=== PATIENT | male | born 1940 | race African-American/Black ===

== ENCOUNTER 2023-05-02 05:46 | Emergency (ER) | payer MEDICARE, SELFPAY ==
--- NOTE | ~2023-05-02 | XR_ITS ---
EXAMINATION: XR chest 1V portable INDICATION: Shortness of breath and nausea TECHNIQUE: Portable AP chest at 0810 hours COMPARISON: None available FINDINGS: The lungs are free of acute opacities. No pleural effusion or pneumothorax. The cardiomedia stinal silhouette is normal. Surgical changes are noted in the cervical spine. IMPRESSION: 1. No acute cardiopulmonary abnormality. Reviewed, dictated and finalized at location L.
[2023-05-02 05:43] VITALS: BP 106/62; PULSE 104; RESP 20; O2SAT 96
--- NOTE | 2023-05-02 06:06 | PC.NURSE ---
Pt given 4mg Zofran IV push upon arrival. This was a verbal order given by Dr. ruiz
--- NOTE | 2023-05-02 06:08 | PC.NURSE ---
Pt placed on 2L o2 at this time due to pt stating 89,90 % on room air. Pt repots history of sleep apnea.
[2023-05-02] MEDS: ONDANSETRON INJ 4 MG/2 ML VIAL IV PUSH ×2 (06:25→07:53)
--- NOTE | 2023-05-02 06:33 | ECG_ITS ---
Measurements Intervals [place] Rate: 97 P: 26 SD: 172 QRS: -23 QRSD: 90 T: 50 QT: 308 QTc: 392 Interpretive Statements SINUS RHYTHM WITH SINUS ARRHYTHMIA LEFT VENTRICULAR HYPERTROPHY BORDERLINE R WAVE PROGRESSION, ANTERIOR LEADS BASELINE ARTIFACT- I, II, III, AVR, AVL, AVF BORDERLINE ECG NO PREVIOUS ECG AVAILABLE FOR COMPARISON Electronically Signed On 05-02-2023 6:57:42 CDT by Blane Hess D.O.
[2023-05-02 07:08] VITALS: BP 116/57; PULSE 101; PULSE 99; RESP 16; O2SAT 100
[2023-05-02] MEDS: SODIUM CHLORIDE 0.9% IV 1,000 ML 999 ML IV CONT (07:53)
[2023-05-02] MEDS: MORPHINE SULFATE (*CRX) 4 MG/ML INJ IV PUSH (07:53)
[2023-05-02 08:22] VITALS: BP 115/76; PULSE 96; RESP 24; O2SAT 96
[2023-05-02 08:28] LABS: Hematocrit 41.5 % (42.0-52.0); Mean Corpuscular HGB Conc 31.3 g/dl (32-36); Mean Corpuscular Hemoglobin 27.6 pg (26-34); Mean Corpuscular Volume 88.1 fl (80-100); Platelet Count Result 363 k/mm3 (150-375); Red Blood Count 4.71 M/mm3 (4.6-6.20); White Blood Count 30.2 K/mm3 (4.5-10.0)
[2023-05-02 08:43] LABS: Alanine Aminotransferase 27 U/L (6-50); Albumin Level 3.7 g/dL (3.5-5.1); Alkaline Phosphatase 91 U/L (38-126); Anion Gap 3 mmol/L (8-16); Aspartate Amino Transferase 38 U/L (17-59); Bilirubin,Total 0.5 mg/dL (0.2-1.3); Blood Urea Nitrogen 82 mg/dL (9-20); Calcium 11.3 mg/dL (8.4-10.2); Carbon Dioxide 33 mmol/L (22-30); Chloride 96 mmol/L (98-107); Estimated CRCL calculation 36 ml/min; Estimated Glomerular Filt Rate 44; Glucose 156 mg/dL (65-110); Potassium 4.5 mmol/L (3.4-5.0); Sodium 132 mmol/L (137-145)
[2023-05-02 08:55] LABS: Troponin I < 0.012 ng/mL (0.000-0.034)
[2023-05-02 09:31] LABS: Band Neutrophils Percent 6 % (0-6); Lymphocytes Absolute Manual 3.32 K/mm3 (1.1-4.5); Metamyelocytes Percent 1 %; Monocytes Percent Manual 3 % (3-9); Myelocytes Percent 3 %; Neutrophils Absolute Manual 24.76 K/mm3 (1.3-6.7); Neutrophils Percent Manual 76 % (46-73); Platelet Estimate Adequate (Adequate); Total Cells Counted 100
[2023-05-02 09:33] LABS: Schistocytes None Seen (NORMAL)
[2023-05-02 10:25] VITALS: BP 108/64; PULSE 96; RESP 18; O2SAT 92
--- NOTE | 2023-05-02 10:47 | ED.GENADULT ---
HPI - General Adult General Chief complaint: Unspecified Stated complaint: BACK NECK AND CHEST PAIN Time Seen by Provider: 05/02/23 07:04 History of Present Illness HPI narrative: This is an 82-year-old male with past history of type 2 diabetes, hypertension, white blood cell count elevation of unknown cause and cervical stenosis, who presents to the emergency department with multiple complaints from his rehab facility. Reportedly, the patient complained of neck chest and back pain. On my evaluation, the patient's only complaint is pain at his buttock related to a pressure ulcer. He has no other complaints at this time. Related Data Allergies Allergy/AdvReac Type Severity Reaction Status Date / Time No Known Allergies Allergy Verified 05/02/23 07:11 Review of Systems Review of Systems: CONSTITUTIONAL: Denies fever, chills, or sweats. CARDIOVASCULAR: Denies chest pain, palpitations, or edema. RESPIRATORY: Denies cough or dyspnea. GASTROINTESTINAL: Denies abdominal pain, nausea, vomiting, or diarrhea. GENITOURINARY: Denies dysuria or hematuria. SKIN: Denies rash or itching. MUSCULOSKELETAL: Right buttock pain denies back pain, or myalgia. NEUROLOGIC: Denies headache, numbness, dizziness, or weakness. PSYCHIATRIC: Denies anxiety or depression. [facility] Past Medical History Medical History (Updated 05/02/23 @ 11:16 by Zackary Loera MD) Acute kidney injury superimposed on CKD Cervical stenosis of spine Diabetes mellitus type 2 in obese Hyperlipidemia Hypertension Social History Social History Smoking status: Former smoker Tobacco type: cigarettes Alcohol intake: never Substance use: never Substance use type: does not use Spiritual care concerns: No Exam Narrative: GENERAL: Well-developed, well-nourished, and in no acute distress. HEAD: Normocephalic, atraumatic. EYES: PERRLA and EOMI. ENT: Nares clear, no rhinorrhea or epistaxis. Mucous membranes moist. Oropharynx without tonsillar hypertrophy exudate or other lesions. NECK: Supple. No adenopathy or masses. No JVD CHEST: Clear to auscultation. No respiratory distress. No wheezes rales or rhonchi HEART: Regular rate and rhythm. No murmur heard. Normal peripheral pulses. ABDOMEN: Soft, nontender, nondistended, normal active bowel sounds. EXTREMITIES: There is an unstageable pressure ulcer to the right buttock with tenderness to palpation but no surrounding erythema, induration, bleeding or purulent drainage. Normal range of motion. No edema. SKIN: Warm, dry, no rash. NEURO: No focal deficits. Alert and oriented x3. PSYCH: Normal mood and affect. Course Course Emergency Course: 11:05 - CBC demonstrates white blood cell count elevation to 30.2, however this is chronic and currently being worked up at his rehab facility. Hemoglobin 13.0, increased from his baseline of 12. Creatinine elevated at 1.8 from 1.3 with mild hyponatremia of 132, not significantly changed from 7 days ago. I suspect the patient is dehydrated. Troponin negative. EKG not concerning for STEMI. Chest x-ray unremarkable. The patient is satting 95% on room air. On reevaluation, the patient states his pain is controlled and he has no other complaints. I discussed the patient with rehab facility nurse Yvonne, who is comfortable with return to his facility. Vital Signs Vital signs: Vital Signs Pulse Rate 104 H 05/02/23 05:43 Respiratory Rate 20 05/02/23 05:43 Blood Pressure 106/62 05/02/23 05:43 Pulse Oximetry 96 05/02/23 05:43 Oxygen Delivery Room Air 05/02/23 05:43 Pulse Rate 96 05/02/23 10:25 Respiratory Rate 18 05/02/23 10:25 Blood Pressure 108/64 05/02/23 10:25 Pulse Oximetry 92 05/02/23 10:25 Oxygen Delivery Room Air 05/02/23 05:43 Medical Decision Making [facility] Narrative Medical decision making narrative: Plan: Labs, imaging, pain control, EKG, troponin, reasse
[2023-05-02 11:36] VITALS: BP 108/63; PULSE 93; RESP 20; O2SAT 96
--- NOTE | 2023-05-02 11:46 | PC.NURSE ---
this RN attempted to call nurse to nurse report at [phone] w/out answer at this time. Will re attempt on pt departure from ER.
== END 2023-05-02 14:16 ==
PROVIDERS: Emergency Provider Preventive Medicine Aerospace Medicine; PCP Hospitalist
DX: L89.310 Pressure ulcer of right buttock, unstageable (principal); I12.9 Hypertensive chronic kidney disease with stage 1 through stage 4 chronic kidney disease, or unspecified chronic kidney disease; E11.22 Type 2 diabetes mellitus with diabetic chronic kidney disease; N18.9 Chronic kidney disease, unspecified; E78.5 Hyperlipidemia, unspecified
CPT/HCPCS: 36415; 71045; 80053; 84484; 85025; 93005; 96361; 96374; 96375; 96376; 99284; J2270; J2405; J7030

== ENCOUNTER 2023-05-03 14:30 | Inpatient (IN) | payer MEDICARE, SELFPAY ==
[2023-05-03] VITALS (34 sets, daily range): BP systolic 55–114; BP diastolic 29–76; PULSE 92–107; RESP 18–31; TEMP 37.5–37.9; O2SAT 93–100; BMI 35.9
--- NOTE | ~2023-05-03 | XR_ITS ---
EXAMINATION: XR chest 1V portable INDICATION: Unresponsive patient TECHNIQUE: Portable AP chest at 1532 hours COMPARISON: 05/02/2023 FINDINGS: The lung volumes are low. There is mild atelectasis of the lung bases. The cardiomediastina l silhouette is normal for technique. No pleural effusion or pneumothorax. IMPRESSION: 1. Mild atelectasis of the lung bases. Reviewed, dictated and finalized at location B.
--- NOTE | ~2023-05-03 | CT_ITS ---
EXAMINATION: CT chest abdomen pelvis wo con DATE: 05/03/2023 19:24 INDICATION: Vomiting. Aspiration. TECHNIQUE: Computed tomography (CT) of the chest, abdomen, and pelvis was performed without intraveno us contrast. Automated exposure control and iterative reconstruction technique were employed. The dos e-length product was 1603.78 mGy-cm. COMPARISON: None FINDINGS: CHEST CT: There is mild emphysema. There are airspace and groundglass opacities with volume loss in the lungs w ith a posterior predominance, likely atelectasis. There are trace pleural effusions. The heart size i s normal. There are coronary artery calcifications. No pericardial effusion. The nasogastric tube tip is in the stomach. There is mild thoracic spondylosis. ABDOMEN/PELVIS CT: The liver, gallbladder, spleen, pancreas, adrenal glands, and kidneys are normal. There is no urolith iasis. There is an umbilical hernia containing a loop of small bowel. Small bowel is dilated proximal to the hernia and decompressed distal to the hernia. The appendix is normal. There is calcified athe rosclerosis of the aorta and many of the other arteries. There are no pathologically enlarged lymph n odes. There is no free intraperitoneal fluid. There are injection sites in anterior abdominal wall. T he bladder is decompressed by a Roberto catheter. The prostate is mildly enlarged. There is mild lumbar spondylosis. IMPRESSION: 1. Small bowel obstruction secondary to an umbilical hernia. 2. Mild emphysema. Reviewed, dictated and finalized at location E.
--- NOTE | ~2023-05-03 | XR_ITS ---
Portable chest x-ray Comparison: 05/07/2023 Clinical History: Mechanical ventilation Findings: NG tube is in satisfactory position. There is probable mild bibasilar atelectatic change. Cardiomediastinal silhouette is stable. Bones and soft tissues are unremarkable. Impression: Probable mild bibasilar atelectatic change, otherwise clear lungs. NG tube in place. Reviewed, dictated and finalized at location . Impression: Probable mild bibasilar atelectatic change, otherwise clear lungs. NG tube in place.
--- NOTE | ~2023-05-03 | US_ITS ---
EXAMINATION: US venous doppler [facility] DATE: 05/06/2023 14:42 INDICATION: Lower limb swelling. TECHNIQUE: Grayscale ultrasound images without and with compression and Doppler ultrasound images of the bilateral lower extremity veins were obtained. COMPARISON: None. FINDINGS: There is thrombus in the right common femoral vein, profunda (deep) femoral vein, femoral vein, popli teal vein, peroneal veins, and greater saphenous vein. The visualized portions of left common femoral vein, profunda femoral vein, femoral vein, popliteal v ein, peroneal veins, posterior tibial veins, and greater saphenous vein outflow are patent. IMPRESSION: 1. Extensive deep vein thrombosis in right lower limb. I called this result to Radha Matt. Reviewed, dictated and finalized at location E.
--- NOTE | ~2023-05-03 | XR_ITS ---
EXAMINATION: XR abdomen NG/feed tube insert DATE: 05/03/2023 19:11 INDICATION: Nasogastric tube placement. TECHNIQUE: An upright view of the abdomen was obtained. COMPARISON: None. FINDINGS: The lower abdomen is excluded. There are dilated loops of small bowel. The nasogastric tube tip is in the stomach. IMPRESSION: 1. Nasogastric tube tip in the stomach. 2. Dilated small bowel, consistent with small bowel obstruction. Reviewed, dictated and finalized at location E.
--- NOTE | ~2023-05-03 | XR_ITS ---
Portable chest x-ray Comparison: 05/03/2023 Clinical History: Tube placement Findings: Endotracheal tube and NG tube are in satisfactory positions. There is minimal bibasilar esparza ziness. Cardiomediastinal silhouette is stable. Bones and soft tissues are unremarkable. Impression: Support tubes in place, as above. Minimal bibasilar haziness. Consider minimal pulmonary edema or possibly chronic interstitial disease /COPD. Reviewed, dictated and finalized at location . Impression: Support tubes in place, as above. Minimal bibasilar haziness. Consider minimal pulmonary edema or possibly chroni c interstitial disease/COPD.
--- NOTE | ~2023-05-03 | XR_ITS ---
Portable chest x-ray Comparison: 05/04/2023 Clinical History: Respiratory failure Findings: Endotracheal tube and NG tube are in satisfactory positions. Possible mild haziness in the left perihilar region. Right lung clear. Cardiomediastinal silhouette is stable. Bones and soft tis sues are unremarkable. Impression: Support tubes in place, as above. Mild haziness left perihilar region. Consider mild asymmetric pulmonary edema versus possible infecti on. Reviewed, dictated and finalized at location M. Impression: Support tubes in place, as above. Mild haziness left perihilar region. Consider mild asymmetric pulmonary edema v ersus possible infection.
--- NOTE | ~2023-05-03 | XR_ITS ---
Portable chest x-ray Comparison: 05/08/2023 Clinical History: Respiratory failure Findings: There is discoid left basilar atelectasis or scarring. Old minimal bibasilar interstitial prominence. Cardiomediastinal silhouette is stable. Bones and soft tissues are unremarkable. Impression: Discoid left basilar atelectasis or scarring. Minimal bibasilar interstitial prominence, nonspecific. Correlate for COPD and/or chronic interstitia l disease. Reviewed, dictated and finalized at location . Impression: Discoid left basilar atelectasis or scarring. Minimal bibasilar interstitial prominence, nonspecific. Correlate for COPD and/ or chronic interstitial disease.
--- NOTE | ~2023-05-03 | XR_ITS ---
XR chest 1V portable DATE: 05/07/2023 05:34 INDICATION: Mechanical ventilation TECHNIQUE: Portable AP chest on 05/07/2023 at 0514 hours COMPARISON: Portable AP chest on 05/06/2023 0521 hours FINDINGS: ET tube is not confirmed, possibly absent or possibly obscured by motion. NG tube in stomach. Bilateral basilar infiltrate and/or atelectasis. Borderline heart size. Aortic calcification, ectasia and unfolding. Minimal if any pleural effusion. No pneumothorax. No pulmonary vascular congestion is noted. IMPRESSION: No significant change of bibasilar infiltrate and/or atelectasis since 05/06/2023 Reviewed, dictated and finalized at location A. IMPRESSION: No significant change of bibasilar infiltrate and/or atelectasis si nce 05/06/2023
--- NOTE | ~2023-05-03 | XR_ITS ---
XR chest 1V portable DATE: 05/06/2023 05:41 INDICATION: Mechanical ventilation TECHNIQUE: Portable upright AP chest on 05/06/2023 at 0521 hours COMPARISON: 05/05/2023 portable AP chest FINDINGS: ET and NG tubes in satisfactory position. No central lines. Bilateral lower lung atelectasis and/or infiltrate. No pleural effusion or pulmonary vascular congest ion or pneumothorax is evident. Heart size appears borderline. Is aortic calcification, ectasia, unfolding. IMPRESSION: Bilateral lower lung atelectasis and/or infiltrate Reviewed, dictated and finalized at location A.
--- NOTE | 2023-05-03 14:42 | ED.GENADULT ---
HPI - General Adult General Chief complaint: Altered Mental Status Stated complaint: AMS Time Seen by Provider: 05/03/23 14:37 Source: EMS Mode of arrival: EMS History of Present Illness HPI narrative: 82 years old -[place] male came from [facility] with unresponsiveness and hypotension. Patient is DNR. No family member at the bedside. I was able to talk to his on the phone who agreed with central line placement and DO NOT RESUSCITATE. Physical examination showed frail, lethargic patient, awake, oriented to his name and age. Denying any symptoms. Differential diagnosis includes sepsis with hypotension, urinary tract infection, pneumonia. Work-up today include sepsis protocol which includes CBC, CMP, lactic acid, urine analysis, chest x-ray, PT, PTT, CRP. And ABG. WBC 34.4, blood gas pH showing 7.4 on 100% nonrebreather, lactic acid 7.7, urine analysis showing 1+ leukoesterase, 11?20 WBC, urinary tract infection is a possibility. Chest x-ray showed no acute abnormalities. Patient received normal saline 30 mL/kg with slight improvement of the blood pressure, right femoral central line placed, Levophed started, Levaquin, vancomycin and Zosyn started. Patient to be admitted to ICU, discussed with Dr. Oakley and the hospitalist. Diagnosis sepsis with hypotension of unknown etiology at this time. Related Data Allergies Allergy/AdvReac Type Severity Reaction Status Date / Time No Known Drug Allergies Allergy Unknown Verified 12/15/11 14:08 Course Reevaluation(s) Reevaluation #1: Currently patient is more awake, alert, answering question after improving blood pressure, at the bedside Date: 05/03/23 Time: 16:18 Consultations Consultation #1: Dr. Oakley Date: 05/03/23 Time: 16:11 Vital Signs Vital signs: Vital Signs Temperature 37.8 C H 05/03/23 14:36 Pulse Rate 107 H 05/03/23 14:36 Respiratory Rate 26 H 05/03/23 14:36 Blood Pressure 76/56 L 05/03/23 14:36 Pulse Oximetry 94 05/03/23 14:36 Oxygen Delivery Bag Valve Mask 05/03/23 14:36 Temperature 37.9 C H 05/03/23 15:08 Pulse Rate 96 05/03/23 15:08 Respiratory Rate 26 H 05/03/23 15:08 Blood Pressure 86/50 L 05/03/23 15:08 Pulse Oximetry 96 05/03/23 15:08 Oxygen Delivery Non-Rebreather Mask 05/03/23 15:00 Oxygen Flow Rate 15 05/03/23 15:00 Procedures Central Line Placement Right Femoral: Central Line Date: 05/03/23 Central Line Time: 15:54 Discussed w/ the patient/family/POA,the placement of a central venous catheter, including its clinical necessity/indication & associated potential risks, benifits and alternatives.: Yes (I had a consent from patient's on the phone to go ahead and do central line.) The patient/family/POA understand(s) and acknowledge(s) the need to proceed with central venous catheter insertion as an important element of the patient's clinical management.: Yes Time Out Performed: Yes (20) Patient Placed on Monitor/Pulse Ox: Yes Max. Sterile Barrier Technique: Caps, large sterile sheet and hand hygiene Central Line Prep: 2% chlorhexidine scrub and sterile drapes applied Technique: sterile prep/drape Ultrasound Used for Placement: No Central Line Lumen Inserted: triple Post Procedure: sutured in place Patient Tolerated Procedure: well Complications: none Medical Decision Making Medical Records Medical records reviewed: Yes I reviewed the external patient's medical records. Vital Signs Vital Signs: Vital Signs Temperature 37.8 C H 05/03/23 14:36 Pulse Rate 107 H 05/03/23 14:36 Respiratory Rate 26 H 05/03/23 14:36 Blood Pressure 76/56 L 05/03/23 14:36 Pulse Oximetry 94 05/03/23 14:36 Oxygen Delivery Bag Valve Mask 05/03/23 14:36 Temperature 37.9 C H 05/03/23 15:08 Pulse Rate 96 05/03/23 15:08 Respiratory Rate 26 H 05/03/23 15:08 Blood Pressure 86/50 L 05/03/23 15:08 Pulse Ox
--- NOTE | 2023-05-03 14:43 | ECG_ITS ---
Measurements Intervals [place] Rate: 104 P: 40 FL: 184 QRS: -5 QRSD: 89 T: 83 QT: 298 QTc: 393 Interpretive Statements SINUS TACHYCARDIA LEFT VENTRICULAR HYPERTROPHY WITH ST-T CHANGE ANTEROSEPTAL INFARCT, AGE INDETERMINATE ABNORMAL ECG NO PREVIOUS ECG AVAILABLE FOR COMPARISON Electronically Signed On 05-04-2023 8:37:11 CDT by Blane Hess D.O.
[2023-05-03] MEDS: SODIUM CHLORIDE 0.9% IV 1,000 ML 999 ML IV CONT (15:01)
[2023-05-03 15:12] LABS: Hematocrit 46.5 % (42.0-52.0); Hemoglobin 14.1 g/dL (14.0-18.0); Mean Corpuscular HGB Conc 30.3 g/dl (32-36); Mean Corpuscular Hemoglobin 26.9 pg (26-34); Mean Corpuscular Volume 88.7 fl (80-100); Mean Platelet Volume 9.8 fl (7.4-10.4); Platelet Count Result 327 k/mm3 (150-375); Red Blood Count 5.24 M/mm3 (4.6-6.20); Red Cell Distribution Width 15.2 % (11.5-14.5); White Blood Count 34.4 K/mm3 (4.5-10.0)
[2023-05-03 15:16] LABS: Appearance Urine Clear (Clear); Bacteria Urine None Seen /hpf; Bilirubin Urine Negative (Negative); Blood Urine Negative (Negative); Color Urine Yellow (Yellow); Glucose Urine UA Negative (Negative); Ketones Urine Negative (Negative); Leukocyte Esterase Ur 1+ LEU/UL (Negative); Nitrate Urine Negative (Negative); Protein Urine Negative (Negative); RBC Urine 0-2 /hpf (0-2); Specific Grav Ur 1.014 (1.001-1.035); Squamous Epithelial Cell Urine Occasional /hpf (Few); Urobilinogen Urine 0.2 mg/dL (<2.0); pH Urine 5.5 (5.0-9.0)
[2023-05-03 15:19] LABS: Add Urine Microscopic? YES
[2023-05-03 15:21] LABS: Alveolar/Arterial O2 Gradient 522.7 mmHg; Base Excess ABG 1.3 mEq/l (+/-2.0); Fractional Inspired Oxygen 100 %; HCO3 ABG 24.4 mEq/l (22.0-26.0); Oxygen Content ABG 17.1 %vol (16.0-22.0); Oxygen Saturation ABG 99.1 % (95.0-100.0); Oxyhemoglobin 97.7 % THb (90.0-100.0); PCO2 ABG 33.8 mmHg (35.0-45.0); PO2 ABG 156.5 mmHg (80.0-100.0); PO2 FiO2 Ratio Arterial Blood 1.57 %; Total Hemoglobin 12.2 g/dL (12.0-18.0); pH ABG 7.477 (7.350-7.450)
--- NOTE | 2023-05-03 15:21 | PC.NURSE ---
VORB for 30ml/kg of Normal Saline
[2023-05-03 15:25] LABS: Modified Allen's Test Pass; Site Drawn RIGHT RADIAL
[2023-05-03 15:26] LABS: Device NON-REBREATHER MASK
[2023-05-03] MEDS: SODIUM CHLORIDE 0.9% IV 1,000 ML 999 ML (15:28)
[2023-05-03 15:30] LABS: Lactic Acid Reflex 7.7 mmol/L (0.7-2.0)
[2023-05-03 15:36] LABS: Band Neutrophils Percent 3 % (0-6); Lymphocytes Absolute Manual 1.72 K/mm3 (1.1-4.5); Monocytes Absolute Manual 1.72 K/mm3 (0.1-0.90); Monocytes Percent Manual 5 % (3-9); Neutrophils Absolute Manual 30.96 K/mm3 (1.3-6.7); Neutrophils Percent Manual 87 % (46-73); Nucleated Red Blood Cells 1 %; Platelet Estimate Adequate (Adequate); Total Cells Counted 100
[2023-05-03 15:37] LABS: Hypochromasia 1+ (NORMAL); Schistocytes None Seen (NORMAL)
[2023-05-03 15:38] LABS: Anisocytosis 2+ (NORMAL)
[2023-05-03] MEDS: levoFLOXacin 750 MG/D5W 150 ML 750 MG/150 ML BAG 100 MG IVPB (16:03)
[2023-05-03 16:16] LABS: INR 1.2; Partial Thromboplastin Time 24.9 SECONDS (22.3-36.8); Prothrombin Time 15.4 Seconds (11.1-14.7)
[2023-05-03 16:18] LABS: Alanine Aminotransferase 33 U/L (6-50); Alkaline Phosphatase 74 U/L (38-126); Anion Gap 8 mmol/L (8-16); Aspartate Amino Transferase 40 U/L (17-59); Bilirubin,Total 0.4 mg/dL (0.2-1.3); Blood Urea Nitrogen 113 mg/dL (9-20); Calcium 9.8 mg/dL (8.4-10.2); Carbon Dioxide 32 mmol/L (22-30); Chloride 99 mmol/L (98-107); Estimated CRCL calculation 20 ml/min; Estimated Glomerular Filt Rate 20; Glucose 142 mg/dL (65-110); Potassium 4.6 mmol/L (3.4-5.0); Sodium 139 mmol/L (137-145)
[2023-05-03] MEDS: SODIUM CHLORIDE 0.9% IV 500 ML 999 ML (16:21)
[2023-05-03 16:28] LABS: CRP 13.5 mg/dL (<1.0); Troponin I 0.057 ng/mL (0.000-0.034)
[2023-05-03] MEDS: NOREPINEPHRINE 8 MG/D5W 250 ML 8 MG/250 ML BAG 9.38 MG IV CONT (16:40)
[2023-05-03] MEDS: ONDANSETRON INJ 4 MG/2 ML VIAL 8 MG (16:49)
[2023-05-03] MEDS: PIPERACILLIN/TAZ 4.5G/NS 100ML 4.5 GM/100 ML BAG IVPB (16:52)
[2023-05-03] MEDS: SODIUM CHLORIDE 0.9% IV 1,000 ML 150 ML IV CONT (17:57)
[2023-05-03] MEDS: CENTRAL LINE FLUSH 10 ML IV PUSH (17:57)
[2023-05-03] MEDS: VANCOMYCIN 1,250 MG/NS 250 ML 1,250 MG/250 ML BAG 166.67 MG IVPB ×2 (17:58→18:00)
--- NOTE | 2023-05-03 18:01 | ADMGEN ---
This patient, Felipe Pinedo Jr., was admitted to Intensive Care Unit-11. Patient/family oriented to hospital policies and general routines including ID bracelet, bed and alarms, visiting hours, pain management, procedures, bathroom and other care routines, personal items, smoking policy, room service/diet, and visiting hours. Information on how to activate the Rapid Response Team has been discussed. Patient/Family are encouraged to report perceived risks to care and to ask questions if they do not understand what they are told or what they should do.
[2023-05-03 18:09] LABS: Reflex Lactic Acid Yes or No Add Lactic
[2023-05-03 18:38] LABS: Lactic Acid 1.9 mmol/L (0.7-2.0)
[2023-05-03] MEDS: ONDANSETRON INJ 4 MG/2 ML VIAL IV PUSH (18:50)
[2023-05-03] MEDS: PANTOPRAZOLE SODIUM IV 40 MG VIAL IV PUSH (18:57)
[2023-05-03 19:27] LABS: Gastric Negative Control Negative; Gastric Positive Control Positive; Occult Blood Gastric Fluid Positive; pH Gastric Fluid 2 (1-8)
--- NOTE | 2023-05-03 19:57 | PC.NURSE ---
Patient arrived via stretcher from ED without issue. Assessment completed, linen changed, IVF initiated, Abx and Levophed continued. Large coffee groudn emesis noted, Karo PLANT PROTE[employer] SUPERVISOR to bedside. NG placed verified by Xray, patient transported to CT. Dr. Oakley updated by JESSICA Felton
[2023-05-03 20:15] LABS: Hematocrit 36.6 % (42.0-52.0); Hemoglobin 11.3 g/dL (14.0-18.0); Mean Corpuscular HGB Conc 30.9 g/dl (32-36); Mean Corpuscular Hemoglobin 27.2 pg (26-34); Mean Corpuscular Volume 88.2 fl (80-100); Mean Platelet Volume 9.5 fl (7.4-10.4); Platelet Count Result 270 k/mm3 (150-375); Red Blood Count 4.15 M/mm3 (4.6-6.20); Red Cell Distribution Width 15.1 % (11.5-14.5); White Blood Count 41.8 K/mm3 (4.5-10.0)
[2023-05-03 20:27] LABS: Alanine Aminotransferase 71 U/L (6-50); Albumin Level 2.9 g/dL (3.5-5.1); Alkaline Phosphatase 78 U/L (38-126); Anion Gap 8 mmol/L (8-16); Aspartate Amino Transferase 96 U/L (17-59); Bilirubin,Total 0.6 mg/dL (0.2-1.3); Blood Urea Nitrogen 110 mg/dL (9-20); Calcium 8.9 mg/dL (8.4-10.2); Carbon Dioxide 28 mmol/L (22-30); Chloride 103 mmol/L (98-107); Estimated CRCL calculation 21 ml/min; Estimated Glomerular Filt Rate 23; Glucose 166 mg/dL (65-110); Magnesium 2.3 mg/dL (1.6-2.3); Phosphorus 3.4 mg/dL (2.5-4.5); Potassium 4.6 mmol/L (3.4-5.0); Sodium 139 mmol/L (137-145)
--- NOTE | 2023-05-03 20:46 | PM.IMHP ---
H&P: HPI History of Present Illness Date/Time: 05/03/231929 Chief Complaint: Altered mental status Narrative: This is an 82-year-old male patient has a history of diabetes hypertension and previous cervical spine surgery. The patient has been at [facility]. The patient had cervical stenosis C4 through C5 with T2 cord signal change. The patient had multiple degenerative changes with foraminal narrowing and foraminal narrowing. The patient underwent a cervical diskectomy and fusion of the C4-C5 on 04/19/2023. However the patient came from [facility] today with unresponsiveness and hypotension. The patient is a DNR. The ER provider did call the family and they were okay with a central line. A central line was placed in the emergency room. His white count is noted to be 41.8. H&H is 11.3 and 36.6. After I evaluated him upon arrival to ICU. The patient had a very large emesis of very dark brown emesis. With streaks of blood. An NG-tube was placed and the patient was given Zofran. Patient's blood sugar was found to be 166. Creatinine 3.2. His lactic was 7.7. After fluids it came down to 1.9. BUN is 110. He has 1+ leukocyte esterase wbc's 11-20. The GI content was sent to lab for gastric occult blood and was found to be positive. GI has been consulted. I am unsure if the patient had been on anticoagulation however the patient has several bruises on his abdomen to make me believe that he may have been given subcu Lovenox. The patient was given 2 L of IV fluids, vancomycin, Levaquin, Zosyn, and started on Levophed drip. The rhinologist has been consulted the patient was admitted to ICU as inpatient. Date of service is 05/03/2023. Review of Systems Review of Systems: All systems reviewed & are unremarkable except as noted in HPI and below Constitutional: Constitutional: Reports as per HPI and Reports no additional constitutional complaints Eyes: Eyes: Reports as per HPI and Reports no additional eye complaints ENT: Reports system reviewed and no additional complaints, except as documented and Reports Normal hearing present Cardiovascular: Cardiovascular: Reports no additional cardiovascular complaints Respiratory: Respiratory: Reports no additional respiratory complaints and Reports no additional respiratory complaints Gastrointestinal: Gastrointestinal: Reports as per HPI and Reports no additional gastrointestinal complaints Musculoskeletal: Musculoskeletal: Reports no additional musculoskeletal complaints Integumentary/Breasts: Skin/Breast: Reports system reviewed and no additional complaints, except as docu and Reports as per HPI Neurologic: Reports system reviewed and no additional complaints, except as documented, Reports as per HPI and Reports Normal hearing present Psychiatric: Psychiatric: Reports no additional psychiatric complaints and Reports as per HPI Endocrine: Endocrine: Reports no additional endocrine complaints Hematologic/Lymphatic: Hematologic/Lymphatic: Reports no additional hematologic/lymphatic complaints Allergic/Immunologic: Allergic/Immunologic: Reports no additional allergic/immunologic complaints [facility] Past Medical History Medical History (Updated 05/03/23 @ 21:20 by Karo Morris NP) CAD (coronary artery disease) Chronic indwelling Roberto catheter Chronic kidney disease, stage 4 (severe) DM2 (diabetes mellitus, type 2) Gout Hyperlipidemia Hypertension Urinary retention Surgical History Surgical History (Updated 05/03/23 @ 21:10 by Karo Morris NP) H/O cataract extraction H/O cervical spine surgery S/P CABG x 7 Family History Family History (Updated 05/03/23 @ 21:10 by Karo Morris NP) Unknown No problems noted. Social History Social History (Updated 05/03/23 @ 21:13 by Karo Morris NP) Social History: The [facility] is but [facility]. The patient has 5 children. He is a former smoker. Code status fu
--- NOTE | 2023-05-03 21:58 | WPDCN ---
Assessment and Plan Assessment and plan (1) Sepsis associated hypotension: Code(s): A41.9 - Sepsis, unspecified organism; I95.9 - Hypotension, unspecified Status: Acute Assessment and Plan: Patient has sepsis more likely due to small bowel obstruction due to his incarcerated umbilical hernia or possible strangulation of the bowel. White blood cell count has actually [place] [address] [place] [address]. She has been fluid resuscitated and vital signs are more stable. Review of his CT scan images reveals a loop of small bowel incarcerated within an umbilical hernia without obvious evidence of pneumatosis of the bowel wall or perforation or free air. I am concerned that the source of sepsis is possible ischemic or necrotic bowel due to the incarcerated hernia. I have discussed with him at the bedside and with his via telephone that I recommend emergent exploratory laparotomy and possible bowel resection. Also discussed the low high likelihood that he will need to remain on the ventilator postoperatively at least until tomorrow morning. Urinalysis shows bacteria and leukocyte esterase in his urine which is suggestive of possible urine tract infection but I am much more suspicious of the source of his sepsis being possible compromised bowel. A proceed to the operating room urgently this evening. Risks, benefits, indications, and expected outcomes were discussed with the patient and his . They agreed to proceed with surgery. We will make a full code for now. (2) Sepsis: Code(s): A41.9 - Sepsis, unspecified organism Status: Acute Assessment and Plan: See above (3) Small bowel obstruction: Code(s): K56.609 - Unspecified intestinal obstruction, unspecified as to partial versus complete obstruction Status: Acute Assessment and Plan: See above HPI Data of Consult Date/Time: 05/03/23 21:58 Requesting Physician: Genet Castillo MD Primary Care Provider: Wagner Amanda MD Consult Narrative Reason for consult: Small-bowel obstruction secondary to incarcerated umbilical hernia, sepsis Narrative: Felipe Pinedo Jr. is a 82 year old male who was brought to the emergency room mid afternoon today after being found unresponsive and hypotensive at the [facility]. He was there because he had a cervical spine decompression surgery at [facility] in [place] at the end of the March which was about 3 weeks ago. In the emergency room he had elevated white blood cell count of greater than 30,000. He was given IV fluids and placed on a pressor after central venous access was performed with a femoral triple-lumen catheter urinalysis after Roberto catheter placement showed possible urinary tract infection. He also had some emesis and the contents for hemoccult positive. He also had acute renal failure with a creatinine up to 3.7. Lactic acid level was 7.7 on initial draw in the emergency room. Once he was up intensive care unit and somewhat stabilized his mental status improved and he was able to answer questions. He initially was a DNR but after questioning he wanted to be a full code. ICU physician then ordered a CT scan abdomen pelvis to be performed which showed an incarcerated umbilical hernia with a loop of small bowel causing a small bowel obstruction. Nasogastric tube was placed in intensive care unit and [id number] of gastric contents were aspirated. At the resuscitation with a least 3L of IV fluids his lactic acid level was decreased to 1.9. I came to the intensive care unit evaluate the patient and he was awake and answering appropriate questions appropriately but he did have some mild to moderate central abdominal tenderness. He knew the date and his present location at [facility]. I felt he was appropriate to make his own decisions and he wished to proceed with all necessary procedures to address his issues including emergent surgery this even
[2023-05-03 21:59] LABS: Hematocrit 36.8 % (42.0-52.0); Hemoglobin 11.4 g/dL (14.0-18.0)
--- NOTE | 2023-05-03 21:59 | PC.NURSE ---
Alerted Dr Oakley with CT results. Requested surgurey consult. Alerted Dr Pérez who is now at bedside. Preparing for trip to OR. Family updated by Surgeon.
--- NOTE | 2023-05-03 22:06 | WPDANESEPP ---
Anes - Eval Pre Procedure Procedure: Exploratory laparotomy Date/Time: 05/03/23 22:06 Surgeon: Beto Preop Diagnosis: SBO Pre Op Diagnosis: Sepsis with hypotension Patient Data Age: 82 Gender: M Height: 1.78 m Weight: 113.6 kg Last Vital Signs Temp 100 F H 05/03/23 20:00 Pulse 104 H 05/03/23 20:00 Resp 20 05/03/23 20:00 BP 97/75 L 05/03/23 20:00 Pulse Ox 98 05/03/23 20:00 O2 Del Method Nasal Cannula 05/03/23 20:00 O2 Flow Rate 5 05/03/23 20:00 Allergies Allergy/AdvReac Type Severity Reaction Status Date / Time No Known Drug Allergies Allergy Unknown Verified 12/15/11 14:08 Laboratory Tests 05/03/23 05/03/23 05/03/23 14:54 15:00 15:51 WBC 34.4 H K/mm3 (4.5-10.0) RBC 5.24 M/mm3 (4.6-6.20) Hgb 14.1 g/dL (14.0-18.0) Hct 46.5 % (42.0-52.0) MCV 88.7 fl (80-100) MCH 26.9 pg (26-34) MCHC 30.3 L g/dl (32-36) RDW 15.2 H % (11.5-14.5) Plt Count 327 k/mm3 (150-375) MPV 9.8 fl (7.4-10.4) Immature Gran % (Auto) Not Reportable Neut % (Auto) Not Reportable Lymph % (Auto) Not Reportable [place] % (Auto) Not Reportable Eos % (Auto) Not Reportable Baso % (Auto) Not Reportable Lymph # (Auto) Not Reportable [place] # (Auto) Not Reportable Eos # (Auto) Not Reportable Baso # (Auto) Not Reportable Abs Immat Gran (auto) Not Reportable Absolute Neuts (auto) Not Reportable Absolute Nucleated RBC Not Reportable Total Counted 100 Neutrophils % (Manual) 87 H % (46-73) Band Neutrophils % 3 % (0-6) Lymphocytes % (Manual) 5.0 L % (18-44) Monocytes % (Manual) 5 % (3-9) Nucleated RBC % Not Reportable Abs Neuts (Manual) 30.96 H K/mm3 (1.3-6.7) Abs Lymphs (Manual) 1.72 K/mm3 (1.1-4.5) Abs Monocytes (Manual) 1.72 H K/mm3 (0.1-0.90) Nucleated RBCs 1 % Platelet Estimate Adequate (Adequate) Hypochromasia 1+ (NORMAL) Anisocytosis 2+ (NORMAL) Schistocytes None seen (NORMAL) PT INR APTT Puncture Site Right radial ABG pH 7.477 H (7.350-7.450) ABG pCO2 33.8 L mmHg (35.0-45.0) ABG pO2 156.5 H mmHg (80.0-100.0) ABG PO2/FiO2 Ratio 1.57 % ABG HCO3 24.4 mEq/l (22.0-26.0) ABG O2 Saturation 99.1 % (95.0-100.0) ABG O2 Content 17.1 %vol (16.0-22.0) ABG Base Excess 1.3 mEq/l (+/-2.0) A-a Gradient 522.7 mmHg Oxyhemoglobin 97.7 % THb (90.0-100.0) Total Hemoglobin 12.2 g/dL (12.0-18.0) O2 Delivery Device Non-rebreather mask O2 Liters/Min 15.0 LPM FiO2 100 % Sodium 139 mmol/L (137-145) Potassium 4.6 mmol/L (3.4-5.0) Chloride 99 mmol/L (98-107) Carbon Dioxide 32 H mmol/L (22-30) Anion Gap 8 mmol/L (8-16) BUN 113 H mg/dL (9-20) Creatinine 3.60 H mg/dL (0.7-1.3) Estim Creat Clear Calc 20 ml/min Estimated GFR 20 L (59 - ) Glucose 142 H mg/dL (65-110) Lactic Acid 7.7 H* mmol/L (0.7-2.0) Calcium 9.8 mg/dL (8.4-10.2) Phosphorus Magnesium Total Bilirubin 0.4 mg/dL (0.2-1.3) AST 40 U/L (17-59) ALT 33 U/L (6-50) Alkaline Phosphatase 74 U/L (38-126) Troponin I 0.057 H* ng/mL (0.000-0.034) C-Reactive Protein 13.5 H mg/dL (<1.0) Total Protein 6.0 L g/dL (6.3-8.2) Albumin 3.0 L g/dL (3.5-5.1) Urine Color Yellow (Yellow) Urine Appearance
[2023-05-03 22:11] LABS: INR 1.2; Partial Thromboplastin Time 25.3 SECONDS (22.3-36.8); Prothrombin Time 15.5 Seconds (11.1-14.7)
--- NOTE | 2023-05-03 23:02 | P.PNAN_ITS ---
Anes - Eval Final PreProcedure Day of Procedure 05/03/23 23:02 Patient weight: obese Heart: regular rate and rhythm Lungs: clear to auscultation Airway: Mallampati scale class III and special considerations poor extension and poor dentition Neurological: alert and oriented Last oral intake: >/= 8 hours ASA classification: IV Emergent: yes Anesthetic plan: proceed Anesthesia type and monitoring: general ETT and standard monitoring Results Review: All pre-operative results and documents have been reviewed as part of the pre- operative evaluation. Informed Consent: The patient's anesthetic plan and its attendant risks and benefits were discussed with the patient/family/POA. Questions were solicited and answers provided to the satisfaction of the patient/family/POA.
--- NOTE | 2023-05-03 23:33 | P.PCNANE_ITS ---
Arterial Cath Proc Note Consent: I have discussed with the patient/family/POA, the non-emergent placement of an arterial catheter, including its clinical necessity/indication and associated potential risks and complications. The patient/family/POA and/or understand(s) and acknowledge(s) the need to proceed with the arterial catheter insertion as an important element of the patient's clinical management. Given emergent patient conditions, temporal constraints may have precluded informed consent. Time-Out: A pre-procedural Time-Out was completed immediately before starting the procedure and confirmed: Patient Identification, Site, Procedure, Patient Position and the Availability of Requisite Equipment. Procedure Note Patient position: supine Insertion site: left radial Method of insertion: ultrasound-guided Diamond Sizer And Grader prep: sterile gloves, mask and hat Site prep: chlorahexadine Skin anesthesia: general anesthesia Gauge: 20 gauge Length (cm): 4.4 cm Closure/Dressing: antimicrobial disc and tegaderm Complications: None immediately noted/suspected.
[2023-05-04] VITALS (147 sets, daily range): BP systolic 73–165; BP diastolic 29–99; PULSE 63–101; RESP 15–23; TEMP 36.6–37.7; O2SAT 93–100; BMI 35.4
[2023-05-04] MEDS: BUPIVACAINE/EPINEPHRINE 0.25% 50 ML VIAL 30 ML INFILTRATE (00:01)
--- NOTE | 2023-05-04 00:11 | W.PM.PROC2 ---
Procedure Note - Detailed Date of Procedure 05/03/23 Pre-op Diagnosis Sepsis with hypotension, small-bowel obstruction secondary to incarcerated ventral hernia Post-op Diagnosis Same Procedure Performed Exploratory laparotomy with open repair of incarcerated ventral hernia without mesh Surgeon Brad Pérez MD Anesthesia General Indications Patient is a 82-year-old gentleman who was admitted to the hospital with hypotension and altered mental status. He was noted to be septic. He was recessed and IV fluids and eventually a CT scan abdomen pelvis was performed showing a incarcerated ventral umbilical hernia with small bowel obstruction. [place] [address] and was feared that he had bowel compromise or perhaps even strangulated bowel due to the hernia causing sepsis. He is being brought to the room now for an emergent exploratory laparotomy and possible bowel resection. Findings There was a tight constriction of a loop of small bowel within a ventral hernia defect at the umbilicus measuring about 3.5cm in diameter. The loop of bowel within this hernia sac was totally viable with just some minimal ischemic changes. Remainder of the small bowel was viable without adhesions. Description of Procedure After informed consent was obtained patient brought to the operating room was placed supine position and then general endotracheal anesthesia was administered. A left radial arterial line was placed by Anesthesia. The abdomen was then prepped and draped in usual sterile fashion. A time-out was then performed correctly identifying the patient as well as procedure to be performed. He was already on scheduled IV antibiotics. I started by making a midline incision starting about 5cm above the umbilicus extending into about 5cm below the umbilicus. Dissection carried down through the dermis skin with a scalpel then with electrocautery and dissected down to the hernia sac at the umbilicus. I then very carefully open the hernia sac with sharp scissors and entered the abdomen. I then opened the fascia to mesh length of the skin incision. I could see a loop of small bowel entering into the ventral hernia defect which had a tight constriction. The small bowel coming to the incarcerated hernia was dilated and the small bowel coming out of the hernia sac was decompressed. I then opened the hernia sac further and released the tight fascial constriction with electrocautery. Then examined the small bowel was completely viable without any lasting compromise. Initially there is just a minimal amount of ischemia which quickly resolved after the constriction was released. The loop of small bowel was then reduced back into the abdomen. I then ran the small bowel proximally and distally and there was no evidence of any other adhesions causing a bowel obstruction. I then excised the way and resected the close skin and the hernia sac with electrocautery. I then proceeded to close the incision utilizing a looped 1. PDS suture at each end. The hernia defect was closed primarily with closure of the midline fascia without mesh. Once the fascial sutures met in the midportion of the incision there were then tied together. I then irrigated out the incision sterile saline solution hemostasis was good. I then closed the subcutaneous tissue utilizing interrupted 3-0 Vicryl sutures. The skin edges were then approximated utilizing skin waleska. The patient tolerated the procedure well no complications. All sponges, needles, and instrument counts were correct at the end procedure. EBL was _10__cc. The patient was awakened and taken to recovery in stable and satisfactory condition. Implants None Estimated Blood Loss 10 Drains No Packing No Pathology Yes (Hernia sac and umbilical skin to pathology) Complications No immediate complications Condition Other (Guarded) Disposition ICU (Patient taken directly from the operating room back to the intensive care unit
[2023-05-04] MEDS: PIPERACILLN/TAZ 3.375GM/NS50ML 3.375 GM/50 ML BAG IVPB ×2 (01:04→06:33)
[2023-05-04] MEDS: INSULIN ASPART (*BKC) 100 UNITS/ML SUB-Q ×2 (01:04→17:01)
[2023-05-04 01:12] LABS: Anion Gap 2 mmol/L (8-16); Blood Urea Nitrogen 110 mg/dL (9-20); Carbon Dioxide 32 mmol/L (22-30); Chloride 101 mmol/L (98-107); Estimated CRCL calculation 21 ml/min; Estimated Glomerular Filt Rate 23; Glucose 196 mg/dL (65-110); Potassium 4.9 mmol/L (3.4-5.0); Sodium 135 mmol/L (137-145)
[2023-05-04 01:21] LABS: Hematocrit 35.5 % (42.0-52.0); Hemoglobin 10.9 g/dL (14.0-18.0); Mean Corpuscular HGB Conc 30.7 g/dl (32-36); Mean Corpuscular Hemoglobin 27.3 pg (26-34); Mean Corpuscular Volume 88.8 fl (80-100); Mean Platelet Volume 9.8 fl (7.4-10.4); Platelet Count Result 269 k/mm3 (150-375); White Blood Count 43.1 K/mm3 (4.5-10.0)
[2023-05-04] MEDS: MIDAZOLAM 100MG/NS 100ML(*CRX) 100 MG/100 ML BAG IV CONT (01:24)
[2023-05-04] MEDS: FENTANYL 2,500MCG/NS250ML(*CRX 2,500 MCG/250 ML BAG IV CONT (01:25)
[2023-05-04] MEDS: CENTRAL LINE FLUSH 10 ML IV PUSH ×5 (01:29→20:10)
[2023-05-04 01:32] LABS: Alveolar/Arterial O2 Gradient 379.7 mmHg; Base Excess ABG 1.5 mEq/l (+/-2.0); Fractional Inspired Oxygen 70 %; HCO3 ABG 27.4 mEq/l (22.0-26.0); Oxygen Content ABG 15.5 %vol (16.0-22.0); Oxygen Saturation ABG 92.5 % (95.0-100.0); Oxyhemoglobin 90.7 % THb (90.0-100.0); PO2 ABG 66.7 mmHg (80.0-100.0); PO2 FiO2 Ratio Arterial Blood 0.95 %; Total Hemoglobin 12.1 g/dL (12.0-18.0); pH ABG 7.366 (7.350-7.450)
[2023-05-04 01:33] LABS: Arterial Blood Gas Vent Mode CMV; Arterial Blood Gas Ventilator rate 20 /MIN; Device VENTILATOR; Modified Allen's Test Pass; Site Drawn RIGHT RADIAL
[2023-05-04 01:34] LABS: Arterial Blood Gas PEEP 5 cmH2O; Arterial Blood Gas Tidal Volume 450 ml
[2023-05-04 01:40] LABS: Band Neutrophils Percent 4 % (0-6); Lymphocytes Absolute Manual 3.44 K/mm3 (1.1-4.5); Monocytes Absolute Manual 2.15 K/mm3 (0.1-0.90); Monocytes Percent Manual 5 % (3-9); Neutrophils Absolute Manual 37.49 K/mm3 (1.3-6.7); Neutrophils Percent Manual 83 % (46-73); Nucleated Red Blood Cells 1 %; Ovalocytes 1+ (NORMAL); Platelet Estimate Adequate (Adequate); Schistocytes None Seen (NORMAL); Total Cells Counted 100
[2023-05-04] MEDS: ALBUTEROL SULFATE NEB 2.5 MG/3 ML INH INHALATION ×4 (01:40→20:04)
[2023-05-04] MEDS: IPRATROPIUM BR 0.02% INH SOLN 0.5 MG/2.5 ML VIAL INHALATION ×4 (01:40→20:04)
[2023-05-04 01:41] LABS: Atypical Lymphocytes Present
[2023-05-04] MEDS: VASOPRESSIN INJ 100 UNITS in DEXTROSE 5% 95 ML IV CONT (01:56)
[2023-05-04] MEDS: NOREPINEPHRINE 8 MG/D5W 250 ML 8 MG/250 ML BAG 48.75 MG IV CONT (02:58)
[2023-05-04 04:50] LABS: Basophils Absolute Auto 0.2 K/mm3 (0.0-0.1); Basophils Percent Auto 0.4 % (0.2-1.2); Hematocrit 34.8 % (42.0-52.0); Hemoglobin 10.7 g/dL (14.0-18.0); Immature Granulocyte Absolute 1.44 K/mm3 (0.00-0.031); Immature Granulocyte Percent A 4.2 % (0-0.5); Lymphocytes Absolute Auto 1.58 K/mm3 (0.9-3.2); Lymphocytes Percent Auto 4.6 % (18.3-44.2); Mean Corpuscular HGB Conc 30.7 g/dl (32-36); Mean Corpuscular Hemoglobin 27.4 pg (26-34); Mean Platelet Volume 9.4 fl (7.4-10.4); Monocytes Absolute Auto 1.9 K/mm3 (0.1-0.6); Monocytes Percent Auto 5.4 % (2.6-8.5); Neutrophils Absolute Auto 29.3 K/mm3 (1.3-6.7); Neutrophils Percent Auto 85.4 % (45.5-73.1); Platelet Count Result 244 k/mm3 (150-375); Red Blood Count 3.91 M/mm3 (4.6-6.20); Red Cell Distribution Width 15.2 % (11.5-14.5); White Blood Count 34.4 K/mm3 (4.5-10.0)
[2023-05-04 05:00] LABS: Hemoglobin A1C 6.6 % (<5.7)
[2023-05-04 05:01] LABS: Alanine Aminotransferase 77 U/L (6-50); Albumin Level 2.7 g/dL (3.5-5.1); Alkaline Phosphatase 66 U/L (38-126); Anion Gap 4 mmol/L (8-16); Aspartate Amino Transferase 101 U/L (17-59); Bilirubin,Total 0.5 mg/dL (0.2-1.3); Blood Urea Nitrogen 113 mg/dL (9-20); Calcium 8.9 mg/dL (8.4-10.2); Carbon Dioxide 28 mmol/L (22-30); Chloride 103 mmol/L (98-107); Estimated CRCL calculation 23 ml/min; Estimated Glomerular Filt Rate 25; Glucose 218 mg/dL (65-110); Lactic Acid Reflex 1.1 mmol/L (0.7-2.0); Magnesium 2.2 mg/dL (1.6-2.3); Potassium 4.9 mmol/L (3.4-5.0); Sodium 135 mmol/L (137-145)
[2023-05-04 05:33] LABS: Thyroid Stimulating Hormone Reflex 0.648 uIU/mL (0.465-4.68)
[2023-05-04 06:46] LABS: Glucose Point of Care 201 mg/dl (65-105)
[2023-05-04 06:46] LABS: Glucose Point of Care 180 mg/dl (65-105)
[2023-05-04] MEDS: SODIUM CHLORIDE 0.9% IV 1,000 ML 150 ML IV CONT ×2 (06:47→06:50)
[2023-05-04] MEDS: NOREPINEPHRINE 8 MG/D5W 250 ML 8 MG/250 ML BAG 43.13 MG IV CONT (06:51)
--- NOTE | 2023-05-04 08:26 | WPDCNINT ---
Assessment and Plan Assessment and plan (1) Acute respiratory failure: Code(s): J96.00 - Acute respiratory failure, unspecified whether with hypoxia or hypercapnia Status: Acute Assessment and Plan: Acute respiratory failure most likely related to anesthesia, status post surgery -Intubated at the time of surgery -currently on CMV mode of ventilation, peep of 5 and 70% FiO2 -chest x-ray this morning: Minimal bibasilar haziness. Consider minimal pulmonary edema or possibly chronic interstitial disease/COPD. -ABGs reviewed, will increase tidal volume to 500 ml -Continue bronchodilators -wean FiO2 to maintain sats greater than 92% -sedated with fentanyl and Versed infusion, have asked the bedside RN to wean sedation slowly to evaluate neurological status -daily sedation vacation and spontaneous breathing trial (2) Septic shock: Code(s): A41.9 - Sepsis, unspecified organism; R65.21 - Severe sepsis with septic shock Status: Acute Assessment and Plan: 05/03;Patient presented with altered mental status, hypotensive, lactic acidosis, acute on chronic kidney disease -received 3 L of IV fluid bolus in the ER, despite which patient remained hypotensive, right femoral vein central line was inserted -patient started on Levophed, vasopressin was added -maintain MAP > 65 mmHg at all times when adequate end organ perfusion -will add stress dose steroids -urine output has improved, -lactic acid has normalized -continue maintenance IV fluid -patient was started on vancomycin, Zosyn and levofloxacin (05/03) -will discontinue levofloxacin (3) Small bowel obstruction: Code(s): K56.609 - Unspecified intestinal obstruction, unspecified as to partial versus complete obstruction Status: Acute Assessment and Plan: Patient had large emesis in the ICU on 05/03/2023, CT scan of the abdomen and pelvis showed small-bowel obstruction secondary to incarcerated ventral hernia status post ex lap with open repair of incarcerated ventral hernia without mesh. -continue antibiotics as above -continue maintenance IV fluids -surgery following the patient (4) Obssv-sy-agvvljg kidney injury: Code(s): N17.9 - Acute kidney failure, unspecified; N18.9 - Chronic kidney disease, unspecified Status: Acute Assessment and Plan: Patient presented with acute on chronic kidney disease, unknown baseline creatinine -patient has been adequately fluid-resuscitated, -On maintenance IV fluid -creatinine improving with adequate urine output -monitor renal function, electrolytes and urine output (5) Pressure ulcer: Code(s): L89.90 - Pressure ulcer of unspecified site, unspecified stage Status: Acute Assessment and Plan: Unstageable right buttock pressure also -wound care has been consulted (6) Hypertension: Code(s): I10 - Essential (primary) hypertension Status: Acute Assessment and Plan: Will hold all antihypertensive secondary to septic shock (7) DM2 (diabetes mellitus, type 2): Code(s): E11.9 - Type 2 diabetes mellitus without complications Status: Acute Assessment and Plan: Continue sliding scale insulin and Accu-Cheks (8) GI bleed: Code(s): K92.2 - Gastrointestinal hemorrhage, unspecified Status: Acute Assessment and Plan: Gastric occult blood was positive -continue Protonix IV q.12 hours -in consult (9) Anemia: Code(s): D64.9 - Anemia, unspecified Status: Acute Assessment and Plan: Anemia likely secondary to GI bleed, will check iron levels, vitamin B12 and folic acid -hemoglobin trending down could be dilutional -continue to monitor H&H q.12 hours -transfuse if hemoglobin < 7.0 Plan DVT prophylaxis: SCD, will hold Lovenox due to possible GI bleed and anemia Stress ulcer prophylaxis: Protonix IV q.12 hours Nutrition: NPO Code Status: Full code Critical Care Time Spent: 51 minutes Due to a high prob
--- NOTE | 2023-05-04 09:28 | PM.PNGS ---
Progress Note: A&P Assessment and Plan (1) Small bowel obstruction: Code(s): K56.609 - Unspecified intestinal obstruction, unspecified as to partial versus complete obstruction Status: Acute Assessment and Plan: Small-bowel obstruction is now resolved after repair of the incarcerated hernia emergently last evening. He remains in the intensive care unit intubated and sedated. Management as per hospitalist. He does wound on his left buttock cheek which seems to be fairly superficial. Wound care nurses are evaluating and treating with topical debridement agents. If white count does not continue to improve then may consider operative debridement of the wound. (2) Septic shock: Code(s): A41.9 - Sepsis, unspecified organism; R65.21 - Severe sepsis with septic shock Status: Acute Assessment and Plan: Continue IV antibiotics as per hospitalist. Subjective Subjective Date/Time Seen: 05/04/23 09:28 Post Op day: 1 (Status post open repair of incarcerated ventral hernia resulting in small bowel obstruction and sepsis.) Interval history: Patient remains intubated and sedated intensive care unit today. Pressor requirements have decreased overnight. Discussed with nutrition and dietetics instructor and he plans on hopefully slow weaning today but remained intubated today. White blood cell count is down to 37,000 from 41,000. Review of Systems Review of Systems: The remainder of the review of systems to include constitutional, HEENT, cardiovascular, respiratory, GI, , integumentary, musculoskeletal, endocrine, immunologic, hematologic, psychiatric, and neurologic are all negative except for which is mentioned above in the HPI. Exam GI: Other: Abdomen is soft and nondistended. Midline incision is intact without redness or drainage. [place] in place. Hypoactive bowel sounds. Objective Data Vital Signs Vital Signs: Vital Signs - 24 hr 05/03/23 14:36 05/03/23 14:50 05/03/23 14:50 Temperature 37.8 C H Pulse Rate 107 H 102 H Respiratory Rate 26 H 30 H Blood Pressure 76/56 L Pulse Oximetry 94 Oxygen Delivery Bag Valve Mask Oxygen Flow Rate Fraction of Inspired Oxygen 05/03/23 14:45 05/03/23 15:08 05/03/23 15:00 Temperature 37.9 C H Pulse Rate 96 Respiratory Rate 26 H Blood Pressure 86/50 L Pulse Oximetry 97 96 96 Oxygen Delivery Non-Rebreather Mask Non-Rebreather Mask Oxygen Flow Rate 15 15 Fraction of Inspired Oxygen 05/03/23 15:35 05/03/23 16:40 05/03/23 16:45 Temperature 37.7 C H Pulse Rate 97 98 97 Respiratory Rate 21 H Blood Pressure 86/46 L 86/54 L 87/51 L Pulse Oximetry 99 Oxygen Delivery Oxygen Flow Rate Fraction of Inspired Oxygen 05/03/23 15:03 05/03/23 15:05 05/03/23 15:07 Temperature 37.8 C H 37.8 C H 37.9 C H Pulse Rate 99 100 97 Respiratory Rate 31 H 25 H 27 H Blood Pressure 60/44 L 55/29 L 70/33 L Pulse Oximetry 100 99 99 Oxygen Delivery Oxygen Flow Rate Fraction of Inspired Oxygen 05/03/23 15:14 05/03/23 15:16 05/03/23 15:22 Temperature 37.9 C H 37.9 C H 37.9 C H Pulse Rate 95 97 94 Respiratory Rate 27 H 25 H 21 H Blood Pressure 74/48 L 76/54 L 86/33 L Pulse Oximetry 98 99 97 Oxygen Delivery Oxygen Flow Rate Fraction of Inspired Oxygen 05/03/23 15:38 05/03/23 15:47 05/03/23 15:52 Temperature 37.7 C H 37.7 C H 37.6 C H Pulse Rate 96 107 H 96 Respiratory Rate 20 22 H 23 H Blood Pressure 69/51 L 91/61 L 109/61 Pulse Oximetry 100 99 97 Oxygen Delivery Oxygen Flow Rate Fraction of Inspired Oxygen 05/03/23 16:02 05/03/23 16:06 05/03/23 16:46 Temperature 37.6 C 37.5 C 37.5 C Pulse Rate 97 92 99 Respiratory Rate 24 H 22 H 21 H Blood Pressure 85/42 L 95/76 L 87/51 L Pulse Oximetry 99 97 94 Oxygen Delivery Oxygen Flow Rate Fraction of Inspired Oxygen 05/03/23 16:51 05/03/23 17:05 05/03/23 17:10 Temperature 37.5 C Pulse Rate 99 98 96 Respiratory Rate 23
[2023-05-04] MEDS: MINERAL OIL/WHITE PETROLATUM OINTMENT 1 APPLIC EACH EYE ×2 (09:31→20:10)
[2023-05-04] MEDS: HYDROCORTISONE SODIUM SUCCINATE 100 MG/2 ML VIAL IV PUSH ×3 (09:35→22:19)
--- NOTE | 2023-05-04 09:57 | P.PNIM_ITS ---
Progress Note: A&P Assessment and Plan (1) Acute respiratory failure: Code(s): J96.00 - Acute respiratory failure, unspecified whether with hypoxia or hypercapnia Status: Acute Assessment and Plan: Acute respiratory failure most likely related to anesthesia, status post surgery -Intubated at the time of surgery -currently on CMV mode of ventilation, peep of 5 and 70% FiO2 -chest x-ray this morning: Minimal bibasilar haziness. Consider minimal pulmonary edema or possibly chronic interstitial disease/COPD. -ABGs reviewed, will increase tidal volume to 500 ml -Continue bronchodilators -wean FiO2 to maintain sats greater than 92% -sedated with fentanyl and Versed infusion, have asked the bedside RN to wean sedation slowly to evaluate neurological status -daily sedation vacation and spontaneous breathing trial (2) Septic shock: Code(s): A41.9 - Sepsis, unspecified organism; R65.21 - Severe sepsis with septic shock Status: Acute Assessment and Plan: 05/03;Patient presented with altered mental status, hypotensive, lactic acidos is, acute on chronic kidney disease -received 3 L of IV fluid bolus in the ER, despite which patient remained hypotensive, right femoral vein central line was inserted -patient started on Levophed, vasopressin was added -maintain MAP > 65 mmHg at all times when adequate end organ perfusion -will add stress dose steroids -urine output has improved, -lactic acid has normalized -continue maintenance IV fluid -patient was started on vancomycin, Zosyn and levofloxacin (05/03) -will discontinue levofloxacin (3) Small bowel obstruction: Code(s): K56.609 - Unspecified intestinal obstruction, unspecified as to partial versus complete obstruction Status: Acute Assessment and Plan: Patient had large emesis in the ICU on 05/03/2023, CT scan of the abdomen and pelvis showed small-bowel obstruction secondary to incarcerated ventral hernia status post ex lap with open repair of incarcerated ventral hernia without mesh. -continue antibiotics as above -continue maintenance IV fluids -surgery following the patient (4) Nmbfy-ks-kquajgk kidney injury: Code(s): N17.9 - Acute kidney failure, unspecified; N18.9 - Chronic kidney disease, unspecified Status: Acute Assessment and Plan: Patient presented with acute on chronic kidney disease, unknown baseline creatinine -patient has been adequately fluid-resuscitated, -On maintenance IV fluid -creatinine improving with adequate urine output -monitor renal function, electrolytes and urine output (5) Pressure ulcer: Code(s): L89.90 - Pressure ulcer of unspecified site, unspecified stage Status: Acute Assessment and Plan: Unstageable right buttock pressure also -wound care has been consulted (6) Hypertension: Code(s): I10 - Essential (primary) hypertension Status: Acute Assessment and Plan: Will hold all antihypertensive secondary to septic shock (7) DM2 (diabetes mellitus, type 2): Code(s): E11.9 - Type 2 diabetes mellitus without complications Status: Acute Assessment and Plan: Continue sliding scale insulin and Accu-Cheks (8) GI bleed: Code(s): K92.2 - Gastrointestinal hemorrhage, unspecified Status: Acute Assessment and Plan: Gastric occult blood was positive -continue Protonix IV q.12 hours -in consult (9) Anemia: Code(s): D64.9 - Anemia, unspecified Status: Acute Assessment and Plan: Anemia likely secondary to GI bleed, will check iron levels, vitamin B12 and
[2023-05-04 09:58] LABS: Iron 26 ug/dL (49-181)
[2023-05-04 10:07] LABS: Percent Iron Saturation 13 % (20-50)
[2023-05-04 10:44] LABS: Alveolar/Arterial O2 Gradient 288.6 mmHg; Base Excess ABG -0.3 mEq/l (+/-2.0); Fractional Inspired Oxygen 60 %; HCO3 ABG 24.3 mEq/l (22.0-26.0); Oxygen Content ABG 16.7 %vol (16.0-22.0); Oxygen Saturation ABG 97.3 % (95.0-100.0); PCO2 ABG 39.7 mmHg (35.0-45.0); PO2 ABG 95.5 mmHg (80.0-100.0); PO2 FiO2 Ratio Arterial Blood 1.59 %; Total Hemoglobin 12.3 g/dL (12.0-18.0); pH ABG 7.405 (7.350-7.450)
[2023-05-04 10:50] LABS: Device VENTILATOR; Site Drawn ARTLINE
[2023-05-04 10:51] LABS: Arterial Blood Gas PEEP 5 cmH2O; Arterial Blood Gas Tidal Volume 500 ml; Arterial Blood Gas Vent Mode CMV; Arterial Blood Gas Ventilator rate 20 /MIN
[2023-05-04 10:57] LABS: Folic Acid 10.6 ng/mL (2.76->20)
[2023-05-04] MEDS: PANTOPRAZOLE SODIUM IV 40 MG VIAL IV PUSH (11:42)
[2023-05-04] MEDS: COLLAGENASE OINT 30 GM TUBE 1 APPLIC TOPICAL (11:43)
[2023-05-04] MEDS: PIPERACILLIN/TAZ 2.25G/NS 50ML 2.25 GM/50 ML BAG IVPB ×2 (11:43→17:00)
[2023-05-04 12:03] LABS: Glucose Point of Care 183 mg/dl (65-105)
--- NOTE | 2023-05-04 13:57 | WPDANESPN ---
Anes - Prog Note Post-Op Date/Time: 05/04/23 13:57 Cardiovascular status: other (on vasopressors to maintain hemodynamics) Respiratory status: other (remains intubated) Airway patency: other (remains intubated) Mental status: other (unable to assess d/t sedation) Post-Op hydration status: normal Vital Signs: Last Vital Signs Temp 36.8 C 05/04/23 12:45 Pulse 70 05/04/23 13:18 Resp 20 05/04/23 13:18 BP 110/59 L 05/04/23 12:01 Pulse Ox 97 05/04/23 13:17 O2 Del Method Mechanical Ventilation 05/04/23 13:17 O2 Flow Rate 5 05/03/23 20:00 FiO2 50 05/04/23 13:17 Pain Score (VAS): unable to assess I/O: Intake & Output 05/03/23 05/04/23 05/04/23 23:59 07:59 15:59 Intake Total 2500 2300 Output Total 900 2500 Balance 1600 -200 Laboratory Tests 05/04/23 04:34 05/04/23 04:34 05/03/23 05/03/23 05/03/23 14:54 15:00 15:51 WBC 34.4 H RBC 5.24 Hgb 14.1 Hct 46.5 MCV 88.7 MCH 26.9 MCHC 30.3 L RDW 15.2 H Plt Count 327 MPV 9.8 Immature Gran % (Auto) Not Reportable Neut % (Auto) Not Reportable Lymph % (Auto) Not Reportable [place] % (Auto) Not Reportable Eos % (Auto) Not Reportable Baso % (Auto) Not Reportable Lymph # (Auto) Not Reportable [place] # (Auto) Not Reportable Eos # (Auto) Not Reportable Baso # (Auto) Not Reportable Abs Immat Gran (auto) Not Reportable Absolute Neuts (auto) Not Reportable Absolute Nucleated RBC Not Reportable Total Counted 100 Neutrophils % (Manual) 87 H Band Neutrophils % 3 Lymphocytes % (Manual) 5.0 L Monocytes % (Manual) 5 Nucleated RBC % Not Reportable Abs Neuts (Manual) 30.96 H Abs Lymphs (Manual) 1.72 Abs Monocytes (Manual) 1.72 H Nucleated RBCs 1 Atypical Lymphocytes Platelet Estimate Adequate Hypochromasia 1+ Anisocytosis 2+ Ovalocytes Schistocytes None seen PT INR APTT Puncture Site Right radial ABG pH 7.477 H ABG pCO2 33.8 L ABG pO2 156.5 H ABG PO2/FiO2 Ratio 1.57 ABG HCO3 24.4 ABG O2 Saturation 99.1 ABG O2 Content 17.1 ABG Base Excess 1.3 A-a Gradient 522.7 Oxyhemoglobin 97.7 Total Hemoglobin 12.2 O2 Delivery Device Non-rebreather mask O2 Liters/Min 15.0 Minute Volume Vent Rate Vent Mode FiO2 100 Tidal Volume PEEP Peak Inspir Pressure Pressure Support Sodium 139 Potassium 4.6 Chloride 99 Carbon Dioxide 32 H Anion Gap 8 BUN 113 H Creatinine 3.60 H Estim Creat Clear Calc 20 Estimated GFR 20 L Glucose 142 H POC Capillary Glucose Hemoglobin A1c Lactic Acid 7.7 H* Calcium 9.8 Phosphorus Magnesium Iron TIBC % Saturation Total Bilirubin 0.4 AST 40 ALT 33 Alkaline Phosphatase 74 Troponin I 0.057 H* C-Reactive Protein 13.5 H Total Protein 6.0 L Albumin 3.0 L Vitamin B12 Folate TSH (Reflex) Urine Color Yellow Urine Appearance Clear Urine pH 5.5 Ur Specific [place] 1.014 Urine Protein Negative Urine Glucose (UA) Negative Urine Ketones Negative Ur Blood (Man) Negative Urine Nitrate Negative Urine Bilirubin Negative Urine Urobilinogen 0.2 Leukocyte Esterase Rfl 1+ H Urine RBC 0-2 Urine WBC 11-20 H Ur Squamous Epith Cells Occasional Urine Bacteria None seen Urine Casts 3-5 Gastric Fluid pH Gastric Occult Blood Blood Type Antibody Screen 05/03/23 05/03/23 05/03/23 15:55 18:17 19:00 WBC RBC Hgb Hct MCV MCH MCHC RDW Plt Count MPV Immature Gran % (Auto) Neut % (Auto) Lymph % (Auto) [place] % (Auto) Eos % (Auto) Baso % (Auto) Lymph # (Auto) [place] # (Auto) Eos # (Auto) Baso # (Auto) Abs Immat Gran (auto) Absolute Neuts (auto) Absolute Nucleated RBC Total Counted Neutrophils % (Manual) Band N
[2023-05-04] MEDS: SODIUM CHLORIDE 0.9% IV 1,000 ML 75 ML IV CONT ×2 (14:07→17:00)
[2023-05-04] MEDS: NOREPINEPHRINE 8 MG/D5W 250 ML 8 MG/250 ML BAG 33.75 MG IV CONT ×2 (14:20→21:45)
--- NOTE | 2023-05-04 15:18 | WPDGICN ---
Assessment and Plan Assessment and plan (1) Coffee ground emesis: Code(s): K92.0 - Hematemesis Status: Acute Assessment and Plan: intractable n/v from admission because SBO with incarcerated hernia which has been already treated with surgery ngt in place and managed by surgery wonder if could have also gastritis plan to monitor h/h and if remains stable then continue with iv protonix twice daily, of course if more obvious gib then may need to proceed with egd critically ill and health information director on board (2) Septic shock: Code(s): A41.9 - Sepsis, unspecified organism; R65.21 - Severe sepsis with septic shock Status: Acute Assessment and Plan: on pressors and antibiotics (3) Acute respiratory failure: Code(s): J96.00 - Acute respiratory failure, unspecified whether with hypoxia or hypercapnia Status: Acute Assessment and Plan: intubated (4) Small bowel obstruction: Code(s): K56.609 - Unspecified intestinal obstruction, unspecified as to partial versus complete obstruction Status: Acute Assessment and Plan: rrsolved with surgery (5) Incarcerated hernia of abdominal cavity: Code(s): K45.0 - Other specified abdominal hernia with obstruction, without gangrene Status: Acute (6) Uzgbt-gy-hqfwsig kidney injury: Code(s): N17.9 - Acute kidney failure, unspecified; N18.9 - Chronic kidney disease, unspecified Status: Acute GI Consult Note Consult date/time: 05/04/23 15:18 Reason for consult: septic shock, coffee ground emesis, SBO due to incarcerated hernia HPI: Felipe Pinedo Jr. is a 82 year old male with past medical history of coronary artery disease, chronic indwelling Roberto catheter, chronic kidney disease stage 4, diabetes, essential hypertension, recent cervical surgery with cervical diskectomy and fusion of C4-C5 on 04/19/2023 at [facility] in [facility]. History is obtained from records since he is intubated in the ICU. He came to the ED on 05/03/2023 from [facility] with complaints of altered mental status, hypotension, diagnosed with septic shock, placed right femoral central line and was started on Levophed with broad spectrum abx. Initially blood work showed WBC 34.4 with 3% bands, hemoglobin of 14.1, platelet count of 327.? INR was 1.2, sodium 139, potassium 4.6, CO2 32, BUN 113, creatinine 3.6, glucose 142, lactic acid of 7.7, repeat lactic acid was 1.9, troponin of 0.057, C-reactive protein 13.5.? UA showed 1+ leukocyte esterase, urine WBC 11-20. He also had large amount of dark emesis, NG tube was inserted with almost 3 L of gastric contents then CT scan of the abdomen and pelvis showed a umbilical hernia with a loop of small bowel causing a small-bowel obstruction.? Surgery was consulted, patient was taken urgently to the OR for status post ex lap with open repair of incarcerated ventral hernia. He is still on pressors and intubated. Noted dark material in NGT. Most recent hgb 10.7 (hgb after fluids down to 11.5 from 14) Review of Systems Review of Systems: ROS unobtainable: Yes unobtainable due to endotracheal tube and unobtainable due to mental status PMFSH Past Medical History Medical History (Updated 05/04/23 @ 15:24 by Maksim Nunez MD) CAD (coronary artery disease) Chronic indwelling Roberto catheter Chronic kidney disease, stage 4 (severe) Coffee ground emesis DM2 (diabetes mellitus, type 2) GI bleed Gout Hyperlipidemia Hypertension Incarcerated hernia of abdominal cavity Sepsis Sepsis associated hypotension Small bowel obstruction Urinary retention Surgical History Surgical History H/O cataract extraction H/O cervical spine surgery S/P CABG x 7 Family History Family History Unknown No problems noted. Social History Social History (Reviewed 05/03/23 @ 22:0
[2023-05-04 20:26] LABS: Glucose Point of Care 211 mg/dl (65-105)
[2023-05-04 21:20] LABS: Hematocrit 31.1 % (42.0-52.0); Hemoglobin 9.5 g/dL (14.0-18.0)
[2023-05-05] VITALS (114 sets, daily range): BP systolic 99–150; BP diastolic 41–77; PULSE 50–114; RESP 10–24; TEMP 35.7–37.1; O2SAT 92–99
--- NOTE | 2023-05-05 | ECHO_ITS ---
Patient Info Name: Felipe Pinedo Age: 82 years : 1940 Gender: Male Ht: 70 in Wt: 253 lbs BSA: 2.42 m2 HR: 85 bpm BP: 118 / 41 mmHg Technical Quality: Poor Exam Date: 05/05/2023 8:49 AM Exam Location: [facility] Patient Status: Inpatient Admit Date: 05/03/2023 Staff Ordering Physician: Izzy Oakley MD Supervisor [employer]: Radha George RDCS Attending Provider: Genet Castillo MD Referring Physician: Adin LEYVA; Exam Type: CA echo dop color flow w con Study Info Indications - SEPTIC SHOCK Complete two-dimensional, color flow and Doppler transthoracic echocardiogram is performed with contrast to opacify the left ventricle and to improve the deliniation of the left ventricle endocardial borders. Contrast/Agitated Saline Contrast/Ag. Saline: Definity Amount: 3.00 ml Administered By: Radha George RDCS Existing IV Access: Yes IV Access Condition: patent with no signs of infiltration Reason for Poor Study: poor echocardiographic windows Summary 1. Left ventricular chamber dimension is normal. 2. Definity contrast administered improved wall motion interpretation. 3. Left ventricular systolic function is hyperdynamic, estimated at >70%. 4. There is moderate concentric increased left ventricular wall thickness. 5. The left ventricular diastolic function is grade I diastolic dysfunction. 6. E/e' 10 is mildly elevated. 7. There is moderate aortic valve sclerosis. 8. There is trace tricuspid valve regurgitation. 9. Moderate pulmonary hypertension, estimated pulmonary arterial systolic pressure is 57 mmHg. 10. There is trivial pericardial effusion. Left Ventricle Definity contrast administered improved wall motion interpretation. E/e' 10 is mildly elevated. Left ventricular chamber dimension is normal. Left ventricular systolic function is hyperdynamic, estimated at >70%. There is moderate concentric increased left ventricular wall thickness. The left ventricular diastolic function is grade I diastolic dysfunction. Right Ventricle Right ventricular chamber dimension is normal. Right ventricular systolic function is normal. Left Atria Left atrial chamber dimension is normal. Right Atria Right atrial chamber dimension is normal. Aortic Valve The aortic valve is trileaflet. There is moderate aortic valve sclerosis. There is no aortic valve stenosis. There is no aortic valve regurgitation. No aortic valve vegetation visualized. Pulmonic Valve There is no pulmonic regurgitation. No pulmonic valve vegetation visualized. Mitral Valve There is no mitral valve stenosis. There is no mitral valve regurgitation. No mitral valve vegetation visualized. Tricuspid Valve There is trace tricuspid valve regurgitation. Moderate pulmonary hypertension, estimated pulmonary arterial systolic pressure is 57 mmHg. No tricuspid valve vegetation visualized. Pericardium/Pleural There is trivial pericardial effusion. Inferior Vena Cava Normal inferior vena cava with >50% collapse upon inspiration consistent with normal right atrial pressure, 5 mmHg. Aorta The aortic root size at the sinus of Valsalva is normal. Left Ventricular Outflow Tract Name Value Normal LVOT 2D LVOT Diameter 2.10 cm LVOT Doppler
[2023-05-05 00:18] LABS: Glucose Point of Care 215 mg/dl (65-105)
[2023-05-05] MEDS: INSULIN ASPART (*BKC) 100 UNITS/ML SUB-Q ×2 (00:20→05:08)
[2023-05-05] MEDS: PIPERACILLIN/TAZ 2.25G/NS 50ML 2.25 GM/50 ML BAG IVPB ×4 (00:20→18:41)
[2023-05-05 01:23] LABS: Basophils Absolute Auto 0.1 K/mm3 (0.0-0.1); Basophils Percent Auto 0.3 % (0.2-1.2); Hematocrit 30.7 % (42.0-52.0); Hemoglobin 9.5 g/dL (14.0-18.0); Immature Granulocyte Absolute 1.02 K/mm3 (0.00-0.031); Immature Granulocyte Percent A 3.5 % (0-0.5); Lymphocytes Absolute Auto 1.13 K/mm3 (0.9-3.2); Lymphocytes Percent Auto 3.8 % (18.3-44.2); Mean Corpuscular HGB Conc 30.9 g/dl (32-36); Mean Corpuscular Hemoglobin 27.7 pg (26-34); Mean Corpuscular Volume 89.5 fl (80-100); Mean Platelet Volume 9.5 fl (7.4-10.4); Monocytes Absolute Auto 1.4 K/mm3 (0.1-0.6); Monocytes Percent Auto 4.6 % (2.6-8.5); Neutrophils Absolute Auto 25.9 K/mm3 (1.3-6.7); Neutrophils Percent Auto 87.8 % (45.5-73.1); Nucleated Red Blood Cells Perc 0.1 % (0.0-0.2); Platelet Count Result 184 k/mm3 (150-375); Red Blood Count 3.43 M/mm3 (4.6-6.20); Red Cell Distribution Width 15.5 % (11.5-14.5); White Blood Count 29.5 K/mm3 (4.5-10.0)
[2023-05-05 01:34] LABS: Estimated CRCL calculation 24 ml/min; Estimated Glomerular Filt Rate 26; Lactic Acid Reflex 1.4 mmol/L (0.7-2.0)
[2023-05-05 02:04] LABS: Alanine Aminotransferase 72 U/L (6-50); Albumin Level 2.7 g/dL (3.5-5.1); Alkaline Phosphatase 67 U/L (38-126); Anion Gap 3 mmol/L (8-16); Aspartate Amino Transferase 56 U/L (17-59); Bilirubin,Total 0.4 mg/dL (0.2-1.3); Blood Urea Nitrogen 88 mg/dL (9-20); Calcium 8.8 mg/dL (8.4-10.2); Carbon Dioxide 27 mmol/L (22-30); Chloride 107 mmol/L (98-107); Estimated CRCL calculation 23 ml/min; Estimated Glomerular Filt Rate 25; Glucose 235 mg/dL (65-110); Lipase 27 U/L (23-300); Magnesium 2.3 mg/dL (1.6-2.3); Phosphorus 3.7 mg/dL (2.5-4.5); Potassium 4.2 mmol/L (3.4-5.0); Sodium 137 mmol/L (137-145)
[2023-05-05] MEDS: IPRATROPIUM BR 0.02% INH SOLN 0.5 MG/2.5 ML VIAL INHALATION ×4 (02:10→20:05)
[2023-05-05] MEDS: ALBUTEROL SULFATE NEB 2.5 MG/3 ML INH INHALATION ×4 (02:10→20:05)
[2023-05-05] MEDS: CENTRAL LINE FLUSH 10 ML IV PUSH ×4 (03:24→21:55)
[2023-05-05] MEDS: SODIUM CHLORIDE 0.9% IV 1,000 ML 100 ML IV CONT (03:29)
[2023-05-05] MEDS: NOREPINEPHRINE 8 MG/D5W 250 ML 8 MG/250 ML BAG 30 MG IV CONT (04:48)
[2023-05-05 05:00] LABS: Alveolar/Arterial O2 Gradient 184.7 mmHg; Base Excess ABG -2.8 mEq/l (+/-2.0); Carboxyhemoglobin 0.2 % THb (0-2.0); Fractional Inspired Oxygen 45 %; HCO3 ABG 21.9 mEq/l (22.0-26.0); Methemoglobin ABG 0.4 %THb (0-1.5); Oxygen Content ABG 13.3 %vol (16.0-22.0); Oxygen Saturation ABG 97.2 % (95.0-100.0); Oxyhemoglobin 95.3 % THb (90.0-100.0); PCO2 ABG 37.1 mmHg (35.0-45.0); PO2 FiO2 Ratio Arterial Blood 2.09 %; Reduced Hemoglobin 4.1 %THb (0-5.0); Total Hemoglobin 9.8 g/dL (12.0-18.0); pH ABG 7.388 (7.350-7.450)
[2023-05-05 05:01] LABS: Device VENTILATOR; Site Drawn ARTLINE
[2023-05-05 05:02] LABS: Arterial Blood Gas PEEP 5 cmH2O; Arterial Blood Gas Tidal Volume 500 ml; Arterial Blood Gas Vent Mode CMV; Arterial Blood Gas Ventilator rate 20 /MIN
[2023-05-05 05:04] LABS: Glucose Point of Care 212 mg/dl (65-105)
[2023-05-05] MEDS: HYDROCORTISONE SODIUM SUCCINATE 100 MG/2 ML VIAL IV PUSH ×3 (05:17→21:56)
[2023-05-05] MEDS: MIDAZOLAM 100MG/NS 100ML(*CRX) 100 MG/100 ML BAG IV CONT (07:27)
--- NOTE | 2023-05-05 09:36 | WPDINTPN ---
Progress Note: A&P Assessment and Plan (1) Acute respiratory failure: Code(s): J96.00 - Acute respiratory failure, unspecified whether with hypoxia or hypercapnia Status: Acute Assessment and Plan: Acute respiratory failure most likely related to anesthesia, status post surgery -Intubated at the time of surgery -currently on CMV mode of ventilation, peep of 5 and 45% FiO2 -chest x-ray this morning: Mild haziness left perihilar region. Consider mild asymmetric pulmonary edema versus possible infection. -ABGs reviewed -Continue bronchodilators -wean FiO2 to maintain sats greater than 92% -sedated with fentanyl and Versed infusion, have asked the bedside RN to wean sedation slowly to evaluate neurological status -may switch to Precedex today and place patient on SBT and evaluate for extubation (2) Septic shock: Code(s): A41.9 - Sepsis, unspecified organism; R65.21 - Severe sepsis with septic shock Status: Acute Assessment and Plan: 05/03;Patient presented with altered mental status, hypotensive, lactic acidosis, acute on chronic kidney disease -received 3 L of IV fluid bolus in the ER, despite which patient remained hypotensive, right femoral vein central line was inserted -OFF vasopressin, -WEANING Levophed -maintain MAP > 65 mmHg at all times when adequate end organ perfusion -continue stress dose steroids -urine output has improved, -lactic acid has normalized -continue maintenance IV fluid -05/04: Levaquin was discontinued -continue vancomycin and Zosyn (05/03) (3) Small bowel obstruction: Code(s): K56.609 - Unspecified intestinal obstruction, unspecified as to partial versus complete obstruction Status: Acute Assessment and Plan: Patient had large emesis in the ICU on 05/03/2023, CT scan of the abdomen and pelvis showed small-bowel obstruction secondary to incarcerated ventral hernia status post ex lap with open repair of incarcerated ventral hernia without mesh. -continue antibiotics as above -continue maintenance IV fluids -surgery following the patient (4) Wcqzf-av-ogizbgw kidney injury: Code(s): N17.9 - Acute kidney failure, unspecified; N18.9 - Chronic kidney disease, unspecified Status: Acute Assessment and Plan: Patient presented with acute on chronic kidney disease, unknown baseline creatinine -patient has been adequately fluid-resuscitated, -On maintenance IV fluid -creatinine improving with adequate urine output -monitor renal function, electrolytes and urine output (5) Pressure ulcer: Code(s): L89.90 - Pressure ulcer of unspecified site, unspecified stage Status: Acute Assessment and Plan: Unstageable right buttock pressure also -wound care has been consulted (6) Hypertension: Code(s): I10 - Essential (primary) hypertension Status: Acute Assessment and Plan: Will hold all antihypertensive secondary to septic shock (7) DM2 (diabetes mellitus, type 2): Code(s): E11.9 - Type 2 diabetes mellitus without complications Status: Acute Assessment and Plan: Continue sliding scale insulin and Accu-Cheks (8) GI bleed: Code(s): K92.2 - Gastrointestinal hemorrhage, unspecified Status: Acute Assessment and Plan: Gastric occult blood was positive -continue Protonix IV q.12 hours -appreciate GI evaluation and recommendation -hemoglobin trending down but this morning has been stable at 9.5, will continue to monitor (9) Anemia: Code(s): D64.9 - Anemia, unspecified Status: Acute Assessment and Plan: Anemia likely secondary to GI bleed, will check iron levels, vitamin B12 and folic acid -hemoglobin trending down could be dilutional -continue to monitor H&H q.12 hours -transfuse if hemoglobin < 7.0 Plan DVT prophylaxis: SCD, will hold Lovenox due to possible GI bleed and anemia Stress ulcer prophylaxis: Protonix IV q.12 hours Nutrition: NPO Code Status:
[2023-05-05] MEDS: PERFLUTREN LIPID MICROSPHERES 1.5 ML VIAL DILUTED TO 10 ML TOTAL VOLUME IV PUSH (10:20)
[2023-05-05] MEDS: dexmedeTOMIDine 400 MCG/100 ML 400 MCG/100 ML BAG 5.76 MCG IV CONT (10:42)
[2023-05-05] MEDS: MINERAL OIL/WHITE PETROLATUM OINTMENT 1 APPLIC EACH EYE ×2 (10:43→21:55)
[2023-05-05] MEDS: COLLAGENASE OINT 30 GM TUBE 1 APPLIC TOPICAL (10:43)
--- NOTE | 2023-05-05 11:13 | PM.PNGS ---
Progress Note: A&P Assessment and Plan (1) Incarcerated hernia of abdominal cavity: Code(s): K45.0 - Other specified abdominal hernia with obstruction, without gangrene Status: Acute Assessment and Plan: Patient remains on a ventilator but is weaning off today. Abdomen looks good and incision seems to be healing okay. If he gets off the ventilator then can make a go ahead and consider used trickle feeds via NGT. White blood cell count is still elevated at 29,000 and he remains on IV antibiotics. Other sources such as aspiration pneumonia or urosepsis may need to be considered. From surgery standpoint he seems to be doing well. Will follow. Subjective Subjective Date/Time Seen: 05/05/23 11:13 Post Op day: 2 ( Status post open repair of incarcerated umbilical hernia with small bowel obstruction.) Interval history: Patient remains on the ventilator this morning but sedation is being weaned. Patient does wake up and follow commands. Pressors are pretty much weaned off except for a very low dose of Levophed. No tachycardia no fever. White blood count is still 29,000, creatinine is stable around 2.8. He is making some urine. He continues on IV antibiotics and DVT and GI prophylaxis. Exam GI: Other: Abdomen is soft and nondistended. Midline incision is intact without redness or drainage. Harley are in place. Objective Data Vital Signs Vital Signs: Vital Signs - 24 hr 05/04/23 12:00 05/04/23 12:00 05/04/23 12:00 Temperature Pulse Rate 78 99 Respiratory Rate 20 Blood Pressure Pulse Oximetry 98 Oxygen Delivery Mechanical Ventilation Fraction of Inspired Oxygen 60 60 05/04/23 11:15 05/04/23 11:30 05/04/23 11:45 Temperature 36.7 C 36.7 C 36.7 C Pulse Rate 82 78 78 Respiratory Rate 20 20 21 H Blood Pressure Pulse Oximetry 97 98 98 Oxygen Delivery Fraction of Inspired Oxygen 05/04/23 12:00 05/04/23 12:01 05/04/23 12:15 Temperature 36.8 C 36.8 C 36.8 C Pulse Rate 77 78 74 Respiratory Rate 20 21 H 21 H Blood Pressure 110/59 L Pulse Oximetry 98 97 97 Oxygen Delivery Fraction of Inspired Oxygen 05/04/23 12:30 05/04/23 12:45 05/04/23 13:11 Temperature 36.8 C 36.8 C Pulse Rate 73 70 76 Respiratory Rate 21 H 21 H 20 Blood Pressure Pulse Oximetry 97 98 Oxygen Delivery Fraction of Inspired Oxygen 05/04/23 13:17 05/04/23 13:18 05/04/23 14:00 Temperature Pulse Rate 70 70 68 Respiratory Rate 20 Blood Pressure Pulse Oximetry 97 Oxygen Delivery Mechanical Ventilation Fraction of Inspired Oxygen 50 05/04/23 14:05 05/04/23 13:00 05/04/23 13:15 Temperature 36.8 C 36.8 C Pulse Rate 68 68 73 Respiratory Rate 20 20 Blood Pressure 125/58 L Pulse Oximetry 98 98 Oxygen Delivery Fraction of Inspired Oxygen 05/04/23 13:30 05/04/23 13:45 05/04/23 14:00 Temperature 36.7 C 36.7 C 36.7 C Pulse Rate 69 67 69 Respiratory Rate 20 20 22 H Blood Pressure 120/63 Pulse Oximetry 96 97 96 Oxygen Delivery Fraction of Inspired Oxygen 05/04/23 14:01 05/04/23 14:20 05/04/23 16:00 Temperature 36.7 C Pulse Rate 73 79 Respiratory Rate 21 H Blood Pressure 77/38 L Pulse Oximetry 96 Oxygen Delivery Fraction of Inspired Oxygen 60 05/04/23 16:00 05/04/23 16:00 05/04/23 14:15 Temperature 36.7 C Pulse Rate 80 80 65 Respiratory Rate 20 21 H Blood Pressure Pulse Oximetry 95 97 Oxygen Delivery Mechanical Ventilation Fraction of Inspired Oxygen 60 05/04/23 14:30 05/04/23 14:45 05/04/23 15:00 Temperature 36.7 C 36.7 C 36.7 C Pulse Rate 68 73 78 Respiratory Rate 20 20 20 Blood Pressure Pulse Oximetry 96 96 96 Oxygen Delivery Fraction of Inspired Oxygen 05/04/23 15:03 05/04/23 15:15 05/04/23 15:30 Temperature 36.7 C 36.7 C 36.6 C Pulse Rate 78 92 84 Respiratory Rate 20 20 21 H Blood Pressure 105/49 L Pulse Oximetry 96 95 96 Oxygen Delivery
[2023-05-05 12:33] LABS: Glucose Point of Care 138 mg/dl (65-105)
--- NOTE | 2023-05-05 12:39 | PCNFU ---
Nutrition Follow-Up Complete: Inadequate Oral Intake as related to mechanical ventilation as evidenced by NPO. Goal: Meet estimated nutritional needs patient is progressing towards goal. We will continue current goal. Pt current nutrition is Vital AF 1.2 at 10 ml/hr. Nutrition recommendation: goal rate at 65 ml/hr. Last recorded weight is 115.1 kg. Bowel Motility:No BM reported. Labs Reviewed: Glu 235, Cr 2.9, BUN 88 Meds Noted:Zosyn, Precedex, Vancomycin. Skin: unstageable pressure ulcer-right buttock. Additional Notes: Patient remains on mechanical vent. Electronics Assembler asking for tube feeding recommendations: Vital AF 1.2 at 10 ml/hr. Plans for trickle feedings at this time. Flush 30 ml q 4 hours. Recommend goal rate at this time for tube feedings at 65 ml/hr, providing 1716 kcals/107 gms protein/1017 ml water-Meeting 92% kcal needs and 100% protein needs. Will continue to monitor. Will monitor in ICU rounds and reassess every Monday and Monday.
--- NOTE | 2023-05-05 13:14 | WPDGIPROGNO ---
Progress Note: A&P Assessment and Plan (1) Coffee ground emesis: Code(s): K92.0 - Hematemesis Status: Acute Assessment and Plan: hgb trended down but stable now at 9.5 since this morning and no more report of dark gastric content continue with iv protonix, probably gastritis supportive and medical care (2) Incarcerated hernia of abdominal cavity: Code(s): K45.0 - Other specified abdominal hernia with obstruction, without gangrene Status: Acute Assessment and Plan: treated with surgery and recovering (3) Septic shock: Code(s): A41.9 - Sepsis, unspecified organism; R65.21 - Severe sepsis with septic shock Status: Acute Assessment and Plan: resolved, off pressors on abx (4) Anemia: Code(s): D64.9 - Anemia, unspecified Status: Acute Assessment and Plan: monitor iv protonix (5) Acute respiratory failure: Code(s): J96.00 - Acute respiratory failure, unspecified whether with hypoxia or hypercapnia Status: Acute Assessment and Plan: still intubated (6) Small bowel obstruction: Code(s): K56.609 - Unspecified intestinal obstruction, unspecified as to partial versus complete obstruction Status: Acute Assessment and Plan: treated with surgery just started on enteral feeding Subjective Date/time seen: 05/05/23 13:14 Interval history: intubated but slowly better, off pressors, started on enteral feeding by NGT at 10 ml/h and tolerating (no report of melena) Review of Systems Review of Systems: All systems reviewed & are unremarkable except as noted in HPI and below Exam Narrative: General: Intubated and sedated in no distress HEENT:? Pupils equal and reactive, sclera is clear, ETT in place. NGT in place, tolerating tube feeding Neck:? Supple Respiratory:? Coarse breath sounds bilaterally, decreased at bases, no wheezing, adequate air entry Cardiac:? S1-S2 is normal, regular rate and rhythm Abdomen:? Soft, nontender, nondistended, hypoactive bowel, surgical site looks ok Extremities:? No edema, palpable pedal pulses Neuro:? Patient intubated and sedated, opens eyes, follows simple commands in all extremities Skin:? Large pressure ulcer on his right buttock Psych:? Unable to assess at this time Objective Data Vital Signs Vital Signs: Vital Signs - 24 hr 05/04/23 13:17 05/04/23 13:18 05/04/23 14:00 Temperature Pulse Rate 70 70 68 Respiratory Rate 20 Blood Pressure Pulse Oximetry 97 Oxygen Delivery Mechanical Ventilation Fraction of Inspired Oxygen 50 05/04/23 14:05 05/04/23 13:15 05/04/23 13:30 Temperature 98.2 F 98.1 F Pulse Rate 68 73 69 Respiratory Rate 20 20 Blood Pressure 125/58 L Pulse Oximetry 98 96 Oxygen Delivery Fraction of Inspired Oxygen 05/04/23 13:45 05/04/23 14:00 05/04/23 14:01 Temperature 98.1 F 98.1 F 98.1 F Pulse Rate 67 69 73 Respiratory Rate 20 22 H 21 H Blood Pressure 120/63 Pulse Oximetry 97 96 96 Oxygen Delivery Fraction of Inspired Oxygen 05/04/23 14:20 05/04/23 16:00 05/04/23 16:00 Temperature Pulse Rate 79 80 Respiratory Rate 20 Blood Pressure 77/38 L Pulse Oximetry 95 Oxygen Delivery Mechanical Ventilation Fraction of Inspired Oxygen 60 60 05/04/23 16:00 05/04/23 14:15 05/04/23 14:30 Temperature 98.1 F 98.0 F Pulse Rate 80 65 68 Respiratory Rate 21 H 20 Blood Pressure Pulse Oximetry 97 96 Oxygen Delivery Fraction of Inspired Oxygen 05/04/23 14:45 05/04/23 15:00 05/04/23 15:03 Temperature 98.0 F 98.0 F 98.0 F Pulse Rate 73 78 78 Respiratory Rate 20 20 20 Blood Pressure 105/49 L Pulse Oximetry 96 96 96 Oxygen Delivery Fraction of Inspired Oxygen 05/04/23 15:15 05/04/23 15:30 05/04/23 15:45 Temperature 98.0 F 97.9 F 97.9 F Pulse Rate 92 84 83 Respiratory Rate 20 21 H 21 H Blood Pressure Pulse Oximetry 95 96 95 Oxygen Delivery Fraction of Inspire
[2023-05-05] MEDS: NOREPINEPHRINE 8 MG/D5W 250 ML 8 MG/250 ML BAG 28.13 MG IV CONT (15:32)
[2023-05-05 18:47] LABS: Glucose Point of Care 147 mg/dl (65-105)
[2023-05-05] MEDS: PANTOPRAZOLE SODIUM IV 40 MG VIAL IV PUSH (21:55)
[2023-05-05] MEDS: NOREPINEPHRINE 8 MG/D5W 250 ML 8 MG/250 ML BAG 26.25 MG IV CONT (23:10)
[2023-05-06] VITALS (50 sets, daily range): BP systolic 102–167; BP diastolic 41–68; PULSE 72–99; RESP 12–18; TEMP 36.6–37.4; O2SAT 91–98
[2023-05-06 00:18] LABS: Glucose Point of Care 160 mg/dl (65-105)
[2023-05-06] MEDS: PIPERACILLIN/TAZ 2.25G/NS 50ML 2.25 GM/50 ML BAG IVPB ×4 (00:55→17:29)
[2023-05-06] MEDS: IPRATROPIUM BR 0.02% INH SOLN 0.5 MG/2.5 ML VIAL INHALATION ×4 (02:05→19:54)
[2023-05-06] MEDS: ALBUTEROL SULFATE NEB 2.5 MG/3 ML INH INHALATION ×4 (02:05→19:54)
[2023-05-06 04:55] LABS: Alveolar/Arterial O2 Gradient 92.3 mmHg; Base Excess ABG -0.8 mEq/l (+/-2.0); Carboxyhemoglobin 0.3 % THb (0-2.0); Fractional Inspired Oxygen 30 %; HCO3 ABG 23.6 mEq/l (22.0-26.0); Methemoglobin ABG 0.3 %THb (0-1.5); Oxygen Content ABG 12.9 %vol (16.0-22.0); Oxygen Saturation ABG 95.5 % (95.0-100.0); Oxyhemoglobin 93.9 % THb (90.0-100.0); PCO2 ABG 38.1 mmHg (35.0-45.0); PO2 ABG 76.8 mmHg (80.0-100.0); PO2 FiO2 Ratio Arterial Blood 2.56 %; Reduced Hemoglobin 5.5 %THb (0-5.0); Total Hemoglobin 9.7 g/dL (12.0-18.0)
[2023-05-06 04:57] LABS: Device VENTILATOR; Site Drawn ARTLINE
[2023-05-06 04:58] LABS: Arterial Blood Gas Vent Mode ASV
[2023-05-06 04:59] LABS: Arterial Blood Gas PEEP 5 cmH2O
[2023-05-06 05:10] LABS: Alanine Aminotransferase 75 U/L (6-50); Albumin Level 2.9 g/dL (3.5-5.1); Alkaline Phosphatase 68 U/L (38-126); Anion Gap 4 mmol/L (8-16); Aspartate Amino Transferase 53 U/L (17-59); Bilirubin,Total 0.4 mg/dL (0.2-1.3); Blood Urea Nitrogen 78 mg/dL (9-20); Calcium 9.2 mg/dL (8.4-10.2); Carbon Dioxide 29 mmol/L (22-30); Chloride 111 mmol/L (98-107); Estimated CRCL calculation 28 ml/min; Estimated Glomerular Filt Rate 32; Glucose 160 mg/dL (65-110); Magnesium 2.5 mg/dL (1.6-2.3); Phosphorus 3.4 mg/dL (2.5-4.5); Potassium 3.9 mmol/L (3.4-5.0); Sodium 144 mmol/L (137-145)
[2023-05-06 05:28] LABS: Basophils Absolute Auto 0.1 K/mm3 (0.0-0.1); Basophils Percent Auto 0.4 % (0.2-1.2); Hematocrit 28.9 % (42.0-52.0); Hemoglobin 8.9 g/dL (14.0-18.0); Immature Granulocyte Absolute 1.25 K/mm3 (0.00-0.031); Immature Granulocyte Percent A 4.2 % (0-0.5); Lymphocytes Absolute Auto 1.43 K/mm3 (0.9-3.2); Lymphocytes Percent Auto 4.8 % (18.3-44.2); Mean Corpuscular HGB Conc 30.8 g/dl (32-36); Mean Corpuscular Hemoglobin 27.6 pg (26-34); Mean Corpuscular Volume 89.5 fl (80-100); Mean Platelet Volume 10.2 fl (7.4-10.4); Monocytes Absolute Auto 1.4 K/mm3 (0.1-0.6); Monocytes Percent Auto 4.6 % (2.6-8.5); Neutrophils Absolute Auto 25.5 K/mm3 (1.3-6.7); Nucleated Red Blood Cells Absolute Auto 0.1 K/mm3 (0.0-0.012); Nucleated Red Blood Cells Perc 0.3 % (0.0-0.2); Platelet Count Result 169 k/mm3 (150-375); Red Blood Count 3.23 M/mm3 (4.6-6.20); Red Cell Distribution Width 15.6 % (11.5-14.5); White Blood Count 29.7 K/mm3 (4.5-10.0)
[2023-05-06] MEDS: HYDROCORTISONE SODIUM SUCCINATE 100 MG/2 ML VIAL IV PUSH (05:55)
[2023-05-06] MEDS: CENTRAL LINE FLUSH 10 ML IV PUSH ×3 (05:55→21:12)
[2023-05-06 06:00] LABS: Burr Cells 1+ (NORMAL); Platelet Clumps Present; Platelet Estimate Adequate (Adequate); Poikilocytosis 1+ (NORMAL)
[2023-05-06 06:01] LABS: Schistocytes None Seen (NORMAL)
--- NOTE | 2023-05-06 08:11 | PM.IMPN ---
Progress Note: A&P Assessment and Plan (1) Acute respiratory failure: Code(s): J96.00 - Acute respiratory failure, unspecified whether with hypoxia or hypercapnia Status: Acute Assessment and Plan: Acute respiratory failure most likely related to anesthesia, status post surgery extubated and stable on 3L nc (2) Septic shock: Code(s): A41.9 - Sepsis, unspecified organism; R65.21 - Severe sepsis with septic shock Status: Acute Assessment and Plan: 05/03: Patient presented with altered mental status, hypotensive, lactic acidosis, acute on chronic kidney disease -received 3 L of IV fluid bolus in the ER, despite which patient remained hypotensive, right femoral vein central line was inserted -05/04: Levaquin was discontinued -continue Zosyn (05/03) but will discontinue vancomycin as cultures have been negative 05/06: off all pressors, extubated, cont abx per putty worker (3) Small bowel obstruction: Code(s): K56.609 - Unspecified intestinal obstruction, unspecified as to partial versus complete obstruction Status: Acute Assessment and Plan: Patient had large emesis in the ICU on 05/03/2023, CT scan of the abdomen and pelvis showed small-bowel obstruction secondary to incarcerated ventral hernia status post ex lap with open repair of incarcerated ventral hernia without mesh. -continue antibiotics as above -surgery following the patient -NG tube in place. Continue trickle tube feeds per surgery recs, increase per their recs (4) Ixlgp-wg-ozolngm kidney injury: Code(s): N17.9 - Acute kidney failure, unspecified; N18.9 - Chronic kidney disease, unspecified Status: Acute Assessment and Plan: Patient presented with acute on chronic kidney disease, unknown baseline creatinine -CT abdomen pelvis did not show any stone hydronephrosis -patient has been adequately fluid-resuscitated, -creatinine improving with adequate urine output -check CK level -monitor renal function, electrolytes and urine output (5) Pressure ulcer: Code(s): L89.90 - Pressure ulcer of unspecified site, unspecified stage Status: Acute Assessment and Plan: Unstageable right buttock pressure also -wound care has been consulted (6) Hypertension: Code(s): I10 - Essential (primary) hypertension Status: Acute Assessment and Plan: Will hold all antihypertensive secondary to septic shock (7) DM2 (diabetes mellitus, type 2): Code(s): E11.9 - Type 2 diabetes mellitus without complications Status: Acute Assessment and Plan: Continue sliding scale insulin and Accu-Cheks (8) GI bleed: Code(s): K92.2 - Gastrointestinal hemorrhage, unspecified Status: Acute Assessment and Plan: Gastric occult blood was positive -continue Protonix IV q.12 hours -appreciate GI evaluation and recommendation -monitor hemoglobin and transfuse if needed (9) Anemia: Code(s): D64.9 - Anemia, unspecified Status: Acute Assessment and Plan: Anemia likely secondary to GI bleed, -workup for iron deficiency anemia is pending -normal vitamin B12 and folic acid -hemoglobin trending down could be dilutional -continue to monitor H&H q.12 hours -transfuse if hemoglobin < 7.0 Plan DVT prophylaxis: SCD, will hold Lovenox due to possible GI bleed and anemia Stress ulcer prophylaxis: Protonix IV q.12 hours Nutrition: Continue trickle tube feeds. Advancement as per General surgery Code Status: Full code Subjective Date/time seen: 05/06/23 08:11 Interval history: 82-year-old male with history of heart disease, kidney disease and diabetes among other comorbidities is presenting with ventral hernia repair resulting in septic shock, acute kidney injury and lactic acidosis, currently being treated in the intensive care unit after getting intubated and sedated. No overnight events noted. No fevers. Extub
[2023-05-06] MEDS: COLLAGENASE OINT 30 GM TUBE 1 APPLIC TOPICAL (08:26)
[2023-05-06] MEDS: MINERAL OIL/WHITE PETROLATUM OINTMENT 1 APPLIC EACH EYE (08:27)
[2023-05-06 08:51] LABS: Alveolar/Arterial O2 Gradient 101.5 mmHg; Base Excess ABG -0.3 mEq/l (+/-2.0); Fractional Inspired Oxygen 30 %; HCO3 ABG 23.8 mEq/l (22.0-26.0); Oxygen Content ABG 15.6 %vol (16.0-22.0); Oxygen Saturation ABG 94.2 % (95.0-100.0); Oxyhemoglobin 92.8 % THb (90.0-100.0); PCO2 ABG 37.3 mmHg (35.0-45.0); PO2 ABG 68.6 mmHg (80.0-100.0); PO2 FiO2 Ratio Arterial Blood 2.29 %; Total Hemoglobin 11.9 g/dL (12.0-18.0); pH ABG 7.423 (7.350-7.450)
[2023-05-06 08:53] LABS: Device VENTILATOR; Site Drawn ARTLINE
[2023-05-06 08:54] LABS: Arterial Blood Gas PEEP 5 cmH2O; Arterial Blood Gas Pressure Support 5 cmH2O; Arterial Blood Gas Vent Mode SPONTANEOUS
--- NOTE | 2023-05-06 09:00 | WPDINTPN ---
Progress Note: A&P Assessment and Plan (1) Acute respiratory failure: Code(s): J96.00 - Acute respiratory failure, unspecified whether with hypoxia or hypercapnia Status: Acute Assessment and Plan: Acute respiratory failure most likely related to anesthesia, status post surgery -Intubated at the time of surgery -currently on ASV mode of ventilation, peep of 5 and 30 % FiO2 -chest x-ray this morning reviewed -02/24 PSV SBT done for more than 30 minutes. RSBI, ABGI and Vitals acceptable. Pt awake and following commands. Will extubate and monitor. -Continue bronchodilators (2) Septic shock: Code(s): A41.9 - Sepsis, unspecified organism; R65.21 - Severe sepsis with septic shock Status: Acute Assessment and Plan: 05/03;Patient presented with altered mental status, hypotensive, lactic acidosis, acute on chronic kidney disease -received 3 L of IV fluid bolus in the ER, despite which patient remained hypotensive, right femoral vein central line was inserted -OFF vasopressin, -WEANING Levophed -wean hydrocortisone -maintain MAP > 65 mmHg at all times when adequate end organ perfusion -urine output has improved, -lactic acid has normalized -off all IV fluid -05/04: Levaquin was discontinued -continue Zosyn (05/03) but will discontinue vancomycin as cultures have been negative (3) Small bowel obstruction: Code(s): K56.609 - Unspecified intestinal obstruction, unspecified as to partial versus complete obstruction Status: Acute Assessment and Plan: Patient had large emesis in the ICU on 05/03/2023, CT scan of the abdomen and pelvis showed small-bowel obstruction secondary to incarcerated ventral hernia status post ex lap with open repair of incarcerated ventral hernia without mesh. -continue antibiotics as above -surgery following the patient -NG tube in place. Continue trickle tube feeds (4) Tqpdv-[id number]-fhwqpnw kidney injury: Code(s): N17.9 - Acute kidney failure, unspecified; N18.9 - Chronic kidney disease, unspecified Status: Acute Assessment and Plan: Patient presented with acute on chronic kidney disease, unknown baseline creatinine -CT abdomen pelvis did not show any stone hydronephrosis -patient has been adequately fluid-resuscitated, -creatinine improving with adequate urine output -check CK level -monitor renal function, electrolytes and urine output (5) Pressure ulcer: Code(s): L89.90 - Pressure ulcer of unspecified site, unspecified stage Status: Acute Assessment and Plan: Unstageable right buttock pressure also -wound care has been consulted (6) Hypertension: Code(s): I10 - Essential (primary) hypertension Status: Acute Assessment and Plan: Will hold all antihypertensive secondary to septic shock (7) DM2 (diabetes mellitus, type 2): Code(s): E11.9 - Type 2 diabetes mellitus without complications Status: Acute Assessment and Plan: Continue sliding scale insulin and Accu-Cheks (8) GI bleed: Code(s): K92.2 - Gastrointestinal hemorrhage, unspecified Status: Acute Assessment and Plan: Gastric occult blood was positive -continue Protonix IV q.12 hours -appreciate GI evaluation and recommendation -monitor hemoglobin and transfuse if needed (9) Anemia: Code(s): D64.9 - Anemia, unspecified Status: Acute Assessment and Plan: Anemia likely secondary to GI bleed, -workup for iron deficiency anemia is pending -normal vitamin B12 and folic acid -hemoglobin trending down could be dilutional -continue to monitor H&H q.12 hours -transfuse if hemoglobin < 7.0 Plan DVT prophylaxis: SCD, will hold Lovenox due to possible GI bleed and anemia Stress ulcer prophylaxis: Protonix IV q.12 hours Nutrition: Continue trickle tube feeds. Advancement as per General surgery Code Status: Full code Critical Care Time Spent: 32 minutes Due to a high probability of clinical
--- NOTE | 2023-05-06 09:09 | PC.NURSE ---
Patient extubated at 0903 per RT. Placed on 4L NC.
--- NOTE | 2023-05-06 09:32 | PM.PNGS ---
Progress Note: A&P Assessment and Plan (1) Incarcerated ventral hernia: Code(s): K43.6 - Other and unspecified ventral hernia with obstruction, without gangrene Status: Acute Assessment and Plan: Status post repair 3 days ago. Wound looks good. Repair intact (2) Small bowel obstruction: Code(s): K56.609 - Unspecified intestinal obstruction, unspecified as to partial versus complete obstruction Status: Acute Assessment and Plan: Receiving trickle feeds. No bowel sounds as yet. (3) Rnjtc-bi-rwtspmh kidney injury: Code(s): N17.9 - Acute kidney failure, unspecified; N18.9 - Chronic kidney disease, unspecified Status: Acute Assessment and Plan: Creatinine down to 2.4. Improving. Non oliguric (4) Acute respiratory failure: Code(s): J96.00 - Acute respiratory failure, unspecified whether with hypoxia or hypercapnia Status: Acute Assessment and Plan: Attempting to wean from ventilator today. Subjective Subjective Date/Time Seen: 05/06/23 09:32 Post Op day: 3 Patient reports: other (Intubated on mechanical ventilator) Review of Systems Review of Systems: ROS unobtainable: Yes unobtainable due to endotracheal tube Exam Const: General: patient obtunded (Sedated on ventilator) Nutritional Appearance: obese GI: Inspection: non-distended, incision (Dry and healing well) and obesity GI Palp: Yes Soft to palpation and No Tenderness to palpation present (GI) Auscultation: absent bowel sounds Objective Data Vital Signs Vital Signs: Vital Signs - 24 hr 05/05/23 10:42 05/05/23 10:00 05/05/23 10:54 Temperature Pulse Rate 70 97 71 Respiratory Rate 21 H 24 H Blood Pressure Pulse Oximetry Oxygen Delivery Oxygen Flow Rate Fraction of Inspired Oxygen 05/05/23 09:45 05/05/23 10:00 05/05/23 10:01 Temperature 35.8 C L 35.8 C L 35.8 C L Pulse Rate 72 74 73 Respiratory Rate 21 H 21 H 22 H Blood Pressure 106/55 L Pulse Oximetry 96 97 96 Oxygen Delivery Oxygen Flow Rate Fraction of Inspired Oxygen 05/05/23 10:15 05/05/23 10:30 05/05/23 10:45 Temperature 35.8 C L 35.8 C L 35.8 C L Pulse Rate 72 71 68 Respiratory Rate 22 H 22 H 20 Blood Pressure Pulse Oximetry 96 97 97 Oxygen Delivery Oxygen Flow Rate Fraction of Inspired Oxygen 05/05/23 10:53 05/05/23 12:00 05/05/23 12:00 Temperature Pulse Rate 67 71 71 Respiratory Rate 12 Blood Pressure Pulse Oximetry 98 96 Oxygen Delivery Mechanical Ventilation Mechanical Ventilation Oxygen Flow Rate Fraction of Inspired Oxygen 35 30 05/05/23 12:00 05/05/23 12:00 05/05/23 12:44 Temperature 35.8 C L Pulse Rate 68 60 Respiratory Rate 20 Blood Pressure 117/48 L Pulse Oximetry 97 97 Oxygen Delivery Mechanical Ventilation Oxygen Flow Rate Fraction of Inspired Oxygen 30 30 05/05/23 13:41 05/05/23 13:41 05/05/23 14:02 Temperature Pulse Rate 75 75 64 Respiratory Rate 18 13 Blood Pressure Pulse Oximetry 96 Oxygen Delivery Mechanical Ventilation Oxygen Flow Rate Fraction of Inspired Oxygen 30 05/05/23 14:00 05/05/23 16:00 05/05/23 11:00 Temperature 35.9 C L Pulse Rate 68 67 70 Respiratory Rate 21 H Blood Pressure Pulse Oximetry 95 Oxygen Delivery Oxygen Flow Rate Fraction of Inspired Oxygen 05/05/23 11:15 05/05/23 11:30 05/05/23 11:45 Temperature 35.9 C L 35.9 C L 36.0 C L Pulse Rate 66 63 64 Respiratory Rate 22 H 21 H 20 Blood Pressure Pulse Oximetry 95 95 95 Oxygen Delivery Oxygen Flow Rate Fraction of Inspired Oxygen 05/05/23 12:00 05/05/23 12:01 05/05/23 12:15 Temperature 36.0 C L 36.0 C L 36.1 C L Pulse Rate 64 64 64 Respiratory Rate 11 L 11 L 11 L Blood Pressure 117/58 L Pulse Oximetry 96 97 97 Oxygen Delivery Oxygen Flow Rate Fraction of Inspired Oxygen 05/05/23 12:30 05/05/23 12:45 05/05/23 13:00 Temperature 36.1
[2023-05-06] MEDS: PANTOPRAZOLE SODIUM IV 40 MG VIAL IV PUSH ×2 (09:41→20:41)
[2023-05-06 09:58] LABS: Creatine Kinase 165 U/L (55-170)
[2023-05-06 11:55] LABS: Glucose Point of Care 143 mg/dl (65-105)
[2023-05-06 12:24] LABS: Ferritin > 2000.00 ng/mL (11.1-264)
--- NOTE | 2023-05-06 15:08 | WPDGIPROGNO ---
Progress Note: A&P Assessment and Plan (1) Coffee ground emesis: Code(s): K92.0 - Hematemesis Status: Acute Assessment and Plan: no signs of bleeding part of lower hgb could be hemodilutional, recommend to continue with iv protonix, probably gastritis supportive and medical care on trickle tube feeding (2) Incarcerated hernia of abdominal cavity: Code(s): K45.0 - Other specified abdominal hernia with obstruction, without gangrene Status: Deleted Assessment and Plan: treated with surgery and recovering (3) Septic shock: Code(s): A41.9 - Sepsis, unspecified organism; R65.21 - Severe sepsis with septic shock Status: Acute Assessment and Plan: resolved, off pressors on abx (4) Anemia: Code(s): D64.9 - Anemia, unspecified Status: Acute Assessment and Plan: monitor iv protonix (5) Acute respiratory failure: Code(s): J96.00 - Acute respiratory failure, unspecified whether with hypoxia or hypercapnia Status: Acute Assessment and Plan: extubated and recovering Subjective Date/time seen: 05/06/23 15:08 Interval history: extubated, off pressors, no report of gib and has bee tolerating tube feeding at 10ml/h Review of Systems Review of Systems: All systems reviewed & are unremarkable except as noted in HPI and below Exam Narrative: General: resting but seems comfortable HEENT:? Pupils equal and reactive, sclera is clear Neck:? Supple Respiratory:? Coarse breath sounds bilaterally, decreased at bases, no wheezing, adequate air entry Cardiac:? S1-S2 is normal, regular rate and rhythm Abdomen:? Soft, nontender, nondistended, hypoactive bowel sounds, dressing on the incision Extremities:? leg edema Neuro:? opens eyes, follows simple commands in all extremities Skin:? Large pressure ulcer on his right buttock Psych:? Unable to assess at this time Objective Data Vital Signs Vital Signs: Vital Signs - 24 hr 05/05/23 16:00 05/05/23 16:00 05/05/23 16:00 Temperature Pulse Rate 67 82 Respiratory Rate 12 Blood Pressure Pulse Oximetry 95 Oxygen Delivery Mechanical Ventilation Oxygen Flow Rate Fraction of Inspired Oxygen 30 30 05/05/23 16:37 05/05/23 15:15 05/05/23 15:30 Temperature 97.6 F 97.6 F Pulse Rate 76 71 70 Respiratory Rate 13 13 Blood Pressure Pulse Oximetry 94 95 95 Oxygen Delivery Mechanical Ventilation Oxygen Flow Rate Fraction of Inspired Oxygen 30 05/05/23 15:45 05/05/23 16:00 05/05/23 16:01 Temperature 97.7 F 97.7 F 97.7 F Pulse Rate 74 72 74 Respiratory Rate 13 12 13 Blood Pressure 113/51 L Pulse Oximetry 94 95 95 Oxygen Delivery Oxygen Flow Rate Fraction of Inspired Oxygen 05/05/23 16:15 05/05/23 16:30 05/05/23 16:45 Temperature 97.8 F 97.9 F 97.9 F Pulse Rate 70 80 83 Respiratory Rate 12 12 14 Blood Pressure Pulse Oximetry 95 93 95 Oxygen Delivery Oxygen Flow Rate Fraction of Inspired Oxygen 05/05/23 18:00 05/05/23 17:00 05/05/23 17:15 Temperature 97.9 F 98.0 F Pulse Rate 73 78 88 Respiratory Rate 12 16 Blood Pressure Pulse Oximetry 95 95 Oxygen Delivery Oxygen Flow Rate Fraction of Inspired Oxygen 05/05/23 17:30 05/05/23 17:45 05/05/23 18:00 Temperature 98.0 F 98.0 F 98.1 F Pulse Rate 77 75 75 Respiratory Rate 13 12 12 Blood Pressure Pulse Oximetry 93 93 93 Oxygen Delivery Oxygen Flow Rate Fraction of Inspired Oxygen 05/05/23 18:01 05/05/23 18:15 05/05/23 20:05 Temperature 98.1 F 98.1 F Pulse Rate 73 73 94 Respiratory Rate 13 12 16 Blood Pressure 111/55 L Pulse Oximetry 93 93 Oxygen Delivery Oxygen Flow Rate Fraction of Inspired Oxygen 05/05/23 20:05 05/05/23 20:13 05/05/23 20:00 Temperature Pulse Rate 88 88 Respiratory Rate 15 Blood Pressure Pulse Oximetry 92 Oxygen Delivery Mechanical Ventilation Oxygen Flow Rate Fraction of
--- NOTE | 2023-05-06 15:31 | PC.NURSE ---
Addendum entered by Radha Matt RN 05/06/23 19:54: Called Dr. Gayle at 1947 regarding ptt result for heparin gtt management. Orders per Dr. Gayle to increase Heparin gtt to 1200 units/hr, repeat ptt in 2 hours and call with results for further gtt management. Addendum entered by Radha Matt RN 05/06/23 16:01: Called Dr. Gayle at 1552 for medication clarification for heparin gtt and DVT management. Stated that pharmacy was unsure if patient is to receive total dose of 5000 units of heparin ran at 800 units/hr or if patient was to receive 5000 units bolus then infuse a heparin gtt starting at [address] Gayle clarified that he wanted a 5000 bolus of heparin given, then infuse a heparin gtt at 800 units/hr and recheck ptt in 2 hours and report results to physician for further gtt management. Provider states that if gtt is not started yet and bolus has not been given yet, that he would like bolus dose changed to 3000 units instead. (RN spoke to pharmacist Mukund and communicated all order clarifications and dose changes/adjustments, clarified that provider would like to change bolus dose to 3000 units instead then infuse heparin gtt at 800 units/hr. Original Note: Called DR. Vieira at 1550 to report Critical test result. Extensive DVT's to Right lower extremity. Provider call back from Dr. Vieira at 1503. Explained to Dr. Vieira that patients venous ultrasound resulted with extensive DVT's to the right lower extremity. Patient currently off anticoagulation. Patients morning hemoglobin was 8.9 g/dL, patient currently on a PPI Q12H. Advised by Dr. Vieira to call Dr. Gayle regarding test results. Cub Reporter would like to do a Heparin gtt at this time without the bolus to manage blood clots and follow the heparin protocol, would like surgeries recommendations. (RN to follow up with surgical team) Call to Dr. Gayle by this RN at 1506. Explained to surgeon that it was discovered patient has extensive DVT's to right lower extremity. Patient off anticoagulation and morning hemoglobin was 8.9 g/dL. Cub Reporter would like to do a heparin gtt, without bolus, and follow protocol at this time. Cub Reporter is wanting surgical input. Dr. Gayle recommends a Heparin bolus of 5000 cc ran at 800 units/hr and recheck at ptt in 2 hours from start of bolus. Call back to Dr. Vieira at 1508. Explained recommendations per Dr. Gayle. DR. Gayle is recommending infusing a 5000 cc bolus of heparin ran at 800 cc/hr and recheck a ptt in 2 hours. Cub Reporter feels that a heparin gtt with protocol would be ideal, however is agreeable to surgeries recommendations. Order per Dr. Vieira to recheck hemoglobin at 2200 tonight and call with results. Dr. Gayle to manage anticoagulation at this time. RN to continue to monitor patient.
[2023-05-06] MEDS: HEPARIN SODIUM 5,000 UNITS/ML VIAL 3000 UNITS IV PUSH (16:29)
[2023-05-06] MEDS: HEPARIN SOD/D5W 100 UNITS/ML 25,000 UNITS/250 ML BAG 8 UNITS IV CONT (16:29)
[2023-05-06 17:32] LABS: Glucose Point of Care 125 mg/dl (65-105)
[2023-05-06 19:08] LABS: Partial Thromboplastin Time 47.2 SECONDS (22.3-36.8)
[2023-05-06 22:28] LABS: Hemoglobin 8.6 g/dL (14.0-18.0); Mean Corpuscular HGB Conc 29.7 g/dl (32-36); Mean Corpuscular Hemoglobin 27.1 pg (26-34); Mean Corpuscular Volume 91.5 fl (80-100); Mean Platelet Volume 9.6 fl (7.4-10.4); Platelet Count Result 140 k/mm3 (150-375); Red Blood Count 3.17 M/mm3 (4.6-6.20); Red Cell Distribution Width 15.8 % (11.5-14.5); White Blood Count 24.4 K/mm3 (4.5-10.0)
[2023-05-06 22:44] LABS: Partial Thromboplastin Time 56.6 SECONDS (22.3-36.8)
--- NOTE | 2023-05-06 23:02 | PC.NURSE ---
05/06/[address] Gayle regarding 2200 PTT which resulted at 56.6. Orders to leave heparin at 1200 units per hour and repeat PTT in am.
[2023-05-07] VITALS (25 sets, daily range): BP systolic 103–128; BP diastolic 48–58; PULSE 82–96; RESP 13–23; TEMP 36.9–38.2; O2SAT 94–99
[2023-05-07 00:16] LABS: Glucose Point of Care 119 mg/dl (65-105)
[2023-05-07] MEDS: PIPERACILLIN/TAZ 2.25G/NS 50ML 2.25 GM/50 ML BAG IVPB ×4 (00:31→17:26)
[2023-05-07] MEDS: ALBUTEROL SULFATE NEB 2.5 MG/3 ML INH INHALATION ×4 (02:07→19:59)
[2023-05-07] MEDS: IPRATROPIUM BR 0.02% INH SOLN 0.5 MG/2.5 ML VIAL INHALATION ×4 (02:07→19:59)
[2023-05-07 05:22] LABS: Alveolar/Arterial O2 Gradient 109.8 mmHg; Base Excess ABG 2.6 mEq/l (+/-2.0); Carboxyhemoglobin 0.3 % THb (0-2.0); Fractional Inspired Oxygen 36 %; Methemoglobin ABG 0.4 %THb (0-1.5); Oxygen Content ABG 13.5 %vol (16.0-22.0); Oxygen Saturation ABG 97.7 % (95.0-100.0); PCO2 ABG 41.3 mmHg (35.0-45.0); PO2 FiO2 Ratio Arterial Blood 2.75 %; Reduced Hemoglobin 3.3 %THb (0-5.0); Total Hemoglobin 9.9 g/dL (12.0-18.0); pH ABG 7.434 (7.350-7.450)
[2023-05-07 05:23] LABS: Modified Allen's Test Pass; Site Drawn RIGHT RADIAL
[2023-05-07 05:35] LABS: Basophils Absolute Auto 0.1 K/mm3 (0.0-0.1); Basophils Percent Auto 0.4 % (0.2-1.2); Eosinophils Percent Auto 0.1 % (0-4.4); Hematocrit 28.8 % (42.0-52.0); Hemoglobin 8.7 g/dL (14.0-18.0); Immature Granulocyte Absolute 1.56 K/mm3 (0.00-0.031); Immature Granulocyte Percent A 7.3 % (0-0.5); Lymphocytes Absolute Auto 2.21 K/mm3 (0.9-3.2); Lymphocytes Percent Auto 10.3 % (18.3-44.2); Mean Corpuscular HGB Conc 30.2 g/dl (32-36); Mean Corpuscular Hemoglobin 27.7 pg (26-34); Mean Corpuscular Volume 91.7 fl (80-100); Mean Platelet Volume 9.8 fl (7.4-10.4); Monocytes Percent Auto 4.8 % (2.6-8.5); Neutrophils Absolute Auto 16.5 K/mm3 (1.3-6.7); Neutrophils Percent Auto 77.1 % (45.5-73.1); Nucleated Red Blood Cells Absolute Auto 0.3 K/mm3 (0.0-0.012); Nucleated Red Blood Cells Perc 1.4 % (0.0-0.2); Platelet Count Result 141 k/mm3 (150-375); Red Blood Count 3.14 M/mm3 (4.6-6.20); Red Cell Distribution Width 15.8 % (11.5-14.5); White Blood Count 21.4 K/mm3 (4.5-10.0)
[2023-05-07 05:46] LABS: Alanine Aminotransferase 72 U/L (6-50); Albumin Level 3.1 g/dL (3.5-5.1); Alkaline Phosphatase 81 U/L (38-126); Anion Gap 6 mmol/L (8-16); Aspartate Amino Transferase 49 U/L (17-59); Bilirubin,Total 0.5 mg/dL (0.2-1.3); Blood Urea Nitrogen 73 mg/dL (9-20); Calcium 9.4 mg/dL (8.4-10.2); Carbon Dioxide 29 mmol/L (22-30); Chloride 114 mmol/L (98-107); Estimated CRCL calculation 29 ml/min; Estimated Glomerular Filt Rate 33; Glucose 117 mg/dL (65-110); Magnesium 2.8 mg/dL (1.6-2.3); Potassium 3.6 mmol/L (3.4-5.0); Sodium 149 mmol/L (137-145)
[2023-05-07 05:47] LABS: Partial Thromboplastin Time 59.2 SECONDS (22.3-36.8)
[2023-05-07] MEDS: CENTRAL LINE FLUSH 10 ML IV PUSH ×3 (06:21→21:33)
[2023-05-07] MEDS: POTASSIUM CHLORIDE 20 MEQ PACKET (FOR LIQUID) 40 MEQ FEED TUBE (08:00)
[2023-05-07] MEDS: DEXTROSE 5% IN WATER 500 ML 100 ML IV CONT (09:00)
--- NOTE | 2023-05-07 09:31 | PM.IMPN ---
Progress Note: A&P Assessment and Plan (1) Acute respiratory failure: Code(s): J96.00 - Acute respiratory failure, unspecified whether with hypoxia or hypercapnia Status: Acute Assessment and Plan: Acute respiratory failure most likely related to anesthesia, status post surgery extubated and stable on 3L nc (2) Septic shock: Code(s): A41.9 - Sepsis, unspecified organism; R65.21 - Severe sepsis with septic shock Status: Acute Assessment and Plan: 05/03: Patient presented with altered mental status, hypotensive, lactic acidosis, acute on chronic kidney disease -received 3 L of IV fluid bolus in the ER, despite which patient remained hypotensive, right femoral vein central line was inserted 05/04: Levaquin was discontinued -continue Zosyn (05/03) but will discontinue vancomycin as cultures have been negative 05/06: off all pressors, extubated, cont abx per unit controller (3) Small bowel obstruction: Code(s): K56.609 - Unspecified intestinal obstruction, unspecified as to partial versus complete obstruction Status: Acute Assessment and Plan: Patient had large emesis in the ICU on 05/03/2023, CT scan of the abdomen and pelvis showed small-bowel obstruction secondary to incarcerated ventral hernia status post ex lap with open repair of incarcerated ventral hernia without mesh. -continue antibiotics as above -surgery following the patient -NG tube in place, TF increased to 30 ml/hr 05/07 per surgery (4) Sctmp-rn-tpytaaz kidney injury: Code(s): N17.9 - Acute kidney failure, unspecified; N18.9 - Chronic kidney disease, unspecified Status: Acute Assessment and Plan: Patient presented with acute on chronic kidney disease, unknown baseline creatinine -CT abdomen pelvis did not show any stone hydronephrosis -patient has been adequately fluid-resuscitated, -creatinine improving with adequate urine output -check CK level -monitor renal function, electrolytes and urine output (5) Pressure ulcer: Code(s): L89.90 - Pressure ulcer of unspecified site, unspecified stage Status: Acute Assessment and Plan: Unstageable right buttock pressure also -wound care has been consulted (6) Hypertension: Code(s): I10 - Essential (primary) hypertension Status: Acute Assessment and Plan: Will hold all antihypertensive secondary to septic shock (7) DM2 (diabetes mellitus, type 2): Code(s): E11.9 - Type 2 diabetes mellitus without complications Status: Acute Assessment and Plan: Continue sliding scale insulin and Accu-Cheks (8) GI bleed: Code(s): K92.2 - Gastrointestinal hemorrhage, unspecified Status: Acute Assessment and Plan: Gastric occult blood was positive -continue Protonix IV q.12 hours -appreciate GI evaluation and recommendation -monitor hemoglobin and transfuse if needed (9) Anemia: Code(s): D64.9 - Anemia, unspecified Status: Acute Assessment and Plan: Anemia likely secondary to GI bleed, -workup for iron deficiency anemia is pending -normal vitamin B12 and folic acid -hemoglobin trending down could be dilutional -continue to monitor H&H q.12 hours -transfuse if hemoglobin < 7.0 Plan DVT prophylaxis: SCD, will hold Lovenox due to possible GI bleed and anemia Stress ulcer prophylaxis: Protonix IV q.12 hours Nutrition: TF increased to 30 ml/hr Full Code Subjective Date/time seen: 05/07/23 09:31 Interval history: 82-year-old male with history of heart disease, kidney disease and diabetes among other comorbidities is presenting with ventral hernia repair resulting in septic shock, acute kidney injury and lactic acidosis, was treated in the intensive care unit after getting intubated and sedated, now extubated. No overnight events noted. No fevers. Extubated 05/06 morning. Review of Systems Review of Systems: 12 point review of
--- NOTE | 2023-05-07 09:40 | WPDGIPROGNO ---
Progress Note: A&P Assessment and Plan (1) Coffee ground emesis: Code(s): K92.0 - Hematemesis Status: Acute Assessment and Plan: no signs of bleeding hgb stable at 8.5, no more report of coffee ground continue with iv protonix, probably gastritis supportive and medical care on trickle tube feeding will follow [place], call if questions (2) Incarcerated hernia of abdominal cavity: Code(s): K45.0 - Other specified abdominal hernia with obstruction, without gangrene Status: Deleted Assessment and Plan: treated with surgery and recovering (3) Septic shock: Code(s): A41.9 - Sepsis, unspecified organism; R65.21 - Severe sepsis with septic shock Status: Acute Assessment and Plan: resolved, off pressors on abx (4) Anemia: Code(s): D64.9 - Anemia, unspecified Status: Acute Assessment and Plan: monitor iv protonix Subjective Date/time seen: 05/07/23 09:40 Interval history: he is awake and better, NGT in place, no more report of coffee ground material Review of Systems Review of Systems: All systems reviewed & are unremarkable except as noted in HPI and below Exam Narrative: General: awake and alert HEENT:? Pupils equal and reactive, sclera is clear Neck:? Supple Respiratory:? Coarse breath sounds bilaterally, decreased at bases, no wheezing, adequate air entry Cardiac:? S1-S2 is normal, regular rate and rhythm Abdomen:? Soft, nontender, nondistended, hypoactive bowel sounds, dressing on the incision Extremities:? leg edema Neuro:? opens eyes, follows simple commands in all extremities Skin:? Large pressure ulcer on his right buttock Psych:? Unable to assess at this time Objective Data Vital Signs Vital Signs: Vital Signs - 24 hr 05/06/23 09:45 05/06/23 10:00 05/06/23 10:03 Temperature 98 F Pulse Rate 87 88 Respiratory Rate 13 14 Blood Pressure 122/56 L Pulse Oximetry 97 98 97 Oxygen Delivery Nasal Cannula Nasal Cannula Oxygen Flow Rate 3 2 05/06/23 10:10 05/06/23 10:00 05/06/23 13:51 Temperature Pulse Rate 87 84 Respiratory Rate 18 Blood Pressure Pulse Oximetry 97 96 Oxygen Delivery Nasal Cannula Nasal Cannula Oxygen Flow Rate 3 1 05/06/23 13:51 05/06/23 14:07 05/06/23 12:00 Temperature Pulse Rate 84 87 82 Respiratory Rate 17 14 12 Blood Pressure Pulse Oximetry 98 Oxygen Delivery Nasal Cannula Oxygen Flow Rate 1 05/06/23 12:00 05/06/23 14:00 05/06/23 16:00 Temperature 98.4 F 98.4 F 98.7 F Pulse Rate 82 82 86 Respiratory Rate 12 15 13 Blood Pressure 115/56 L 123/65 106/67 Pulse Oximetry 98 97 92 Oxygen Delivery Oxygen Flow Rate 05/06/23 16:00 05/06/23 12:00 05/06/23 14:00 Temperature Pulse Rate 86 87 80 Respiratory Rate 13 Blood Pressure Pulse Oximetry 92 Oxygen Delivery Room Air Oxygen Flow Rate 05/06/23 16:00 05/06/23 17:43 05/06/23 18:00 Temperature 98.9 F Pulse Rate 88 95 88 Respiratory Rate 16 Blood Pressure 106/67 113/53 L Pulse Oximetry 91 Oxygen Delivery Oxygen Flow Rate 05/06/23 18:00 05/06/23 19:54 05/06/23 19:56 Temperature Pulse Rate 86 95 Respiratory Rate 18 Blood Pressure Pulse Oximetry 94 Oxygen Delivery Nasal Cannula Oxygen Flow Rate 2 05/06/23 20:07 05/06/23 20:00 05/06/23 20:00 Temperature Pulse Rate 95 94 90 Respiratory Rate 16 14 Blood Pressure Pulse Oximetry 96 Oxygen Delivery Room Air Oxygen Flow Rate 05/06/23 20:00 05/06/23 22:00 05/06/23 22:00 Temperature 99.2 F 99.4 F Pulse Rate 97 97 90 Respiratory Rate 17 14 Blood Pressure 117/53 L 108/63 Pulse Oximetry 97 96 Oxygen Delivery Oxygen Flow Rate 05/07/23 00:00 05/07/23 02:08 05/07/23 02:18 Temperature 99.2 F Pulse Rate 93 92 90 Respiratory Rate 15 16 18 Blood Pressure 114/56 L Pulse Oximetry 95 Oxygen Delivery Oxygen Flow Rate 05/07/23 00:00 05/07/23
--- NOTE | 2023-05-07 09:42 | WPDINTPN ---
Progress Note: A&P Assessment and Plan (1) Acute respiratory failure: Code(s): J96.00 - Acute respiratory failure, unspecified whether with hypoxia or hypercapnia Status: Acute Assessment and Plan: Acute respiratory failure most likely related to anesthesia, status post surgery -Intubated at the time of surgery - 05/06 extubated after a successful weaning trial -incentive spirometry (2) Septic shock: Code(s): A41.9 - Sepsis, unspecified organism; R65.21 - Severe sepsis with septic shock Status: Acute Assessment and Plan: 05/03;Patient presented with altered mental status, hypotensive, lactic acidosis, acute on chronic kidney disease -received 3 L of IV fluid bolus in the ER, despite which patient remained hypotensive, right femoral vein central line was inserted -OFF vasopressors -will discontinue hydrocortisone -maintain MAP > 65 mmHg at all times when adequate end organ perfusion -urine output has improved, -lactic acid has normalized -off all IV fluid -05/04: Levaquin was discontinued - 05/07 vancomycin discontinued -continue Zosyn (05/03) (3) Small bowel obstruction: Code(s): K56.609 - Unspecified intestinal obstruction, unspecified as to partial versus complete obstruction Status: Acute Assessment and Plan: Patient had large emesis in the ICU on 05/03/2023, CT scan of the abdomen and pelvis showed small-bowel obstruction secondary to incarcerated ventral hernia status post ex lap with open repair of incarcerated ventral hernia without mesh. -continue antibiotics as above -surgery following the patient -NG tube in place. Continue trickle tube feeds as per General surgery (4) Tgswq-[id number] kidney injury: Code(s): N17.9 - Acute kidney failure, unspecified; N18.9 - Chronic kidney disease, unspecified Status: Acute Assessment and Plan: Patient presented with acute on chronic kidney disease, unknown baseline creatinine -CT abdomen pelvis did not show any stone hydronephrosis -patient has been adequately fluid-resuscitated, -creatinine improving with adequate urine output -check CK level -monitor renal function, electrolytes and urine output (5) Pressure ulcer: Code(s): L89.90 - Pressure ulcer of unspecified site, unspecified stage Status: Acute Assessment and Plan: Unstageable right buttock pressure also -wound care has been consulted (6) Hypertension: Code(s): I10 - Essential (primary) hypertension Status: Acute Assessment and Plan: Will hold all antihypertensive secondary to septic shock (7) DM2 (diabetes mellitus, type 2): Code(s): E11.9 - Type 2 diabetes mellitus without complications Status: Acute Assessment and Plan: Continue sliding scale insulin and Accu-Cheks (8) GI bleed: Code(s): K92.2 - Gastrointestinal hemorrhage, unspecified Status: Acute Assessment and Plan: Gastric occult blood was positive but no signs of obvious bleed -patient evaluated by GI and suspect secondary to GI gastritis -continue Protonix IV q.12 hours -appreciate GI evaluation and recommendation -monitor hemoglobin and transfuse if needed (9) Anemia: Code(s): D64.9 - Anemia, unspecified Status: Acute Assessment and Plan: Anemia likely secondary to GI bleed, -workup for iron deficiency anemia is pending -normal vitamin B12 and folic acid -hemoglobin trending down could be dilutional -continue to monitor H&H q.12 hours -transfuse if hemoglobin < 7.0 (10) Electrolyte abnormality: Code(s): E87.8 - Other disorders of electrolyte and fluid balance, not elsewhere classified Status: Acute Assessment and Plan: Increase sodium and chloride Will give 500 mL of D5 water and increase free water flush Monitor (11) DVT (deep venous thrombosis): Code(s): I82.409 - Acute embolism and thrombosis of unspecified deep veins of unspecified lower extremity
[2023-05-07] MEDS: METOPROLOL TARTRATE 12.5 MG TABLET FEED TUBE ×2 (10:00→21:33)
[2023-05-07] MEDS: PANTOPRAZOLE SODIUM IV 40 MG VIAL IV PUSH ×2 (10:00→21:33)
[2023-05-07] MEDS: COLLAGENASE OINT 30 GM TUBE 1 APPLIC TOPICAL (10:00)
--- NOTE | 2023-05-07 10:31 | PC.NURSE ---
Spoke to Dr. Gayle at 1026 who is present at bedside. Order to continue running Heparin gtt at 1200 units/hr, recheck ptt at [address] Gayle with results for further gt. management.
--- NOTE | 2023-05-07 11:46 | PCOTNOTE ---
Left voicemail for hospitalist to remove bed rest orders at 11:45. Will follow.
--- NOTE | 2023-05-07 12:14 | PM.PNGS ---
Progress Note: A&P Assessment and Plan (1) Incarcerated ventral hernia: Code(s): K43.6 - Other and unspecified ventral hernia with obstruction, without gangrene Status: Acute Assessment and Plan: repair intact. No bleeding complications from heparin as yet (2) Small bowel obstruction: Code(s): K56.609 - Unspecified intestinal obstruction, unspecified as to partial versus complete obstruction Status: Acute Assessment and Plan: due to incarc hernia, tolerate tube feeds, increase to 30cc/hr. WBC clearing decreasing now. (3) DVT (deep venous thrombosis): Code(s): I82.409 - Acute embolism and thrombosis of unspecified deep veins of unspecified lower extremity Status: Acute Assessment and Plan: therapeutic on heparin gtt (4) Acute respiratory failure: Code(s): J96.00 - Acute respiratory failure, unspecified whether with hypoxia or hypercapnia Status: Acute Assessment and Plan: extubated but still obtunded, nonverbal (5) Qvsqo-gl-pilyqfn kidney injury: Code(s): N17.9 - Acute kidney failure, unspecified; N18.9 - Chronic kidney disease, unspecified Status: Acute Assessment and Plan: Cr down to 2.3 Subjective Subjective Date/Time Seen: 05/07/23 12:14 Post Op day: 3 Patient reports: tolerating liquids well (trickle feeds per NG), no bowel movement, afebrile and other (extubated earlier this morning) Review of Systems Review of Systems: ROS unobtainable: Yes unobtainable due to mental status Exam Const: General: other (not responding verbally yet) Nutritional Appearance: obese Orientation/consciousness: patient obtunded GI: Inspection: incision (dry and healing well.) and obesity GI Palp: Yes Soft to palpation, No Tenderness to palpation present (GI) and No Guarding due to palpation present (GI) Auscultation: Hypoactive bowel sounds present Objective Data Vital Signs Vital Signs: Vital Signs - 24 hr 05/06/23 13:51 05/06/23 13:51 05/06/23 14:07 Temperature Pulse Rate 84 84 87 Respiratory Rate 18 17 14 Blood Pressure Pulse Oximetry 96 Oxygen Delivery Nasal Cannula Oxygen Flow Rate 1 05/06/23 14:00 05/06/23 16:00 05/06/23 16:00 Temperature 36.9 C 37.1 C Pulse Rate 82 86 86 Respiratory Rate 15 13 13 Blood Pressure 123/65 106/67 Pulse Oximetry 97 92 92 Oxygen Delivery Room Air Oxygen Flow Rate 05/06/23 14:00 05/06/23 16:00 05/06/23 17:43 Temperature Pulse Rate 80 88 95 Respiratory Rate Blood Pressure 106/67 Pulse Oximetry Oxygen Delivery Oxygen Flow Rate 05/06/23 18:00 05/06/23 18:00 05/06/23 19:54 Temperature 37.2 C Pulse Rate 88 86 95 Respiratory Rate 16 18 Blood Pressure 113/53 L Pulse Oximetry 91 Oxygen Delivery Oxygen Flow Rate 05/06/23 19:56 05/06/23 20:07 05/06/23 20:00 Temperature Pulse Rate 95 94 Respiratory Rate 16 Blood Pressure Pulse Oximetry 94 Oxygen Delivery Nasal Cannula Oxygen Flow Rate 2 05/06/23 20:00 05/06/23 20:00 05/06/23 22:00 Temperature 37.3 C Pulse Rate 90 97 97 Respiratory Rate 14 17 Blood Pressure 117/53 L Pulse Oximetry 96 97 Oxygen Delivery Room Air Oxygen Flow Rate 05/06/23 22:00 05/07/23 00:00 05/07/23 02:08 Temperature 37.4 C 37.3 C Pulse Rate 90 93 92 Respiratory Rate 14 15 16 Blood Pressure 108/63 114/56 L Pulse Oximetry 96 95 Oxygen Delivery Oxygen Flow Rate 05/07/23 02:18 05/07/23 00:00 05/07/23 02:01 Temperature 37.2 C Pulse Rate 90 94 Respiratory Rate 18 15 Blood Pressure 115/58 L Pulse Oximetry 95 94 Oxygen Delivery Nasal Cannula Oxygen Flow Rate 2 05/07/23 00:00 05/07/23 02:00 05/07/23 04:00 Temperature Pulse Rate 95 94 Respiratory Rate Blood Pressure Pulse Oximetry 95 Oxygen Delivery Nasal Cannula Oxygen Flow Rate 4 05/07/23 04:00 05/07/23 04:01 05/07/23 06:00 Temperature 37.1 C 37.0 C Pulse
[2023-05-07 12:34] LABS: Glucose Point of Care 124 mg/dl (65-105)
[2023-05-07] MEDS: HEPARIN SOD/D5W 100 UNITS/ML 25,000 UNITS/250 ML BAG 12 UNITS IV CONT (14:46)
[2023-05-07 14:52] LABS: Partial Thromboplastin Time 60.3 SECONDS (22.3-36.8)
--- NOTE | 2023-05-07 15:01 | PC.NURSE ---
Spoke with Dr. Gayle at 1501 and updated on current serum ptt. Dr. Gayle okay with this ptt at this time. Orders to continue infusing heparin gtt at 1200 units/hr. Order to redraw a ptt tomorrow morning for further gtt management.
[2023-05-07 17:40] LABS: Glucose Point of Care 132 mg/dl (65-105)
[2023-05-07 23:51] LABS: Glucose Point of Care 123 mg/dl (65-105)
[2023-05-08] VITALS (23 sets, daily range): BP systolic 113–131; BP diastolic 50–70; PULSE 76–92; RESP 14–21; TEMP 37.2–38.1; O2SAT 95–100
[2023-05-08] MEDS: PIPERACILLIN/TAZ 2.25G/NS 50ML 2.25 GM/50 ML BAG IVPB ×4 (00:05→17:26)
[2023-05-08] MEDS: ALBUTEROL SULFATE NEB 2.5 MG/3 ML INH INHALATION ×4 (02:39→19:06)
[2023-05-08] MEDS: IPRATROPIUM BR 0.02% INH SOLN 0.5 MG/2.5 ML VIAL INHALATION ×4 (02:39→19:06)
[2023-05-08] MEDS: CENTRAL LINE FLUSH 10 ML IV PUSH ×3 (05:25→20:55)
[2023-05-08 05:55] LABS: Hemoglobin 8.6 g/dL (14.0-18.0); Mean Corpuscular HGB Conc 29.7 g/dl (32-36); Mean Corpuscular Hemoglobin 27.2 pg (26-34); Mean Corpuscular Volume 91.8 fl (80-100); Mean Platelet Volume 9.5 fl (7.4-10.4); Platelet Count Result 126 k/mm3 (150-375); Red Blood Count 3.16 M/mm3 (4.6-6.20); Red Cell Distribution Width 15.8 % (11.5-14.5); White Blood Count 17.6 K/mm3 (4.5-10.0)
[2023-05-08 06:10] LABS: Partial Thromboplastin Time 62.2 SECONDS (22.3-36.8)
[2023-05-08 06:12] LABS: Alanine Aminotransferase 73 U/L (6-50); Albumin Level 2.9 g/dL (3.5-5.1); Alkaline Phosphatase 78 U/L (38-126); Anion Gap 3 mmol/L (8-16); Aspartate Amino Transferase 64 U/L (17-59); Bilirubin,Total 0.5 mg/dL (0.2-1.3); Blood Urea Nitrogen 63 mg/dL (9-20); Calcium 9.2 mg/dL (8.4-10.2); Carbon Dioxide 30 mmol/L (22-30); Chloride 116 mmol/L (98-107); Estimated CRCL calculation 35 ml/min; Estimated Glomerular Filt Rate 41; Glucose 122 mg/dL (65-110); Magnesium 2.8 mg/dL (1.6-2.3); Phosphorus 2.8 mg/dL (2.5-4.5); Potassium 3.9 mmol/L (3.4-5.0); Sodium 149 mmol/L (137-145)
[2023-05-08 06:48] LABS: Band Neutrophils Percent 2 % (0-6); Eosinophils Percent Manual 4 % (0-4); Lymphocytes Absolute Manual 2.28 K/mm3 (1.1-4.5); Metamyelocytes Percent 4 %; Monocytes Absolute Manual 0.88 K/mm3 (0.1-0.90); Monocytes Percent Manual 5 % (3-9); Myelocytes Percent 1 %; Neutrophils Absolute Manual 12.84 K/mm3 (1.3-6.7); Neutrophils Percent Manual 71 % (46-73); Platelet Estimate Adequate (Adequate); Total Cells Counted 100
[2023-05-08 06:49] LABS: Atypical Lymphocytes Present; Hypochromasia 2+ (NORMAL); Schistocytes Rare (NORMAL); Tear Drop Cells 1+ (NORMAL)
[2023-05-08] MEDS: DEXTROSE 5% IN WATER 500 ML 100 ML IV CONT (08:50)
[2023-05-08] MEDS: PANTOPRAZOLE SODIUM IV 40 MG VIAL IV PUSH ×2 (08:51→20:55)
[2023-05-08] MEDS: METOPROLOL TARTRATE 12.5 MG TABLET FEED TUBE ×2 (08:51→20:54)
[2023-05-08] MEDS: COLLAGENASE OINT 30 GM TUBE 1 APPLIC TOPICAL (08:52)
[2023-05-08] MEDS: HEPARIN SOD/D5W 100 UNITS/ML 25,000 UNITS/250 ML BAG 12 UNITS IV CONT (08:52)
--- NOTE | 2023-05-08 09:05 | PCPTNOTE ---
Pt has active bedrest orders. Will see pt once bedrest orders are removed.
--- NOTE | 2023-05-08 09:17 | WPDINTPN ---
Progress Note: A&P Assessment and Plan (1) Acute respiratory failure: Code(s): J96.00 - Acute respiratory failure, unspecified whether with hypoxia or hypercapnia Status: Acute Assessment and Plan: Acute respiratory failure most likely related to anesthesia, status post surgery -Intubated at the time of surgery - 05/06 extubated after a successful weaning trial -continue to encourage incentive spirometry (2) Septic shock: Code(s): A41.9 - Sepsis, unspecified organism; R65.21 - Severe sepsis with septic shock Status: Acute Assessment and Plan: 05/03;Patient presented with altered mental status, hypotensive, lactic acidosis, acute on chronic kidney disease -received 3 L of IV fluid bolus in the ER, despite which patient remained hypotensive, right femoral vein central line was inserted -OFF vasopressors -will discontinue hydrocortisone -maintain MAP > 65 mmHg at all times when adequate end organ perfusion -urine output has improved, -lactic acid has normalized -off all IV fluid -05/04: Levaquin was discontinued - 05/07 vancomycin discontinued -continue Zosyn (05/03) (3) Small bowel obstruction: Code(s): K56.609 - Unspecified intestinal obstruction, unspecified as to partial versus complete obstruction Status: Acute Assessment and Plan: Patient had large emesis in the ICU on 05/03/2023, CT scan of the abdomen and pelvis showed small-bowel obstruction secondary to incarcerated ventral hernia status post ex lap with open repair of incarcerated ventral hernia without mesh. -continue antibiotics as above -surgery following the patient -NG tube in place. Continue tube feeds as per General surgery (4) Hlpno-tr-klkfsim kidney injury: Code(s): N17.9 - Acute kidney failure, unspecified; N18.9 - Chronic kidney disease, unspecified Status: Acute Assessment and Plan: Patient presented with acute on chronic kidney disease, unknown baseline creatinine -CT abdomen pelvis did not show any stone hydronephrosis -patient has been adequately fluid-resuscitated, -creatinine improving with adequate urine output -normal CK level -monitor renal function, electrolytes and urine output (5) Pressure ulcer: Code(s): L89.90 - Pressure ulcer of unspecified site, unspecified stage Status: Acute Assessment and Plan: Unstageable right buttock pressure also -wound care has been consulted (6) Hypertension: Code(s): I10 - Essential (primary) hypertension Status: Acute Assessment and Plan: Will hold all antihypertensive secondary to septic shock (7) DM2 (diabetes mellitus, type 2): Code(s): E11.9 - Type 2 diabetes mellitus without complications Status: Acute Assessment and Plan: Continue sliding scale insulin and Accu-Cheks (8) GI bleed: Code(s): K92.2 - Gastrointestinal hemorrhage, unspecified Status: Acute Assessment and Plan: Gastric occult blood was positive but no signs of obvious bleed -patient evaluated by GI and suspect secondary to GI gastritis -continue Protonix IV q.12 hours -appreciate GI evaluation and recommendation -monitor hemoglobin which has been stable (9) Anemia: Code(s): D64.9 - Anemia, unspecified Status: Acute Assessment and Plan: Anemia likely secondary to GI bleed and anemia of chronic disease -workup for iron deficiency anemia is negative -normal vitamin B12 and folic acid -hemoglobin trending down could be dilutional -continue to monitor H&H q.12 hours -transfuse if hemoglobin < 7.0 (10) Electrolyte abnormality: Code(s): E87.8 - Other disorders of electrolyte and fluid balance, not elsewhere classified Status: Acute Assessment and Plan: Increase sodium and chloride Will give additional 500 mL of D5 water and increase free water flush to 200 mL Monitor (11) DVT (deep venous thrombosis): Code(s): I82.409 - Acute embolism and thrombosis
--- NOTE | 2023-05-08 10:10 | P.PNIM_ITS ---
Progress Note: A&P Assessment and Plan (1) Acute respiratory failure: Code(s): J96.00 - Acute respiratory failure, unspecified whether with hypoxia or hypercapnia Status: Acute Assessment and Plan: Acute respiratory failure most likely related to anesthesia, status post surgery -Intubated at the time of surgery - 05/06 extubated after a successful weaning trial -continue to encourage incentive spirometry (2) Septic shock: Code(s): A41.9 - Sepsis, unspecified organism; R65.21 - Severe sepsis with septic shock Status: Acute Assessment and Plan: 05/03;Patient presented with altered mental status, hypotensive, lactic acidosis, acute on chronic kidney disease -received 3 L of IV fluid bolus in the ER, despite which patient remained hypotensive, right femoral vein central line was inserted -OFF vasopressors -will discontinue hydrocortisone -maintain MAP > 65 mmHg at all times when adequate end organ perfusion -urine output has improved, -lactic acid has normalized -off all IV fluid -05/04: Levaquin was discontinued - 05/07 vancomycin discontinued -continue Zosyn (05/03) (3) Small bowel obstruction: Code(s): K56.609 - Unspecified intestinal obstruction, unspecified as to partial versus complete obstruction Status: Acute Assessment and Plan: Patient had large emesis in the ICU on 05/03/2023, CT scan of the abdomen and pelvis showed small-bowel obstruction secondary to incarcerated ventral hernia status post ex lap with open repair of incarcerated ventral hernia without mesh. -continue antibiotics as above -surgery following the patient -NG tube in place. Continue tube feeds as per General surgery (4) Byxpy-kf-[id number] kidney injury: Code(s): N17.9 - Acute kidney failure, unspecified; N18.9 - Chronic kidney disease, unspecified Status: Acute Assessment and Plan: Patient presented with acute on chronic kidney disease, unknown baseline creatinine -CT abdomen pelvis did not show any stone hydronephrosis -patient has been adequately fluid-resuscitated, -creatinine improving with adequate urine output -normal CK level -monitor renal function, electrolytes and urine output (5) Pressure ulcer: Code(s): L89.90 - Pressure ulcer of unspecified site, unspecified stage Status: Acute Assessment and Plan: Unstageable right buttock pressure also -wound care has been consulted (6) Hypertension: Code(s): I10 - Essential (primary) hypertension Status: Acute Assessment and Plan: Will hold all antihypertensive secondary to septic shock (7) DM2 (diabetes mellitus, type 2): Code(s): E11.9 - Type 2 diabetes mellitus without complications Status: Acute Assessment and Plan: Continue sliding scale insulin and Accu-Cheks (8) GI bleed: Code(s): K92.2 - Gastrointestinal hemorrhage, unspecified Status: Acute Assessment and Plan: Gastric occult blood was positive but no signs of obvious bleed -patient evaluated by GI and suspect secondary to GI gastritis -continue Protonix IV q.12 hours -appreciate GI evaluation and recommendation -monitor hemoglobin which has been stable (9) Anemia: Code(s): D64.9 - Anemia, unspecified Status: Acute Assessment and Plan: Anemia likely secondary to GI bleed and anemia of chronic disease -workup for iron deficiency anemia is negative -normal vitamin B12 and folic acid -hemoglobin trending down could be dilutiona
--- NOTE | 2023-05-08 10:13 | PCOTNOTE ---
Initiated Occupational Therapy Evaluation with pt., pt. mobilized to seated EOB, pt. did not display adequate tolerance for participation. Evaluation will be continued at later time, when pt is appropriate. Following.
--- NOTE | 2023-05-08 10:17 | PCFNICU ---
ICU Rounding Note: Pt current nutrition is Vital 1.2 @ 30 ml/h. Tolerating. Nutrition recommendation: Advance diet per swallow eval as ordered Last recorded weight is 113.8 kg. +1.3 kg / 4 days Bowel Motility: +1 BM today 05/08 Labs Reviewed: Hgb 8.6, Hct 29, Alb 2.9, Na 149, BUN 63 Meds Noted: Protonix, Zofran, Zosyn Skin: Unstageable pressure ulcer R buttock; Deep tissue injury L heel Additional Notes: Pt was extubated 05/06, still on tube feeding per surgery. Speech eval planned for today. Vital 1.2 @ 30 ml/h providing 792 kcal, 49.5 g protein, 535 ml free water. Plan to move out of ICU today. Following daily in ICU rounds. Will monitor in ICU rounds and reassess every Monday and Monday. .
--- NOTE | 2023-05-08 10:51 | PCSTNOTE ---
Bedside Swallow Evaluation order cancelled per nurse on Monday 05/07, or at least not to be done today (Monday) according to LUIS ALBERTO Knutson. Will be completed today, Monday by Daria Leija.
[2023-05-08 11:42] LABS: Glucose Point of Care 132 mg/dl (65-105)
[2023-05-08 12:03] LABS: Device NASAL CANNULA
--- NOTE | 2023-05-08 12:49 | PM.PNGS ---
Progress Note: A&P Assessment and Plan (1) Incarcerated ventral hernia: Code(s): K43.6 - Other and unspecified ventral hernia with obstruction, without gangrene Status: Acute Assessment and Plan: Repair intact. No sign recurrent hernia. Okay to transfer to IMU from my perspective. (2) Small bowel obstruction: Code(s): K56.609 - Unspecified intestinal obstruction, unspecified as to partial versus complete obstruction Status: Acute Assessment and Plan: Bowel function has returned. DC nasogastric tube and start clear liquids. (3) DVT (deep venous thrombosis): Code(s): I82.409 - Acute embolism and thrombosis of unspecified deep veins of unspecified lower extremity Status: Acute Assessment and Plan: PTT therapeutic. Subjective Subjective Date/Time Seen: 05/08/23 12:49 Post Op day: 4 Patient reports: feels better, pain is less, bowel movement and afebrile Interval history: Patient able to verbalize today. Not experiencing any significant pain but very tired. Review of Systems Review of Systems: All systems reviewed & are unremarkable except as noted in HPI and below (HPI) Exam Const: General: comfortable, no acute distress, lethargic and tired appearing GI: Inspection: Abdominal wall edema and incision (Continues to heal well) GI Palp: Yes Soft to palpation, No Tenderness to palpation present (GI), No Guarding due to palpation present (GI) and No Rebound tenderness present Auscultation: normal bowel sounds (Normal active bowel sounds present) Neuro: General: patient oriented x3 and no focal motor deficits Extrem: General: no calf tenderness and no edema Psych: Affect: normal affect Objective Data Vital Signs Vital Signs: Vital Signs - 24 hr 05/07/23 13:20 05/07/23 13:30 05/07/23 14:00 Temperature 37.1 C Pulse Rate 83 87 87 Respiratory Rate 16 16 21 H Blood Pressure 128/58 L Pulse Oximetry 97 Oxygen Delivery Oxygen Flow Rate 05/07/23 14:00 05/07/23 16:00 05/07/23 16:00 Temperature 37.4 C Pulse Rate 90 87 Respiratory Rate 23 H Blood Pressure 110/49 L Pulse Oximetry 96 97 Oxygen Delivery Nasal Cannula Oxygen Flow Rate 2 05/07/23 18:00 05/07/23 16:00 05/07/23 18:00 Temperature 37.6 C Pulse Rate 88 87 93 Respiratory Rate 15 Blood Pressure 103/48 L Pulse Oximetry 97 Oxygen Delivery Oxygen Flow Rate 05/07/23 20:01 05/07/23 20:05 05/07/23 20:13 Temperature Pulse Rate 92 88 96 Respiratory Rate 14 13 Blood Pressure Pulse Oximetry 99 Oxygen Delivery Nasal Cannula Oxygen Flow Rate 2 05/07/23 21:33 05/07/23 20:00 05/07/23 20:00 Temperature Pulse Rate 95 92 Respiratory Rate Blood Pressure Pulse Oximetry 97 Oxygen Delivery Nasal Cannula Oxygen Flow Rate 2 05/07/23 22:00 05/07/23 20:00 05/07/23 22:00 Temperature 38.0 C H 38.2 C H Pulse Rate 84 95 82 Respiratory Rate 20 20 Blood Pressure 123/55 L 117/53 L Pulse Oximetry 97 97 Oxygen Delivery Oxygen Flow Rate 05/07/23 23:50 05/08/23 00:00 05/08/23 00:00 Temperature 38.1 C H Pulse Rate 90 87 Respiratory Rate 18 Blood Pressure 121/52 L Pulse Oximetry 97 98 Oxygen Delivery Nasal Cannula Oxygen Flow Rate 2 05/08/23 02:00 05/08/23 02:00 05/08/23 02:38 Temperature 37.9 C H Pulse Rate 88 87 87 Respiratory Rate 18 17 Blood Pressure 113/50 L Pulse Oximetry 97 Oxygen Delivery Oxygen Flow Rate 05/08/23 02:47 05/08/23 04:00 05/08/23 04:00 Temperature 37.6 C H Pulse Rate 88 80 82 Respiratory Rate 15 14 Blood Pressure 114/53 L Pulse Oximetry 98 Oxygen Delivery Oxygen Flow Rate 05/08/23 04:00 05/08/23 06:00 05/08/23 06:00 Temperature 37.2 C Pulse Rate 81 82 Respiratory Rate 14 Blood Pressure 130/64 Pulse Oximetry 98 98 Oxygen Delivery Nasal Cannula Oxygen Flow Rate 2 05/08/23 08:38 05/08/23 08:40 05/08/23 08:46 Te
--- NOTE | 2023-05-08 13:49 | PCPTNOTE ---
Pt has a femoral line. Pt unable to safely participate in skilled therapy at this time.
--- NOTE | 2023-05-08 16:32 | PCSTNOTE ---
Please refer to the Bedside Swallow Evaluation in the EMR. Please note, silent aspiration cannot be ruled out at bedside.
[2023-05-08 17:32] LABS: Glucose Point of Care 123 mg/dl (65-105)
[2023-05-09] VITALS (24 sets, daily range): BP systolic 101–136; BP diastolic 52–69; PULSE 79–101; RESP 14–24; TEMP 36.4–37.9; O2SAT 92–100
[2023-05-09] MEDS: PIPERACILLIN/TAZ 2.25G/NS 50ML 2.25 GM/50 ML BAG IVPB ×5 (00:05→23:49)
[2023-05-09] MEDS: ALBUTEROL SULFATE NEB 2.5 MG/3 ML INH INHALATION ×3 (02:14→13:58)
[2023-05-09] MEDS: IPRATROPIUM BR 0.02% INH SOLN 0.5 MG/2.5 ML VIAL INHALATION ×3 (02:14→13:58)
[2023-05-09 04:33] LABS: Hematocrit 28.1 % (42.0-52.0); Hemoglobin 8.3 g/dL (14.0-18.0); Mean Corpuscular HGB Conc 29.5 g/dl (32-36); Mean Corpuscular Hemoglobin 27.4 pg (26-34); Mean Corpuscular Volume 92.7 fl (80-100); Mean Platelet Volume 9.1 fl (7.4-10.4); Platelet Count Result 116 k/mm3 (150-375); Red Blood Count 3.03 M/mm3 (4.6-6.20); Red Cell Distribution Width 15.9 % (11.5-14.5); White Blood Count 15.7 K/mm3 (4.5-10.0)
[2023-05-09 04:50] LABS: Alanine Aminotransferase 67 U/L (6-50); Albumin Level 2.8 g/dL (3.5-5.1); Alkaline Phosphatase 74 U/L (38-126); Anion Gap 3 mmol/L (8-16); Aspartate Amino Transferase 67 U/L (17-59); Bilirubin,Total 0.5 mg/dL (0.2-1.3); Blood Urea Nitrogen 54 mg/dL (9-20); Calcium 9.2 mg/dL (8.4-10.2); Carbon Dioxide 30 mmol/L (22-30); Chloride 119 mmol/L (98-107); Estimated CRCL calculation 41 ml/min; Estimated Glomerular Filt Rate 51; Glucose 127 mg/dL (65-110); Magnesium 2.9 mg/dL (1.6-2.3); Potassium 3.8 mmol/L (3.4-5.0); Sodium 152 mmol/L (137-145)
[2023-05-09 04:52] LABS: Partial Thromboplastin Time 66.6 SECONDS (22.3-36.8)
[2023-05-09 04:55] LABS: Band Neutrophils Percent 4 % (0-6); Eosinophils Absolute Manual 0.31 K/mm3 (0.02-0.5); Eosinophils Percent Manual 2 % (0-4); Hypochromasia 1+ (NORMAL); Lymphocytes Absolute Manual 2.35 K/mm3 (1.1-4.5); Monocytes Absolute Manual 0.47 K/mm3 (0.1-0.90); Monocytes Percent Manual 3 % (3-9); Neutrophils Absolute Manual 12.56 K/mm3 (1.3-6.7); Neutrophils Percent Manual 76 % (46-73); Nucleated Red Blood Cells 2 %; Platelet Estimate Adequate (Adequate); Polychromasia 1+ (NORMAL); Total Cells Counted 100
[2023-05-09 04:56] LABS: Anisocytosis 1+ (NORMAL); Macrocytosis 1+ (NORMAL); Schistocytes None Seen (NORMAL)
[2023-05-09] MEDS: HEPARIN SOD/D5W 100 UNITS/ML 25,000 UNITS/250 ML BAG 12 UNITS IV CONT (05:29)
[2023-05-09] MEDS: CENTRAL LINE FLUSH 10 ML IV PUSH ×2 (05:29→14:04)
[2023-05-09] MEDS: PANTOPRAZOLE SODIUM IV 40 MG VIAL IV PUSH ×2 (08:45→21:47)
[2023-05-09] MEDS: COLLAGENASE OINT 30 GM TUBE 1 APPLIC TOPICAL (08:46)
[2023-05-09] MEDS: METOPROLOL TARTRATE 12.5 MG TABLET FEED TUBE ×2 (08:46→21:47)
[2023-05-09] MEDS: ACETAMINOPHEN 325 MG TABLET 650 MG PO ×2 (08:47→18:08)
--- NOTE | 2023-05-09 09:11 | PM.IMPN ---
Progress Note: A&P Assessment and Plan (1) Acute respiratory failure: Status: Acute Assessment and Plan: Extubated 05/06, resolving (2) Septic shock: Status: Acute Assessment and Plan: Resolving, continue Zosyn started 05/03 (3) Small bowel obstruction: Status: Acute Assessment and Plan: Postop day 4 from incarcerated ventral hernia repair, doing well, NG tube removed, advancing diet as tolerated per general surgery recommendations (4) Bbway-am-yseyvja kidney injury: Status: Acute Assessment and Plan: Improving, monitor (5) Pressure ulcer: Status: Acute Assessment and Plan: Unstageable right buttock pressure also -wound care has been consulted (6) Hypertension: Status: Acute Assessment and Plan: Improving, will likely be able to restart home antihypertensive soon (7) DM2 (diabetes mellitus, type 2): Status: Acute Assessment and Plan: Continue sliding scale insulin and Accu-Cheks (8) GI bleed: Status: Acute Assessment and Plan: Gastric occult blood was positive but no signs of obvious bleed -patient evaluated by GI and suspect secondary to GI gastritis -continue Protonix IV q.12 hours -appreciate GI evaluation and recommendation -monitor hemoglobin which has been stable (9) Anemia: Status: Acute Assessment and Plan: Anemia likely secondary to GI bleed and anemia of chronic disease -workup for iron deficiency anemia is negative -normal vitamin B12 and folic acid -hemoglobin trending down could be dilutional -continue to monitor H&H q.12 hours -transfuse if hemoglobin < 7.0 (10) Electrolyte abnormality: Status: Acute Assessment and Plan: Still hypernatremic, increase free water flushes start 1/2 NS and monitor (11) DVT (deep venous thrombosis): Status: Acute Assessment and Plan: DVT right lower extremity, continue heparin drip Oral anticoagulation when okay with general surgery team Plan DVT prophylaxis: Heparin drip Stress ulcer prophylaxis: Protonix IV q.12 hours Nutrition: Continue tube feeds. Advancement as per general surgery Code Status: Full code Subjective Date/time seen: 05/09/23 09:11 Interval history: 82-year-old male with history of heart disease, kidney disease and diabetes among other comorbidities is presenting with ventral hernia repair resulting in septic shock, acute kidney injury and lactic acidosis, was treated in the intensive care unit after getting intubated and sedated, now extubated. No overnight events noted. No fevers. Extubated 05/06 morning. Feels much stronger today. Review of Systems Review of Systems: 12 point review of systems was assessed and was negative except as noted in the HPI Exam Narrative: General: More alert and oriented, hoarse voice noted HEENT:? Pupils equal and reactive, sclera is clear, mmm Respiratory:? BS clear throughout, no wheeze Cardiac:? S1-S2 is normal, regular rate and rhythm Abdomen:? Soft, nontender, nondistended, hypoactive bowel sounds Extremities:? No edema, palpable pedal pulses Psych: euthymic mood, appropriate affect Objective Data Vital Signs Vital Signs: Vital Signs - 24 hr 05/08/23 10:00 05/08/23 10:00 05/08/23 12:00 Temperature 99.3 F Pulse Rate 76 76 78 Respiratory Rate 14 Blood Pressure 126/70 Pulse Oximetry 100 Oxygen Delivery Oxygen Flow Rate 05/08/23 12:00 05/08/23 12:00 05/08/23 13:41 Temperature 99.4 F Pulse Rate 78 78 81 Respiratory Rate 14 14 15 Blood Pressure 122/63 Pulse Oximetry 99 99 Oxygen Delivery Nasal Cannula Oxygen Flow Rate 2 05/08/23 14:00 05/08/23 16:00 05/08/23 16:00 Temperature 99.7 F H Pulse Rate 81 84 84 Respiratory Rate 21 H Blood Pressure 126/67 Pulse Oximetry 97 Oxygen Delivery Oxygen Flow Rate 05/08/23 16:00 05/08/23 19:06 05/08/23 1
--- NOTE | 2023-05-09 09:40 | PCPTNOTE ---
Pt has a femoral line. Pt unable to safely participate in skilled therapy at this time. Will Follow.
--- NOTE | 2023-05-09 10:37 | PCOTNOTE ---
Pt still has a femoral line in today. Will continue to follow.
--- NOTE | 2023-05-09 10:54 | PCNFU ---
Nutrition Follow-Up Complete: Inadequate Oral Intake as related to mechanical ventilation as evidenced by NPO. Goal: Meet estimated nutritional needs Pt current nutrition is Clear Liquids. Nutrition Recommendation: Minced and Moist Level 5 with Mildly Thick Liquids, Level 2 per MD orders. Last recorded weight is 113.2 kg. Bowel Motility: +BM reported 05/09 Labs Reviewed:Glu 127, Cr 1.6,BUN 51, Na 152, Hct 28.1,Hgb 8.3 Meds Noted: Protonix, Zofran Skin: WNL Additional Notes:Patient current with Clear liquid diet, tolerated liquids the morning. Speech Eval 05/08 recommending Minced and Moist Level 5 with Mildly Thick Liquids, Level 2 when MD advances diet orders. Patient is also receiving Ensure Clear on all trays providing an additional 240 kcals and 8 gms protein. Agree with diet orders. Will monitor in ICU rounds and reassess every Monday and Monday.
[2023-05-09 14:07] LABS: Glucose Point of Care 131 mg/dl (65-105)
--- NOTE | 2023-05-09 15:52 | PCSTNOTE ---
Therapist spoke with nurse who reported patient has been placed on a Regular diet and reports no significant difficulty but does not have a big appetite. Will check in tomorrow.
--- NOTE | 2023-05-09 16:18 | PM.PNGS ---
Progress Note: A&P Assessment and Plan (1) Incarcerated ventral hernia: Code(s): K43.6 - Other and unspecified ventral hernia with obstruction, without gangrene Status: Acute Assessment and Plan: Repair intact. Small amount of serous drainage from wound. Will start Xeroform gauze to wound and change dressing daily. Probably leave [place] in for 2 weeks after surgery. (2) Small bowel obstruction: Code(s): K56.609 - Unspecified intestinal obstruction, unspecified as to partial versus complete obstruction Status: Acute Assessment and Plan: Resolved. Advance diet to low-fiber Subjective Subjective Date/Time Seen: 05/09/23 16:18 Post Op day: 5 Patient reports: feels better, pain is less, tolerating liquids well, bowel movement and afebrile Review of Systems Review of Systems: All systems reviewed & are unremarkable except as noted in HPI and below (HPI) Exam Const: General: comfortable, no acute distress, awake (More awake today, more talkative) and tired appearing Nutritional Appearance: overweight GI: Inspection: incision (Small amount serous drainage lower portion of wound, no redness or purulent) and obesity GI Palp: Yes Soft to palpation, Yes Tenderness to palpation present (GI) (Minimal incisional tenderness), No Guarding due to palpation present (GI) and No Rebound tenderness present Auscultation: normal bowel sounds Objective Data Vital Signs Vital Signs: Vital Signs - 24 hr 05/08/23 19:06 05/08/23 19:07 05/08/23 19:22 Temperature Pulse Rate 82 85 Respiratory Rate 15 16 Blood Pressure Pulse Oximetry 95 Oxygen Delivery Nasal Cannula Oxygen Flow Rate 1.5 05/08/23 18:00 05/08/23 20:00 05/08/23 20:00 Temperature 37.7 C H Pulse Rate 81 80 84 Respiratory Rate 20 Blood Pressure 131/52 L Pulse Oximetry 97 Oxygen Delivery Oxygen Flow Rate 05/08/23 20:00 05/08/23 20:54 05/08/23 22:00 Temperature Pulse Rate 84 77 Respiratory Rate Blood Pressure Pulse Oximetry 97 Oxygen Delivery Nasal Cannula Oxygen Flow Rate 2 05/09/23 00:00 05/09/23 00:00 05/09/23 00:00 Temperature 37.9 C H Pulse Rate 84 84 Respiratory Rate 20 Blood Pressure 131/52 L Pulse Oximetry 99 99 Oxygen Delivery Nasal Cannula Oxygen Flow Rate 2 05/09/23 02:15 05/09/23 02:23 05/09/23 02:00 Temperature Pulse Rate 84 84 84 Respiratory Rate 16 14 Blood Pressure Pulse Oximetry Oxygen Delivery Oxygen Flow Rate 05/09/23 04:00 05/09/23 04:00 05/09/23 04:00 Temperature 37.9 C H Pulse Rate 87 87 Respiratory Rate 20 Blood Pressure 117/55 L Pulse Oximetry 99 99 Oxygen Delivery Nasal Cannula Oxygen Flow Rate 2 05/09/23 06:00 05/09/23 08:02 05/09/23 08:04 Temperature Pulse Rate 89 85 88 Respiratory Rate 17 14 Blood Pressure Pulse Oximetry 96 Oxygen Delivery Nasal Cannula Oxygen Flow Rate 2 05/09/23 08:15 05/09/23 08:46 05/09/23 08:47 Temperature 37.9 C H Pulse Rate 86 95 Respiratory Rate 22 H Blood Pressure Pulse Oximetry Oxygen Delivery Oxygen Flow Rate 05/09/23 08:00 05/09/23 08:00 05/09/23 09:45 Temperature 37.9 C H 37.3 C Pulse Rate 87 87 Respiratory Rate 15 Blood Pressure 103/69 Pulse Oximetry 100 Oxygen Delivery Oxygen Flow Rate 05/09/23 13:58 05/09/23 14:27 Temperature Pulse Rate 79 87 Respiratory Rate 17 24 H Blood Pressure Pulse Oximetry Oxygen Delivery Oxygen Flow Rate Intake/Output Intake/Output: Intake & Output 05/06/23 05/07/23 05/08/23 05/09/23 23:59 23:59 23:59 23:59 Intake Total 804 1619 1511 950 Output Total [address] [place] [id number] [phone] [phone] Meds/Results Medications: Active Medications Generic Name Dose Route Start Last Admin Trade Name Freq PRN Reason Stop Dose Admin Acetaminophen 650 mg 05/07/23 08:03 05/09/23 08:47 Acetaminophen 325 Mg Tablet PO 650
--- NOTE | 2023-05-09 17:35 | PC.NURSE ---
This patient, Felipe Pinedo Jr., was transferred to [facility] on 05/09/23 at 1735. Personal belongings sent with patient. Report given to Shruthi. Appropriate documentation sent with patient.
--- NOTE | 2023-05-09 17:51 | PC.NURSE ---
This patient, Felipe Pinedo Jr., was received from [ICU-11] on 05/09/23 at 1752 to 3MS room 311. Patient/family oriented to unit policies and routines. Report from Dahiana LOPEZ. Pt vitals taken upon arrival. Oxygen saturation ranging between 79 and 89. Nasal Cannula 3L placed on patient bringing is oxygen saturations up to 92.
[2023-05-09] MEDS: SODIUM CHLORIDE 0.45% 1,000 ML 100 ML IV CONT (18:05)
--- NOTE | 2023-05-09 18:17 | PC.NURSE ---
Patient began to become more relaxed and his oxygen saturation returned to 100 on room air. Nasal cannula removed and patient is now resting with family present at bedside .
[2023-05-09 18:24] LABS: Glucose Point of Care 141 mg/dl (65-105)
--- NOTE | 2023-05-09 23:44 | PCRCNOTE ---
Window of time for administration has passed. See next scheduled administration.
[2023-05-10] VITALS (18 sets, daily range): BP systolic 108–170; BP diastolic 51–80; PULSE 82–104; RESP 12–24; TEMP 36.2–36.9; O2SAT 91–95; BMI 10.0
[2023-05-10 00:24] LABS: Glucose Point of Care 121 mg/dl (65-105)
[2023-05-10] MEDS: ALBUTEROL SULFATE NEB 2.5 MG/3 ML INH INHALATION ×4 (02:20→21:33)
[2023-05-10] MEDS: IPRATROPIUM BR 0.02% INH SOLN 0.5 MG/2.5 ML VIAL INHALATION ×4 (02:20→21:33)
[2023-05-10] MEDS: HEPARIN SOD/D5W 100 UNITS/ML 25,000 UNITS/250 ML BAG 12 UNITS IV CONT (04:13)
[2023-05-10] MEDS: PIPERACILLIN/TAZ 2.25G/NS 50ML 2.25 GM/50 ML BAG IVPB ×4 (05:28→23:56)
[2023-05-10 07:01] LABS: Basophils Absolute Auto 0.1 K/mm3 (0.0-0.1); Basophils Percent Auto 0.3 % (0.2-1.2); Eosinophils Absolute Auto 0.2 K/mm3 (0-0.3); Hematocrit 24.5 % (42.0-52.0); Hemoglobin 7.2 g/dL (14.0-18.0); Immature Granulocyte Absolute 1.75 K/mm3 (0.00-0.031); Immature Granulocyte Percent A 9.5 % (0-0.5); Lymphocytes Percent Auto 14.7 % (18.3-44.2); Mean Corpuscular HGB Conc 29.4 g/dl (32-36); Mean Corpuscular Volume 91.8 fl (80-100); Mean Platelet Volume 9.9 fl (7.4-10.4); Monocytes Absolute Auto 0.9 K/mm3 (0.1-0.6); Monocytes Percent Auto 5.1 % (2.6-8.5); Neutrophils Absolute Auto 12.8 K/mm3 (1.3-6.7); Neutrophils Percent Auto 69.4 % (45.5-73.1); Nucleated Red Blood Cells Absolute Auto 0.2 K/mm3 (0.0-0.012); Nucleated Red Blood Cells Perc 1.3 % (0.0-0.2); Platelet Count Result 131 k/mm3 (150-375); Red Blood Count 2.67 M/mm3 (4.6-6.20); White Blood Count 18.4 K/mm3 (4.5-10.0)
[2023-05-10 07:11] LABS: Alanine Aminotransferase 60 U/L (6-50); Albumin Level 2.6 g/dL (3.5-5.1); Alkaline Phosphatase 69 U/L (38-126); Anion Gap 1 mmol/L (8-16); Aspartate Amino Transferase 63 U/L (17-59); Bilirubin,Total 0.5 mg/dL (0.2-1.3); Blood Urea Nitrogen 58 mg/dL (9-20); Calcium 8.8 mg/dL (8.4-10.2); Carbon Dioxide 30 mmol/L (22-30); Chloride 121 mmol/L (98-107); Estimated CRCL calculation 38 ml/min; Estimated Glomerular Filt Rate 47; Glucose 127 mg/dL (65-110); Potassium 3.4 mmol/L (3.4-5.0); Sodium 152 mmol/L (137-145)
[2023-05-10 07:13] LABS: Partial Thromboplastin Time 56.6 SECONDS (22.3-36.8)
[2023-05-10 07:46] LABS: Glucose Point of Care 114 mg/dl (65-105)
[2023-05-10 07:55] LABS: Anisocytosis 1+ (NORMAL); Large Platelets Present; Macrocytosis 1+ (NORMAL); Platelet Estimate Decreased (Adequate)
[2023-05-10 07:56] LABS: Schistocytes None Seen (NORMAL)
[2023-05-10] MEDS: METOPROLOL TARTRATE 12.5 MG TABLET FEED TUBE ×2 (08:47→21:14)
[2023-05-10] MEDS: PANTOPRAZOLE SODIUM IV 40 MG VIAL IV PUSH ×2 (08:47→21:14)
[2023-05-10] MEDS: SODIUM CHLORIDE 0.45% 1,000 ML 100 ML IV CONT (08:48)
[2023-05-10] MEDS: COLLAGENASE OINT 30 GM TUBE 1 APPLIC TOPICAL (08:48)
--- NOTE | 2023-05-10 10:08 | PCOTNOTE ---
Pt. recently finished participation in PT evaluation. Pt. would benefit from longer rest break between evaluations due to overall significant deconditioning and poor tolerance for PT evaluation. Nursing aware and in agreement. Following.
[2023-05-10 12:13] LABS: Glucose Point of Care 137 mg/dl (65-105)
--- NOTE | 2023-05-10 15:46 | PC.NURSE ---
charge nurse informed author that on tele monitor, pt had 13 beat SVT at 1331 and returned to NSR. at that time pt used call light from his room and informed pathology secretary/transcriptionist he was feeling dizzy. This nurse immediately checks on pt and takes vitals. pt O2 is 94% on room air and b/p 108/56. pt states at this time he no longer feels dizzy. provider notified at 1540. will monitor pt.
--- NOTE | 2023-05-10 15:57 | PM.PNGS ---
Progress Note: A&P Assessment and Plan (1) Small bowel obstruction: Code(s): K56.609 - Unspecified intestinal obstruction, unspecified as to partial versus complete obstruction Status: Resolved Assessment and Plan: Tolerating low-fiber diet without difficulty. Probably advance to regular diet tomorrow. (2) Incarcerated ventral hernia: Code(s): K43.6 - Other and unspecified ventral hernia with obstruction, without gangrene Status: Acute Assessment and Plan: Wound looks good. No red areas. No drainage today. No tenderness appreciated. Patient's white blood cell count is a little higher than it was 2 days ago but overall still much lower than a week ago. Continue to follow and assess for signs of infection either in the wound or elsewhere. Subjective Subjective Date/Time Seen: 05/10/23 15:57 Post Op day: #6 Patient reports: no new complaints, feels better, tolerating a regular diet (Low-fiber diet), bowel movement and afebrile Exam Const: General: comfortable, alert and awake GI: Inspection: Abdominal wall edema, incision (Dry and healing well) and obesity GI Palp: Yes Soft to palpation, No Tenderness to palpation present (GI), No Guarding due to palpation present (GI) and No Rebound tenderness present Auscultation: normal bowel sounds Objective Data Vital Signs Vital Signs: Vital Signs - 24 hr 05/09/23 16:00 05/09/23 16:00 05/09/23 17:18 Temperature 37.8 C H Pulse Rate 89 89 Respiratory Rate 18 17 Blood Pressure 101/59 L Pulse Oximetry 100 94 Oxygen Delivery Room Air Fraction of Inspired Oxygen 05/09/23 18:08 05/09/23 17:55 05/09/23 20:00 Temperature 37.9 C H 36.6 C Pulse Rate 101 H 101 H Respiratory Rate 24 H 24 H Blood Pressure 104/55 L Pulse Oximetry 95 95 Oxygen Delivery Room Air Fraction of Inspired Oxygen 30 05/09/23 20:00 05/10/23 00:00 05/09/23 20:00 Temperature 36.4 C L 36.6 C Pulse Rate 92 83 94 Respiratory Rate 18 18 Blood Pressure 136/68 149/67 H Pulse Oximetry 92 92 Oxygen Delivery Fraction of Inspired Oxygen 05/10/23 00:00 05/10/23 02:21 05/09/23 22:00 Temperature Pulse Rate 82 87 87 Respiratory Rate 23 H Blood Pressure Pulse Oximetry 96 Oxygen Delivery Room Air Fraction of Inspired Oxygen 05/10/23 02:35 05/10/23 04:00 05/10/23 04:00 Temperature 36.5 C Pulse Rate 86 90 89 Respiratory Rate 20 12 Blood Pressure 136/64 Pulse Oximetry 94 Oxygen Delivery Fraction of Inspired Oxygen 05/10/23 08:00 05/10/23 08:15 05/10/23 08:20 Temperature 36.2 C L Pulse Rate 94 91 91 Respiratory Rate 18 20 20 Blood Pressure 134/61 Pulse Oximetry 93 91 Oxygen Delivery Room Air Fraction of Inspired Oxygen 05/10/23 08:30 05/10/23 08:47 05/10/23 08:40 Temperature Pulse Rate 87 82 Respiratory Rate 20 Blood Pressure Pulse Oximetry Oxygen Delivery Room Air Fraction of Inspired Oxygen 05/10/23 08:00 05/10/23 08:00 05/10/23 12:00 Temperature 36.4 C Pulse Rate 90 86 Respiratory Rate 24 H Blood Pressure 126/68 Pulse Oximetry 95 Oxygen Delivery Room Air Fraction of Inspired Oxygen 05/10/23 14:07 05/10/23 14:19 Temperature Pulse Rate 84 88 Respiratory Rate 20 20 Blood Pressure Pulse Oximetry Oxygen Delivery Fraction of Inspired Oxygen Intake/Output Intake/Output: Intake & Output 05/07/23 05/08/23 05/09/23 05/10/23 23:59 23:59 23:59 23:59 Intake Total 1619 1511 1400 2720 Output Total 1450 2125 1750 Balance 415 -849 -488 2726 Meds/Results Medications: Active Medications Generic Name Dose Route Start Last Admin Trade Name Freq PRN Reason Stop Dose Admin Acetaminophen 650 mg 05/07/23 08:03 05/09/23 18:08 Acetaminophen 325 Mg Tablet PO 650 mg Q4H PRN Administration Headache, Mild Pain or fever Hydrocodone Bitart/Acetaminophen 1 tab 05/07/23 08:03 Hydrocodone/Acetaminophe
--- NOTE | 2023-05-10 16:14 | PCPTNOTE ---
On 05/10/23, the student, BRENDEN Baltazar, provided care and completed [facility] documentation on this patient. I have reviewed the student's documentation and agree with the findings.
--- NOTE | 2023-05-10 16:23 | PCSTNOTE ---
Therapist spoke with Ivanna who reported patient took pills with water per straw with no evidence of aspiration. Stated he did not eat lunch but did enjoy soft ice cream. We discussed possibly placing patient on a softer diet consistency such as Soft and Bite-Sized. Therapist will contact physician.
--- NOTE | 2023-05-10 17:21 | PM.IMPN ---
Progress Note: A&P Assessment and Plan (1) Acute respiratory failure: Code(s): J96.00 - Acute respiratory failure, unspecified whether with hypoxia or hypercapnia Status: Acute Assessment and Plan: Acute respiratory failure most likely related to anesthesia post surgery. Patient was intubated at the time of surgery and able to be extubated after a successful weaning trial on 05/06. Encourage incentive spirometry. Continue Zosyn started 05/03 (2) Septic shock: Code(s): A41.9 - Sepsis, unspecified organism; R65.21 - Severe sepsis with septic shock Status: Acute Assessment and Plan: Patient presented with altered mental status, hypotensive, lactic acidosis and acute on chronic kidney disease. He received 3 L of IV fluid bolus in the ER, despite which patient remained hypotensive. A right femoral vein central line was inserted and he was started on Vasopressin and Levophed. Off all vasopressors on 05/06. Solu-Cortef also weaned off by 05/06. Lactic acid normalized. Urine output improved. Levaquin was discontinued 05/04 and Vanco on 05/07. He remains on Zosyn (05/03). UCx and BCx negative. CXR 05/09 showing left basilar atelectasis. Continue Zosyn. (3) Small bowel obstruction: Code(s): K56.609 - Unspecified intestinal obstruction, unspecified as to partial versus complete obstruction Status: Resolved Assessment and Plan: CT scan showing SBO related to incarcerated umbilical hernia. [place] this was the etiology of his sepsis. General Surgery consulted and patient went to the OR on 05/03 and had an exploratory laparotomy with open repair of incarcerated ventral hernia without mesh. No evidence of bowel ischemia. Now postop day 7 from incarcerated ventral hernia repair. NG tube has been removed. Diet started and advanced. he is taking is small amounts. Follow (4) Incarcerated ventral hernia: Code(s): K43.6 - Other and unspecified ventral hernia with obstruction, without gangrene Status: Acute Assessment and Plan: As above. (5) Acute kidney injury superimposed on CKD: Code(s): N17.9 - Acute kidney failure, unspecified; N18.9 - Chronic kidney disease, unspecified Status: Acute Assessment and Plan: Cr prior to admission was 1.3. Cr climbed to 3.6. There has been improvement with Cr down to 1.7 today. Continue to follow. (6) Pressure ulcer: Code(s): L89.90 - Pressure ulcer of unspecified site, unspecified stage Status: Acute Assessment and Plan: Unstageable right buttock pressure present on admission. Wound care was consulted and appreciated their input Continue routine wound dressing changes. (7) Hypertension: Code(s): I10 - Essential (primary) hypertension Status: Acute Assessment and Plan: Patient's blood pressure was reviewed on 05/10 Blood pressure remains well controlled. Will continue to monitor (8) Diabetes mellitus type 2 in obese: Code(s): E11.69 - Type 2 diabetes mellitus with other specified complication; E66.9 - Obesity, unspecified Status: Acute Assessment and Plan: A1c 6.6. The patient's blood glucose was reviewed on 05/10 Glucose remains well controlled. Continue AccuCheks covering with sliding scale. Hypoglycemia protocol available as needed. Continue to follow (9) GI bleed: Code(s): K92.2 - Gastrointestinal hemorrhage, unspecified Status: Acute Assessment and Plan: On admission, the patient had a very large emesis of very dark brown emesis with streaks of blood.? Gastric occult blood was positive but no signs of obvious bleed -patient was evaluated by GI and suspected secondary to GI gastritis -treated with Protonix IV q.12 hours -appreciate GI evaluation and recommendation Hgb dropped to 7.2 today. -monitor hemoglobin and transfuse as necessary. (10) Anemia: Code(s): D64.9 - Anemia, unspecified Status: Acute
[2023-05-10 18:27] LABS: Glucose Point of Care 138 mg/dl (65-105)
[2023-05-10] MEDS: DEXTROSE 5% 1,000 ML 1,000 ML 100 ML IV CONT (19:34)
[2023-05-10 23:47] LABS: Glucose Point of Care 161 mg/dl (65-105)
[2023-05-11] VITALS (26 sets, daily range): BP systolic 105–135; BP diastolic 52–72; PULSE 82–135; RESP 16–24; TEMP 36.1–37.3; O2SAT 93–99; BMI 10.0
[2023-05-11] MEDS: HEPARIN SOD/D5W 100 UNITS/ML 25,000 UNITS/250 ML BAG 12 UNITS IV CONT ×2 (00:45→21:38)
--- NOTE | 2023-05-11 04:06 | PCRCNOTE ---
0200 updraft treatment not given due to patient wanting sleep and to not be awakened. Pt was instructed by RT to call RN if short of breath, RN would call RT. Next treatment resumes at 0800.
[2023-05-11] MEDS: PIPERACILLIN/TAZ 2.25G/NS 50ML 2.25 GM/50 ML BAG IVPB ×3 (05:18→20:26)
[2023-05-11 05:55] LABS: Glucose Point of Care 153 mg/dl (65-105)
[2023-05-11 06:37] LABS: Basophils Percent Auto 0.2 % (0.2-1.2); Eosinophils Absolute Auto 0.3 K/mm3 (0-0.3); Eosinophils Percent Auto 1.4 % (0-4.4); Hematocrit 22.5 % (42.0-52.0); Immature Granulocyte Absolute 1.12 K/mm3 (0.00-0.031); Immature Granulocyte Percent A 6.1 % (0-0.5); Lymphocytes Absolute Auto 2.57 K/mm3 (0.9-3.2); Lymphocytes Percent Auto 14.1 % (18.3-44.2); Mean Corpuscular HGB Conc 29.3 g/dl (32-36); Mean Corpuscular Hemoglobin 26.9 pg (26-34); Mean Corpuscular Volume 91.8 fl (80-100); Mean Platelet Volume 10.1 fl (7.4-10.4); Monocytes Percent Auto 5.4 % (2.6-8.5); Neutrophils Absolute Auto 13.3 K/mm3 (1.3-6.7); Neutrophils Percent Auto 72.8 % (45.5-73.1); Nucleated Red Blood Cells Absolute Auto 0.3 K/mm3 (0.0-0.012); Nucleated Red Blood Cells Perc 1.9 % (0.0-0.2); Platelet Count Result 135 k/mm3 (150-375); Red Blood Count 2.45 M/mm3 (4.6-6.20); Red Cell Distribution Width 16.2 % (11.5-14.5); White Blood Count 18.2 K/mm3 (4.5-10.0)
[2023-05-11 06:51] LABS: Partial Thromboplastin Time 68.6 SECONDS (22.3-36.8)
[2023-05-11 06:55] LABS: Hemoglobin 6.6 g/dL (14.0-18.0)
[2023-05-11 06:56] LABS: Alanine Aminotransferase 58 U/L (6-50); Albumin Level 2.6 g/dL (3.5-5.1); Alkaline Phosphatase 71 U/L (38-126); Anion Gap 4 mmol/L (8-16); Aspartate Amino Transferase 56 U/L (17-59); Bilirubin,Total 0.4 mg/dL (0.2-1.3); Blood Urea Nitrogen 43 mg/dL (9-20); Calcium 8.4 mg/dL (8.4-10.2); Carbon Dioxide 26 mmol/L (22-30); Chloride 118 mmol/L (98-107); Estimated CRCL calculation 39 ml/min; Estimated Glomerular Filt Rate 47; Glucose 137 mg/dL (65-110); Sodium 148 mmol/L (137-145)
[2023-05-11] MEDS: ALBUTEROL SULFATE NEB 2.5 MG/3 ML INH INHALATION ×3 (07:22→20:14)
[2023-05-11] MEDS: IPRATROPIUM BR 0.02% INH SOLN 0.5 MG/2.5 ML VIAL INHALATION ×3 (07:22→20:14)
[2023-05-11 08:03] LABS: Glucose Point of Care 142 mg/dl (65-105)
[2023-05-11 08:14] LABS: Hematocrit 23.1 % (42.0-52.0)
[2023-05-11 08:21] LABS: Hemoglobin 6.7 g/dL (14.0-18.0)
[2023-05-11] MEDS: POTASSIUM CHLORIDE 20 MEQ ER TABLET 40 MEQ PO (08:43)
[2023-05-11] MEDS: METOPROLOL TARTRATE 12.5 MG TABLET FEED TUBE ×2 (08:44→20:26)
[2023-05-11] MEDS: PANTOPRAZOLE SODIUM IV 40 MG VIAL IV PUSH ×2 (08:45→20:26)
[2023-05-11] MEDS: COLLAGENASE OINT 30 GM TUBE 1 APPLIC TOPICAL (08:46)
[2023-05-11] MEDS: DEXTROSE 5% 1,000 ML 1,000 ML 100 ML IVPB (08:58)
[2023-05-11 11:33] LABS: Glucose Point of Care 126 mg/dl (65-105)
--- NOTE | 2023-05-11 11:53 | PCOTNOTE ---
Attempted again this afternoon. Per RN, requested to wait until tomorrow due to the Patient is still needing another unit of blood this afternoon.
--- NOTE | 2023-05-11 11:53 | PCOTNOTE ---
Per RN, Patient is receiving blood at this time. RN requested to try back at a later time for therapy services.
--- NOTE | 2023-05-11 11:55 | PM.IMPN ---
Progress Note: A&P Assessment and Plan (1) Anemia: Code(s): D64.9 - Anemia, unspecified Status: Acute Assessment and Plan: Anemia likely secondary to GI bleed and anemia of chronic disease -workup for iron deficiency anemia was negative -normal vitamin B12 and folic acid -hemoglobin trending down and now at 6.6. Occult blood loss? Dilutional from IV fluids and mobilizing 3rd spced fluids? Transfuse PRBC. Lasix IV once. Continue to monitor H&H post transfusion. -transfuse if hemoglobin < 7.0 (2) Acute respiratory failure: Code(s): J96.00 - Acute respiratory failure, unspecified whether with hypoxia or hypercapnia Status: Acute Assessment and Plan: Acute respiratory failure most likely related to anesthesia post surgery. Patient was intubated at the time of surgery and able to be extubated after a successful weaning trial on 05/06. Encourage incentive spirometry. Continue Zosyn started 05/03 (3) Septic shock: Code(s): A41.9 - Sepsis, unspecified organism; R65.21 - Severe sepsis with septic shock Status: Acute Assessment and Plan: Patient presented with altered mental status, hypotensive, lactic acidosis and acute on chronic kidney disease. He received 3 L of IV fluid bolus in the ER, despite which patient remained hypotensive. A right femoral vein central line was inserted and he was started on Vasopressin and Levophed. Off all vasopressors on 05/06. Solu-Cortef also weaned off by 05/06. Lactic acid normalized. Urine output improved. Levaquin was discontinued 05/04 and Vanco on 05/07. He remains on Zosyn (05/03). UCx and BCx negative. CXR 05/09 showing left basilar atelectasis. WBC still elevated at 18K but stable. Continue Zosyn. (4) Small bowel obstruction: Code(s): K56.609 - Unspecified intestinal obstruction, unspecified as to partial versus complete obstruction Status: Resolved Assessment and Plan: CT scan showing SBO related to incarcerated umbilical hernia. [place] this was the etiology of his sepsis. General Surgery consulted and patient went to the OR on 05/03 and had an exploratory laparotomy with open repair of incarcerated ventral hernia without mesh. No evidence of bowel ischemia. Now postop day 8 from incarcerated ventral hernia repair. NG tube has been removed. Diet started and advanced. Follow (5) Incarcerated ventral hernia: Code(s): K43.6 - Other and unspecified ventral hernia with obstruction, without gangrene Status: Acute Assessment and Plan: As above. (6) Acute kidney injury superimposed on CKD: Code(s): N17.9 - Acute kidney failure, unspecified; N18.9 - Chronic kidney disease, unspecified Status: Acute Assessment and Plan: Cr prior to admission was 1.3. Cr climbed to 3.6. There has been improvement with Cr down to 1.7 and stable. Continue to follow. (7) Pressure ulcer: Code(s): L89.90 - Pressure ulcer of unspecified site, unspecified stage Status: Acute Assessment and Plan: Unstageable right buttock pressure present on admission. Wound care was consulted and appreciated their input Continue routine wound dressing changes. (8) Hypertension: Code(s): I10 - Essential (primary) hypertension Status: Acute Assessment and Plan: Patient's blood pressure was reviewed on 05/11 Blood pressure remains mostly well controlled. Will continue to monitor (9) Diabetes mellitus type 2 in obese: Code(s): E11.69 - Type 2 diabetes mellitus with other specified complication; E66.9 - Obesity, unspecified Status: Acute Assessment and Plan: A1c 6.6. The patient's blood glucose was reviewed on 05/11 Glucose remains well controlled. Continue AccuCheks covering with sliding scale. Hypoglycemia protocol available as needed. Continue to follow (10) GI bleed: Code(s): K92.2 - Gastrointestinal hemorrhage, unspecified Status: Acute
--- NOTE | 2023-05-11 12:20 | PM.PNGS ---
Progress Note: A&P Assessment and Plan (1) Small bowel obstruction: Code(s): K56.609 - Unspecified intestinal obstruction, unspecified as to partial versus complete obstruction Status: Resolved Assessment and Plan: Tolerating low-fiber diet. Will advance to regular diet (2) Incarcerated ventral hernia: Code(s): K43.6 - Other and unspecified ventral hernia with obstruction, without gangrene Status: Acute Assessment and Plan: Repair intact. Wound healing well. Will discontinue daily wound dressings. Subjective Subjective Date/Time Seen: 05/11/23 12:20 Post Op day: #7 Patient reports: no new complaints, feels better, tolerating a regular diet, bowel movement and afebrile Review of Systems Review of Systems: All systems reviewed & are unremarkable except as noted in HPI and below (HPI) Exam Const: General: cooperative, comfortable, no acute distress, well developed and awake GI: Inspection: non-distended and incision (Dry and healing well) GI Palp: Yes Soft to palpation and No Tenderness to palpation present (GI) Objective Data Vital Signs Vital Signs: Vital Signs - 24 hr 05/10/23 14:07 05/10/23 14:19 05/10/23 16:00 Temperature 36.4 C L Pulse Rate 84 88 97 Respiratory Rate 20 20 20 Blood Pressure 108/56 L Pulse Oximetry 94 Oxygen Delivery Fraction of Inspired Oxygen 05/10/23 16:00 05/10/23 20:00 05/10/23 21:34 Temperature Pulse Rate 99 99 98 Respiratory Rate 20 20 Blood Pressure Pulse Oximetry 94 Oxygen Delivery Room Air Fraction of Inspired Oxygen 21 05/10/23 21:38 05/10/23 21:41 05/10/23 20:00 Temperature 36.9 C Pulse Rate 98 90 104 H Respiratory Rate 20 14 Blood Pressure 125/51 L Pulse Oximetry 95 94 Oxygen Delivery Room Air Fraction of Inspired Oxygen 05/10/23 23:47 05/11/23 00:03 05/10/23 20:00 Temperature 36.9 C Pulse Rate 101 H 99 Respiratory Rate 14 Blood Pressure 170/80 H 123/59 L Pulse Oximetry 95 Oxygen Delivery Fraction of Inspired Oxygen 05/11/23 00:00 05/11/23 04:00 05/11/23 04:00 Temperature 36.7 C Pulse Rate 106 H 92 85 Respiratory Rate 18 Blood Pressure 132/54 L Pulse Oximetry 93 Oxygen Delivery Fraction of Inspired Oxygen 05/11/23 07:22 05/11/23 07:22 05/11/23 07:39 Temperature Pulse Rate 87 82 Respiratory Rate 18 18 Blood Pressure Pulse Oximetry 95 Oxygen Delivery Room Air Fraction of Inspired Oxygen 05/11/23 08:44 05/11/23 08:00 05/11/23 11:30 Temperature 36.6 C 36.4 C L Pulse Rate 93 89 88 Respiratory Rate 18 18 Blood Pressure 121/57 L 105/54 L Pulse Oximetry 96 97 Oxygen Delivery Fraction of Inspired Oxygen 05/11/23 11:47 Temperature 37.3 C Pulse Rate 82 Respiratory Rate 20 Blood Pressure 114/52 L Pulse Oximetry 95 Oxygen Delivery Fraction of Inspired Oxygen Intake/Output Intake/Output: Intake & Output 05/08/23 05/09/23 05/10/23 05/11/23 23:59 23:59 23:59 23:59 Intake Total 1511 1400 3010 590 Output Total 2125 2228 042 9271 Balance -614 -350 2185 -610 Meds/Results Medications: Active Medications Generic Name Dose Route Start Last Admin Trade Name Freq PRN Reason Stop Dose Admin Acetaminophen 650 mg 05/07/23 08:03 05/09/23 18:08 Acetaminophen 325 Mg Tablet PO 650 mg Q4H PRN Administration Headache, Mild Pain or fever Hydrocodone Bitart/Acetaminophen 1 tab 05/07/23 08:03 Hydrocodone/Acetaminophen (*Crx) 5-325 Mg Tablet PO Q4H PRN Pain Rated 4-6 Albuterol 2.5 mg 05/04/23 02:00 05/11/23 07:22 Albuterol Sulfate Neb 2.5 Mg/3 Ml Inh INHALATION 2.5 mg Q6HRT MENDEZ Administration Collagenase 1 applic 05/04/23 09:00 05/11/23 08:46 Collagenase Oint 30 Gm Tube TOPICAL 1 applic QAM MENDEZ Administration Dextrose 12.5 gm 05/03/23 20:47 Dextrose 50% 25 Gm/50 Ml Syringe IV PUSH PRN PRN Hypoglycemia Protocol Glucagon
[2023-05-11] MEDS: ACETAMINOPHEN 325 MG TABLET 650 MG PO ×2 (12:22→15:25)
[2023-05-11] MEDS: SODIUM CHLORIDE 0.9% IV 250 ML 30 ML IV CONT (12:27)
[2023-05-11] MEDS: TUBING, BLOOD PLUM PUMP TUBING 2 EACH XX (12:27)
--- NOTE | 2023-05-11 14:36 | PCSTNOTE ---
Patient is on regular diet and will be discharged from Speech Therapy at this time.
[2023-05-11] MEDS: FUROSEMIDE INJ 40 MG/4 ML VIAL 20 MG IV PUSH (15:24)
[2023-05-11 17:12] LABS: Glucose Point of Care 123 mg/dl (65-105)
[2023-05-11 20:28] LABS: Soluble Transferrin Receptor 1.46 mg/L (0.76-1.76)
--- NOTE | 2023-05-11 20:55 | ECG_ITS ---
Measurements Intervals [place] Rate: 135 P: GA: 0 QRS: -22 QRSD: 88 T: 120 QT: 265 QTc: 397 Interpretive Statements ATRIAL FIBRILLATION WITH RAPID VENTRICULAR RESPONSE LOW QRS VOLTAGE IN PRECORDIAL LEADS LEFT VENTRICULAR HYPERTROPHY WITH ST-T CHANGE NONSPECIFIC ST & T-WAVE ABNORMALITY- ANTERIOR LEADS BASELINE ARTIFACT- I, III, AVR, AVL, AVF ABNORMAL ECG COMPARED TO ECG 05/02/2023 06:39:27 ATRIAL FIBRILLATION NOW PRESENT ST-T WAVE ABNORMALITY NOW PRESENT Electronically Signed On 05-12-2023 7:02:11 CDT by Blane Hess D.O.
--- NOTE | 2023-05-11 20:56 | PC.NURSE ---
Spoke with Karla r/t patient HR a-fib rvr 140-150's. New orders placed.
[2023-05-11] MEDS: METOPROLOL TARTRATE INJ 5 MG/5 ML VIAL IV PUSH (21:19)
[2023-05-11 21:46] LABS: Hematocrit 27.7 % (42.0-52.0); Hemoglobin 8.6 g/dL (14.0-18.0)
--- NOTE | 2023-05-11 22:15 | PC.NURSE ---
Spoke with Karla Moulton r/t patient cont to be A-Fib RVR. Karla put in new orders for Metoprolol 25 mg PO stat.
[2023-05-11] MEDS: METOPROLOL TARTRATE 25 MG TABLET PO (22:37)
--- NOTE | 2023-05-11 23:43 | PC.NURSE ---
Spoke with Karla at this time r/t patient continuing to be A-fib RVR sustaining 130-140s and jumping up to 160s. Karla says patient will need to be transferred to IMU.
[2023-05-12] VITALS (13 sets, daily range): BP systolic 103–128; BP diastolic 52–86; PULSE 64–142; RESP 16–22; TEMP 36.2–37.3; O2SAT 94–99
[2023-05-12 00:23] LABS: Glucose Point of Care 148 mg/dl (65-105)
[2023-05-12 07:06] LABS: Partial Thromboplastin Time 64.1 SECONDS (22.3-36.8)
--- NOTE | 2023-05-12 07:06 | PC.NURSE ---
Paper documentation exists on this patient due to [facility] downtime on 05/12/23 from 0100 to 0700 [] .
[2023-05-12] MEDS: ALBUTEROL SULFATE NEB 2.5 MG/3 ML INH INHALATION ×2 (07:26→13:36)
[2023-05-12] MEDS: IPRATROPIUM BR 0.02% INH SOLN 0.5 MG/2.5 ML VIAL INHALATION ×2 (07:26→13:36)
[2023-05-12 07:47] LABS: Alanine Aminotransferase 56 U/L (6-50); Albumin Level 2.6 g/dL (3.5-5.1); Alkaline Phosphatase 75 U/L (38-126); Anion Gap 5 mmol/L (8-16); Aspartate Amino Transferase 47 U/L (17-59); Bilirubin,Total 0.4 mg/dL (0.2-1.3); Blood Urea Nitrogen 37 mg/dL (9-20); Calcium 8.2 mg/dL (8.4-10.2); Carbon Dioxide 24 mmol/L (22-30); Chloride 116 mmol/L (98-107); Estimated CRCL calculation 42 ml/min; Estimated Glomerular Filt Rate 51; Glucose 128 mg/dL (65-110); Potassium 3.3 mmol/L (3.4-5.0); Sodium 145 mmol/L (137-145)
[2023-05-12 08:07] LABS: Glucose Point of Care 130 mg/dl (65-105)
[2023-05-12] MEDS: PIPERACILLIN/TAZ 2.25G/NS 50ML 2.25 GM/50 ML BAG IVPB ×4 (08:19→21:15)
[2023-05-12] MEDS: COLLAGENASE OINT 30 GM TUBE 1 APPLIC TOPICAL (08:43)
[2023-05-12] MEDS: PANTOPRAZOLE SODIUM IV 40 MG VIAL IV PUSH (08:43)
[2023-05-12] MEDS: METOPROLOL TARTRATE 25 MG TABLET FEED TUBE ×2 (08:43→15:23)
[2023-05-12 09:24] LABS: Basophils Percent Auto 0.2 % (0.2-1.2); Eosinophils Absolute Auto 0.2 K/mm3 (0-0.3); Eosinophils Percent Auto 1.7 % (0-4.4); Hematocrit 26.2 % (42.0-52.0); Immature Granulocyte Percent A 4.2 % (0-0.5); Lymphocytes Absolute Auto 2.16 K/mm3 (0.9-3.2); Lymphocytes Percent Auto 15.3 % (18.3-44.2); Mean Corpuscular HGB Conc 30.5 g/dl (32-36); Mean Corpuscular Hemoglobin 27.6 pg (26-34); Mean Corpuscular Volume 90.3 fl (80-100); Mean Platelet Volume 10.5 fl (7.4-10.4); Monocytes Absolute Auto 0.7 K/mm3 (0.1-0.6); Monocytes Percent Auto 4.8 % (2.6-8.5); Neutrophils Absolute Auto 10.5 K/mm3 (1.3-6.7); Neutrophils Percent Auto 73.8 % (45.5-73.1); Nucleated Red Blood Cells Absolute Auto 0.4 K/mm3 (0.0-0.012); Platelet Count Result 147 k/mm3 (150-375); Red Cell Distribution Width 16.3 % (11.5-14.5); White Blood Count 14.2 K/mm3 (4.5-10.0)
--- NOTE | 2023-05-12 11:09 | PCPTNOTE ---
Per RN (who spoke with hospitalist), OK to hold PT due to high resting HR. Will follow.
--- NOTE | 2023-05-12 12:40 | PCOTNOTE ---
Per RN (who spoke with hospitalist), OK to hold OT due to high resting HR. Will follow.
--- NOTE | 2023-05-12 12:44 | PCNFU ---
Nutrition Follow-Up Complete: Inadequate Oral Intake as related to mechanical ventilation as evidenced by NPO. New: Inadequate oral intake related to loss of appetite, increased protein energy needs from wounds as evidenced by intakes 0-25% Meet estimated nutritional needs - Not meeting goals PO currently Goal: Pt current nutrition is Regular diet, Puree level 4. Intakes 0-25%. Nutrition recommendation: Oral nutrition supplements: Ensure Enlive TID for 350 kcal and 20 g protein each. Rory BID for additional 90 kcal and 2.5 g protein to promote wound healing Last recorded weight is 116.7 kg. Bowel Motility: Last BM 05/10/23 Labs Reviewed:Hgb 8.9, Hct 26.2, Alb 2.6, K+ 3.3, BUN 37, Cre 1.6 Meds Noted: Protonix, Zofran Skin: DTI L heel. Unstageable R buttock Additional Notes: When seen pt was preoccupied with something he saw on a blanket sitting on the chair opposite him that I did not see. Intakes are poor. Adding supplements for poor intake and wound healing. Monitoring intakes, weights, labs, wound healing, plan of care, supplement tolerance. Follow up every 5 days
[2023-05-12] MEDS: dilTIAZem 100 MG/100 ML 100 MG/100 ML BAG IV CONT (14:07)
--- NOTE | 2023-05-12 15:17 | PM.PNGS ---
Progress Note: A&P Assessment and Plan (1) Small bowel obstruction: Code(s): K56.609 - Unspecified intestinal obstruction, unspecified as to partial versus complete obstruction Status: Resolved Assessment and Plan: Small-bowel obstruction has been resolved after open periumbilical incarcerated hernia repair without mesh. He extubated and came out of the ICU is now on the floor. Bowel function has returned he is tolerating a regular diet. Treatment of his bilateral lower extremity DVT and management of the anticoagulation as per hospitalist service. From a surgical standpoint can be discharged when medically stable. PT OT is still working with him and case management involved in discharge disposition as he likely will need some transitional setting either in residential or rehab. Subjective Subjective Date/Time Seen: 05/12/23 15:17 Interval history: Patient seems to be doing well today. Sitting up in bed without complaints. Tolerating regular diet having bowel movements. Still on heparin drip due to bilateral lower extremity DVTs. Exam GI: Other: Abdomen is soft and nondistended. Midline incision is intact without any redness or drainage. [place] are in place. There is no cellulitis around the wound. Objective Data Vital Signs Vital Signs: Vital Signs - 24 hr 05/11/23 16:32 05/11/23 16:51 05/11/23 16:00 Temperature 36.5 C 36.4 C L Pulse Rate 83 82 92 Respiratory Rate 22 H 18 Blood Pressure 124/68 128/65 Pulse Oximetry 97 97 Oxygen Delivery Fraction of Inspired Oxygen 05/11/23 17:51 05/11/23 18:51 05/11/23 19:30 Temperature 36.3 C L 36.5 C 36.4 C Pulse Rate 83 84 85 Respiratory Rate 20 20 16 Blood Pressure 135/71 134/65 135/70 Pulse Oximetry 95 97 93 Oxygen Delivery Fraction of Inspired Oxygen 05/11/23 19:30 05/11/23 20:16 05/11/23 20:53 Temperature 36.4 C 36.5 C Pulse Rate 85 85 123 H Respiratory Rate 16 18 16 Blood Pressure 135/70 121/72 Pulse Oximetry 93 96 Oxygen Delivery Fraction of Inspired Oxygen 05/11/23 21:19 05/11/23 20:00 05/11/23 20:00 Temperature Pulse Rate 135 H 135 H 87 Respiratory Rate 16 Blood Pressure Pulse Oximetry 96 Oxygen Delivery Room Air Fraction of Inspired Oxygen 05/12/23 00:11 05/12/23 00:00 05/12/23 04:00 Temperature 36.4 C 37.0 C Pulse Rate 127 H 142 H 118 H Respiratory Rate 16 20 Blood Pressure 113/75 103/65 Pulse Oximetry 96 96 Oxygen Delivery Fraction of Inspired Oxygen 05/12/23 07:26 05/12/23 07:26 05/12/23 07:48 Temperature Pulse Rate 118 H 118 H 117 H Respiratory Rate 18 18 18 Blood Pressure Pulse Oximetry 94 Oxygen Delivery Room Air Fraction of Inspired Oxygen 05/12/23 08:00 05/12/23 08:00 05/12/23 12:00 Temperature 36.9 C 36.8 C Pulse Rate 113 H 96 Respiratory Rate 22 H 22 H Blood Pressure 112/60 103/57 L Pulse Oximetry 95 99 Oxygen Delivery Room Air Fraction of Inspired Oxygen 05/12/23 13:36 05/12/23 14:07 Temperature Pulse Rate 100 118 H Respiratory Rate 18 Blood Pressure Pulse Oximetry Oxygen Delivery Fraction of Inspired Oxygen Intake/Output Intake/Output: Intake & Output 05/09/23 05/10/23 05/11/23 05/12/23 23:59 23:59 23:59 23:59 Intake Total 1400 3010 2650 530 Output Total 8136 442 5839 650 Balance -350 2185 225 -120 Meds/Results Medications: Active Medications Generic Name Dose Route Start Last Admin Trade Name Freq PRN Reason Stop Dose Admin Acetaminophen 650 mg 05/07/23 08:03 05/11/23 15:25 Acetaminophen 325 Mg Tablet PO 650 mg Q4H PRN Administration Headache, Mild Pain or fever Hydrocodone Bitart/Acetaminophen 1 tab 05/07/23 08:03 Hydrocodone/Acetaminophen (*Crx) 5-325 Mg Tablet PO Q4H PRN Pain Rated 4-6 Albuterol 2.5 mg 05/04/23 02:00 05/12/23 13:36 Albuterol Sulfate Neb 2.5 Mg/3 Ml Inh INHALATION 2.5 mg Q6HRT MENDEZ
[2023-05-12] MEDS: POTASSIUM CHLORIDE 20 MEQ ER TABLET PO (15:23)
--- NOTE | 2023-05-12 15:28 | PM.IMPN ---
Progress Note: A&P Assessment and Plan (1) Atrial fibrillation with rapid ventricular response: Code(s): I48.91 - Unspecified atrial fibrillation Status: Acute Assessment and Plan: Patient developed acute onset of AFib with RVR. He was moved to IMU and started on Diltiazem gtt. He is currently anti-coagulated with Heparin. Metoprolol advanced. Heart rate better controlled and appears to be trying to convert. Stop scheduled nebulizers. (2) Anemia: Code(s): D64.9 - Anemia, unspecified Status: Acute Assessment and Plan: Anemia likely secondary to GI bleed and anemia of chronic disease. -workup for iron deficiency anemia was negative -normal vitamin B12 and folic acid -hemoglobin trended down to 6.6. Occult blood loss? Dilutional from IV fluids and mobilizing 3rd spced fluids? Transfuse PRBC. Lasix IV once with excellent UOP. Continue to monitor H&H post transfusion. -Hgb better at 8.0 today. Transfuse if hemoglobin < 7.0 (3) Acute respiratory failure: Code(s): J96.00 - Acute respiratory failure, unspecified whether with hypoxia or hypercapnia Status: Acute Assessment and Plan: Acute respiratory failure most likely related to anesthesia post surgery. Patient was intubated at the time of surgery and able to be extubated after a successful weaning trial on 05/06. Encourage incentive spirometry. He completed Zosyn on 05/11 (4) Septic shock: Code(s): A41.9 - Sepsis, unspecified organism; R65.21 - Severe sepsis with septic shock Status: Acute Assessment and Plan: Patient presented with altered mental status, hypotensive, lactic acidosis and acute on chronic kidney disease. He received 3 L of IV fluid bolus in the ER, despite which patient remained hypotensive. A right femoral vein central line was inserted and he was started on Vasopressin and Levophed. Off all vasopressors on 05/06. Solu-Cortef also weaned off by 05/06. Lactic acid normalized. Urine output improved. Levaquin was discontinued 05/04 and Vanco on 05/07. He remains on Zosyn (05/03). UCx and BCx negative. CXR 05/09 showing left basilar atelectasis. WBC still elevated but better at 14K. Off abx now (5) Small bowel obstruction: Code(s): K56.609 - Unspecified intestinal obstruction, unspecified as to partial versus complete obstruction Status: Resolved Assessment and Plan: CT scan showing SBO related to incarcerated umbilical hernia. [place] this was the etiology of his sepsis. General Surgery consulted and patient went to the OR on 05/03 and had an exploratory laparotomy with open repair of incarcerated ventral hernia without mesh. No evidence of bowel ischemia. Now postop day 9 from incarcerated ventral hernia repair. NG tube has been removed. Diet started and advanced. Follow (6) Incarcerated ventral hernia: Code(s): K43.6 - Other and unspecified ventral hernia with obstruction, without gangrene Status: Acute Assessment and Plan: As above. (7) Acute kidney injury superimposed on CKD: Code(s): N17.9 - Acute kidney failure, unspecified; N18.9 - Chronic kidney disease, unspecified Status: Acute Assessment and Plan: Cr prior to admission was 1.3. Cr climbed to 3.6. There has been improvement with Cr down to 1.6 and stable. Continue to follow. (8) Pressure ulcer: Code(s): L89.90 - Pressure ulcer of unspecified site, unspecified stage Status: Acute Assessment and Plan: Unstageable right buttock pressure present on admission. Wound care was consulted and appreciated their input Continue routine wound dressing changes. (9) Hypertension: Code(s): I10 - Essential (primary) hypertension Status: Acute Assessment and Plan: Patient's blood pressure was reviewed on 05/12 Blood pressure stable and tolerating Diltiazem drip Will continue to monitor (10) Diabetes mellitus type 2 in obese: Code(s):
[2023-05-12 18:08] LABS: Glucose Point of Care 125 mg/dl (65-105)
[2023-05-12] MEDS: HEPARIN SOD/D5W 100 UNITS/ML 25,000 UNITS/250 ML BAG 12 UNITS IV CONT (18:32)
[2023-05-12 19:17] LABS: IFOB Positive Control Positive; Immunochemical Fecal Occult Bl Positive (N)
[2023-05-12] MEDS: METOPROLOL TARTRATE 25 MG TABLET PO (21:35)
[2023-05-12] MEDS: APIXABAN 5 MG TABLET 10 MG PO (21:36)
[2023-05-12 23:52] LABS: Glucose Point of Care 122 mg/dl (65-105)
[2023-05-13] VITALS (16 sets, daily range): BP systolic 101–125; BP diastolic 62–71; PULSE 96–148; RESP 20–24; TEMP 36.2–36.7; O2SAT 94–100
[2023-05-13] MEDS: PIPERACILLIN/TAZ 2.25G/NS 50ML 2.25 GM/50 ML BAG IVPB ×4 (02:50→21:11)
[2023-05-13] MEDS: dilTIAZem 100 MG/100 ML 100 MG/100 ML BAG IV CONT (02:52)
[2023-05-13 04:57] LABS: Basophils Percent Auto 0.2 % (0.2-1.2); Eosinophils Absolute Auto 0.2 K/mm3 (0-0.3); Eosinophils Percent Auto 1.4 % (0-4.4); Hematocrit 25.6 % (42.0-52.0); Immature Granulocyte Absolute 0.53 K/mm3 (0.00-0.031); Immature Granulocyte Percent A 4.1 % (0-0.5); Lymphocytes Absolute Auto 2.46 K/mm3 (0.9-3.2); Mean Corpuscular HGB Conc 31.3 g/dl (32-36); Mean Corpuscular Hemoglobin 28.1 pg (26-34); Mean Corpuscular Volume 89.8 fl (80-100); Mean Platelet Volume 9.6 fl (7.4-10.4); Monocytes Absolute Auto 0.6 K/mm3 (0.1-0.6); Monocytes Percent Auto 4.3 % (2.6-8.5); Neutrophils Absolute Auto 9.2 K/mm3 (1.3-6.7); Nucleated Red Blood Cells Absolute Auto 0.3 K/mm3 (0.0-0.012); Nucleated Red Blood Cells Perc 2.5 % (0.0-0.2); Platelet Count Result 153 k/mm3 (150-375); Red Blood Count 2.85 M/mm3 (4.6-6.20); Red Cell Distribution Width 16.2 % (11.5-14.5)
[2023-05-13 05:08] LABS: Alanine Aminotransferase 57 U/L (6-50); Albumin Level 2.6 g/dL (3.5-5.1); Alkaline Phosphatase 77 U/L (38-126); Anion Gap 7 mmol/L (8-16); Aspartate Amino Transferase 50 U/L (17-59); Bilirubin,Total 0.5 mg/dL (0.2-1.3); Blood Urea Nitrogen 32 mg/dL (9-20); Calcium 8.4 mg/dL (8.4-10.2); Carbon Dioxide 23 mmol/L (22-30); Chloride 117 mmol/L (98-107); Estimated CRCL calculation 45 ml/min; Estimated Glomerular Filt Rate 54; Glucose 123 mg/dL (65-110); Potassium 3.3 mmol/L (3.4-5.0); Sodium 147 mmol/L (137-145)
[2023-05-13] MEDS: METOPROLOL TARTRATE 25 MG TABLET PO ×3 (06:00→21:12)
[2023-05-13 08:25] LABS: Glucose Point of Care 122 mg/dl (65-105)
[2023-05-13 08:50] LABS: Magnesium 2.3 mg/dL (1.6-2.3)
--- NOTE | 2023-05-13 08:59 | PM.IMPN ---
Progress Note: A&P Assessment and Plan (1) Atrial fibrillation with rapid ventricular response: Code(s): I48.91 - Unspecified atrial fibrillation Status: Acute Assessment and Plan: Patient developed acute onset of AFib with RVR. He was moved to IMU and started on Diltiazem gtt. TSH normal. Echo (05/05) showing EF >70%, grade I diastolic dysfunction and moderate Pulm HTN. He has been anti-coagulated with Heparin and now converted to Eliquis. Metoprolol advanced. Heart rate better controlled but still elevated especially with activity. Start Amiodarone to try to convert to NSR. Stop Dilt drip (2) Anemia: Code(s): D64.9 - Anemia, unspecified Status: Acute Assessment and Plan: Anemia likely secondary to GI bleed and anemia of chronic disease. Iron studies consistent with anemia of chronic disease (and STR was normal). B12 and folate normal Hgb 13 on admission but drifted down to 8-9 range mostly before dropping to 6.6 on 05/11 and was transfused 2U. Stool is guaiac positive but no gross blood loss He remains on anti-coagulation due to DVT and now AFib. Lasix IV once after transfusion with excellent UOP. Hgb better at 8.0 today and stable. On Eliquis which will continue. Hold if HH drops again Continue to monitor H&H. Transfuse if hemoglobin < 7.0 (3) Acute respiratory failure: Code(s): J96.00 - Acute respiratory failure, unspecified whether with hypoxia or hypercapnia Status: Acute Assessment and Plan: Acute respiratory failure most likely related to anesthesia post surgery. Patient was intubated at the time of surgery and able to be extubated after a successful weaning trial on 05/06. Encourage incentive spirometry. He was started on Zosyn on 05/03 at 1700. Stop Zosyn today top complete a 10 days course (4) Septic shock: Code(s): A41.9 - Sepsis, unspecified organism; R65.21 - Severe sepsis with septic shock Status: Acute Assessment and Plan: Patient presented with altered mental status, hypotensive, lactic acidosis and acute on chronic kidney disease. He received 3 L of IV fluid bolus in the ER, despite which patient remained hypotensive. A right femoral vein central line was inserted and he was started on Vasopressin and Levophed. Off all vasopressors on 05/06. Solu-Cortef also weaned off by 05/06. Lactic acid normalized. Urine output improved. Levaquin was discontinued 05/04 and Vanco on 05/07. He remains on Zosyn (05/03). UCx and BCx negative. CXR 05/09 showing left basilar atelectasis. WBC still elevated but better at 13K. Stop Zosyn later today. (5) Small bowel obstruction: Code(s): K56.609 - Unspecified intestinal obstruction, unspecified as to partial versus complete obstruction Status: Resolved Assessment and Plan: CT scan showing SBO related to incarcerated umbilical hernia. [place] this was the etiology of his sepsis. General Surgery consulted and patient went to the OR on 05/03 and had an exploratory laparotomy with open repair of incarcerated ventral hernia without mesh. No evidence of bowel ischemia. Now postop day 10 from incarcerated ventral hernia repair. NG tube has been removed. Diet started and advanced. Follow (6) Incarcerated ventral hernia: Code(s): K43.6 - Other and unspecified ventral hernia with obstruction, without gangrene Status: Acute Assessment and Plan: As above. (7) Acute kidney injury superimposed on CKD: Code(s): N17.9 - Acute kidney failure, unspecified; N18.9 - Chronic kidney disease, unspecified Status: Acute Assessment and Plan: Cr prior to admission was 1.3. Cr climbed to 3.6. There has been improvement with Cr down to 1.5 and stable. Continue to follow. (8) Pressure ulcer: Code(s): L89.90 - Pressure ulcer of unspecified site, unspecified stage Status: Acute Assessment and Plan: Unstageable right buttock pressure present on admission. Woun
--- NOTE | 2023-05-13 09:34 | PCOTNOTE ---
Spoke with hospitalist, Dr. Rodriguez, who approved continuation of therapy services after pt.'s recent change in medical status. Nursing aware and in agreement.
[2023-05-13] MEDS: APIXABAN 5 MG TABLET 10 MG PO (10:15)
[2023-05-13] MEDS: PANTOPRAZOLE 40 MG TABLET PO (10:16)
[2023-05-13] MEDS: AMIODARONE 360 MG/D5W 200 ML 360 MG/200 ML BAG 33.33 MG IV CONT (10:38)
[2023-05-13] MEDS: AMIODARONE 150 MG/D5W 100 ML 150 MG/100 ML BAG 600 MG IV CONT (10:38)
[2023-05-13] MEDS: POTASSIUM CHLORIDE 20 MEQ PACKET (FOR LIQUID) 40 MEQ PO (10:38)
[2023-05-13] MEDS: COLLAGENASE OINT 30 GM TUBE 1 APPLIC TOPICAL (12:15)
--- NOTE | 2023-05-13 13:03 | PCPTNOTE ---
Attempted to see patient, but just got back to bed with nursing. Will attempt to see after therapist sees a couple more evaluations.
[2023-05-13 13:21] LABS: Glucose Point of Care 123 mg/dl (65-105)
[2023-05-13 15:27] LABS: Hemoglobin 8.5 g/dL (14.0-18.0)
--- NOTE | 2023-05-13 15:47 | PM.PNGS ---
Progress Note: A&P Assessment and Plan (1) Small bowel obstruction: Code(s): K56.609 - Unspecified intestinal obstruction, unspecified as to partial versus complete obstruction Status: Resolved Assessment and Plan: Resolved after repair of the incarcerated periumbilical ventral hernia. Small bowel was all viable. From a surgical standpoint he is healing well. He can be anticoagulated because of his acute onset of atrial fibrillation with RVR. From a surgical perspective he can be discharged to rehab or jail medically stable. CT follow-up in the office in 1 to 2 weeks for staple removal. (2) Atrial fibrillation with rapid ventricular response: Code(s): I48.91 - Unspecified atrial fibrillation Status: Acute Assessment and Plan: Management as per cardiology team. Subjective Subjective Date/Time Seen: 05/13/23 15:47 Interval history: Patient resting comfortably without complaints. From a surgical perspective very stable. Tolerating regular diet having bowel movements. Remains in the IMU on an amiodarone drip for AFib with RVR. Exam GI: Other: Abdomen is soft and nondistended. Midline incision is healing well with [place] in place. There is no redness or drainage or recurrent hernia. Objective Data Vital Signs Vital Signs: Vital Signs - 24 hr 05/12/23 16:00 05/12/23 16:00 05/12/23 20:00 Temperature 37.3 C 36.2 C L Pulse Rate 64 94 108 H Respiratory Rate 22 H 18 Blood Pressure 106/52 L 128/86 Pulse Oximetry 97 97 Oxygen Delivery 05/12/23 21:35 05/12/23 20:00 05/12/23 20:00 Temperature Pulse Rate 114 H 105 H Respiratory Rate Blood Pressure Pulse Oximetry 97 Oxygen Delivery Room Air 05/12/23 22:00 05/13/23 00:00 05/13/23 00:00 Temperature 36.2 C L Pulse Rate 103 H 98 96 Respiratory Rate 20 Blood Pressure 113/68 Pulse Oximetry 99 Oxygen Delivery 05/13/23 00:00 05/13/23 02:00 05/13/23 02:52 Temperature Pulse Rate 98 108 H Respiratory Rate Blood Pressure Pulse Oximetry 99 Oxygen Delivery Room Air 05/13/23 04:00 05/13/23 04:00 05/13/23 04:00 Temperature 36.6 C Pulse Rate 119 H 148 H Respiratory Rate 22 H Blood Pressure 125/69 Pulse Oximetry 94 94 Oxygen Delivery Room Air 05/13/23 06:00 05/13/23 06:00 05/13/23 08:00 Temperature 36.4 C L Pulse Rate 100 118 H 113 H Respiratory Rate 24 H Blood Pressure 106/62 Pulse Oximetry 96 Oxygen Delivery 05/13/23 08:00 05/13/23 08:00 05/13/23 10:00 Temperature Pulse Rate 119 H 128 H Respiratory Rate Blood Pressure Pulse Oximetry Oxygen Delivery Room Air 05/13/23 12:00 05/13/23 12:00 05/13/23 14:00 Temperature 36.4 C Pulse Rate 123 H 105 H 115 H Respiratory Rate 20 Blood Pressure 101/63 Pulse Oximetry 100 Oxygen Delivery Intake/Output Intake/Output: Intake & Output 05/10/23 05/11/23 05/12/23 05/13/23 23:59 23:59 23:59 23:59 Intake Total 3010 2650 1050 780 Output Total 825 2425 1000 1450 Balance 2185 225 50 -670 Meds/Results Medications: Active Medications Generic Name Dose Route Start Last Admin Trade Name Freq PRN Reason Stop Dose Admin Acetaminophen 650 mg 05/12/23 15:41 Acetaminophen 325 Mg Tablet PO Q4H PRN Pain Rated 5 or Less Hydrocodone Bitart/Acetaminophen 1 tab 05/12/23 15:41 Hydrocodone/Acetaminophen (*Crx) 5-325 Mg Tablet PO Q4H PRN Pain Rated 6 or Greater Albuterol 2.5 mg 05/12/23 15:41 Albuterol Sulfate Neb 2.5 Mg/3 Ml Inh INHALATION Q6HRT PRN Shortness Of Breath Or Wheezing Apixaban 10 mg 05/12/23 21:00 05/13/23 10:15 Apixaban 5 Mg Tablet PO 05/19/23 20:59 10 mg Q12HR MENDEZ Administration Apixaban 5 mg 05/19/23 21:00 Apixaban 5 Mg Tablet PO Q12HR MENDEZ Collagenase 1 applic 05/04/23 09:00 05/13/23 12:15 Collagenase Oint 30 Gm Tube TOPICAL 1 applic QAM MENDEZ Admin
[2023-05-13] MEDS: AMIODARONE 360 MG/D5W 200 ML 360 MG/200 ML BAG 16.67 MG IV CONT (16:21)
[2023-05-13 16:56] LABS: Glucose Point of Care 115 mg/dl (65-105)
[2023-05-13 19:17] LABS: Glucose Point of Care 121 mg/dl (65-105)
[2023-05-13 19:51] LABS: Hematocrit 26.6 % (42.0-52.0); Hemoglobin 8.2 g/dL (14.0-18.0)
[2023-05-13] MEDS: PANTOPRAZOLE SODIUM IV 40 MG VIAL IV PUSH (21:11)
[2023-05-13 23:22] LABS: Glucose Point of Care 129 mg/dl (65-105)
[2023-05-14] VITALS (20 sets, daily range): BP systolic 101–157; BP diastolic 60–82; PULSE 87–129; RESP 16–28; TEMP 36.1–37.2; O2SAT 97–100
[2023-05-14 00:56] LABS: Hematocrit 25.4 % (42.0-52.0); Hemoglobin 7.9 g/dL (14.0-18.0)
[2023-05-14] MEDS: AMIODARONE 360 MG/D5W 200 ML 360 MG/200 ML BAG 16.67 MG IV CONT ×2 (04:22→18:03)
[2023-05-14 04:56] LABS: Basophils Percent Auto 0.3 % (0.2-1.2); Eosinophils Absolute Auto 0.1 K/mm3 (0-0.3); Hematocrit 25.4 % (42.0-52.0); Hemoglobin 7.8 g/dL (14.0-18.0); Immature Granulocyte Absolute 0.44 K/mm3 (0.00-0.031); Lymphocytes Absolute Auto 1.84 K/mm3 (0.9-3.2); Lymphocytes Percent Auto 16.8 % (18.3-44.2); Mean Corpuscular HGB Conc 30.7 g/dl (32-36); Mean Corpuscular Hemoglobin 27.7 pg (26-34); Mean Corpuscular Volume 90.1 fl (80-100); Mean Platelet Volume 9.9 fl (7.4-10.4); Monocytes Absolute Auto 0.6 K/mm3 (0.1-0.6); Monocytes Percent Auto 5.6 % (2.6-8.5); Neutrophils Absolute Auto 7.9 K/mm3 (1.3-6.7); Neutrophils Percent Auto 72.3 % (45.5-73.1); Nucleated Red Blood Cells Absolute Auto 0.3 K/mm3 (0.0-0.012); Nucleated Red Blood Cells Perc 2.9 % (0.0-0.2); Platelet Count Result 191 k/mm3 (150-375); Red Blood Count 2.82 M/mm3 (4.6-6.20); Red Cell Distribution Width 16.5 % (11.5-14.5); White Blood Count 10.9 K/mm3 (4.5-10.0)
[2023-05-14 05:06] LABS: Alanine Aminotransferase 62 U/L (6-50); Albumin Level 2.6 g/dL (3.5-5.1); Alkaline Phosphatase 91 U/L (38-126); Anion Gap 6 mmol/L (8-16); Aspartate Amino Transferase 52 U/L (17-59); Bilirubin,Total 0.3 mg/dL (0.2-1.3); Blood Urea Nitrogen 29 mg/dL (9-20); Calcium 8.3 mg/dL (8.4-10.2); Carbon Dioxide 20 mmol/L (22-30); Chloride 116 mmol/L (98-107); Estimated CRCL calculation 44 ml/min; Estimated Glomerular Filt Rate 54; Glucose 132 mg/dL (65-110); Potassium 3.4 mmol/L (3.4-5.0); Sodium 142 mmol/L (137-145)
[2023-05-14] MEDS: METOPROLOL TARTRATE 25 MG TABLET PO ×3 (06:01→18:02)
--- NOTE | 2023-05-14 08:39 | WPDGICN ---
Assessment and Plan Assessment and plan (1) [id number] kidney injury: Code(s): N17.9 - Acute kidney failure, unspecified; N18.9 - Chronic kidney disease, unspecified Status: Acute Assessment and Plan: Creatinine at admission was 1.3 but increased as high as 3.6 but now has backed down to his baseline. (2) Small bowel obstruction: Code(s): K56.609 - Unspecified intestinal obstruction, unspecified as to partial versus complete obstruction Status: Resolved Assessment and Plan: He presented with retractable nausea and vomiting was found to have a small-bowel obstruction. He was taken to surgery. He is now able to eat and has been advanced to a regular diet. (3) GI bleed: Code(s): K92.2 - Gastrointestinal hemorrhage, unspecified Status: Acute Assessment and Plan: on admission patient had intractable nausea vomiting due to SBO. He had a large emesis of dark brown material which was positive for occult blood. His hemoglobin has dropped as low as 6.6. He is now having dark stools suggestive of Persistent bleeding. he has been on Protonix throughout his course and because of atrial fibrillation was recently started on Eliquis, Initially 10 mg b.i.d. but that has been decreased to 5 mg. We will hold that for EGD. (4) Atrial fibrillation with rapid ventricular response: Code(s): I48.91 - Unspecified atrial fibrillation Status: Acute Assessment and Plan: Patient developed acute onset of AFib with RVR. He was moved to IMU and started on Diltiazem gtt. TSH normal. Echo (05/05) showing EF >70%, grade I diastolic dysfunction and moderate Pulm HTN. He has been anti-coagulated with Heparin and now converted to Eliquis. Metoprolol advanced. Heart rate better controlled but still elevated especially with activity.? amiodarone has been added GI Consult Note Consult date/time: 05/14/23 08:40 Reason for consult: Melena HPI: Felipe Pinedo is a 82 year old male with past medical history of coronary artery disease, chronic indwelling Roberto catheter, chronic kidney disease stage 4, diabetes, essential hypertension, recent cervical surgery with cervical diskectomy and fusion of C4-C5 on 04/19/2023. He came to the ED on 05/03/2023 from [facility] with complaints of altered mental status, hypotension, diagnosed with septic shock, placed right femoral central line and was started on Levophed with broad spectrum abx. Initially blood work showed WBC 34.4 with 3% bands, hemoglobin of 14.1, platelet count of 327.? INR was 1.2, sodium 139, potassium 4.6, CO2 32, BUN 113, creatinine 3.6, glucose 142, lactic acid of 7.7, repeat lactic acid was 1.9, troponin of 0.057, C-reactive protein 13.5.? UA showed 1+ leukocyte esterase, urine WBC 11-20. He also had large amount of dark emesis, NG tube was inserted with almost 3 L of gastric contents then CT scan of the abdomen and pelvis showed a umbilical hernia with a loop of small bowel causing a small-bowel obstruction.? Surgery was consulted, patient was taken urgently to the OR for status post ex lap with open repair of incarcerated ventral hernia. Review of Systems Review of Systems: All systems reviewed & are unremarkable except as noted in HPI and below PMFSH Past Medical History Medical History Acute kidney injury superimposed on CKD CAD (coronary artery disease) Cervical stenosis of spine Chronic indwelling Roberto catheter Chronic kidney disease, stage 4 (severe) Coffee ground emesis Diabetes mellitus type 2 in obese DM2 (diabetes mellitus, type 2) GI bleed Gout Hyperlipidemia Hyperlipidemia Hypertension Hypertension Sepsis Sepsis associated hypotension Small bowel obstruction Urinary retention Surgical History Surgical History H/O cataract extraction H/O cervical spine surgery S/P CABG x 7 Family History F
[2023-05-14] MEDS: PANTOPRAZOLE SODIUM IV 40 MG VIAL IV PUSH ×2 (09:29→20:52)
[2023-05-14] MEDS: POTASSIUM CHLORIDE 20 MEQ ER TABLET 40 MEQ PO (09:29)
[2023-05-14] MEDS: AMIODARONE 150 MG/D5W 100 ML 150 MG/100 ML BAG 600 MG IV CONT (09:59)
--- NOTE | 2023-05-14 10:03 | PM.IMPN ---
Progress Note: A&P Assessment and Plan (1) GI bleed: Code(s): K92.2 - Gastrointestinal hemorrhage, unspecified Status: Acute Assessment and Plan: On admission, the patient had a very large, dark brown emesis with streaks of blood.? Gastric occult blood was positive but no signs of gross bleeding. Patient was evaluated by GI and suspected secondary to GI gastritis. He was treated with Protonix IV q.12 hours. Hgb low but stable until it dropped to 6.6 on 05/11. He was transfused. Yesterday, RN called stating patient with dark, tarry stools. Ordered anticoagulation held and GI reconsulted Hgb drifting down slowly since the transfusion on 05/11. Appreciate GI evaluation and recommendation. EGD being planned. Last Eliquis dose was 05/13 at 1015 (2) Atrial fibrillation with rapid ventricular response: Code(s): I48.91 - Unspecified atrial fibrillation Status: Acute Assessment and Plan: Patient developed acute onset of AFib with RVR. He was moved to IMU and started on Diltiazem gtt. TSH normal. Echo (05/05) showing EF >70%, grade I diastolic dysfunction and moderate Pulm HTN. He was anti-coagulated with Heparin and then switched to Eliquis. Metoprolol was advanced. Heart rate better controlled but still elevated especially with activity. Amiodarone started to try to convert to NSR. HR still not well controlled so will repeat bolus and advance metoprolol again. (3) Anemia: Code(s): D64.9 - Anemia, unspecified Status: Acute Assessment and Plan: Anemia likely secondary to GI bleed and anemia of chronic disease. Iron studies consistent with anemia of chronic disease (and STR was normal). B12 and folate normal Hgb 13 on admission but drifted down to 8-9 range mostly before dropping to 6.6 on 05/11 and was transfused 2U. Stool is guaiac positive and now having dark stools Anti-coagulation on hold. Will need anticoagulation due to DVT and now AFib. Hgb drifting down slowly. Eliquis on hold Continue to monitor H&H. Transfuse if hemoglobin < 7.0 (4) Acute respiratory failure: Code(s): J96.00 - Acute respiratory failure, unspecified whether with hypoxia or hypercapnia Status: Acute Assessment and Plan: Acute respiratory failure most likely related to anesthesia post surgery. Patient was intubated at the time of surgery and able to be extubated after a successful weaning trial on 05/06. Encourage incentive spirometry. He was started on Zosyn on 05/03 at 1700. Completed 10 day course of Zosyn. Weaned to room air. Resolved. (5) Septic shock: Code(s): A41.9 - Sepsis, unspecified organism; R65.21 - Severe sepsis with septic shock Status: Acute Assessment and Plan: Patient presented with altered mental status, hypotensive, lactic acidosis and acute on chronic kidney disease. He received 3 L of IV fluid bolus in the ER, despite which patient remained hypotensive. A right femoral vein central line was inserted and he was started on Vasopressin and Levophed. Off all vasopressors on 05/06. Solu-Cortef also weaned off by 05/06. Lactic acid normalized. Urine output improved. Levaquin was discontinued 05/04 and Vanco on 05/07. He remains on Zosyn (05/03). UCx and BCx negative. CXR 05/09 showing left basilar atelectasis. WBC still elevated but better at 11K. Completed Zosyn on 05/13 (6) Small bowel obstruction: Code(s): K56.609 - Unspecified intestinal obstruction, unspecified as to partial versus complete obstruction Status: Resolved Assessment and Plan: CT scan showing SBO related to incarcerated umbilical hernia. [place] this was the etiology of his sepsis although no evidence of bowel ischemia. General Surgery consulted and patient went to the OR on 05/03 and had an exploratory laparotomy with open repair of incarcerated ventral hernia without mesh. No evidence of bowel ischemia. NG tube has been removed. Now postop day 11 from incarcerated ventral hernia repair.
[2023-05-14 11:26] LABS: Hematocrit 27.3 % (42.0-52.0); Hemoglobin 8.2 g/dL (14.0-18.0)
[2023-05-14 11:50] LABS: Glucose Point of Care 138 mg/dl (65-105)
--- NOTE | 2023-05-14 13:26 | PM.PNGS ---
Progress Note: A&P Assessment and Plan (1) Atrial fibrillation with rapid ventricular response: Code(s): I48.91 - Unspecified atrial fibrillation Status: Acute Assessment and Plan: Had been on Eliquis now that has been held. Still on amiodarone. Management as per Cardiology. (2) GI bleed: Code(s): K92.2 - Gastrointestinal hemorrhage, unspecified Status: Acute Assessment and Plan: Hemoglobin appears to be stable at this point. GI is involved in may end up doing endoscopy. (3) Small bowel obstruction: Code(s): K56.609 - Unspecified intestinal obstruction, unspecified as to partial versus complete obstruction Status: Resolved Assessment and Plan: Healing well after open incarcerated periumbilical ventral hernia repair without mesh. Bowel function is normal. Continue supportive management. Subjective Subjective Date/Time Seen: 05/14/23 13:26 Interval history: Patient clinically stable from surgery standpoint. Tolerated clear diet and having bowel movements. He is having some dark stools and has had evidence of blood in the stools. GI is involved and he may end up getting a colonoscopy. He has been on Eliquis due to bilateral lower extremity DVTs. Eliquis has been held. Exam GI: Other: Abdomen is soft and nondistended. Midline incision is healing well without redness or drainage. No recurrent hernia or seroma. Harley are in place. Objective Data Vital Signs Vital Signs: Vital Signs - 24 hr 05/13/23 14:00 05/13/23 15:32 05/13/23 16:00 Temperature 36.6 C Pulse Rate 115 H 117 H 99 Respiratory Rate 20 Blood Pressure 117/68 Pulse Oximetry 99 Oxygen Delivery 05/13/23 16:00 05/13/23 16:00 05/13/23 18:00 Temperature Pulse Rate 122 H 119 H Respiratory Rate Blood Pressure Pulse Oximetry Oxygen Delivery Room Air 05/13/23 20:00 05/13/23 21:12 05/13/23 23:44 Temperature 36.7 C 36.7 C Pulse Rate 119 H 117 H 114 H Respiratory Rate 20 22 H Blood Pressure 119/71 119/68 Pulse Oximetry 98 98 Oxygen Delivery 05/13/23 20:00 05/13/23 22:00 05/14/23 00:00 Temperature Pulse Rate 117 H 119 H 124 H Respiratory Rate Blood Pressure Pulse Oximetry Oxygen Delivery 05/14/23 02:00 05/14/23 03:58 05/14/23 04:22 Temperature 36.6 C Pulse Rate 126 H 114 H 113 H Respiratory Rate 20 Blood Pressure 116/72 Pulse Oximetry 99 Oxygen Delivery 05/13/23 20:00 05/14/23 00:00 05/14/23 04:00 Temperature Pulse Rate 129 H Respiratory Rate Blood Pressure Pulse Oximetry 98 98 Oxygen Delivery Room Air Room Air 05/14/23 04:00 05/14/23 06:01 05/14/23 06:00 Temperature Pulse Rate 118 H 118 H Respiratory Rate Blood Pressure Pulse Oximetry 99 Oxygen Delivery Room Air 05/14/23 08:00 05/14/23 08:00 05/14/23 08:00 Temperature 36.8 C Pulse Rate 87 118 H Respiratory Rate 16 Blood Pressure 157/82 H Pulse Oximetry 100 Oxygen Delivery Room Air 05/14/23 10:00 05/14/23 12:00 05/14/23 12:00 Temperature 36.2 C L Pulse Rate 129 H 116 H 119 H Respiratory Rate 24 H Blood Pressure 120/60 Pulse Oximetry 100 Oxygen Delivery Intake/Output Intake/Output: Intake & Output 05/11/23 05/12/23 05/13/23 05/14/23 23:59 23:59 23:59 23:59 Intake Total 2650 1050 1000 680 Output Total 2425 1000 2050 700 Balance 225 50 -1050 -20 Meds/Results Medications: Active Medications Generic Name Dose Route Start Last Admin Trade Name Freq PRN Reason Stop Dose Admin Acetaminophen 650 mg 05/12/23 15:41 Acetaminophen 325 Mg Tablet PO Q4H PRN Pain Rated 5 or Less Hydrocodone Bitart/Acetaminophen 1 tab 05/12/23 15:41 Hydrocodone/Acetaminophen (*Crx) 5-325 Mg Tablet PO Q4H PRN Pain Rated 6 or Greater Albuterol 2.5 mg 05/12/23 15:41 Albuterol Sulfate Neb 2.5 Mg/3 Ml Inh INHALATION Q6HRT PRN [place]
[2023-05-14 14:39] LABS: Hemoglobin 9.4 g/dL (14.0-18.0)
[2023-05-14 16:20] LABS: Glucose Point of Care 105 mg/dl (65-105)
[2023-05-14] MEDS: METOPROLOL TARTRATE INJ 5 MG/5 ML VIAL IV PUSH (16:45)
[2023-05-14] MEDS: COLLAGENASE OINT 30 GM TUBE 1 APPLIC TOPICAL (18:03)
[2023-05-14 19:09] LABS: Hematocrit 28.1 % (42.0-52.0); Hemoglobin 8.5 g/dL (14.0-18.0)
[2023-05-14 23:12] LABS: Glucose Point of Care 126 mg/dl (65-105)
[2023-05-15] VITALS (19 sets, daily range): BP systolic 107–128; BP diastolic 46–69; PULSE 82–139; RESP 18–28; TEMP 36.1–37.8; O2SAT 97–100
[2023-05-15] MEDS: METOPROLOL TARTRATE 25 MG TABLET PO ×3 (00:15→08:59)
[2023-05-15 01:43] LABS: Hematocrit 26.7 % (42.0-52.0); Hemoglobin 8.1 g/dL (14.0-18.0)
[2023-05-15 04:56] LABS: Basophils Percent Auto 0.4 % (0.2-1.2); Eosinophils Absolute Auto 0.1 K/mm3 (0-0.3); Hematocrit 26.1 % (42.0-52.0); Hemoglobin 7.8 g/dL (14.0-18.0); Immature Granulocyte Absolute 0.49 K/mm3 (0.00-0.031); Immature Granulocyte Percent A 4.5 % (0-0.5); Lymphocytes Absolute Auto 2.71 K/mm3 (0.9-3.2); Lymphocytes Percent Auto 24.7 % (18.3-44.2); Mean Corpuscular HGB Conc 29.9 g/dl (32-36); Mean Corpuscular Hemoglobin 27.6 pg (26-34); Mean Corpuscular Volume 92.2 fl (80-100); Mean Platelet Volume 10.1 fl (7.4-10.4); Monocytes Absolute Auto 0.6 K/mm3 (0.1-0.6); Monocytes Percent Auto 5.8 % (2.6-8.5); Neutrophils Percent Auto 63.6 % (45.5-73.1); Nucleated Red Blood Cells Absolute Auto 0.3 K/mm3 (0.0-0.012); Platelet Count Result 230 k/mm3 (150-375); Red Blood Count 2.83 M/mm3 (4.6-6.20); Red Cell Distribution Width 16.7 % (11.5-14.5)
[2023-05-15 05:05] LABS: Alanine Aminotransferase 58 U/L (6-50); Albumin Level 2.6 g/dL (3.5-5.1); Alkaline Phosphatase 86 U/L (38-126); Anion Gap 9 mmol/L (8-16); Aspartate Amino Transferase 40 U/L (17-59); Bilirubin,Total 0.3 mg/dL (0.2-1.3); Blood Urea Nitrogen 24 mg/dL (9-20); Calcium 8.4 mg/dL (8.4-10.2); Carbon Dioxide 19 mmol/L (22-30); Chloride 117 mmol/L (98-107); Estimated CRCL calculation 44 ml/min; Estimated Glomerular Filt Rate 54; Glucose 120 mg/dL (65-110); Potassium 3.7 mmol/L (3.4-5.0); Sodium 145 mmol/L (137-145)
[2023-05-15] MEDS: AMIODARONE 360 MG/D5W 200 ML 360 MG/200 ML BAG 16.67 MG IV CONT (05:08)
[2023-05-15] MEDS: dilTIAZem 100 MG/100 ML 100 MG/100 ML BAG IV CONT (08:59)
[2023-05-15] MEDS: COLLAGENASE OINT 30 GM TUBE 1 APPLIC TOPICAL (08:59)
[2023-05-15] MEDS: PANTOPRAZOLE SODIUM IV 40 MG VIAL IV PUSH ×2 (09:00→20:43)
--- NOTE | 2023-05-15 09:25 | PCOTNOTE ---
The patient treatment was not able to be completed on 05/15. MD wants to hold on this date to get vitals under control. Will plan to continue treatment per plan of care.
--- NOTE | 2023-05-15 09:31 | PCPTNOTE ---
Dr. Rodriguez requests to hold therapy treatment today.
[2023-05-15 12:27] LABS: Glucose Point of Care 116 mg/dl (65-105)
[2023-05-15] MEDS: DIGOXIN INJ 250 MCG/ML 2 ML AMP (*BKC) IV PUSH (12:58)
--- NOTE | 2023-05-15 13:02 | PM.IMPN ---
Progress Note: A&P Assessment and Plan (1) GI bleed: Code(s): K92.2 - Gastrointestinal hemorrhage, unspecified Status: Acute Assessment and Plan: On admission, the patient had a very large, dark brown emesis with streaks of blood.? Gastric occult blood was positive but no signs of gross bleeding. Patient was evaluated by GI and suspected secondary to GI gastritis. He was treated with Protonix IV q.12 hours. Hgb low but stable until it dropped to 6.6 on 05/11. He was transfused. RN called stating patient with dark, tarry stools on . Ordered anticoagulation held and GI reconsulted Hgb drifting down slowly since the transfusion on 05/11. Appreciate GI evaluation and recommendation. EGD being planned. Last Eliquis dose was 05/13 at 1015 EGD held due to AFib/RVR. Discussed with GI. Will place on Heparin gtt as we await EGD. Monitor HH closely. (2) Atrial fibrillation with rapid ventricular response: Code(s): I48.91 - Unspecified atrial fibrillation Status: Acute Assessment and Plan: Patient developed acute onset of AFib with RVR. He was moved to IMU and started on Diltiazem gtt. TSH normal. Echo (05/05) showing EF >70%, grade I diastolic dysfunction and moderate Pulm HTN. He was anti-coagulated with Heparin and then switched to Eliquis. Metoprolol was advanced. Heart rate better controlled but still elevated especially with activity. Amiodarone started but did not convert and now he is off anticoagulation. Will change to rate controlling strategy. Change to IV Diltiazem. Digoxin x 1 given. Metoprolol advanced. HR overall better controlled. (3) Anemia: Code(s): D64.9 - Anemia, unspecified Status: Acute Assessment and Plan: Anemia likely secondary to GI bleed and anemia of chronic disease. Iron studies consistent with anemia of chronic disease (and STR was normal). B12 and folate normal Hgb 13 on admission but drifted down to 8-9 range mostly before dropping to 6.6 on 05/11 and was transfused 2U. Stool is guaiac positive and now having dark stools Anti-coagulation on hold. Will need anticoagulation due to DVT and now AFib. Hgb drifting down slowly. As above. Continue to monitor H&H. Transfuse if hemoglobin < 7.0 (4) Acute respiratory failure: Code(s): J96.00 - Acute respiratory failure, unspecified whether with hypoxia or hypercapnia Status: Acute Assessment and Plan: Acute respiratory failure most likely related to anesthesia post surgery. Patient was intubated at the time of surgery and able to be extubated after a successful weaning trial on 05/06. Encourage incentive spirometry. He was started on Zosyn on 05/03 at 1700 and completed a 10 day course of Zosyn. Weaned to room air. Resolved. (5) Septic shock: Code(s): A41.9 - Sepsis, unspecified organism; R65.21 - Severe sepsis with septic shock Status: Acute Assessment and Plan: Patient presented with altered mental status, hypotensive, lactic acidosis and acute on chronic kidney disease. He received 3 L of IV fluid bolus in the ER, despite which patient remained hypotensive. A right femoral vein central line was inserted and he was started on Vasopressin and Levophed. Off all vasopressors on 05/06. Solu-Cortef also weaned off by 05/06. Lactic acid normalized. Urine output improved. Levaquin was discontinued 05/04 and Vanco on 05/07. He remained on Zosyn (05/03). UCx and BCx negative. CXR 05/09 showing left basilar atelectasis. WBC still elevated but stable at 11K. Completed Zosyn on 05/13 (6) Small bowel obstruction: Code(s): K56.609 - Unspecified intestinal obstruction, unspecified as to partial versus complete obstruction Status: Resolved Assessment and Plan: CT scan showing SBO related to incarcerated umbilical hernia. [place] this was the etiology of his sepsis although no evidence of bowel ischemia. General Surgery consulted and patient went to the OR on 05/03 and had an exploratory lapar
--- NOTE | 2023-05-15 14:11 | WPDGIPROGNO ---
Progress Note: A&P Assessment and Plan (1) GI bleed: Code(s): K92.2 - Gastrointestinal hemorrhage, unspecified Status: Acute Assessment and Plan: no more melena but few days ago hgb dropped and required blood transfusion (he was managed with iv protonix and did not do EGD since he had SBO due to incarcerated hernia already repaired) since he will need blood thinners plan is to do EGD (today was postponed because had Afib with RVR) (2) Coffee ground emesis: Code(s): K92.0 - Hematemesis Status: Acute Assessment and Plan: on admission denies any more recently (3) Atrial fibrillation with rapid ventricular response: Code(s): I48.91 - Unspecified atrial fibrillation Status: Acute Assessment and Plan: RVR today and anesthesia was not comfortable with EGD tomorrow hopefully tomorrow (4) Acute blood loss anemia: Code(s): D62 - Acute posthemorrhagic anemia Status: Acute Assessment and Plan: monitor h/h and for more signs of bleeding (5) Small bowel obstruction: Code(s): K56.609 - Unspecified intestinal obstruction, unspecified as to partial versus complete obstruction Status: Resolved Assessment and Plan: s/p surgery (6) DM2 (diabetes mellitus, type 2): Code(s): E11.9 - Type 2 diabetes mellitus without complications Status: Acute Subjective Date/time seen: 05/15/23 14:11 Interval history: doing well, no more nausea, tolerating diet Review of Systems Review of Systems: All systems reviewed & are unremarkable except as noted in HPI and below Exam Narrative: Gen - NARD sitting up in a chair neck supple Chest - no rales CV - irregularly irregular and tachycardic c/w AFib with RVR Abd - Soft, obese, NT, +BS, abd incision clean, dry and intact. - Roberto in position Ext - Rt trace pedal edema Psych - Nml mood and affect. Skin - Warm and dry Objective Data Vital Signs Vital Signs: Vital Signs - 24 hr 05/14/23 14:36 05/14/23 16:00 05/14/23 18:02 Temperature 99.0 F Pulse Rate 129 H 94 94 Respiratory Rate 28 H Blood Pressure 101/67 Pulse Oximetry 97 Oxygen Delivery Fraction of Inspired Oxygen 05/14/23 16:45 05/14/23 16:00 05/14/23 18:00 Temperature Pulse Rate 94 128 H 116 H Respiratory Rate Blood Pressure Pulse Oximetry Oxygen Delivery Fraction of Inspired Oxygen 05/14/23 16:00 05/14/23 20:00 05/14/23 20:00 Temperature 97.0 F L Pulse Rate 125 H 128 H Respiratory Rate 22 H Blood Pressure 132/77 Pulse Oximetry 98 Oxygen Delivery Room Air Fraction of Inspired Oxygen 05/14/23 20:00 05/14/23 22:00 05/14/23 23:44 Temperature 97.7 F Pulse Rate 118 H 123 H Respiratory Rate 24 H Blood Pressure 123/73 Pulse Oximetry 97 Oxygen Delivery Room Air Fraction of Inspired Oxygen 05/14/23 23:56 05/14/23 23:56 05/15/23 00:18 Temperature Pulse Rate 120 H 115 H Respiratory Rate 18 Blood Pressure Pulse Oximetry 97 Oxygen Delivery Room Air Room Air Fraction of Inspired Oxygen 21 05/15/23 03:33 05/15/23 02:00 05/15/23 04:00 Temperature 97.4 F L Pulse Rate 139 H 122 H 111 H Respiratory Rate 24 H Blood Pressure 115/65 Pulse Oximetry 100 Oxygen Delivery Fraction of Inspired Oxygen 05/15/23 04:00 05/15/23 00:15 05/15/23 05:08 Temperature Pulse Rate 129 H 129 H Respiratory Rate Blood Pressure Pulse Oximetry Oxygen Delivery Room Air Fraction of Inspired Oxygen 05/15/23 05:09 05/15/23 06:00 05/15/23 08:00 Temperature 96.9 F L Pulse Rate 129 H 113 H 82 Respiratory Rate 24 H Blood Pressure 126/61 Pulse Oximetry 98 Oxygen Delivery Fraction of Inspired Oxygen 05/15/23 09:28 05/15/23 08:00 05/15/23 08:00 Temperature Pulse Rate 133 H 112 H Respiratory Rate Blood Pressure Pulse Oximetry 98 Oxygen Delivery Room Air Fraction of I
[2023-05-15] MEDS: METOPROLOL TARTRATE 50 MG TAB PO ×2 (14:18→20:43)
[2023-05-15 17:05] LABS: Glucose Point of Care 103 mg/dl (65-105)
[2023-05-15] MEDS: HEPARIN SOD/D5W 100 UNITS/ML 25,000 UNITS/250 ML BAG 15 UNITS IV CONT (17:53)
[2023-05-15 18:13] LABS: Hematocrit 26.5 % (42.0-52.0); Hemoglobin 8.1 g/dL (14.0-18.0); Mean Corpuscular HGB Conc 30.6 g/dl (32-36); Mean Corpuscular Hemoglobin 27.7 pg (26-34); Mean Corpuscular Volume 90.8 fl (80-100); Mean Platelet Volume 9.4 fl (7.4-10.4); Platelet Count Result 247 k/mm3 (150-375); Red Blood Count 2.92 M/mm3 (4.6-6.20); Red Cell Distribution Width 17.2 % (11.5-14.5); White Blood Count 10.8 K/mm3 (4.5-10.0)
[2023-05-15 18:26] LABS: INR 1.2; Prothrombin Time 15.8 Seconds (11.1-14.7)
[2023-05-15 18:27] LABS: Partial Thromboplastin Time 40.5 SECONDS (22.3-36.8)
[2023-05-15 18:44] LABS: Eosinophils Percent Manual 1 % (0-4); Lymphocytes Absolute Manual 2.91 K/mm3 (1.1-4.5); Monocytes Absolute Manual 0.75 K/mm3 (0.1-0.90); Monocytes Percent Manual 7 % (3-9); Neutrophils Percent Manual 65 % (46-73); Nucleated Red Blood Cells 2 %; Platelet Estimate Adequate (Adequate); Total Cells Counted 100
[2023-05-15 18:45] LABS: Anisocytosis 2+ (NORMAL)
[2023-05-15 18:46] LABS: Microcytosis 3+ (NORMAL); Schistocytes Rare (NORMAL)
[2023-05-15 18:47] LABS: Hypochromasia 1+ (NORMAL)
[2023-05-15] MEDS: dilTIAZem 100 MG/100 ML 100 MG/100 ML BAG 10 MG IV CONT (19:19)
[2023-05-15 23:30] LABS: Glucose Point of Care 113 mg/dl (65-105)
[2023-05-16] VITALS (25 sets, daily range): BP systolic 61–123; BP diastolic 24–79; PULSE 82–121; RESP 16–35; TEMP 36.3–37.7; O2SAT 91–99
[2023-05-16 00:17] LABS: Hematocrit 26.2 % (42.0-52.0); Hemoglobin 7.9 g/dL (14.0-18.0)
[2023-05-16 00:43] LABS: Partial Thromboplastin Time 94.9 SECONDS (22.3-36.8)
[2023-05-16] MEDS: dilTIAZem 100 MG/100 ML 100 MG/100 ML BAG 10 MG IV CONT ×3 (06:02→23:42)
[2023-05-16] MEDS: METOPROLOL TARTRATE 50 MG TAB PO ×3 (06:04→21:04)
[2023-05-16 06:26] LABS: Hematocrit 26.2 % (42.0-52.0); Hemoglobin 7.8 g/dL (14.0-18.0); Mean Corpuscular HGB Conc 29.8 g/dl (32-36); Mean Corpuscular Hemoglobin 27.5 pg (26-34); Mean Corpuscular Volume 92.3 fl (80-100); Mean Platelet Volume 9.4 fl (7.4-10.4); Platelet Count Result 263 k/mm3 (150-375); Red Blood Count 2.84 M/mm3 (4.6-6.20); White Blood Count 10.6 K/mm3 (4.5-10.0)
[2023-05-16 06:32] LABS: Partial Thromboplastin Time 96.1 SECONDS (22.3-36.8)
[2023-05-16 06:55] LABS: Alanine Aminotransferase 51 U/L (6-50); Albumin Level 2.6 g/dL (3.5-5.1); Alkaline Phosphatase 88 U/L (38-126); Anion Gap 8 mmol/L (8-16); Aspartate Amino Transferase 29 U/L (17-59); Bilirubin,Total 0.4 mg/dL (0.2-1.3); Blood Urea Nitrogen 20 mg/dL (9-20); Calcium 8.3 mg/dL (8.4-10.2); Carbon Dioxide 20 mmol/L (22-30); Chloride 117 mmol/L (98-107); Estimated CRCL calculation 44 ml/min; Estimated Glomerular Filt Rate 54; Glucose 111 mg/dL (65-110); Potassium 3.3 mmol/L (3.4-5.0); Sodium 145 mmol/L (137-145)
[2023-05-16 07:26] LABS: Band Neutrophils Percent 5 % (0-6); Eosinophils Percent Manual 1 % (0-4); Lymphocytes Absolute Manual 2.54 K/mm3 (1.1-4.5); Monocytes Absolute Manual 0.42 K/mm3 (0.1-0.90); Monocytes Percent Manual 4 % (3-9); Neutrophils Absolute Manual 7.52 K/mm3 (1.3-6.7); Neutrophils Percent Manual 66 % (46-73); Nucleated Red Blood Cells 3 %; Total Cells Counted 100
[2023-05-16 07:27] LABS: Hypochromasia 1+ (NORMAL); Platelet Estimate Adequate (Adequate); Schistocytes None Seen (NORMAL)
[2023-05-16 07:28] LABS: Anisocytosis 1+ (NORMAL); Polychromasia 1+ (NORMAL)
[2023-05-16 08:16] LABS: Magnesium 2.2 mg/dL (1.6-2.3)
[2023-05-16] MEDS: DIGOXIN INJ 250 MCG/ML 2 ML AMP (*BKC) IV PUSH (09:01)
[2023-05-16] MEDS: PANTOPRAZOLE SODIUM IV 40 MG VIAL IV PUSH ×2 (09:02→21:05)
[2023-05-16] MEDS: POTASSIUM CHLORIDE 20 MEQ ER TABLET 40 MEQ PO (09:02)
--- NOTE | 2023-05-16 10:19 | PM.PNGS ---
Progress Note: A&P Assessment and Plan (1) Small bowel obstruction: Code(s): K56.609 - Unspecified intestinal obstruction, unspecified as to partial versus complete obstruction Status: Resolved Assessment and Plan: Resolved after open incarcerated hernia repair without mesh. GI function is not return is normal. He remains in the hospital for other medical issues. Incision looks fine and will likely remove his w[place]ka for leaves the hospital. Disposition as per hospitalist. Subjective Subjective Date/Time Seen: 05/16/23 10:19 Interval history: Patient doing well today. No complaints. Eating fine having bowel movements. Exam GI: Other: Abdomen is soft and nondistended. Midline incision is healing well with waleska in place. No redness or drainage. Objective Data Vital Signs Vital Signs: Vital Signs - 24 hr 05/15/23 12:00 05/15/23 12:00 05/15/23 12:00 Temperature 36.1 C L Pulse Rate 92 102 H Respiratory Rate 26 H Blood Pressure 126/61 Pulse Oximetry 99 Oxygen Delivery Room Air 05/15/23 14:00 05/15/23 16:00 05/15/23 16:00 Temperature 37.2 C Pulse Rate 96 106 H Respiratory Rate 28 H Blood Pressure 117/66 Pulse Oximetry 98 98 Oxygen Delivery Room Air 05/15/23 16:00 05/15/23 18:00 05/15/23 20:00 Temperature 37.8 C H Pulse Rate 95 98 104 H Respiratory Rate 26 H Blood Pressure 107/46 L Pulse Oximetry 100 Oxygen Delivery 05/15/23 20:43 05/15/23 20:00 05/15/23 20:00 Temperature Pulse Rate 109 H 104 H Respiratory Rate Blood Pressure Pulse Oximetry Oxygen Delivery Room Air 05/15/23 22:00 05/15/23 23:20 05/16/23 00:00 Temperature 36.4 C Pulse Rate 102 H 106 H 101 H Respiratory Rate 24 H Blood Pressure 128/69 Pulse Oximetry 100 Oxygen Delivery 05/16/23 00:00 05/16/23 01:54 05/16/23 04:00 Temperature Pulse Rate 110 H 105 H Respiratory Rate Blood Pressure Pulse Oximetry Oxygen Delivery Room Air 05/16/23 04:00 05/16/23 06:00 05/16/23 04:20 Temperature Pulse Rate 106 H 105 H Respiratory Rate Blood Pressure Pulse Oximetry Oxygen Delivery Room Air 05/16/23 04:00 05/16/23 06:04 05/16/23 08:00 Temperature 37.7 C H 36.5 C Pulse Rate 109 H 105 H 99 Respiratory Rate 22 H 18 Blood Pressure 118/72 118/70 Pulse Oximetry 97 96 Oxygen Delivery 05/16/23 09:01 Temperature Pulse Rate 95 Respiratory Rate Blood Pressure Pulse Oximetry Oxygen Delivery Intake/Output Intake/Output: Intake & Output 05/13/23 05/14/23 05/15/23 05/16/23 23:59 23:59 23:59 23:59 Intake Total 1000 1200 1190 200 Output Total 2049 1150 975 525 Balance -1050 50 215 -325 Meds/Results Medications: Active Medications Generic Name Dose Route Start Last Admin Trade Name Freq PRN Reason Stop Dose Admin Acetaminophen 650 mg 05/12/23 15:41 Acetaminophen 325 Mg Tablet PO Q4H PRN Pain Rated 5 or Less Hydrocodone Bitart/Acetaminophen 1 tab 05/12/23 15:41 Hydrocodone/Acetaminophen (*Crx) 5-325 Mg Tablet PO Q4H PRN Pain Rated 6 or Greater Albuterol 2.5 mg 05/12/23 15:41 Albuterol Sulfate Neb 2.5 Mg/3 Ml Inh INHALATION Q6HRT PRN Shortness Of Breath Or Wheezing Collagenase 1 applic 05/04/23 09:00 05/15/23 08:59 Collagenase Oint 30 Gm Tube TOPICAL 1 applic QAM MENDEZ Administration Dextrose 12.5 gm 05/03/23 20:47 Dextrose 50% 25 Gm/50 Ml Syringe IV PUSH PRN PRN Hypoglycemia Protocol Glucagon 1 mg 05/03/23 20:47 Glucagon For Inj 1 Mg Vial IM PRN PRN Hypoglycemia Protocol Glucose 15 gm 05/03/23 20:47 Glucose Oral Gel 15 Gm Of Glucse In 37.5 Gm Tube PO PRN PRN Hypoglycemia Protocol Heparin Sodium (Porcine) 7,000 units 05/15/23 17:21 Heparin Sodium 5,000 Units/Ml Vial IV PUSH PRN PRN aPTT less than 55 seconds Heparin Sodium (Porc
--- NOTE | 2023-05-16 10:41 | PCOTNOTE ---
The patient treatment was not able to be completed on 05/16 in the AM due to patient being out of the room. Will plan to continue treatment per plan of care.
[2023-05-16] MEDS: LACTATED RINGERS 1,000 ML 150 ML IV CONT (11:01)
--- NOTE | 2023-05-16 11:08 | PM.IMPN ---
Progress Note: A&P Assessment and Plan (1) GI bleed: Code(s): K92.2 - Gastrointestinal hemorrhage, unspecified Status: Acute Assessment and Plan: On admission, the patient had a very large, dark brown emesis with streaks of blood.? Gastric occult blood was positive but no signs of gross bleeding. Patient was evaluated by GI and suspected secondary to GI gastritis. He was treated with Protonix IV q.12 hours. Hgb low but stable until it dropped to 6.6 on 05/11. He was transfused. RN called stating patient with dark, tarry stools on . Ordered anticoagulation held and GI reconsulted Hgb drifting down slowly since the transfusion on 05/11. Appreciate GI evaluation and recommendation. Eliquis stopped. EGD today showing esophagitis. Continue PPI. Continue Heparin gtt. If HH remains stable, then change to Eliquis again (2) Atrial fibrillation with rapid ventricular response: Code(s): I48.91 - Unspecified atrial fibrillation Status: Acute Assessment and Plan: Patient developed acute onset of AFib with RVR. He was moved to IMU and started on Diltiazem gtt. TSH normal. Echo (05/05) showing EF >70%, grade I diastolic dysfunction and moderate Pulm HTN. He was anti-coagulated with Heparin and then switched to Eliquis. Metoprolol was advanced. Heart rate better controlled but still elevated especially with activity. Amiodarone started but did not convert. He came off anticoagulation due to GI bleed so stop Amio to pursue a rate controlling strategy. Changed to IV Diltiazem. Digoxin x 1 given. Metoprolol advanced. HR overall better controlled. Wean to oral Diltiazem. Continue Heparin. (3) Anemia: Code(s): D64.9 - Anemia, unspecified Status: Acute Assessment and Plan: Anemia likely secondary to GI bleed and anemia of chronic disease. Iron studies consistent with anemia of chronic disease (and STR was normal). B12 and folate normal Hgb 13 on admission but drifted down to 8-9 range mostly before dropping to 6.6 on 05/11 and was transfused 2U. Stool is guaiac positive and now having dark stools Anti-coagulation was held but will need anticoagulation due to DVT and now AFib. Hgb drifting down slowly. As above. Heparin drip resumed. Continue to monitor H&H. Transfuse if hemoglobin < 7.0 (4) DVT (deep venous thrombosis): Code(s): I82.409 - Acute embolism and thrombosis of unspecified deep veins of unspecified lower extremity Status: Acute Assessment and Plan: Doppler showing extensive DVT in the RLE. He was started on a Heparin drip He was transitioned to oral anticoagulation but was stopped due to drop in HH and recurrent GI bleed. Heparin resumed. Follow HH for stabiliy. (5) Acute respiratory failure: Code(s): J96.00 - Acute respiratory failure, unspecified whether with hypoxia or hypercapnia Status: Acute Assessment and Plan: Acute respiratory failure most likely related to anesthesia post surgery. Patient was intubated at the time of surgery and able to be extubated after a successful weaning trial on 05/06. Encourage incentive spirometry. He was started on Zosyn on 05/03 at 1700 and completed a 10 day course of Zosyn. Weaned to room air. Resolved. (6) Septic shock: Code(s): A41.9 - Sepsis, unspecified organism; R65.21 - Severe sepsis with septic shock Status: Acute Assessment and Plan: Patient presented with altered mental status, hypotensive, lactic acidosis and acute on chronic kidney disease. He received 3 L of IV fluid bolus in the ER, despite which patient remained hypotensive. A right femoral vein central line was inserted and he was started on Vasopressin and Levophed. Off all vasopressors on 05/06. Solu-Cortef also weaned off by 05/06. Lactic acid normalized. Urine output improved. Levaquin was discontinued 05/04 and Vanco on 05/07. He remained on Zosyn (05/03). UCx and BCx negative. CXR 05/09 showing left basilar atelectasis. WBC still e
--- NOTE | 2023-05-16 11:09 | WPDANESEPPF ---
Anes - Initial Pre Proc Eval Procedure: Operation Date: 05/03/23 22:45 Proposed Procedures p Exploratory Laparotomy, Pos Bowel Resec - Brad Pérez MD Operation Date: 05/16/23 11:30 Proposed Procedures p Esophagogastroduodenoscopy - Maksim Nunez MD Date/Time: 05/16/23 11:09 Surgeon: Genet Castillo MD Pre Op Diagnosis: Sepsis with hypotension Patient Data Age: 82 Gender: M Height: 1.78 m Weight: 112 kg Last Vital Signs Temp 97.4 F L 05/16/23 11:05 Pulse 93 05/16/23 11:05 Resp 18 05/16/23 11:05 BP 123/79 05/16/23 11:05 Pulse Ox 98 05/16/23 11:05 O2 Del Method Room Air 05/16/23 11:05 O2 Flow Rate 2 05/09/23 08:04 FiO2 21 05/15/23 00:18 Allergies Allergy/AdvReac Type Severity Reaction Status Date / Time No Known Drug Allergies Allergy Unknown Unknown Verified 05/16/23 10:59 Home Medications Medication Instructions Recorded Confirmed Type amlodipine 10 mg tablet 10 mg PO DAILY 05/04/23 05/04/23 History lisinopril 20 20 - 25 tablet PO DAILY 05/04/23 05/04/23 History mg-hydrochlorothiazide 25 mg tablet meloxicam 15 mg tablet 15 mg PO DAILY 05/04/23 05/04/23 History pioglitazone 30 mg tablet 30 mg PO DAILY 05/04/23 05/04/23 History simvastatin 20 mg tablet 20 mg PO DAILY 05/04/23 05/04/23 History Laboratory Tests 05/15/23 05/15/23 05/15/23 11:53 17:02 18:07 WBC 10.8 H K/mm3 (4.5-10.0) RBC 2.92 L M/mm3 (4.6-6.20) Hgb 8.1 L g/dL (14.0-18.0) Hct 26.5 L % (42.0-52.0) MCV 90.8 fl (80-100) MCH 27.7 pg (26-34) MCHC 30.6 L g/dl (32-36) RDW 17.2 H % (11.5-14.5) Plt Count 247 k/mm3 (150-375) MPV 9.4 fl (7.4-10.4) Immature Gran % (Auto) Not Reportable Neut % (Auto) Not Reportable Lymph % (Auto) Not Reportable Lipscomb % (Auto) Not Reportable Eos % (Auto) Not Reportable Baso % (Auto) Not Reportable Lymph # (Auto) Not Reportable Lipscomb # (Auto) Not Reportable Eos # (Auto) Not Reportable Baso # (Auto) Not Reportable Abs Immat Gran (auto) Not Reportable Absolute Neuts (auto) Not Reportable Absolute Nucleated RBC Not Reportable Total Counted 100 Neutrophils % (Manual) 65 % (46-73) Band Neutrophils % Lymphocytes % (Manual) 27.0 % (18-44) Monocytes % (Manual) 7 % (3-9) Eosinophils % (Manual) 1 % (0-4) Nucleated RBC % Not Reportable Abs Neuts (Manual) Abs Lymphs (Manual) 2.91 K/mm3 (1.1-4.5) Abs Monocytes (Manual) 0.75 K/mm3 (0.1-0.90) Absolute Eos (Manual) 0.10 K/mm3 (0.02-0.5) Nucleated RBCs 2 % Platelet Estimate Adequate (Adequate) Polychromasia Hypochromasia 1+ (NORMAL) Anisocytosis 2+ (NORMAL) Microcytosis 3+ (NORMAL) Schistocytes Rare (NORMAL) PT INR APTT Sodium Potassium Chloride Carbon Dioxide Anion Gap BUN Creatinine Estim Creat Clear Calc Estimated GFR Glucose POC Capillary Glucose 116 H mg/dl 103 mg/dl (65-105) (65-105) Calcium Magnesium Total Bilirubin AST ALT Alkaline Phosphatase Total Protein Albumin 05/15/23 05/15/23 05/16/23 18:08 23:27 00:00 WBC RBC Hgb 7.9 L g/dL (14.0-18.0) Hct 26.2 L % (42.0-52.0) MCV MCH MCHC RDW Plt Count MPV Immature Gran % (Auto)
[2023-05-16 11:51] LABS: Glucose Point of Care 97 mg/dl (65-105)
[2023-05-16 12:32] LABS: Glucose Point of Care 100 mg/dl (65-105)
[2023-05-16] MEDS: SUCRALFATE SUSP 100 MG/ML 10 ML UDC 1000 MG PO ×3 (14:01→21:04)
[2023-05-16] MEDS: COLLAGENASE OINT 30 GM TUBE 1 APPLIC TOPICAL (14:01)
[2023-05-16 17:29] LABS: Glucose Point of Care 85 mg/dl (65-105)
[2023-05-16 18:54] LABS: Partial Thromboplastin Time 56.3 SECONDS (22.3-36.8)
[2023-05-16] MEDS: HEPARIN SODIUM 5,000 UNITS/ML VIAL 3500 UNITS IV PUSH (19:19)
[2023-05-17] VITALS (14 sets, daily range): BP systolic 111–122; BP diastolic 50–65; PULSE 78–118; RESP 14–24; TEMP 36.1–36.7; O2SAT 95–100
[2023-05-17 00:08] LABS: Glucose Point of Care 108 mg/dl (65-105)
[2023-05-17 01:58] LABS: Hematocrit 25.9 % (42.0-52.0); Hemoglobin 7.7 g/dL (14.0-18.0); Mean Corpuscular HGB Conc 29.7 g/dl (32-36); Mean Corpuscular Hemoglobin 27.4 pg (26-34); Mean Corpuscular Volume 92.2 fl (80-100); Mean Platelet Volume 9.1 fl (7.4-10.4); Platelet Count Result 271 k/mm3 (150-375); Red Blood Count 2.81 M/mm3 (4.6-6.20); White Blood Count 9.6 K/mm3 (4.5-10.0)
[2023-05-17 02:14] LABS: Alanine Aminotransferase 46 U/L (6-50); Albumin Level 2.6 g/dL (3.5-5.1); Alkaline Phosphatase 86 U/L (38-126); Anion Gap 7 mmol/L (8-16); Aspartate Amino Transferase 28 U/L (17-59); Bilirubin,Total 0.4 mg/dL (0.2-1.3); Blood Urea Nitrogen 17 mg/dL (9-20); Calcium 8.2 mg/dL (8.4-10.2); Carbon Dioxide 20 mmol/L (22-30); Chloride 117 mmol/L (98-107); Estimated CRCL calculation 44 ml/min; Estimated Glomerular Filt Rate 54; Glucose 112 mg/dL (65-110); Potassium 3.5 mmol/L (3.4-5.0); Sodium 144 mmol/L (137-145)
[2023-05-17 02:17] LABS: Partial Thromboplastin Time 140.9 SECONDS (22.3-36.8)
[2023-05-17 02:37] LABS: Band Neutrophils Percent 2 % (0-6); Eosinophils Absolute Manual 0.28 K/mm3 (0.02-0.5); Eosinophils Percent Manual 3 % (0-4); Lymphocytes Absolute Manual 3.45 K/mm3 (1.1-4.5); Lymphocytes Percent Manual 36 % (18-44); Monocytes Absolute Manual 0.76 K/mm3 (0.1-0.90); Monocytes Percent Manual 8 % (3-9); Neutrophils Absolute Manual 5.08 K/mm3 (1.3-6.7); Neutrophils Percent Manual 51 % (46-73); Total Cells Counted 100
[2023-05-17 02:38] LABS: Smudge Cells PRESENT
[2023-05-17 02:39] LABS: Nucleated Red Blood Cells 11 %; Platelet Estimate Adequate (Adequate)
[2023-05-17 02:44] LABS: Anisocytosis 1+ (NORMAL); Hypochromasia 1+ (NORMAL); Platelet Clumps Present; Poikilocytosis 1+ (NORMAL); Polychromasia 1+ (NORMAL)
[2023-05-17 02:45] LABS: Schistocytes None Seen (NORMAL)
[2023-05-17] MEDS: METOPROLOL TARTRATE 50 MG TAB PO ×3 (05:58→21:17)
[2023-05-17] MEDS: SUCRALFATE SUSP 100 MG/ML 10 ML UDC 1000 MG PO ×4 (05:58→21:17)
--- NOTE | 2023-05-17 07:23 | WPDANESPN ---
Anes - Prog Note Post-Op Date/Time: 05/17/23 07:23 Cardiovascular status: normal (anemia) Respiratory status: normal Airway patency: baseline Mental status: baseline Post-Op hydration status: normal Vital Signs: Last Vital Signs Temp 98.0 F 05/17/23 04:00 Pulse 98 05/17/23 06:00 Resp 20 05/17/23 04:00 BP 116/63 05/17/23 04:00 Pulse Ox 96 05/17/23 04:00 O2 Del Method Room Air 05/17/23 04:00 O2 Flow Rate 2 05/09/23 08:04 FiO2 21 05/17/23 04:00 Pain Score (VAS): 0/10 I/O: Intake & Output 05/16/23 05/16/23 05/17/23 15:59 23:59 07:59 Intake Total 200 340 100 Output Total 550 600 Balance 200 -210 -500 Laboratory Tests 05/17/23 01:42 05/17/23 01:42 05/16/23 05/16/23 05/16/23 06:11 11:49 12:28 WBC RBC Hgb Hct MCV MCH MCHC RDW Plt Count MPV Immature Gran % (Auto) Neut % (Auto) Lymph % (Auto) Craig % (Auto) Eos % (Auto) Baso % (Auto) Lymph # (Auto) Craig # (Auto) Eos # (Auto) Baso # (Auto) Abs Immat Gran (auto) Absolute Neuts (auto) Absolute Nucleated RBC Total Counted 100 Neutrophils % (Manual) 66 Band Neutrophils % 5 Lymphocytes % (Manual) 24.0 Monocytes % (Manual) 4 Eosinophils % (Manual) 1 Nucleated RBC % Abs Neuts (Manual) 7.52 H Abs Lymphs (Manual) 2.54 Abs Monocytes (Manual) 0.42 Absolute Eos (Manual) 0.10 Nucleated RBCs 3 Smudge Cells Platelet Estimate Adequate Clumped Platelets Polychromasia 1+ Hypochromasia 1+ Poikilocytosis Anisocytosis 1+ Schistocytes None seen APTT Sodium Potassium Chloride Carbon Dioxide Anion Gap BUN Creatinine Estim Creat Clear Calc Estimated GFR Glucose POC Capillary Glucose 97 100 Calcium Magnesium 2.2 Total Bilirubin AST ALT Alkaline Phosphatase Total Protein Albumin 05/16/23 05/16/23 05/16/23 17:24 18:23 23:41 WBC RBC Hgb Hct MCV MCH MCHC RDW Plt Count MPV Immature Gran % (Auto) Neut % (Auto) Lymph % (Auto) Craig % (Auto) Eos % (Auto) Baso % (Auto) Lymph # (Auto) Craig # (Auto) Eos # (Auto) Baso # (Auto) Abs Immat Gran (auto) Absolute Neuts (auto) Absolute Nucleated RBC Total Counted Neutrophils % (Manual) Band Neutrophils % Lymphocytes % (Manual) Monocytes % (Manual) Eosinophils % (Manual) Nucleated RBC % Abs Neuts (Manual) Abs Lymphs (Manual) Abs Monocytes (Manual) Absolute Eos (Manual) Nucleated RBCs Smudge Cells Platelet Estimate Clumped Platelets Polychromasia Hypochromasia Poikilocytosis Anisocytosis Schistocytes APTT 56.3 H Sodium Potassium Chloride Carbon Dioxide Anion Gap BUN Creatinine Estim Creat Clear Calc Estimated GFR Glucose POC Capillary Glucose 85 108 H Calcium Magnesium Total Bilirubin AST ALT Alkaline Phosphatase Total Protein Albumin 05/17/23 01:42 WBC 9.6 RBC 2.81 L Hgb 7.7 L Hct 25.9 L MCV 92.2 MCH 27.4 MCHC 29.7 L RDW 17.0 H Plt Count 271 MPV 9.1 Immature Gran % (Auto) Not Reportable Neut % (Auto) Not Reportable Lymph % (Auto) Not Reportable Craig % (Auto) Not Reportable Eos % (Auto) Not Reportable Baso % (Auto) Not Reportable Lymph # (Auto) Not Reportable Craig # (Auto) Not Reportable Eos # (Auto) Not Reportable Baso # (Auto) Not Reportable Abs Immat Gran (auto) Not Reportable Absolute Neuts (auto) Not Reportable Absolute Nucleated RBC Not Reportable Total Counted 100 Neutrophils % (Manual) 51 Band Neutrophils % 2 Lymphocytes % (Manual) 36 Monocytes % (Manual) 8 Eosinophils % (Manual) 3 Nucleated RBC % Not Reportable Abs Neuts (Manual) 5.08 Abs Lymphs (Manual) 3.45 Abs Monocytes (Manual) 0.76 Absolute Eos (Manual)
[2023-05-17 07:53] LABS: Glucose Point of Care 114 mg/dl (65-105)
[2023-05-17] MEDS: PANTOPRAZOLE SODIUM IV 40 MG VIAL IV PUSH ×2 (08:34→21:17)
--- NOTE | 2023-05-17 09:51 | PM.IMPN ---
Progress Note: A&P Assessment and Plan (1) GI bleed: Code(s): K92.2 - Gastrointestinal hemorrhage, unspecified Status: Acute Assessment and Plan: On admission, the patient had a very large, dark brown emesis with streaks of blood.? Gastric occult blood was positive but no signs of gross bleeding. Patient was evaluated by GI and suspected secondary to GI gastritis. He was treated with Protonix IV q.12 hours. Hgb low but stable until it dropped to 6.6 on 05/11. He was transfused. RN called stating patient with dark, tarry stools on . Ordered anticoagulation held and GI reconsulted Hgb drifting down slowly since the transfusion on 05/11. Appreciate GI evaluation and recommendation. Eliquis stopped. EGD showing esophagitis. Continue PPI. 05/17: Stop heparin drip, initiate Eliquis, monitor closely (2) Atrial fibrillation with rapid ventricular response: Code(s): I48.91 - Unspecified atrial fibrillation Status: Acute Assessment and Plan: Patient developed acute onset of AFib with RVR. He was moved to IMU and started on Diltiazem gtt. TSH normal. Echo (05/05) showing EF >70%, grade I diastolic dysfunction and moderate Pulm HTN. He was anti-coagulated with Heparin and then switched to Eliquis. Metoprolol was advanced. Heart rate better controlled but still elevated especially with activity. Amiodarone started but did not convert. He came off anticoagulation due to GI bleed so stop Amio to pursue a rate controlling strategy. Changed to IV Diltiazem. Digoxin x 1 given. Metoprolol advanced. HR overall better controlled. 05/17: Discontinue Cardizem drip, start oral Cardizem, appreciate cardiology consultation (3) Anemia: Code(s): D64.9 - Anemia, unspecified Status: Acute Assessment and Plan: Anemia likely secondary to GI bleed and anemia of chronic disease. Iron studies consistent with anemia of chronic disease (and STR was normal). B12 and folate normal Hgb 13 on admission but drifted down to 8-9 range mostly before dropping to 6.6 on 05/11 and was transfused 2U. Stool is guaiac positive and now having dark stools Anti-coagulation was held but will need anticoagulation due to DVT and now AFib. Hgb drifting down slowly. As above. Heparin drip resumed. Continue to monitor H&H. Transfuse if hemoglobin < 7.0 (4) DVT (deep venous thrombosis): Code(s): I82.409 - Acute embolism and thrombosis of unspecified deep veins of unspecified lower extremity Status: Acute Assessment and Plan: Doppler showing extensive DVT in the RLE. He was started on a Heparin drip He was transitioned to oral anticoagulation but was stopped due to drop in HH and recurrent GI bleed. Heparin resumed. Follow HH for stabiliy. 05/17: See above, heparin discontinued, Eliquis initiated (5) Acute respiratory failure: Code(s): J96.00 - Acute respiratory failure, unspecified whether with hypoxia or hypercapnia Status: Acute Assessment and Plan: Acute respiratory failure most likely related to anesthesia post surgery. Patient was intubated at the time of surgery and able to be extubated after a successful weaning trial on 05/06. Encourage incentive spirometry. He was started on Zosyn on 05/03 at 1700 and completed a 10 day course of Zosyn. Weaned to room air. Resolved. (6) Septic shock: Code(s): A41.9 - Sepsis, unspecified organism; R65.21 - Severe sepsis with septic shock Status: Acute Assessment and Plan: Patient presented with altered mental status, hypotensive, lactic acidosis and acute on chronic kidney disease. He received 3 L of IV fluid bolus in the ER, despite which patient remained hypotensive. A right femoral vein central line was inserted and he was started on Vasopressin and Levophed. Off all vasopressors on 05/06. Solu-Cortef also weaned off by 05/06. Lactic acid normalized. Urine output improved. Levaquin was discontinued 05/04 and Vanco on 05/07. He remained on
[2023-05-17 10:04] LABS: Partial Thromboplastin Time 74.4 SECONDS (22.3-36.8)
--- NOTE | 2023-05-17 10:43 | WPDGIPROGNO ---
Progress Note: A&P Assessment and Plan (1) Erosive esophagitis: Code(s): K22.10 - Ulcer of esophagus without bleeding Status: Acute Assessment and Plan: no more signs of bleeding, this was the cause of coffee ground on admission continue with ppi twice daily and added carafate he is doing ok (2) Acute blood loss anemia: Code(s): D62 - Acute posthemorrhagic anemia Status: Acute Assessment and Plan: h/h is stable (3) Atrial fibrillation with rapid ventricular response: Code(s): I48.91 - Unspecified atrial fibrillation Status: Acute Assessment and Plan: on blood thinner monitor (4) Small bowel obstruction: Code(s): K56.609 - Unspecified intestinal obstruction, unspecified as to partial versus complete obstruction Status: Resolved Assessment and Plan: s/p surgery and now he is eating (5) DM2 (diabetes mellitus, type 2): Code(s): E11.9 - Type 2 diabetes mellitus without complications Status: Acute (6) Hypertension: Code(s): I10 - Essential (primary) hypertension Status: Acute Subjective Date/time seen: 05/17/23 10:43 Interval history: egd yesterday showed esophagitis, no bleeding no changes, he is comfortable Review of Systems Review of Systems: All systems reviewed & are unremarkable except as noted in HPI and below Exam Narrative: Gen - NARD, comfortable in bed neck supple Chest - no rales CV - irregularly irregular Abd - Soft, obese, NT, +BS, abd incision clean, dry and intact. - Roberto in position Ext - Rt trace pedal edema Psych - Nml mood and affect. Skin - Warm and dry Objective Data Vital Signs Vital Signs: Vital Signs - 24 hr 05/16/23 11:05 05/16/23 11:32 05/16/23 11:42 Temperature 97.4 F L Pulse Rate 93 89 94 Respiratory Rate 18 16 35 H Blood Pressure 123/79 61/24 L 85/35 L Pulse Oximetry 98 91 94 Oxygen Delivery Room Air Room Air Room Air Fraction of Inspired Oxygen 05/16/23 11:44 05/16/23 11:50 05/16/23 12:00 Temperature 97.7 F Pulse Rate 97 88 82 Respiratory Rate 34 H 29 H 18 Blood Pressure 75/37 L 92/38 L 104/59 L Pulse Oximetry 91 97 93 Oxygen Delivery Room Air Room Air Fraction of Inspired Oxygen 05/16/23 12:00 05/16/23 14:01 05/16/23 15:20 Temperature Pulse Rate 108 H 121 H Respiratory Rate Blood Pressure Pulse Oximetry Oxygen Delivery Room Air Fraction of Inspired Oxygen 05/16/23 16:00 05/16/23 16:00 05/16/23 12:00 Temperature 98.0 F Pulse Rate 111 H 88 Respiratory Rate 20 Blood Pressure 123/79 Pulse Oximetry 99 Oxygen Delivery Room Air Fraction of Inspired Oxygen 05/16/23 14:00 05/16/23 16:00 05/16/23 18:00 Temperature Pulse Rate 107 H 107 H 111 H Respiratory Rate Blood Pressure Pulse Oximetry Oxygen Delivery Fraction of Inspired Oxygen 05/16/23 20:00 05/16/23 21:04 05/16/23 20:00 Temperature 97.3 F L Pulse Rate 111 H 113 H 105 H Respiratory Rate 20 24 H Blood Pressure 123/72 Pulse Oximetry 99 98 Oxygen Delivery Room Air Fraction of Inspired Oxygen 21 05/16/23 20:00 05/16/23 22:00 05/16/23 23:42 Temperature Pulse Rate 94 100 97 Respiratory Rate Blood Pressure 112/65 Pulse Oximetry Oxygen Delivery Fraction of Inspired Oxygen 05/16/23 23:42 05/17/23 00:00 05/17/23 00:00 Temperature 97.2 F L Pulse Rate 97 97 98 Respiratory Rate 24 H 20 Blood Pressure 112/65 112/65 Pulse Oximetry 98 95 Oxygen Delivery Room Air Fraction of Inspired Oxygen 21 05/17/23 00:00 05/17/23 04:00 05/17/23 04:00 Temperature Pulse Rate 100 101 H 101 H Respiratory Rate 24 H Blood Pressure Pulse Oximetry 98 Oxygen Delivery Room Air Fraction of Inspired Oxygen 21 05/17/23 05:58 05/17/23 04:00 05/17/23 06:00 Temperature 98.0 F Pulse Rate 94 105 H 98 Respiratory Rate 20 Blood Pressure 116/63 Pulse Oximetr
--- NOTE | 2023-05-17 11:19 | PM.PNGS ---
Progress Note: A&P Assessment and Plan (1) Small bowel obstruction: Code(s): K56.609 - Unspecified intestinal obstruction, unspecified as to partial versus complete obstruction Status: Resolved Assessment and Plan: Patient's midline abdominal incision is well healed. We will go ahead removed the patient's waleska today and placed benzoin and Steri-Strips. Patient will be discharged home at discretion of primary service. He can follow up to see me in my office in 2 to 3 weeks after discharge. Subjective Subjective Date/Time Seen: 05/17/23 11:19 Interval history: Patient continues do well from general surgery standpoint. No new complaints. Exam GI: Other: Abdomen is soft and nondistended. Midline incision is healed well without any redness or drainage. Waleska remain in place. Objective Data Vital Signs Vital Signs: Vital Signs - 24 hr 05/16/23 11:32 05/16/23 11:42 05/16/23 11:44 Temperature Pulse Rate 89 94 97 Respiratory Rate 16 35 H 34 H Blood Pressure 61/24 L 85/35 L 75/37 L Pulse Oximetry 91 94 91 Oxygen Delivery Room Air Room Air Room Air Fraction of Inspired Oxygen 05/16/23 11:50 05/16/23 12:00 05/16/23 12:00 Temperature 36.5 C Pulse Rate 88 82 Respiratory Rate 29 H 18 Blood Pressure 92/38 L 104/59 L Pulse Oximetry 97 93 Oxygen Delivery Room Air Room Air Fraction of Inspired Oxygen 05/16/23 14:01 05/16/23 15:20 05/16/23 16:00 Temperature Pulse Rate 108 H 121 H Respiratory Rate Blood Pressure Pulse Oximetry Oxygen Delivery Room Air Fraction of Inspired Oxygen 05/16/23 16:00 05/16/23 12:00 05/16/23 14:00 Temperature 36.7 C Pulse Rate 111 H 88 107 H Respiratory Rate 20 Blood Pressure 123/79 Pulse Oximetry 99 Oxygen Delivery Fraction of Inspired Oxygen 05/16/23 16:00 05/16/23 18:00 05/16/23 20:00 Temperature Pulse Rate 107 H 111 H 111 H Respiratory Rate 20 Blood Pressure Pulse Oximetry 99 Oxygen Delivery Room Air Fraction of Inspired Oxygen 05/16/23 21:04 05/16/23 20:00 05/16/23 20:00 Temperature 36.3 C L Pulse Rate 113 H 105 H 94 Respiratory Rate 24 H Blood Pressure 123/72 Pulse Oximetry 98 Oxygen Delivery Fraction of Inspired Oxygen 05/16/23 22:00 05/16/23 23:42 05/16/23 23:42 Temperature Pulse Rate 100 97 97 Respiratory Rate Blood Pressure 112/65 112/65 Pulse Oximetry Oxygen Delivery Fraction of Inspired Oxygen 05/17/23 00:00 05/17/23 00:00 05/17/23 00:00 Temperature 36.2 C L Pulse Rate 97 98 100 Respiratory Rate 24 H 20 Blood Pressure 112/65 Pulse Oximetry 98 95 Oxygen Delivery Room Air Fraction of Inspired Oxygen 05/17/23 04:00 05/17/23 04:00 05/17/23 05:58 Temperature Pulse Rate 101 H 101 H 94 Respiratory Rate 24 H Blood Pressure Pulse Oximetry 98 Oxygen Delivery Room Air Fraction of Inspired Oxygen 05/17/23 04:00 05/17/23 06:00 05/17/23 08:00 Temperature 36.7 C 36.2 C L Pulse Rate 105 H 98 87 Respiratory Rate 20 14 Blood Pressure 116/63 118/50 L Pulse Oximetry 96 100 Oxygen Delivery Fraction of Inspired Oxygen Intake/Output Intake/Output: Intake & Output 05/14/23 05/15/23 05/16/23 05/17/23 23:59 23:59 23:59 23:59 Intake Total 1200 1190 740 220 Output Total 5779 375 6339 600 Balance 50 623 -119 -737 Meds/Results Medications: Active Medications Generic Name Dose Route Start Last Admin Trade Name Freq PRN Reason Stop Dose Admin Acetaminophen 650 mg 05/12/23 15:41 Acetaminophen 325 Mg Tablet PO Q4H PRN Pain Rated 5 or Less Hydrocodone Bitart/Acetaminophen 1 tab 05/12/23 15:41 Hydrocodone/Acetaminophen (*Crx) 5-325 Mg Tablet PO Q4H PRN Pain Rated 6 or Greater Albuterol 2.5 mg 05/12/23 15:41 Albuterol Sulfate Neb 2.5 Mg/3 Ml Inh INHALATION Q6HRT PRN Shortness Of Breath Or Wheezing Collagenase 1
--- NOTE | 2023-05-17 12:37 | PM.CNCAR ---
Assessment and Plan Assessment and plan (1) Atrial fibrillation with rapid ventricular response: Code(s): I48.91 - Unspecified atrial fibrillation Status: Acute Assessment and Plan: New diagnosis persistent initially with AFib with RVR in setting of critical illness. AFib refractory to amiodarone bolus better controlled on oral metoprolol 50 mg p.o. q.8 our an IV diltiazem infusion 10 mg per hour. He was previously on heparin infusion for embolic stroke risk reduction due to atrial fibrillation. Patient is relatively asymptomatic and hemodynamically stable at this time. We need to be cautious to avoid symptomatic bradycardia and or higher grade AV block on concomitant AV boy blocking agents with metoprolol and diltiazem particularly given his advanced age. However, at this time his heart rate is reasonably controlled on present regimen. Need to wean off IV diltiazem infusion transition to oral regimen. Discussed with hospitalist service. Reduce to 5 milligrams/hour, then give diltiazem 60 mg p.o. q.8 hours then discontinue infusion. Continue property assessment monitor heart rate and tolerance. If heart rate poorly controlled may need to resume IV Diltiazem infusion. Discussed with the patient risks and benefits and management options at length including rhythm versus rate control strategies. Given patient's complicated recent medical history, anemia, and postoperative status heart rate control strategy best option for him at this time. Furthermore, we need to establish tolerance with systemic anticoagulation and ensure he no longer has any other bleeding and his H&H remains stable for least 24-48 hours on A/C prior to discharge. We discussed options for electrical cardioversion, however, LARRY guidance with likely be required as he had been without anticoagulation for a period of time due to concern for severe anemia and GI bleed while in atrial fibrillation. -will work to for the simplify oral Diltiazem provided heart rate remains controlled and transition to long-acting diltiazem 180 mg daily in a.m. Will also plan to simplify Metoprolol to BID (likely 75-100mg BID) dosing depending on heart rate and BP. Initiate oral anticoagulation with Eliquis 5 mg twice daily if okay with surgery in GI. Monitor very closely for bleeding. Emboli with extreme caution to avoid risk for falls and injuries. Monitor electrolytes closely to keep potassium closer to 4.0 and magnesium 2.0. -As patient further recovers anticipate heart rate control be improved. Acceptable heart rates around 100bpm or less at rest and < 130bpm with activity on average and as tolerated. -if bleeding, falls or head injury go to ER immediately outpatient as patient may be at risk potential catastrophic bleeding. Continue to monitor her bright red blood per rectum, melena and or hematemesis. If systemic anticoagulation needs to be discontinued due to decline H&H and or evidence of bleeding patient remains at significant elevated risk for embolic stroke. CHADS2 Vasc score 4. All questions answered to the patient's satisfaction. Further recommendations based on patient's response to therapy. He will need to follow up as an outpatient with me for further management and recommendations within 2-4 weeks. Of note, patient explicitly denies any prior known history of CAD, mi, stroke, coronary angiography or bypass surgery. In his historical record link there is a coronary angiogram dated from 2011 revealing bypass surgery history. However, patient does not have a sternotomy on exam or by imaging so this report has been erroneously placed in his chart. (2) Acute blood loss anemia: Code(s): D62 - Acute posthemorrhagic anemia Status: Acute Assessment and Plan: Patient continues to have severe anemia but has been stable past 24 hours. No evidence of ongoing bleed at this time. Monitor closely upon initiation of anticoagulation with Eliquis 5 mg twice daily as above. Appreciate
[2023-05-17 12:59] LABS: Glucose Point of Care 111 mg/dl (65-105)
--- NOTE | 2023-05-17 13:59 | PCNFU ---
Nutrition Follow-Up Complete: Inadequate Oral Intake as related to mechanical ventilation as evidenced by NPO. Meet estimated nutritional needs - Progressing toward goal but not consistent Goal: Pt current nutrition is Consistent carb, heart healthy, low residue/low fiber diet. Intakes 90,50,10 last 24 hours. Nutrition recommendation: Add supplements: Glucerna TID for additional 220 kcal and 10 g protein each. Rory BID for additional 90 kcal and 2.5 g protein to support wound healing Last recorded weight is 112 kg. - weight stable Bowel Motility: Last BM 05/17/23 Labs Reviewed: Hgb 7.7, Hct 25.9, Alb 2.6, GFR 54, Cre 1.5, Glu 114 Meds Noted:Protonix,zofran Skin: + pressure injuries: DTI L heel, Unstageable R buttock Additional Notes: SBO resolved. EGD revealed esophagitis. Intakes may improve with treatment. Adding supplements back for low intakes, wound healing. Follow up every 5 days.
[2023-05-17] MEDS: APIXABAN 5 MG TABLET PO ×2 (14:15→21:18)
[2023-05-17] MEDS: dilTIAZem HCL 60 MG TABLET PO ×2 (14:16→21:17)
[2023-05-17 14:34] LABS: Partial Thromboplastin Time 52.6 SECONDS (22.3-36.8)
[2023-05-17] MEDS: COLLAGENASE OINT 30 GM TUBE 1 APPLIC TOPICAL (17:47)
[2023-05-17 23:41] LABS: Glucose Point of Care 116 mg/dl (65-105)
[2023-05-18] VITALS (16 sets, daily range): BP systolic 106–120; BP diastolic 54–65; PULSE 62–98; RESP 12–20; TEMP 36.2–36.8; O2SAT 96–100
[2023-05-18 05:18] LABS: Hematocrit 25.6 % (42.0-52.0); Hemoglobin 7.5 g/dL (14.0-18.0); Mean Corpuscular HGB Conc 29.3 g/dl (32-36); Mean Corpuscular Hemoglobin 27.3 pg (26-34); Mean Corpuscular Volume 93.1 fl (80-100); Mean Platelet Volume 9.1 fl (7.4-10.4); Platelet Count Result 284 k/mm3 (150-375); Red Blood Count 2.75 M/mm3 (4.6-6.20); White Blood Count 9.9 K/mm3 (4.5-10.0)
[2023-05-18 05:38] LABS: Alanine Aminotransferase 39 U/L (6-50); Albumin Level 2.4 g/dL (3.5-5.1); Alkaline Phosphatase 73 U/L (38-126); Anion Gap 6 mmol/L (8-16); Aspartate Amino Transferase 24 U/L (17-59); Bilirubin,Total 0.4 mg/dL (0.2-1.3); Blood Urea Nitrogen 19 mg/dL (9-20); Calcium 8.1 mg/dL (8.4-10.2); Carbon Dioxide 20 mmol/L (22-30); Chloride 117 mmol/L (98-107); Estimated CRCL calculation 47 ml/min; Estimated Glomerular Filt Rate 59; Glucose 101 mg/dL (65-110); Potassium 3.2 mmol/L (3.4-5.0); Sodium 143 mmol/L (137-145)
[2023-05-18 05:54] LABS: Band Neutrophils Percent 8 % (0-6); Lymphocytes Absolute Manual 2.97 K/mm3 (1.1-4.5); Metamyelocytes Percent 1 %; Monocytes Absolute Manual 0.29 K/mm3 (0.1-0.90); Monocytes Percent Manual 3 % (3-9); Neutrophils Absolute Manual 6.53 K/mm3 (1.3-6.7); Neutrophils Percent Manual 58 % (46-73); Nucleated Red Blood Cells 4 %; Total Cells Counted 100
[2023-05-18 05:55] LABS: Anisocytosis 1+ (NORMAL); Platelet Estimate Adequate (Adequate); Polychromasia 1+ (NORMAL); Schistocytes None Seen (NORMAL)
[2023-05-18] MEDS: METOPROLOL TARTRATE 50 MG TAB PO ×3 (06:49→21:14)
[2023-05-18] MEDS: dilTIAZem HCL 60 MG TABLET PO ×3 (06:49→21:14)
[2023-05-18] MEDS: SUCRALFATE SUSP 100 MG/ML 10 ML UDC 1000 MG PO ×4 (06:49→21:13)
[2023-05-18] MEDS: APIXABAN 5 MG TABLET PO ×2 (08:37→21:13)
[2023-05-18] MEDS: PANTOPRAZOLE SODIUM IV 40 MG VIAL IV PUSH ×2 (08:37→21:13)
[2023-05-18] MEDS: COLLAGENASE OINT 30 GM TUBE 1 APPLIC TOPICAL (08:37)
[2023-05-18 13:11] LABS: Glucose Point of Care 93 mg/dl (65-105)
--- NOTE | 2023-05-18 15:53 | PM.IMPN ---
Progress Note: A&P Assessment and Plan (1) GI bleed: Code(s): K92.2 - Gastrointestinal hemorrhage, unspecified Status: Acute Assessment and Plan: On admission, the patient had a very large, dark brown emesis with streaks of blood.? Gastric occult blood was positive but no signs of gross bleeding. Patient was evaluated by GI and suspected secondary to GI gastritis. He was treated with Protonix IV q.12 hours. Hgb low but stable until it dropped to 6.6 on 05/11. He was transfused. RN called stating patient with dark, tarry stools on . Ordered anticoagulation held and GI reconsulted Hgb drifting down slowly since the transfusion on 05/11. Appreciate GI evaluation and recommendation. Eliquis stopped. EGD showing esophagitis. Continue PPI. 05/17: Stop heparin drip, initiate Eliquis, monitor closely 05/18: Hemoglobin stable on Eliquis (2) Atrial fibrillation with rapid ventricular response: Code(s): I48.91 - Unspecified atrial fibrillation Status: Acute Assessment and Plan: Patient developed acute onset of AFib with RVR. He was moved to IMU and started on Diltiazem gtt. TSH normal. Echo (05/05) showing EF >70%, grade I diastolic dysfunction and moderate Pulm HTN. He was anti-coagulated with Heparin and then switched to Eliquis. Metoprolol was advanced. Heart rate better controlled but still elevated especially with activity. Amiodarone started but did not convert. He came off anticoagulation due to GI bleed so stop Amio to pursue a rate controlling strategy. Changed to IV Diltiazem. Digoxin x 1 given. Metoprolol advanced. HR overall better controlled. 05/17: Discontinue Cardizem drip, start oral Cardizem, appreciate cardiology consultation 05/18: Continue metoprolol 50 mg q.8 hours, Cardizem 60 mg p.o. q.8 hours, appreciate cardiology (3) Anemia: Code(s): D64.9 - Anemia, unspecified Status: Acute Assessment and Plan: Anemia likely secondary to GI bleed and anemia of chronic disease. Iron studies consistent with anemia of chronic disease (and STR was normal). B12 and folate normal Hgb 13 on admission but drifted down to 8-9 range mostly before dropping to 6.6 on 05/11 and was transfused 2U. Stool is guaiac positive and now having dark stools Anti-coagulation was held but will need anticoagulation due to DVT and now AFib. Hgb drifting down slowly. As above. Heparin drip resumed. Continue to monitor H&H. Transfuse if hemoglobin < 7.0 (4) DVT (deep venous thrombosis): Code(s): I82.409 - Acute embolism and thrombosis of unspecified deep veins of unspecified lower extremity Status: Acute Assessment and Plan: Doppler showing extensive DVT in the RLE. He was started on a Heparin drip He was transitioned to oral anticoagulation but was stopped due to drop in HH and recurrent GI bleed. Heparin resumed. Follow HH for stabiliy. 05/17: See above, heparin discontinued, Eliquis initiated (5) Acute respiratory failure: Code(s): J96.00 - Acute respiratory failure, unspecified whether with hypoxia or hypercapnia Status: Acute Assessment and Plan: Acute respiratory failure most likely related to anesthesia post surgery. Patient was intubated at the time of surgery and able to be extubated after a successful weaning trial on 05/06. Encourage incentive spirometry. He was started on Zosyn on 05/03 at 1700 and completed a 10 day course of Zosyn. Weaned to room air. Resolved. (6) Septic shock: Code(s): A41.9 - Sepsis, unspecified organism; R65.21 - Severe sepsis with septic shock Status: Acute Assessment and Plan: Patient presented with altered mental status, hypotensive, lactic acidosis and acute on chronic kidney disease. He received 3 L of IV fluid bolus in the ER, despite which patient remained hypotensive. A right femoral vein central line was inserted and he was started on Vasopressin and Levophed. Off all vasopressors on 05/06. Solu-Cortef also
[2023-05-18 21:33] LABS: Glucose Point of Care 108 mg/dl (65-105)
[2023-05-18 21:34] LABS: Glucose Point of Care 107 mg/dl (65-105)
[2023-05-19] VITALS (8 sets, daily range): BP systolic 106–113; BP diastolic 55–65; PULSE 78–95; RESP 18–20; TEMP 36.2–36.9; O2SAT 96–99
[2023-05-19 05:36] LABS: Basophils Percent Auto 0.3 % (0.2-1.2); Eosinophils Absolute Auto 0.1 K/mm3 (0-0.3); Hemoglobin 7.6 g/dL (14.0-18.0); Immature Granulocyte Absolute 0.54 K/mm3 (0.00-0.031); Immature Granulocyte Percent A 5.4 % (0-0.5); Lymphocytes Absolute Auto 4.02 K/mm3 (0.9-3.2); Mean Corpuscular HGB Conc 29.2 g/dl (32-36); Mean Corpuscular Hemoglobin 27.2 pg (26-34); Mean Corpuscular Volume 93.2 fl (80-100); Mean Platelet Volume 8.6 fl (7.4-10.4); Monocytes Absolute Auto 0.7 K/mm3 (0.1-0.6); Monocytes Percent Auto 6.5 % (2.6-8.5); Neutrophils Absolute Auto 4.7 K/mm3 (1.3-6.7); Neutrophils Percent Auto 46.8 % (45.5-73.1); Nucleated Red Blood Cells Absolute Auto 0.2 K/mm3 (0.0-0.012); Nucleated Red Blood Cells Perc 2.3 % (0.0-0.2); Platelet Count Result 295 k/mm3 (150-375); Red Blood Count 2.79 M/mm3 (4.6-6.20); Red Cell Distribution Width 17.1 % (11.5-14.5); White Blood Count 10.1 K/mm3 (4.5-10.0)
[2023-05-19 05:47] LABS: Alanine Aminotransferase 39 U/L (6-50); Albumin Level 2.5 g/dL (3.5-5.1); Alkaline Phosphatase 78 U/L (38-126); Anion Gap 7 mmol/L (8-16); Aspartate Amino Transferase 24 U/L (17-59); Bilirubin,Total 0.4 mg/dL (0.2-1.3); Blood Urea Nitrogen 25 mg/dL (9-20); Calcium 8.3 mg/dL (8.4-10.2); Carbon Dioxide 20 mmol/L (22-30); Chloride 116 mmol/L (98-107); Estimated CRCL calculation 49 ml/min; Estimated Glomerular Filt Rate 59; Glucose 101 mg/dL (65-110); Sodium 143 mmol/L (137-145)
[2023-05-19] MEDS: METOPROLOL TARTRATE 50 MG TAB PO (06:12)
[2023-05-19] MEDS: dilTIAZem HCL 60 MG TABLET PO (06:12)
[2023-05-19] MEDS: SUCRALFATE SUSP 100 MG/ML 10 ML UDC 1000 MG PO ×2 (06:12→11:56)
[2023-05-19 06:49] LABS: Hypochromasia 1+ (NORMAL); Platelet Estimate Adequate (Adequate)
[2023-05-19 06:50] LABS: Atypical Lymphocytes Present; Schistocytes None Seen (NORMAL)
[2023-05-19 06:52] LABS: Anisocytosis 1+ (NORMAL); Basophilic Stippling 1+ (NORMAL); Polychromasia 1+ (NORMAL)
[2023-05-19 08:26] LABS: Glucose Point of Care 107 mg/dl (65-105)
[2023-05-19] MEDS: COLLAGENASE OINT 30 GM TUBE 1 APPLIC TOPICAL (09:14)
[2023-05-19] MEDS: PANTOPRAZOLE SODIUM IV 40 MG VIAL IV PUSH (09:15)
[2023-05-19] MEDS: APIXABAN 5 MG TABLET PO (09:15)
[2023-05-19] MEDS: POTASSIUM CHLORIDE 20 MEQ PACKET (FOR LIQUID) 40 MEQ PO (11:56)
[2023-05-19 12:10] LABS: Glucose Point of Care 116 mg/dl (65-105)
--- NOTE | 2023-05-19 12:44 | P.DS_ITS ---
DS: Admitting Diagnosis Discharge Date 05/19/23 Admitting Diagnosis Unresponsive DS: Discharge Diagnosis Discharge Diagnosis (1) GI bleed: Code(s): K92.2 - Gastrointestinal hemorrhage, unspecified Status: Acute Assessment and Plan: On admission, the patient had a very large, dark brown emesis with streaks of blood.? Gastric occult blood was positive but no signs of gross bleeding. Patient was evaluated by GI and suspected secondary to GI gastritis. He was treated with Protonix IV q.12 hours. Hgb low but stable until it dropped to 6.6 on 05/11. He was transfused. RN called stating patient with dark, tarry stools on . Ordered anticoagulation held and GI reconsulted Hgb drifting down slowly since the transfusion on 05/11. Appreciate GI evaluation and recommendation. Eliquis stopped. EGD showing esophagitis. Continue PPI. 05/17: Stop heparin drip, initiate Eliquis, monitor closely 05/18: Hemoglobin stable on Eliquis (2) Atrial fibrillation with rapid ventricular response: Code(s): I48.91 - Unspecified atrial fibrillation Status: Acute Assessment and Plan: Patient developed acute onset of AFib with RVR. He was moved to IMU and started on Diltiazem gtt. TSH normal. Echo (05/05) showing EF >70%, grade I diastolic dysfunction and moderate Pulm HTN. He was anti-coagulated with Heparin and then switched to Eliquis. Metoprolol was advanced. Heart rate better controlled but still elevated especially with activity. Amiodarone started but did not convert. He came off anticoagulation due to GI bleed so stop Amio to pursue a rate controlling strategy. Changed to IV Diltiazem. Digoxin x 1 given. Metoprolol advanced. HR overall better controlled. 05/17: Discontinue Cardizem drip, start oral Cardizem, appreciate cardiology consultation 05/18: Continue metoprolol 50 mg q.8 hours, Cardizem 60 mg p.o. q.8 hours, appreciate cardiology (3) Anemia: Code(s): D64.9 - Anemia, unspecified Status: Acute Assessment and Plan: Anemia likely secondary to GI bleed and anemia of chronic disease. Iron studies consistent with anemia of chronic disease (and STR was normal). B12 and folate normal Hgb 13 on admission but drifted down to 8-9 range mostly before dropping to 6.6 on 05/11 and was transfused 2U. Stool is guaiac positive and now having dark stools Anti-coagulation was held but will need anticoagulation due to DVT and now AFib. Hgb drifting down slowly. As above. Heparin drip resumed. Continue to monitor H&H. Transfuse if hemoglobin < 7.0 (4) DVT (deep venous thrombosis): Code(s): I82.409 - Acute embolism and thrombosis of unspecified deep veins of unspecified lower extremity Status: Acute Assessment and Plan: Doppler showing extensive DVT in the RLE. He was started on a Heparin drip He was transitioned to oral anticoagulation but was stopped due to drop in HH and recurrent GI bleed. Heparin resumed. Follow HH for stabiliy. 05/17: See above, heparin discontinued, Eliquis initiated (5) Acute respiratory failure: Code(s): J96.00 - Acute respiratory failure, unspecified whether with hypoxia or hypercapnia Status: Acute Assessment and Plan: Acute respiratory failure most likely related to anesthesia post surgery. Patient was intubated at the time of surgery and able to be extubated after a successful weaning trial on 05/06. Encourage incentive spirometry. He was started on Zosyn on 05/03 at 1700 and completed a 10 day course of Zosyn. Weaned to room air. Resolved. (6) Septic shock: Code(s): A41.9 - Sepsi
[2023-05-19 12:55] LABS: SARS-CoV-2 RNA PCR Negative (Negative)
== END 2023-05-19 13:20 | DRG 853 ==
LOC: ANHED 16:22 → ANHICU 23:16 → ANH3MEDSUR 05-10 10:09 → ANHIMU 05-15 08:10 → ANH3MEDSUR 05-22 10:15 → ANHICU 05-22 10:15 → ANHIMU 05-22 10:15
PROVIDERS: Internal Medicine; Internal Medicine Gastroenterology; Nurse Practitioner; Surgery; Admitting Provider Family Medicine; Emergency Provider Emergency Medicine; PCP Hospitalist; Visit Provider Student in an Organized Health Care Education/Training Program
PROC: 0WQF0ZZ Repair Abdominal Wall, Open Approach (ICD-10-PCS; CPT 49000; principal; 2023-05-03 22:45)
PROC: 0DJ08ZZ Inspection of Upper Intestinal Tract, Via Natural or Artificial Opening Endoscopic (ICD-10-PCS; CPT 43235; principal; 2023-05-16 11:30)
DX: A41.9 Sepsis, unspecified organism (principal); J95.821 Acute postprocedural respiratory failure; R65.21 Severe sepsis with septic shock; K20.91 Esophagitis, unspecified with bleeding; K42.0 Umbilical hernia with obstruction, without gangrene; N18.4 Chronic kidney disease, stage 4 (severe); N17.9 Acute kidney failure, unspecified; K92.0 Hematemesis; D62 Acute posthemorrhagic anemia; I82.411 Acute embolism and thrombosis of right femoral vein; D63.1 Anemia in chronic kidney disease; E87.8 Other disorders of electrolyte and fluid balance, not elsewhere classified; E78.5 Hyperlipidemia, unspecified; E66.9 Obesity, unspecified; E11.22 Type 2 diabetes mellitus with diabetic chronic kidney disease; I48.91 Unspecified atrial fibrillation; I95.9 Hypotension, unspecified; I25.10 Atherosclerotic heart disease of native coronary artery without angina pectoris; I27.20 Pulmonary hypertension, unspecified; I12.9 Hypertensive chronic kidney disease with stage 1 through stage 4 chronic kidney disease, or unspecified chronic kidney disease; J43.9 Emphysema, unspecified; K44.9 Diaphragmatic hernia without obstruction or gangrene; L89.310 Pressure ulcer of right buttock, unstageable; M10.9 Gout, unspecified; Z98.49 Cataract extraction status, unspecified eye; Z95.1 Presence of aortocoronary bypass graft; Z20.822 Contact with and (suspected) exposure to COVID-19; Z66 Do not resuscitate; Z98.1 Arthrodesis status; Z87.891 Personal history of nicotine dependence; Z68.35 Body mass index [BMI] 35.0-35.9, adult
CPT/HCPCS: 36415; 36430; 36556; 36600; 71045; 71250; 74176; 80048; 80053; 81001; 82271; 82274; 82375; 82550; 82565; 82607; 82728; 82746; 82805; 82948; 83036; 83050; 83540; 83550; 83605; 83690; 83735; 83986; 84100; 84238; 84443; 84484; 85014; 85018; 85025; 85027; 85610; 85730; 86140; 86850; 86900; 86901; 86923; 87040; 87086; 87088; 87635; 88302; 92610; 93005; 93970; 94002; 94003; 94640; 96361; 96374; 96375; 96376; 97110; 97161; 97162; 97166; 97530; 97535; 99284; 99291; A9270; C1751; C8929; C9113; J0282; J0330; J1160; J1644; J1720; J1815; J1940; J1956; J2250; J2270; J2371; J2405; J2543; J2704; J3010; J3370; J7030; J7040; J7050; J7060; J7070; J7120; P9016; Q9957

== ENCOUNTER 2023-05-24 14:25 | Inpatient (IN) | payer MEDICARE, SELFPAY ==
[2023-05-24] VITALS (25 sets, daily range): BP systolic 96–153; BP diastolic 52–105; PULSE 87–112; RESP 14–27; TEMP 36.4–36.5; O2SAT 96–100; BMI 34.6
--- NOTE | ~2023-05-24 | XR_ITS ---
EXAMINATION: XR chest 1V portable DATE: 06/03/2023 14:38 INDICATION: Central line placement. TECHNIQUE: A single frontal view of the chest was obtained. COMPARISON: Chest 2 views 05/30/2023, chest CT 05/24/2023 FINDINGS: There are airspace opacities in the perihilar regions and in the lower lung zones. No pleur al effusion or pneumothorax. The heart size is normal. There are changes of anterior fusion procedure in cervical spine. A right upper extremity peripherally inserted central venous catheter (PICC) is s een with tip in the superior vena cava. IMPRESSION: 1. PICC tip in superior vena cava. 2. Worsened airspace opacities in the perihilar regions and lower lung zones, consistent with pulmona ry edema versus pneumonia. Reviewed, dictated and finalized at location E. IMPRESSION: 1. PICC tip in superior vena cava. 2. Worsened airspace opacities in the perihilar regions and lower lung zones, c onsistent with pulmonary edema versus pneumonia.
--- NOTE | ~2023-05-24 | CT_ITS ---
EXAMINATION: CTA chest PE protocol DATE: 05/24/2023 16:08 INDICATION: Shortness of breath. TECHNIQUE: Computed tomography angiography (CTA) of the chest was performed with 100 mL Omnipaque-350 intravenous contrast timed to evaluate the pulmonary arteries. Coronal maximum intensity projection 3D-reconstructions were created by the technologist. Automated exposure control and iterative reconst ruction technique were employed. The dose-length product was 942.05 mGy-cm. COMPARISON: Chest CT 05/03/2023 FINDINGS: There is mild emphysema. There is mild atelectasis bilaterally. There are small pleural eff usions. The heart size is normal. There are coronary artery calcifications. No pericardial effusion. There are acute pulmonary emboli in the upper lobes and lower lobes. There is mild thoracic spondylos is. IMPRESSION: 1. Bilateral acute pulmonary emboli. I called this result to Dr. Perez. 2. Small pleural effusions. 3. Mild emphysema. Reviewed, dictated and finalized at location B.
--- NOTE | ~2023-05-24 | XR_ITS ---
EXAMINATION: XR chest 2V DATE: 05/30/2023 09:55 INDICATION: Leukocytosis. TECHNIQUE: Frontal and lateral views of the chest were obtained. COMPARISON: Chest 2 views 05/24/2023, chest CT 05/24/2023 FINDINGS: There are small pleural effusions. There are airspace opacities in the lower lung zones. No pneumothorax. The heart size is normal. There are changes of anterior fusion procedure in cervical s pine. IMPRESSION: 1. Airspace opacities in the lower lung zones, consistent with atelectasis versus pneumonia. 2. Small pleural effusions. Reviewed, dictated and finalized at location A. IMPRESSION: 1. Airspace opacities in the lower lung zones, consistent with atelectasis vers us pneumonia. 2. Small pleural effusions.
--- NOTE | ~2023-05-24 | XR_ITS ---
EXAMINATION: XR chest PICC line INDICATION: PICC insertion TECHNIQUE: Portable AP chest at 0946 hours COMPARISON: 0650 hours FINDINGS: The right upper extremity PICC has been removed. A left upper showed a PICC ends with this tip in the proximal superior vena cava. There are minimal bibasilar airspace opacities. No pleural ef fusion or pneumothorax. IMPRESSION: 1. Left upper extremity PICC ending with its tip in the proximal superior vena cava. Reviewed, dictated and finalized at location A.
--- NOTE | ~2023-05-24 | XR_ITS ---
EXAMINATION: XR chest 1V portable INDICATION: Assess PICC placement TECHNIQUE: Portable AP chest at 0650 hours COMPARISON: 06/03/2023 FINDINGS: A right upper extremity PICC now ends with its tip in the subclavian vein. Bilateral perihi lar airspace opacities persist but have improved. Airspace opacities of the lower lung zones are not significantly changed. No pleural effusion or pneumothorax. The heart size is normal. IMPRESSION: 1. Right upper extremity PICC ending with its tip in the subclavian vein. 2. Stable bibasilar and improved bilateral perihilar airspace opacities, consistent with pulmonary ed levar and/or pneumonia. Reviewed, dictated and finalized at location A. IMPRESSION: 1. Right upper extremity PICC ending with its tip in the subclavian vein. 2. Stable bibasilar and improved bilateral perihilar airspace opacities, consis tent with pulmonary edema and/or pneumonia.
--- NOTE | ~2023-05-24 | XR_ITS ---
EXAMINATION: XR hip BI 2V w AP pelvis DATE: 05/31/2023 14:32 INDICATION: Bilateral hip pain. TECHNIQUE: An anteroposterior view of the pelvis and 2 views of each hip on a total of 7 radiographs were obtained. COMPARISON: None. FINDINGS: Bone alignment is normal. No fracture. There is mild osteoarthritis of the hips. IMPRESSION: 1. Mild osteoarthritis of the hips. Reviewed, dictated and finalized at location A.
--- NOTE | ~2023-05-24 | XR_ITS ---
EXAMINATION: XR chest 2V DATE: 05/24/2023 15:32 INDICATION: Shortness of breath. TECHNIQUE: Frontal and lateral views of the chest were obtained. COMPARISON: Chest single view 05/09/2023, chest CT 05/03/2023 FINDINGS: There are small pleural effusions. There is mild atelectasis at the lung bases. No pneumoth orax. The heart size is normal. There are changes of anterior fusion procedure in cervical spine. IMPRESSION: 1. Small pleural effusions. 2. Mild atelectasis at the lung bases. Reviewed, dictated and finalized at location B.
--- NOTE | 2023-05-24 14:56 | ECG_ITS ---
Measurements Intervals [place] Rate: 94 P: MT: 0 QRS: -12 QRSD: 91 T: 48 QT: 332 QTc: 416 Interpretive Statements ATRIAL FIBRILLATION LOW QRS VOLTAGE IN PRECORDIAL LEADS [QRS DEFLECTION < 1.0 mV IN CHEST LEADS] VOLTAGE CRITERIA FOR LVH [MEETS CRITERIA IN ONE OF: R(aVL), S(V1), R(V5), R(V5/V6)+S(V1)] NONSPECIFIC T-WAVE ABNORMALITY SIGNIFICANT BASELINE ARTIFACT COMPARED TO ECG 05/11/2023 21:15:42 T-WAVE ABNORMALITY NOW PRESENT Electronically Signed On 05-24-2023 19:38:34 CDT by Vi Coelho M.D.
--- NOTE | 2023-05-24 15:11 | PC.NURSE ---
difficulties getting an SpO2 reading with the finger so a temporal SpO2 monitor was applied. pt is now on 3L O2 and is 100% O2.
[2023-05-24 15:12] LABS: Basophils Absolute Auto 0.1 K/mm3 (0.0-0.1); Basophils Percent Auto 0.3 % (0.2-1.2); Eosinophils Percent Auto 0.1 % (0-4.4); Hematocrit 29.2 % (42.0-52.0); Hemoglobin 8.6 g/dL (14.0-18.0); Immature Granulocyte Absolute 0.86 K/mm3 (0.00-0.031); Immature Granulocyte Percent A 4.6 % (0-0.5); Lymphocytes Absolute Auto 4.18 K/mm3 (0.9-3.2); Lymphocytes Percent Auto 22.3 % (18.3-44.2); Mean Corpuscular HGB Conc 29.5 g/dl (32-36); Mean Corpuscular Volume 91.8 fl (80-100); Mean Platelet Volume 9.1 fl (7.4-10.4); Monocytes Absolute Auto 1.6 K/mm3 (0.1-0.6); Monocytes Percent Auto 8.4 % (2.6-8.5); Neutrophils Percent Auto 64.3 % (45.5-73.1); Nucleated Red Blood Cells Absolute Auto 0.2 K/mm3 (0.0-0.012); Nucleated Red Blood Cells Perc 1.1 % (0.0-0.2); Platelet Count Result 486 k/mm3 (150-375); Red Blood Count 3.18 M/mm3 (4.6-6.20); Red Cell Distribution Width 16.9 % (11.5-14.5); White Blood Count 18.7 K/mm3 (4.5-10.0)
[2023-05-24 15:27] LABS: Albumin Level 2.9 g/dL (3.5-5.1); Alkaline Phosphatase 97 U/L (38-126); Anion Gap 9 mmol/L (8-16); Aspartate Amino Transferase 36 U/L (17-59); Bilirubin,Total 0.6 mg/dL (0.2-1.3); Blood Urea Nitrogen 24 mg/dL (9-20); Calcium 8.4 mg/dL (8.4-10.2); Carbon Dioxide 19 mmol/L (22-30); Chloride 107 mmol/L (98-107); Estimated CRCL calculation 55 ml/min; Estimated Glomerular Filt Rate > 60; Glucose 126 mg/dL (65-110); Potassium 3.7 mmol/L (3.4-5.0); Sodium 135 mmol/L (137-145)
[2023-05-24 15:31] LABS: Alanine Aminotransferase 49 U/L (6-50)
[2023-05-24 15:36] LABS: Platelet Estimate Increased (Adequate)
[2023-05-24 15:38] LABS: Anisocytosis 2+ (NORMAL); Hypochromasia 1+ (NORMAL); Schistocytes None Seen (NORMAL)
--- NOTE | 2023-05-24 15:38 | ED.RECABL ---
HPI - Recheck/Abnormal Lab/Rx General Chief Complaint: Recheck/Abnormal Lab/Rx Stated Complaint: O2 sats dropped while at physical therapy Time Seen by Provider: 05/24/23 14:47 History of Present Illness HPI narrative: Patient is an 82-year-old male with a history of hypertension, A-fib on Eliquis, hyperlipidemia, recent SBO status post ventral hernia repair presenting with lightheadedness. Patient's family is at bedside and assists with the history. Patient has recently been in rehab and was at his nursing facility today starting therapy. He was lightheaded and short of breath and they tried to stand him up. The doctor at the nursing facility evaluated the wound on his right buttock and advised that he come in for further evaluation. Patient was noted to drop his saturations to the 70s so he was placed on 6 L nasal cannula. Currently, patient complains of mild shortness of breath and some pain in his right buttocks. Complains of chronic pain in his left leg. Denies headache, new numbness or weakness, chest pain, abdominal pain, nausea or vomiting, diarrhea, dysuria. Related Data Allergies Allergy/AdvReac Type Severity Reaction Status Date / Time No Known Drug Allergies Allergy Unknown Unknown Verified 05/24/23 15:17 Review of Systems Review of Systems: All systems reviewed & are unremarkable except as noted in HPI and below PMFSH Past Medical History Medical History Acute blood loss anemia Acute kidney injury superimposed on CKD Atrial fibrillation Cervical stenosis of spine Chronic indwelling Roberto catheter Chronic kidney disease, stage 4 (severe) Coffee ground emesis Diabetes mellitus type 2 in obese DM2 (diabetes mellitus, type 2) Erosive esophagitis GI bleed Gout Hyperlipidemia Hyperlipidemia Hypertension Hypertension Sepsis Sepsis associated hypotension Small bowel obstruction Urinary retention Surgical History Surgical History H/O cataract extraction H/O cervical spine surgery S/P CABG x 7 Family History Family History Unknown No problems noted. Social History Social History Social History: The [facility] The patient has 5 children. He is a former smoker. Code status full code Smoking status: Former smoker Tobacco type: cigarettes Alcohol intake: never Substance use: never Substance use type: does not use Lack of Transportation: No Lack of Food: Never True Current Housing: I Have Housing Concerned About Future Housing: No Difficulty Paying Gas/Electric Bills: No Difficulty Paying for Meds: No Currently Unemployed: No Education: High School Diploma/GED Difficulty w/ Childcare or Family Care: No Spiritual care concerns: No Exam Narrative: GENERAL: Elderly male sitting in bed in no acute distress, pleasant and cooperative HEAD: Normocephalic, atraumatic. EYES: PERRLA and EOMI. ENT: Nares clear, no rhinorrhea or epistaxis. Mucous membranes moist. NECK: Supple. CHEST: Clear to auscultation. No respiratory distress. HEART: Regular rate and rhythm. No murmur heard. Normal peripheral pulses. ABDOMEN: Soft, nontender, nondistended EXTREMITIES: Normal range of motion. No edema. SKIN: Warm, dry, no rash. NEURO: No focal deficits. Alert and oriented x3. PSYCH: Normal mood and affect. Course Vital Signs Vital signs: Vital Signs Temperature 97.6 F 05/24/23 14:27 Pulse Rate 99 05/24/23 14:27 Respiratory Rate 21 H 05/24/23 14:27 Blood Pressure 153/105 H 05/24/23 14:27 Pulse Oximetry 100 05/24/23 14:27 Oxygen Delivery Nasal Cannula 05/24/23 14:27 Oxygen Flow Rate 6 05/24/23 14:27 Temperature 97.6 F 05/24/23 14:27 Pulse Rate 96 05/24/23 1
[2023-05-24] MEDS: HYDROmorphone HCL INJ (*CRX) 1 MG/ML SYR 0.5 MG IV PUSH ×2 (16:43→20:44)
[2023-05-24] MEDS: HEPARIN SODIUM 5,000 UNITS/ML VIAL 7000 UNITS IV PUSH (16:46)
[2023-05-24] MEDS: HEPARIN SOD/D5W 100 UNITS/ML 25,000 UNITS/250 ML BAG 15 UNITS IV CONT (16:47)
--- NOTE | 2023-05-24 17:14 | PM.IMHP ---
H&P: HPI History of Present Illness Date/Time: 05/24/23 17:14 Chief Complaint: Shortness of breath with hypoxia and lightheadedness Narrative: This is an 82 year old male patient who was at [facility] for rehabilitation and strengthening s/p long hospitalization for small bowel obstruction with surgical repair. Patient was also diagnosed with DVT lower extremity. Today while at rehab, patient developed sudden shortness of breath with desaturation to 70% on room air with associated lightheadedness and dizziness. Patient reports incontinence to stool, passing gas appropriately and no nausea or vomiting. Patient was placed on nasal cannula at 6 LPM which has subsequently been titrated to 2 LPM. CTA chest shows bilateral PEs, no mention of right heart strain. Patient mentating appropriately but a bit sluggish to answer questions and drifts off to sleep promptly. Discussed with patient and his , will be No Code upon admission. Patient complains of pain to his back and his complains of drainage and soiled dressing on right buttock wound. Review of Systems Review of Systems: All systems reviewed & are unremarkable except as noted in HPI and below PMFSH Past Medical History Medical History Acute blood loss anemia Acute kidney injury superimposed on CKD Atrial fibrillation Cervical stenosis of spine Chronic indwelling Roberto catheter Chronic kidney disease, stage 4 (severe) Coffee ground emesis Diabetes mellitus type 2 in obese DM2 (diabetes mellitus, type 2) Erosive esophagitis GI bleed Gout Hyperlipidemia Hyperlipidemia Hypertension Hypertension Sepsis Sepsis associated hypotension Small bowel obstruction Urinary retention Surgical History Surgical History H/O cataract extraction H/O cervical spine surgery S/P CABG x 7 Family History Family History Unknown No problems noted. Social History Social History Social History: [facility] The patient has 5 children. He is a former smoker. Code status full code Smoking status: Former smoker Tobacco type: cigarettes Alcohol intake: never Substance use: never Substance use type: does not use Lack of Transportation: No Lack of Food: Never True Current Housing: I Have Housing Concerned About Future Housing: No Difficulty Paying Gas/Electric Bills: No Difficulty Paying for Meds: No Currently Unemployed: No Education: High School Diploma/GED Difficulty w/ Childcare or Family Care: No Spiritual care concerns: No Meds Home Medications and Allergies Home Medications Medication Instructions Recorded Confirmed Type acetaminophen 325 mg tablet (Mapap 650 mg PO Q4H PRN Pain Rated 5 Or 05/19/23 05/24/23 Rx (acetaminophen)) Less 1 month #30 tabs apixaban 5 mg tablet (Eliquis) 5 mg PO Q12HR 1 month #60 tabs 05/19/23 05/24/23 Rx diltiazem HCl 60 mg tablet 60 mg PO Q8HR 1 month #90 tabs 05/19/23 05/24/23 Rx metoprolol tartrate 50 mg tablet 50 mg PO Q8HR 1 month #90 tabs 05/19/23 05/24/23 Rx pantoprazole 40 mg tablet,delayed 40 mg PO HS 1 month #30 tabs 05/19/23 05/24/23 Rx release (Protonix) sucralfate 100 mg/mL oral 1,000 mg (10 mL) PO ACHS 1 month 05/19/23 05/24/23 Rx suspension #1,200 mL arginine-vitamin C-vitamin E oral 4.5 g PO BID 05/24/23 05/24/23 History 4.5 gram-156 mg/9.2 gram powder pkt collagenase clostridium histo. 250 1 applic topical DAILY 05/24/23 05/24/23 History unit/gram topical ointment (Santyl) simvastatin 20 mg tablet 20 mg PO DAILY 05/24/23 05/24/23 History Allergies Allergy/AdvReac Type Severity Reaction Status Date / Time No Known Drug Allergies Allergy Unknown Unknown Verified 05/24/23 15:17
[2023-05-24] MEDS: CEFEPIME 1 GM/NS 50 ML 1 GM/50 ML BAG IVPB (18:23)
[2023-05-24] MEDS: VANCOMYCIN 1,250 MG/NS 250 ML 1,250 MG/250 ML BAG 166.67 MG IVPB ×2 (18:42→21:00)
[2023-05-24 19:28] LABS: NT Pro B Type Natriuretic Pept 5890 pg/mL (19.9-100); Troponin I < 0.012 ng/mL (0.000-0.034)
--- NOTE | 2023-05-24 19:47 | PC.NURSE ---
gave report and care to JESSICA Dietrich, all questions answered
--- NOTE | 2023-05-24 20:54 | PC.NURSE ---
Nguyen catheter removed and replaced by this RN. After removing old nguyen catheter this RN observed yellow discharge, reddening around the insertion sight, and penis was tender. Before insertion of new Nguyen catheter EDP Dr. Perez came to bedside and assessed insertion sight. Dr. Perez gave verbal order to go ahead and insert new nguyne catheter. Area was cleaned and cath was replaced.
--- NOTE | 2023-05-24 21:31 | ADMGEN ---
This patient, Felipe Pinedo Jr., was admitted to IMU Room 204-01 at 2121. Patient/family oriented to hospital policies and general routines including ID bracelet, bed and alarms, visiting hours, pain management, procedures, bathroom and other care routines, personal items, smoking policy, room service/diet, and visiting hours. Information on how to activate the Rapid Response Team has been discussed. Patient/Family are encouraged to report perceived risks to care and to ask questions if they do not understand what they are told or what they should do.
[2023-05-24 22:08] LABS: Glucose Point of Care 115 mg/dl (65-105)
[2023-05-25] VITALS (17 sets, daily range): BP systolic 100–127; BP diastolic 52–99; PULSE 84–143; RESP 16–22; TEMP 36.1–37.1; O2SAT 98–100; BMI 34.6
[2023-05-25] MEDS: SUCRALFATE SUSP 100 MG/ML 10 ML UDC 1000 MG PO ×5 (00:30→21:13)
[2023-05-25] MEDS: PANTOPRAZOLE 40 MG TABLET PO ×2 (00:30→21:13)
[2023-05-25] MEDS: CEFEPIME 1 GM/NS 50 ML 1 GM/50 ML BAG IVPB (02:03)
[2023-05-25 03:11] LABS: Hematocrit 25.6 % (42.0-52.0); Hemoglobin 7.5 g/dL (14.0-18.0); Mean Corpuscular HGB Conc 29.3 g/dl (32-36); Mean Corpuscular Hemoglobin 26.9 pg (26-34); Mean Corpuscular Volume 91.8 fl (80-100); Mean Platelet Volume 8.6 fl (7.4-10.4); Platelet Count Result 388 k/mm3 (150-375); Red Blood Count 2.79 M/mm3 (4.6-6.20); Red Cell Distribution Width 16.6 % (11.5-14.5)
[2023-05-25 03:24] LABS: Alanine Aminotransferase 28 U/L (6-50); Albumin Level 2.3 g/dL (3.5-5.1); Alkaline Phosphatase 88 U/L (38-126); Anion Gap 3 mmol/L (8-16); Aspartate Amino Transferase 21 U/L (17-59); Bilirubin,Total 0.3 mg/dL (0.2-1.3); Blood Urea Nitrogen 23 mg/dL (9-20); Carbon Dioxide 23 mmol/L (22-30); Chloride 109 mmol/L (98-107); Estimated CRCL calculation 57 ml/min; Estimated Glomerular Filt Rate > 60; Glucose 115 mg/dL (65-110); Sodium 135 mmol/L (137-145)
[2023-05-25 03:36] LABS: Anisocytosis 1+ (NORMAL); Band Neutrophils Percent 2 % (0-6); Burr Cells 2+ (NORMAL); Eosinophils Absolute Manual 0.17 K/mm3 (0.02-0.5); Eosinophils Percent Manual 1 % (0-4); Monocytes Absolute Manual 0.85 K/mm3 (0.1-0.90); Monocytes Percent Manual 5 % (3-9); Neutrophils Absolute Manual 12.58 K/mm3 (1.3-6.7); Neutrophils Percent Manual 72 % (46-73); Nucleated Red Blood Cells 2 %; Platelet Estimate Adequate (Adequate); Polychromasia 1+ (NORMAL); Total Cells Counted 100
[2023-05-25 03:37] LABS: Ovalocytes 1+ (NORMAL); Schistocytes Rare (NORMAL)
[2023-05-25 03:41] LABS: Partial Thromboplastin Time 160.6 SECONDS (22.3-36.8)
[2023-05-25 06:47] LABS: Appearance Urine Turbid (Clear); Bacteria Urine None Seen /hpf; Bilirubin Urine Negative (Negative); Blood Urine 1+ (Negative); Color Urine Yellow (Yellow); Glucose Urine UA Negative (Negative); Ketones Urine Negative (Negative); Leukocyte Esterase Ur 3+ LEU/UL (Negative); Need Manual Microscopic Reviewed; Nitrate Urine Negative (Negative); Protein Urine 1+ mg/dL (Negative); RBC Urine 0-2 /hpf (0-2); Specific Grav Ur 1.025 (1.001-1.035); Squamous Epithelial Cell Urine None seen /hpf (Few); Urobilinogen Urine 0.2 mg/dL (<2.0); WBC Urine >100 /hpf; pH Urine 5.5 (5.0-9.0)
[2023-05-25 07:02] LABS: Add Urine Microscopic? YES
[2023-05-25 07:42] LABS: Glucose Point of Care 115 mg/dl (65-105)
--- NOTE | 2023-05-25 07:57 | PM.IMPN ---
Progress Note: A&P Assessment and Plan (1) Pulmonary embolism: Code(s): I26.99 - Other pulmonary embolism without acute cor pulmonale Status: Acute Assessment and Plan: stable on room air cont a/c (2) Wound infection: Code(s): T14.8XXA - Other injury of unspecified body region, initial encounter; L08.9 - Local infection of the skin and subcutaneous tissue, unspecified Status: Acute Assessment and Plan: Right buttock wound with purulent drainage and odor. Vancomycin and Cefepime started in ER 05/24, will continue for now. MRSA nasal screen ordered, add Flagyl 05/25 End date for abx should be 06/07 to complete 14 day course, d/c vanc + flagyl 06/01, cefepime should cover bacteroides and ecoli per sens noted from wound cultures (3) Anemia: Code(s): D64.9 - Anemia, unspecified Status: Acute Assessment and Plan: Monitor (4) DVT (deep venous thrombosis): Code(s): I82.409 - Acute embolism and thrombosis of unspecified deep veins of unspecified lower extremity Status: Acute Assessment and Plan: On heparin drip, no SCDs. Bilateral lower extremity tenderness in calf with 2+ pitting edema. (5) Chronic kidney disease, stage 4 (severe): Code(s): N18.4 - Chronic kidney disease, stage 4 (severe) Status: Acute Assessment and Plan: Stable, better than baseline at this time. Trend with daily labs. (6) Diabetes mellitus type 2 in obese: Code(s): E11.69 - Type 2 diabetes mellitus with other specified complication; E66.9 - Obesity, unspecified Status: Acute Assessment and Plan: ACHS glucose checks, sliding scale low dose correction (7) Atrial fibrillation: Code(s): I48.91 - Unspecified atrial fibrillation Status: Acute Assessment and Plan: Rate controlled at this time, atrial fibrillation on telemetry monitoring. Chronic history of such, borderline BP, hold home BP medications at this time. Plan Monitor anemia, Guaiac stool Continue home medications IV antibiotics and wound care consult for right buttock wound PICC line for blood draws and intermission coordinator antibiotics anticipated DVT prophylaxis with lovenox GI prophylaxis not indicated Code status full code Subjective Date/time seen: 05/25/23 07:57 Interval history: 83-year-old male with history of AFib, kidney disease, diabetes among other comorbidities is presenting with shortness of breath and being treated for sepsis with a buttocks decubitus ulcer wound. No overnight events noted. No chest pain or shortness of breath. No nausea, vomiting or diarrhea. No fevers or chills. Review of Systems Review of Systems: 12 point review of systems was assessed and was negative except as noted in the HPI Exam Narrative: General: No acute distress, alert and oriented per baseline HEENT: Atraumatic, normocephalic, mucous membranes moist CV: Regular rate and rhythm, S1, S2 Lungs: Clear to auscultation bilaterally, no rales or crackles noted, no wheezes, good air entry Abdomen: Soft, nontender, nondistended Extremities: Normal to inspection Skin: No rashes noted, no lesions or wounds seen Psych: Euthymic, normal affect Objective Data Vital Signs Vital Signs: Vital Signs - 24 hr 05/24/23 14:27 05/24/23 14:27 05/24/23 14:30 Temperature 97.6 F Pulse Rate 99 95 Respiratory Rate 21 H 21 H Blood Pressure 153/105 H Pulse Oximetry 100 100 Oxygen Delivery Nasal Cannula Nasal Cannula Oxygen Flow Rate 6 6 05/24/23 14:31 05/24/23 14:45 05/24/23 15:00 Temperature Pulse Rate 99 96 87 Respiratory Rate 20 23 H 20 Blood Pressure 153/105 H Pulse Oximetry 100 98 99 Oxygen Delivery Oxygen Flow Rate 05/24/23 15:02 05/24/23 15:15 05/24/23 15:16 Temperature Pulse Rate 95 93 88 Respiratory Rate 19 20 18 Blood Pressure 118/66 115/71 Pulse Oximetry Oxygen Delivery Oxygen Flow Rat
--- NOTE | 2023-05-25 08:36 | VASCRN ---
Order received for:picc line insertion After review of the chart and the patient assessment, patient is not a candidate for the following reason(s): waiting blood culture results for possible picc line need. Picc line placed on hold at this time. Provider notified:Dr. Bradley
[2023-05-25] MEDS: metroNIDAZOLE 500 MG/ISO 100ML 500 MG/100 ML BAG 100 MG IVPB ×2 (08:44→17:23)
[2023-05-25] MEDS: SIMVASTATIN 20 MG TABLET PO (08:49)
[2023-05-25] MEDS: POTASSIUM CHLORIDE 20 MEQ ER TABLET 80 MEQ PO (08:52)
[2023-05-25] MEDS: CEFEPIME 2 GM/NS 50 ML 2 GM/50 ML BAG IVPB ×2 (09:02→17:21)
[2023-05-25] MEDS: METOPROLOL TARTRATE 50 MG TAB PO ×3 (10:18→21:13)
[2023-05-25 11:22] LABS: Partial Thromboplastin Time 97.4 SECONDS (22.3-36.8)
[2023-05-25 11:48] LABS: Glucose Point of Care 125 mg/dl (65-105)
[2023-05-25] MEDS: SOD HYPOCHLORITE 1/4 STRENGTH 473 ML 1 APPLIC TOPICAL ×2 (12:00→21:14)
[2023-05-25] MEDS: HEPARIN SOD/D5W 100 UNITS/ML 25,000 UNITS/250 ML BAG 12 UNITS IV CONT (13:07)
[2023-05-25 16:19] LABS: Glucose Point of Care 139 mg/dl (65-105)
[2023-05-25 18:11] LABS: Hematocrit 24.2 % (42.0-52.0); Hemoglobin 7.3 g/dL (14.0-18.0)
[2023-05-25 18:21] LABS: Partial Thromboplastin Time 61.1 SECONDS (22.3-36.8)
[2023-05-25] MEDS: HEPARIN SODIUM 5,000 UNITS/ML VIAL 3500 UNITS IV PUSH (19:00)
[2023-05-25] MEDS: HYDROcodone/acetaminophen (*CRX) 5-325 MG TABLET 1 TAB PO (19:00)
[2023-05-25 21:27] LABS: Glucose Point of Care 143 mg/dl (65-105)
[2023-05-26] VITALS (33 sets, daily range): BP systolic 95–120; BP diastolic 45–78; PULSE 82–124; RESP 12–27; TEMP 35.5–37.3; O2SAT 92–100
[2023-05-26] MEDS: metroNIDAZOLE 500 MG/ISO 100ML 500 MG/100 ML BAG 100 MG IVPB ×3 (00:40→16:06)
--- NOTE | 2023-05-26 01:39 | ECG_ITS ---
Measurements Intervals [place] Rate: 110 P: [place]: 0 QRS: -15 QRSD: 90 T: 67 QT: 283 QTc: 384 Interpretive Statements ATRIAL FIBRILLATION WITH RAPID VENTRICULAR RESPONSE LOW QRS VOLTAGE IN PRECORDIAL LEADS [QRS DEFLECTION < 1.0 mV IN CHEST LEADS] NONSPECIFIC T-WAVE ABNORMALITY ABNORMAL RHYTHM ECG WARNING: DATA QUALITY MAY AFFECT INTERPRETATION COMPARED TO ECG 05/24/2023 14:31:25 NO SIGNIFICANT CHANGES Electronically Signed On 05-26-2023 13:02:40 CDT by Perfecto Ramey M.D.
[2023-05-26] MEDS: CEFEPIME 2 GM/NS 50 ML 2 GM/50 ML BAG IVPB ×3 (01:50→17:43)
[2023-05-26 03:28] LABS: Basophils Absolute Auto 0.1 K/mm3 (0.0-0.1); Basophils Percent Auto 0.3 % (0.2-1.2); Eosinophils Absolute Auto 0.1 K/mm3 (0-0.3); Eosinophils Percent Auto 0.4 % (0-4.4); Immature Granulocyte Percent A 6.1 % (0-0.5); Lymphocytes Absolute Auto 5.34 K/mm3 (0.9-3.2); Lymphocytes Percent Auto 29.5 % (18.3-44.2); Mean Corpuscular HGB Conc 29.6 g/dl (32-36); Mean Corpuscular Hemoglobin 26.6 pg (26-34); Mean Corpuscular Volume 89.8 fl (80-100); Mean Platelet Volume 8.6 fl (7.4-10.4); Monocytes Absolute Auto 1.6 K/mm3 (0.1-0.6); Monocytes Percent Auto 8.8 % (2.6-8.5); Neutrophils Absolute Auto 9.9 K/mm3 (1.3-6.7); Neutrophils Percent Auto 54.9 % (45.5-73.1); Nucleated Red Blood Cells Absolute Auto 0.2 K/mm3 (0.0-0.012); Nucleated Red Blood Cells Perc 1.1 % (0.0-0.2); Platelet Count Result 390 k/mm3 (150-375); Red Blood Count 2.56 M/mm3 (4.6-6.20); Red Cell Distribution Width 16.5 % (11.5-14.5); White Blood Count 18.1 K/mm3 (4.5-10.0)
[2023-05-26 03:37] LABS: Alanine Aminotransferase 24 U/L (6-50); Albumin Level 2.3 g/dL (3.5-5.1); Alkaline Phosphatase 101 U/L (38-126); Anion Gap 5 mmol/L (8-16); Aspartate Amino Transferase 21 U/L (17-59); Bilirubin,Total 0.2 mg/dL (0.2-1.3); Blood Urea Nitrogen 19 mg/dL (9-20); Calcium 8.2 mg/dL (8.4-10.2); Carbon Dioxide 21 mmol/L (22-30); Chloride 112 mmol/L (98-107); Estimated CRCL calculation 61 ml/min; Estimated Glomerular Filt Rate > 60; Glucose 115 mg/dL (65-110); Potassium 3.8 mmol/L (3.4-5.0); Sodium 138 mmol/L (137-145)
[2023-05-26 03:42] LABS: Hemoglobin 6.8 g/dL (14.0-18.0)
[2023-05-26 03:43] LABS: Platelet Estimate Increased (Adequate)
[2023-05-26 03:44] LABS: Anisocytosis 1+ (NORMAL); Basophilic Stippling 1+ (NORMAL); Hypochromasia 1+ (NORMAL); Poikilocytosis 1+ (NORMAL); Schistocytes Rare (NORMAL)
[2023-05-26 03:45] LABS: Smudge Cells PRESENT
[2023-05-26] MEDS: SODIUM CHLORIDE 0.9% IV 250 ML 30 ML IV CONT (06:10)
[2023-05-26] MEDS: SUCRALFATE SUSP 100 MG/ML 10 ML UDC 1000 MG PO ×2 (06:34→22:13)
[2023-05-26] MEDS: METOPROLOL TARTRATE 50 MG TAB PO ×3 (06:34→22:13)
[2023-05-26 08:49] LABS: Glucose Point of Care 117 mg/dl (65-105)
[2023-05-26] MEDS: SIMVASTATIN 20 MG TABLET PO (08:57)
--- NOTE | 2023-05-26 11:43 | PM.IMPN ---
Progress Note: A&P Assessment and Plan (1) Pulmonary embolism: Code(s): I26.99 - Other pulmonary embolism without acute cor pulmonale Status: Acute Assessment and Plan: Hold heparin drip since patient has dropped his hemoglobin. History of prior GI blood loss anemia. (2) Wound infection: Code(s): T14.8XXA - Other injury of unspecified body region, initial encounter; L08.9 - Local infection of the skin and subcutaneous tissue, unspecified Status: Acute Assessment and Plan: Right buttock wound with purulent drainage and odor. Vancomycin and Cefepime started in ER 05/24, will continue for now. MRSA nasal screen ordered. Add Flagyl 05/25 (3) Anemia: Code(s): D64.9 - Anemia, unspecified Status: Acute Assessment and Plan: Hemoglobin dropped this morning. 2 units PRBC ordered. Hold heparin drip for now. Will start him on oral anticoagulation once hemoglobin stabilizes (4) DVT (deep venous thrombosis): Code(s): I82.409 - Acute embolism and thrombosis of unspecified deep veins of unspecified lower extremity Status: Acute Assessment and Plan: biilateral lower extremity tenderness in calf with 2+ pitting edema. (5) Chronic kidney disease, stage 4 (severe): Code(s): N18.4 - Chronic kidney disease, stage 4 (severe) Status: Acute Assessment and Plan: Stable, better than baseline at this time. Trend with daily labs. (6) Diabetes mellitus type 2 in obese: Code(s): E11.69 - Type 2 diabetes mellitus with other specified complication; E66.9 - Obesity, unspecified Status: Acute Assessment and Plan: ACHS glucose checks, sliding scale low dose correction (7) Atrial fibrillation: Code(s): I48.91 - Unspecified atrial fibrillation Status: Acute Assessment and Plan: Rate controlled at this time, atrial fibrillation on telemetry monitoring. Subjective Date/time seen: 05/26/23 11:43 Interval history: No acute events overnight. Patient does not report any melena or hematochezia Review of Systems Review of Systems: 12 point review of systems was assessed and was negative except as noted in the HPI Exam Narrative: General: No acute distress, alert and oriented per baseline HEENT: Atraumatic, normocephalic, mucous membranes moist CV: Regular rate and rhythm, S1, S2 Lungs: Clear to auscultation bilaterally, no rales or crackles noted, no wheezes, good air entry Abdomen: Soft, nontender, nondistended Extremities: Normal to inspection Skin: No rashes noted, no lesions or wounds seen Psych: Euthymic, normal affect Objective Data Vital Signs Vital Signs: Vital Signs - 24 hr 05/25/23 12:00 05/25/23 12:00 05/25/23 14:00 Temperature 97.0 F L Pulse Rate 102 H 95 117 H Respiratory Rate 20 Blood Pressure 127/99 H Pulse Oximetry 100 Oxygen Delivery Oxygen Flow Rate 05/25/23 16:00 05/25/23 17:37 05/25/23 16:00 Temperature 98.7 F Pulse Rate 104 H 134 H 132 H Respiratory Rate 20 Blood Pressure 115/69 Pulse Oximetry 99 Oxygen Delivery Oxygen Flow Rate 05/25/23 18:00 05/25/23 20:00 05/25/23 21:13 Temperature 97.7 F Pulse Rate 111 H 117 H 125 H Respiratory Rate 22 H Blood Pressure 100/54 L Pulse Oximetry 98 Oxygen Delivery Oxygen Flow Rate 05/25/23 22:00 05/25/23 23:50 05/25/23 20:00 Temperature 97.7 F Pulse Rate 117 H 117 H Respiratory Rate 20 20 Blood Pressure 110/52 L Pulse Oximetry 98 98 98 Oxygen Delivery Nasal Cannula Nasal Cannula Oxygen Flow Rate 2 2 05/25/23 20:00 05/25/23 22:00 05/26/23 04:00 Temperature 97.7 F Pulse Rate 111 H 115 H 114 H Respiratory Rate 22 H Blood Pressure 101/64 Pulse Oximetry 92 Oxygen Delivery Oxygen Flow Rate 05/26/23 00:00 05/26/23 00:00 05/26/23 02:00 Temperature Pulse Rate 104 H 114 H 120 H Respiratory Rate 22 H Blood Pressure Pulse Oximetry
[2023-05-26 11:59] LABS: Glucose Point of Care 118 mg/dl (65-105)
[2023-05-26] MEDS: SODIUM CHLORIDE 0.9% IV 250 ML 30 ML (12:33)
--- NOTE | 2023-05-26 14:22 | WPDANESEPPF ---
Anes - Initial Pre Proc Eval Procedure: Operation Date: 05/26/23 15:00 Proposed Procedures p Excisional Debridement Infected And Necrotic Sacral Decubitus - Michael Gayle MD Date/Time: 05/26/23 14:22 Surgeon: Genet Castillo MD Pre Op Diagnosis: pulmonary emboli Patient Data Age: 82 Gender: M Height: 1.83 m Weight: 118 kg Last Vital Signs Temp 36.1 C L 05/26/23 13:42 Pulse 111 H 05/26/23 13:42 Resp 14 05/26/23 13:42 BP 120/67 05/26/23 13:42 Pulse Ox 96 05/26/23 13:42 O2 Del Method Nasal Cannula 05/26/23 08:57 O2 Flow Rate 5 05/26/23 08:57 Allergies Allergy/AdvReac Type Severity Reaction Status Date / Time No Known Drug Allergies Allergy Unknown Unknown Verified 05/24/23 15:17 Home Medications Medication Instructions Recorded Confirmed Type acetaminophen 325 mg tablet (Mapap 650 mg PO Q4H PRN Pain Rated 5 Or 05/19/23 05/24/23 Rx (acetaminophen)) Less 1 month #30 tabs apixaban 5 mg tablet (Eliquis) 5 mg PO Q12HR 1 month #60 tabs 05/19/23 05/24/23 Rx diltiazem HCl 60 mg tablet 60 mg PO Q8HR 1 month #90 tabs 05/19/23 05/24/23 Rx metoprolol tartrate 50 mg tablet 50 mg PO Q8HR 1 month #90 tabs 05/19/23 05/24/23 Rx pantoprazole 40 mg tablet,delayed 40 mg PO HS 1 month #30 tabs 05/19/23 05/24/23 Rx release (Protonix) sucralfate 100 mg/mL oral 1,000 mg (10 mL) PO ACHS 1 month 05/19/23 05/24/23 Rx suspension #1,200 mL arginine-vitamin C-vitamin E oral 4.5 g PO BID 05/24/23 05/24/23 History 4.5 gram-156 mg/9.2 gram powder pkt collagenase clostridium histo. 250 1 applic topical DAILY 05/24/23 05/24/23 History unit/gram topical ointment (Santyl) simvastatin 20 mg tablet 20 mg PO DAILY 05/24/23 05/24/23 History Laboratory Tests 05/25/23 05/25/23 05/25/23 15:59 18:06 20:42 WBC RBC Hgb 7.3 L g/dL (14.0-18.0) Hct 24.2 L % (42.0-52.0) MCV MCH MCHC RDW Plt Count MPV Immature Gran % (Auto) Neut % (Auto) Lymph % (Auto) Cottle % (Auto) Eos % (Auto) Baso % (Auto) Lymph # (Auto) Cottle # (Auto) Eos # (Auto) Baso # (Auto) Abs Immat Gran (auto) Absolute Neuts (auto) Absolute Nucleated RBC Nucleated RBC % Smudge Cells Platelet Estimate Hypochromasia Poikilocytosis Basophilic Stippling Anisocytosis Schistocytes APTT 61.1 H SECONDS (22.3-36.8) Sodium Potassium Chloride Carbon Dioxide Anion Gap BUN Creatinine Estim Creat Clear Calc Estimated GFR Glucose POC Capillary Glucose 139 H mg/dl 143 H mg/dl (65-105) (65-105) Calcium Total Bilirubin AST ALT Alkaline Phosphatase Total Protein Albumin Blood Type Antibody Screen Crossmatch 05/26/23 05/26/23 05/26/23 03:06 04:09 08:45 WBC 18.1 H K/mm3 (4.5-10.0) RBC 2.56 L M/mm3 (4.6-6.20) Hgb 6.8 L* g/dL (14.0-18.0) Hct 23.0 L % (42.0-52.0) MCV 89.8 fl (80-100) MCH 26.6 pg (26-34) MCHC 29.6 L g/dl (32-36) RDW 16.5 H % (11.5-14.5) Plt Count 390 H k/mm3 (150-375) MPV 8.6 fl (7.4-10.4) Immature Gran % (Auto) 6.1 H % (0-0.5) Neut % (Auto) 54.9 % (45.5-73.1) Lymph % (Auto) 29.5 % (18.3-44.2) Cottle % (Auto) 8.8 H % (2.6-8.5) Eos % (Auto) 0.4 % (0-4.4) Baso % (Auto) 0.3 % (0.2-1.2) Lymph # (Auto) 5.34 H K/mm3
[2023-05-26] MEDS: LACTATED RINGERS 1,000 ML 30 ML IV CONT (14:45)
--- NOTE | 2023-05-26 15:01 | WPDHPUPDATE1 ---
History and Physical Update Update Date/Time: 05/26/23 15:01 History and Physical has been reviewed, including an updated exam of the patient. There are NO changes in the patient's condition. Risks, benefits, and alternatives have been discussed and questions answered. Patient agrees to proceed with procedure.
[2023-05-26 16:15] LABS: Glucose Point of Care 108 mg/dl (65-105)
--- NOTE | 2023-05-26 16:22 | P.OP_ITS ---
Procedure Note - Detailed Date of Procedure 05/26/23 Pre-op Diagnosis Infected sacral decubitus, unstageable Post-op Diagnosis Other (Stage IV infected sacral decubitus) Procedure Performed Excisional debridement 14 x 10 x 4 cm (560cm3) sacral wound with excision skin subcutaneous and muscle. Surgeon Michael Gayle MD Credit Rating Checker Ashlie Cooney CLINICAL DIETITIAN Anesthesia General Indications Patient has had a difficult time recovering from cervical cord compression status post C4-5 decompression and cervical spine fixation around the end of March. He was admitted [facility] in septic shock with an incarcerated umbilical hernia with small-bowel obstruction. During that admission, he was noted to have DVT and was discharged on Eliquis on 05/19/2023. He returned to the hospital 5 days later, 05/24/2023 with shortness of breath and hypoxemia. He was found to have bilateral pulmonary emboli. He has been on a heparin drip but has evidence of ongoing sepsis and a foul-smelling sacral decubitus with drainage. This decubitus was present on admission of his previous admission in April but had now worsened and was a source of infection. He is taken to surgery at this time for excisional debridement of this large sacral and upper right buttock decubitus. His heparin drip has been stopped not only for surgery but due to some recent decrease in his hemoglobin and hematocrit. Findings Large thickness of sacral and upper right buttock necrotic infected skin, subcutaneous, and muscle. No apparent involvement of sacral bone or coccyx. Debrided to healthy tissue although some dry eschar remains on the medial left sacral skin. Description of Procedure Patient was taken to surgery and induced into general anesthesia. He was turned into a prone position while intubated. The sacral buttocks area was prepped and draped. The necrotic tissue in the decubitus ulcer was debrided using blunt and sharp dissection. I cultured 1 area that appeared to have purulent fluid within it. This was sent for Gram stain, aerobes and anaerobes. I continued excising the area which included skin full-thickness subcutaneous and also muscle of the buttocks. A 2nd area of purulent fluid was encountered and a 2nd culture for the same organisms was sent. I continued and completely excised this large area of sacral and right upper buttock necrotic infected tissue. Once it was removed, I used cautery and achieved hemostasis. I then found a couple other areas of muscle that were necrotic and also another area of subcutaneous tissue that was necrotic and excised all of this as well. I then recheck for hemostasis and used the cautery to achieve good hemostasis. I checked the dry eschar that was on the left side of midline but it had not really started to separate and excision could result in significant bleeding with little benefit. I checked for any additional tunneling and there was essentially none. The wound was then and dressed with Betadine moistened vaginal packing. Bulky 4x4s and ABDs were then placed over the wound and taped securely with Medipore tape. The patient was returned to a supine position. He was awakened and extubated. He was transported to the recovery room in stable condition. Sponge and needle counts were correct x2. Estimated Blood Loss -5 Drains No Packing Yes (Betadine moistened vaginal packing) Pathology Yes (Sacral decubitus, cultures for aerobes and anaerobes with Gram stain) Complications No immediate complications Condition Stable Disposition PACU [facility] Billing Surgery - Charge Forward: Surgery Billing (Excisional debridement sacral decubitus skin subcu and muscle, 14 x 10 x 4 cm or 560 cm cubed.)
--- NOTE | 2023-05-26 17:30 | PC.NURSE ---
This patient, Kelvinxuan Khris Ivan, was received from [surgery ] on 05/26/23 at 1720. Patient/family oriented to unit policies and routines
[2023-05-26 17:37] LABS: Glucose Point of Care 109 mg/dl (65-105)
--- NOTE | 2023-05-26 17:50 | PC.NURSE ---
This patient, Felipe Pinedo Jr., was transferred to [facility] on 05/26/23 at 1700. Personal belongings sent with patient. Report given to Dahiana LOPEZ. Appropriate documentation sent with patient. Patient to transfer from PACU to room 246 directly. traveler changer, crew supervisor, and onboarding RN all aware of arrangements. Specialty bed delivered to [facility].
[2023-05-26 18:11] LABS: Hematocrit 29.1 % (42.0-52.0)
[2023-05-26 18:30] LABS: Vancomycin Trough 16.1 ug/mL (10.0-20.0)
[2023-05-26 19:48] LABS: Glucose Point of Care 113 mg/dl (65-105)
[2023-05-26] MEDS: PANTOPRAZOLE 40 MG TABLET PO (22:13)
[2023-05-27] VITALS (14 sets, daily range): BP systolic 110–125; BP diastolic 59–73; PULSE 84–114; RESP 16–19; TEMP 35.8–36.9; O2SAT 94–98
[2023-05-27] MEDS: metroNIDAZOLE 500 MG/ISO 100ML 500 MG/100 ML BAG 100 MG IVPB ×3 (01:41→17:14)
[2023-05-27] MEDS: CEFEPIME 2 GM/NS 50 ML 2 GM/50 ML BAG IVPB ×3 (02:48→17:14)
[2023-05-27 06:31] LABS: Alanine Aminotransferase 25 U/L (6-50); Albumin Level 2.5 g/dL (3.5-5.1); Alkaline Phosphatase 96 U/L (38-126); Anion Gap 7 mmol/L (8-16); Aspartate Amino Transferase 20 U/L (17-59); Bilirubin,Total 0.4 mg/dL (0.2-1.3); Blood Urea Nitrogen 18 mg/dL (9-20); Calcium 8.6 mg/dL (8.4-10.2); Carbon Dioxide 19 mmol/L (22-30); Chloride 112 mmol/L (98-107); Estimated CRCL calculation 61 ml/min; Estimated Glomerular Filt Rate > 60; Glucose 109 mg/dL (65-110); Potassium 3.5 mmol/L (3.4-5.0); Sodium 138 mmol/L (137-145)
[2023-05-27] MEDS: METOPROLOL TARTRATE 50 MG TAB PO ×3 (06:47→21:18)
[2023-05-27] MEDS: SUCRALFATE SUSP 100 MG/ML 10 ML UDC 1000 MG PO ×4 (06:47→21:18)
[2023-05-27] MEDS: SIMVASTATIN 20 MG TABLET PO (08:13)
[2023-05-27] MEDS: SOD HYPOCHLORITE 1/4 STRENGTH 473 ML 1 APPLIC TOPICAL (08:13)
[2023-05-27] MEDS: ENOXAPARIN 40 MG/0.4 ML SYRINGE SUB-Q (08:13)
[2023-05-27 08:40] LABS: Glucose Point of Care 104 mg/dl (65-105)
--- NOTE | 2023-05-27 11:19 | PM.IMPN ---
Progress Note: A&P Assessment and Plan (1) Pulmonary embolism: Code(s): I26.99 - Other pulmonary embolism without acute cor pulmonale Status: Acute Assessment and Plan: Hemoglobin stable after 2 units PRBC transfusion. History of prior GI blood loss anemia. Resume heparin GTT. Monitor cBC daily (2) Wound infection: Code(s): T14.8XXA - Other injury of unspecified body region, initial encounter; L08.9 - Local infection of the skin and subcutaneous tissue, unspecified Status: Acute Assessment and Plan: Right buttock wound with purulent drainage and odor. Vancomycin and Cefepime. Underwent debridement by General surgery (3) Anemia: Code(s): D64.9 - Anemia, unspecified Status: Acute Assessment and Plan: Hemoglobin stable after 2 units PRBC. Resume heparin GTT for now. If hemoglobin remains stable may consider starting on oral anticoagulation (4) DVT (deep venous thrombosis): Code(s): I82.409 - Acute embolism and thrombosis of unspecified deep veins of unspecified lower extremity Status: Acute Assessment and Plan: biilateral lower extremity tenderness in calf with 2+ pitting edema. (5) Chronic kidney disease, stage 4 (severe): Code(s): N18.4 - Chronic kidney disease, stage 4 (severe) Status: Acute Assessment and Plan: Stable. Trend with daily labs. (6) Diabetes mellitus type 2 in obese: Code(s): E11.69 - Type 2 diabetes mellitus with other specified complication; E66.9 - Obesity, unspecified Status: Acute Assessment and Plan: ACHS glucose checks, sliding scale low dose correction (7) Atrial fibrillation: Code(s): I48.91 - Unspecified atrial fibrillation Status: Acute Assessment and Plan: Rate controlled at this time, atrial fibrillation on telemetry monitoring. Subjective Date/time seen: 05/27/23 11:19 Interval history: Confused. Stable. No evidence of overt bleeding Review of Systems Review of Systems: ROS unobtainable: Yes unobtainable due to mental status Exam Narrative: General: No acute distress, alert and oriented per baseline HEENT: Atraumatic, normocephalic, mucous membranes moist CV: Regular rate and rhythm, S1, S2 Lungs: Clear to auscultation bilaterally, no rales or crackles noted, no wheezes, good air entry Abdomen: Soft, nontender, nondistended Extremities: Normal to inspection Skin: No rashes noted, no lesions or wounds seen Psych: Euthymic, normal affect Objective Data Vital Signs Vital Signs: Vital Signs - 24 hr 05/26/23 12:10 05/26/23 12:27 05/26/23 12:42 Temperature 96.7 F L 98.9 F 98.8 F Pulse Rate 97 122 H 119 H Respiratory Rate 20 14 12 Blood Pressure 113/61 112/60 119/55 L Pulse Oximetry 95 100 100 Oxygen Delivery Oxygen Flow Rate 05/26/23 13:42 05/26/23 14:27 05/26/23 13:27 Temperature 97.0 F L 99.0 F Pulse Rate 111 H 87 122 H Respiratory Rate 14 16 Blood Pressure 120/67 118/64 Pulse Oximetry 96 100 Oxygen Delivery Oxygen Flow Rate 05/26/23 12:00 05/26/23 14:45 05/26/23 15:49 Temperature 97.3 F L 99.1 F Pulse Rate 103 H 101 H 120 H Respiratory Rate 16 27 H Blood Pressure 111/67 101/65 Pulse Oximetry 97 99 Oxygen Delivery Simple Face Mask Oxygen Flow Rate 6 05/26/23 16:03 05/26/23 16:18 05/26/23 16:31 Temperature Pulse Rate 107 H 114 H 109 H Respiratory Rate 19 20 26 H Blood Pressure 114/65 120/64 98/59 L Pulse Oximetry 99 98 97 Oxygen Delivery Simple Face Mask Room Air Room Air Oxygen Flow Rate 6 05/26/23 16:45 05/26/23 17:00 05/26/23 17:40 Temperature 97.2 F L Pulse Rate 99 113 H 118 H Respiratory Rate 15 20 18 Blood Pressure 104/70 106/70 111/78 Pulse Oximetry 98 97 98 Oxygen Delivery Room Air Room Air Oxygen Flow Rate 05/26/23 17:55 05/26/23 18:25 05/26/23 20:00 Temperature 97.4 F L 97.4 F L 98.4 F Pulse Rate 124 H 122 H 111 H Respiratory Rate 18 1
[2023-05-27 12:03] LABS: Glucose Point of Care 128 mg/dl (65-105)
--- NOTE | 2023-05-27 13:15 | WPDANESPN ---
Anes - Prog Note Post-Op Date/Time: 05/27/23 13:15 Cardiovascular status: normal Respiratory status: normal Airway patency: baseline Mental status: baseline Post-Op hydration status: normal Vital Signs: Last Vital Signs Temp 35.8 C L 05/27/23 11:43 Pulse 84 05/27/23 13:06 Resp 19 05/27/23 11:43 BP 112/59 L 05/27/23 11:43 Pulse Ox 98 05/27/23 11:43 O2 Del Method Room Air 05/27/23 08:15 O2 Flow Rate 6 05/26/23 16:03 Pain Score (VAS): 12/30 I/O: Intake & Output 05/26/23 05/27/23 05/27/23 23:59 07:59 15:59 Intake Total 750 150 630 Output Total 500 650 Balance 250 -500 630 Laboratory Tests 05/26/23 18:03 05/27/23 06:03 05/26/23 05/26/23 05/26/23 04:09 16:12 17:35 Hgb Hct Sodium Potassium Chloride Carbon Dioxide Anion Gap BUN Creatinine Estim Creat Clear Calc Estimated GFR Glucose POC Capillary Glucose 108 H 109 H Calcium Total Bilirubin AST ALT Alkaline Phosphatase Total Protein Albumin Vancomycin Trough Crossmatch See Detail 05/26/23 05/26/23 05/27/23 18:03 19:36 06:03 Hgb 9.0 L Hct 29.1 L Sodium 138 Potassium 3.5 Chloride 112 H Carbon Dioxide 19 L Anion Gap 7 L BUN 18 Creatinine 1.10 Estim Creat Clear Calc 61 Estimated GFR > 60 Glucose 109 POC Capillary Glucose 113 H Calcium 8.6 Total Bilirubin 0.4 AST 20 ALT 25 Alkaline Phosphatase 96 Total Protein 6.0 L Albumin 2.5 L Vancomycin Trough 16.1 Crossmatch 05/27/23 05/27/23 08:23 11:46 Hgb Hct Sodium Potassium Chloride Carbon Dioxide Anion Gap BUN Creatinine Estim Creat Clear Calc Estimated GFR Glucose POC Capillary Glucose 104 128 H Calcium Total Bilirubin AST ALT Alkaline Phosphatase Total Protein Albumin Vancomycin Trough Crossmatch Microbiology 05/26/23 15:45 Sacral Anaerobic Culture - Preliminary 05/26/23 15:45 Sacral Anaerobic Culture - Preliminary 05/25/23 05:51 Urine Catheterized Urine Culture - Final 05/25/23 10:44 Sacral Wound Culture - Preliminary 08/02/23 17:21 Nasopharynx MRSA Culture - Final Post-procedural complaints: none Patient Feedback: Patient satisfied with anesthetic care.
--- NOTE | 2023-05-27 15:47 | PM.PNGS ---
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 Could possibly resume heparin tonight or tomorrow, but will have to watch wound carefully for any signs of bleeding. Continue local wound care with Dakins dressing changes. (2) Pulmonary embolism: Code(s): I26.99 - Other pulmonary embolism without acute cor pulmonale Status: Acute Assessment and Plan: Cautiously resume anticoagulation. Monitor H/H (3) Anemia: Code(s): D64.9 - Anemia, unspecified Status: Acute (4) DVT (deep venous thrombosis): Code(s): I82.409 - Acute embolism and thrombosis of unspecified deep veins of unspecified lower extremity Status: Acute (5) Chronic kidney disease, stage 4 (severe): Code(s): N18.4 - Chronic kidney disease, stage 4 (severe) Status: Acute (6) Diabetes mellitus type 2 in obese: Code(s): E11.69 - Type 2 diabetes mellitus with other specified complication; E66.9 - Obesity, unspecified Status: Acute (7) Atrial fibrillation: Code(s): I48.91 - Unspecified atrial fibrillation Status: Acute Subjective Subjective Date/Time Seen: 05/27/23 15:47 Interval history: Doing well. Pain controlled. No significant bleeding from sacral dressing. Exam Skin: Other: Sacral dressing removed. No bleeding noted. Minimal necrotic tissue. Dakin's soaked 4x4 gauze, ABDs, and tape applied. Objective Data Vital Signs Vital Signs: Vital Signs - 24 hr 05/26/23 15:49 05/26/23 16:03 05/26/23 16:18 Temperature 37.3 C Pulse Rate 120 H 107 H 114 H Respiratory Rate 27 H 19 20 Blood Pressure 101/65 114/65 120/64 Pulse Oximetry 99 99 98 Oxygen Delivery Simple Face Mask Simple Face Mask Room Air Oxygen Flow Rate 6 6 05/26/23 16:31 05/26/23 16:45 05/26/23 17:00 Temperature Pulse Rate 109 H 99 113 H Respiratory Rate 26 H 15 20 Blood Pressure 98/59 L 104/70 106/70 Pulse Oximetry 97 98 97 Oxygen Delivery Room Air Room Air Room Air Oxygen Flow Rate 05/26/23 17:40 05/26/23 17:55 05/26/23 18:25 Temperature 36.2 C L 36.3 C L 36.3 C L Pulse Rate 118 H 124 H 122 H Respiratory Rate 18 18 18 Blood Pressure 111/78 117/70 113/68 Pulse Oximetry 98 99 97 Oxygen Delivery Oxygen Flow Rate 05/26/23 20:00 05/26/23 22:13 05/26/23 22:54 Temperature 36.9 C 36.9 C Pulse Rate 111 H 101 H 82 Respiratory Rate 18 18 Blood Pressure 100/55 L 105/51 L Pulse Oximetry 96 97 Oxygen Delivery Oxygen Flow Rate 05/27/23 03:34 05/26/23 20:00 05/27/23 00:00 Temperature 36.9 C Pulse Rate 101 H 108 H 101 H Respiratory Rate 18 Blood Pressure 114/73 Pulse Oximetry 94 Oxygen Delivery Oxygen Flow Rate 05/27/23 04:00 05/27/23 06:47 05/27/23 08:27 Temperature 36.0 C L Pulse Rate 103 H 113 H 97 Respiratory Rate 18 Blood Pressure 122/68 Pulse Oximetry 97 Oxygen Delivery Oxygen Flow Rate 05/27/23 08:15 05/27/23 08:00 05/27/23 11:43 Temperature 35.8 C L Pulse Rate 94 95 Respiratory Rate 19 Blood Pressure 112/59 L Pulse Oximetry 98 Oxygen Delivery Room Air Oxygen Flow Rate 05/27/23 12:00 05/27/23 13:06 Temperature Pulse Rate 99 84 Respiratory Rate Blood Pressure Pulse Oximetry Oxygen Delivery Oxygen Flow Rate Intake/Output Intake/Output: Intake & Output 05/24/23 05/25/23 05/26/23 05/27/23 23:59 23:59 23:59 23:59 Intake Total 300 1700 1750 1020 Output Total 6566 016 6184 Balance 300 600 800 -330 Meds/Results Medications: Active Medications Generic Name Dose Route Start Last Admin Trade Name Freq PRN Reason Stop Dose Admin Acetaminophen 650 mg 08
[2023-05-27 17:14] LABS: Glucose Point of Care 125 mg/dl (65-105)
[2023-05-27 18:39] LABS: Hematocrit 28.7 % (42.0-52.0); Hemoglobin 8.9 g/dL (14.0-18.0)
[2023-05-27 20:02] LABS: INR 1.3; Prothrombin Time 17.3 Seconds (11.1-14.7)
[2023-05-27 20:03] LABS: Partial Thromboplastin Time 49.8 SECONDS (22.3-36.8)
[2023-05-27] MEDS: HEPARIN SOD/D5W 100 UNITS/ML 25,000 UNITS/250 ML BAG 14 UNITS IV CONT (20:29)
[2023-05-27] MEDS: PANTOPRAZOLE 40 MG TABLET PO (21:19)
[2023-05-27 21:50] LABS: Glucose Point of Care 152 mg/dl (65-105)
[2023-05-28] VITALS (13 sets, daily range): BP systolic 110–147; BP diastolic 63–82; PULSE 77–106; RESP 14–18; TEMP 35.8–37.2; O2SAT 96–100
[2023-05-28] MEDS: CEFEPIME 2 GM/NS 50 ML 2 GM/50 ML BAG IVPB ×3 (00:40→16:07)
[2023-05-28] MEDS: metroNIDAZOLE 500 MG/ISO 100ML 500 MG/100 ML BAG 100 MG IVPB ×3 (00:40→16:06)
[2023-05-28 02:32] LABS: Hematocrit 28.4 % (42.0-52.0); Hemoglobin 8.7 g/dL (14.0-18.0); Mean Corpuscular HGB Conc 30.6 g/dl (32-36); Mean Corpuscular Hemoglobin 27.4 pg (26-34); Mean Corpuscular Volume 89.3 fl (80-100); Mean Platelet Volume 8.4 fl (7.4-10.4); Platelet Count Result 374 k/mm3 (150-375); Red Blood Count 3.18 M/mm3 (4.6-6.20); Red Cell Distribution Width 16.3 % (11.5-14.5); White Blood Count 20.2 K/mm3 (4.5-10.0)
[2023-05-28 02:44] LABS: Alanine Aminotransferase 24 U/L (6-50); Albumin Level 2.5 g/dL (3.5-5.1); Alkaline Phosphatase 107 U/L (38-126); Anion Gap 4 mmol/L (8-16); Aspartate Amino Transferase 27 U/L (17-59); Bilirubin,Total 0.3 mg/dL (0.2-1.3); Blood Urea Nitrogen 17 mg/dL (9-20); Calcium 8.7 mg/dL (8.4-10.2); Carbon Dioxide 18 mmol/L (22-30); Chloride 110 mmol/L (98-107); Estimated CRCL calculation 67 ml/min; Estimated Glomerular Filt Rate > 60; Glucose 124 mg/dL (65-110); Potassium 3.7 mmol/L (3.4-5.0); Sodium 132 mmol/L (137-145)
[2023-05-28 02:46] LABS: Partial Thromboplastin Time 111.8 SECONDS (22.3-36.8)
[2023-05-28] MEDS: SUCRALFATE SUSP 100 MG/ML 10 ML UDC 1000 MG PO ×3 (06:27→16:07)
[2023-05-28] MEDS: METOPROLOL TARTRATE 50 MG TAB PO ×3 (06:27→22:06)
--- NOTE | 2023-05-28 07:50 | PC.NURSE ---
This nurse called Dr. Espinosa to verify order for picc line. provider stated that pt would not need halfway antibiotics and as long as pt has iv access and is a good line then no need for a picc. charge nurse made aware.
[2023-05-28 08:06] LABS: Glucose Point of Care 135 mg/dl (65-105)
[2023-05-28] MEDS: SIMVASTATIN 20 MG TABLET PO (08:06)
[2023-05-28] MEDS: ENOXAPARIN 40 MG/0.4 ML SYRINGE SUB-Q (08:06)
[2023-05-28] MEDS: SOD HYPOCHLORITE 1/4 STRENGTH 473 ML 1 APPLIC TOPICAL (08:07)
--- NOTE | 2023-05-28 11:20 | PM.IMPN ---
Progress Note: A&P Assessment and Plan (1) Pulmonary embolism: Code(s): I26.99 - Other pulmonary embolism without acute cor pulmonale Status: Acute Assessment and Plan: Hemoglobin stable after 2 units PRBC transfusion. History of prior GI blood loss anemia. Resume heparin GTT. Monitor cBC daily (2) Wound infection: Code(s): T14.8XXA - Other injury of unspecified body region, initial encounter; L08.9 - Local infection of the skin and subcutaneous tissue, unspecified Status: Acute Assessment and Plan: Right buttock wound with purulent drainage and odor. Underwent debridement by General surgery. Doing well. Continue heparin GTT. Monitor CBC. Continue cefepime. Discontinue vancomycin since none of the cultures are growing any staph (3) Anemia: Code(s): D64.9 - Anemia, unspecified Status: Acute Assessment and Plan: Hemoglobin stable after 2 units PRBC. Resume heparin GTT for now. If hemoglobin remains stable may consider starting on oral anticoagulation (4) Chronic kidney disease, stage 4 (severe): Code(s): N18.4 - Chronic kidney disease, stage 4 (severe) Status: Acute Assessment and Plan: Stable. Trend with daily labs. (5) Diabetes mellitus type 2 in obese: Code(s): E11.69 - Type 2 diabetes mellitus with other specified complication; E66.9 - Obesity, unspecified Status: Acute Assessment and Plan: ACHS glucose checks, sliding scale low dose correction (6) Atrial fibrillation: Code(s): I48.91 - Unspecified atrial fibrillation Status: Acute Assessment and Plan: Rate controlled at this time, atrial fibrillation on telemetry monitoring. Subjective Date/time seen: 05/28/23 11:20 Interval history: No new issues overnight Review of Systems Review of Systems: ROS unobtainable: Yes unobtainable due to mental status Exam Narrative: General: No acute distress, alert and oriented per baseline HEENT: Atraumatic, normocephalic, mucous membranes moist CV: Regular rate and rhythm, S1, S2 Lungs: Clear to auscultation bilaterally, no rales or crackles noted, no wheezes, good air entry Abdomen: Soft, nontender, nondistended Extremities: Normal to inspection Skin: Sacral decubitus ulcer Psych: Euthymic, normal affect Objective Data Vital Signs Vital Signs: Vital Signs - 24 hr 05/27/23 11:43 05/27/23 12:00 05/27/23 13:06 Temperature 96.5 F L Pulse Rate 95 99 84 Respiratory Rate 19 Blood Pressure 112/59 L Pulse Oximetry 98 Oxygen Delivery 05/27/23 16:00 05/27/23 17:25 05/27/23 19:44 Temperature 97.1 F L 98 F Pulse Rate 93 113 H 110 H Respiratory Rate 18 16 Blood Pressure 110/59 L 125/71 Pulse Oximetry 98 96 Oxygen Delivery 05/27/23 21:18 05/27/23 20:00 05/27/23 20:00 Temperature Pulse Rate 110 H 114 H Respiratory Rate Blood Pressure Pulse Oximetry Oxygen Delivery Room Air 05/28/23 00:00 05/28/23 00:00 05/28/23 04:00 Temperature 98.3 F 98.3 F Pulse Rate 77 97 100 Respiratory Rate 16 14 Blood Pressure 134/82 147/78 H Pulse Oximetry 96 97 Oxygen Delivery 05/28/23 06:27 05/28/23 04:00 05/28/23 07:55 Temperature 97.0 F L Pulse Rate 98 106 H 91 Respiratory Rate 18 Blood Pressure 122/69 Pulse Oximetry 98 Oxygen Delivery 05/28/23 08:00 05/28/23 08:00 Temperature Pulse Rate 94 Respiratory Rate Blood Pressure Pulse Oximetry Oxygen Delivery Room Air Intake/Output Intake/Output: Intake & Output 05/25/23 05/26/23 05/27/23 05/28/23 23:59 23:59 23:59 23:59 Intake Total 1700 / 1700 1999 / 1999 1910 / 1910 620 / 620 Output Total 1100 / 1100 950 / 950 1350 / 1350 1100 / 1100 Balance 600 / 600 1050 / 1050 560 / 560 -480 / -480 Meds/Results Medications: Active Medications Generic Name Dose Route Start Last Admin Trade Name Freq PRN Reason Stop Dose Admin Acetaminophen 650 mg
[2023-05-28 12:05] LABS: Glucose Point of Care 143 mg/dl (65-105)
[2023-05-28] MEDS: HEPARIN SOD/D5W 100 UNITS/ML 25,000 UNITS/250 ML BAG 14 UNITS IV CONT (13:58)
[2023-05-28 15:26] LABS: Partial Thromboplastin Time 78.4 SECONDS (22.3-36.8)
[2023-05-28 16:59] LABS: Glucose Point of Care 113 mg/dl (65-105)
[2023-05-28 20:31] LABS: Glucose Point of Care 113 mg/dl (65-105)
[2023-05-28 21:47] LABS: Partial Thromboplastin Time 107.7 SECONDS (22.3-36.8)
[2023-05-28] MEDS: PANTOPRAZOLE 40 MG TABLET PO (22:06)
[2023-05-29] VITALS (13 sets, daily range): BP systolic 98–122; BP diastolic 57–73; PULSE 62–118; RESP 12–22; TEMP 36–36.9; O2SAT 96–99; BMI 10.0
[2023-05-29] MEDS: metroNIDAZOLE 500 MG/ISO 100ML 500 MG/100 ML BAG 100 MG IVPB ×2 (00:53→07:56)
[2023-05-29] MEDS: CEFEPIME 2 GM/NS 50 ML 2 GM/50 ML BAG IVPB ×3 (00:54→16:15)
[2023-05-29 05:25] LABS: Hematocrit 29.5 % (42.0-52.0); Mean Corpuscular HGB Conc 30.5 g/dl (32-36); Mean Corpuscular Hemoglobin 26.9 pg (26-34); Mean Corpuscular Volume 88.1 fl (80-100); Mean Platelet Volume 8.3 fl (7.4-10.4); Platelet Count Result 390 k/mm3 (150-375); Red Blood Count 3.35 M/mm3 (4.6-6.20); Red Cell Distribution Width 16.5 % (11.5-14.5)
[2023-05-29 05:33] LABS: Anion Gap 4 mmol/L (8-16); Blood Urea Nitrogen 15 mg/dL (9-20); Calcium 8.8 mg/dL (8.4-10.2); Carbon Dioxide 22 mmol/L (22-30); Chloride 111 mmol/L (98-107); Estimated CRCL calculation 68 ml/min; Estimated Glomerular Filt Rate > 60; Glucose 110 mg/dL (65-110); Potassium 3.4 mmol/L (3.4-5.0); Sodium 137 mmol/L (137-145)
[2023-05-29 05:38] LABS: Partial Thromboplastin Time 95.3 SECONDS (22.3-36.8)
[2023-05-29] MEDS: SUCRALFATE SUSP 100 MG/ML 10 ML UDC 1000 MG PO ×4 (06:22→20:15)
[2023-05-29] MEDS: METOPROLOL TARTRATE 50 MG TAB PO ×3 (06:22→20:15)
[2023-05-29 07:55] LABS: Glucose Point of Care 116 mg/dl (65-105)
[2023-05-29] MEDS: ENOXAPARIN 40 MG/0.4 ML SYRINGE SUB-Q (07:57)
[2023-05-29] MEDS: SOD HYPOCHLORITE 1/4 STRENGTH 473 ML 1 APPLIC TOPICAL (07:57)
[2023-05-29] MEDS: SIMVASTATIN 20 MG TABLET PO (07:57)
[2023-05-29] MEDS: ENOXAPARIN 80 MG/0.8 ML SYRINGE SUB-Q (09:15)
--- NOTE | 2023-05-29 10:15 | PM.IMPN ---
Progress Note: A&P Assessment and Plan (1) Pulmonary embolism: Code(s): I26.99 - Other pulmonary embolism without acute cor pulmonale Status: Acute Assessment and Plan: Hemoglobin stable after 2 units PRBC transfusion. History of prior GI blood loss anemia. DC heparin GTT. Start on Lovenox subcutaneous b.i.d. Monitor CBC daily (2) Wound infection: Code(s): T14.8XXA - Other injury of unspecified body region, initial encounter; L08.9 - Local infection of the skin and subcutaneous tissue, unspecified Status: Acute Assessment and Plan: Right buttock wound with purulent drainage and odor. Underwent debridement by General surgery. Doing well. Continue cefepime. Discontinue vancomycin since none of the cultures are growing any staph (3) Anemia: Code(s): D64.9 - Anemia, unspecified Status: Acute Assessment and Plan: Hemoglobin stable after 2 units PRBC. DC heparin GTT. Start Lovenox subQ b.i.d.. If hemoglobin remains stable may consider starting on oral anticoagulation (4) Chronic kidney disease, stage 4 (severe): Code(s): N18.4 - Chronic kidney disease, stage 4 (severe) Status: Acute Assessment and Plan: Stable. Trend with daily labs. (5) Diabetes mellitus type 2 in obese: Code(s): E11.69 - Type 2 diabetes mellitus with other specified complication; E66.9 - Obesity, unspecified Status: Acute Assessment and Plan: ACHS glucose checks, sliding scale low dose correction (6) Atrial fibrillation: Code(s): I48.91 - Unspecified atrial fibrillation Status: Acute Assessment and Plan: Rate controlled at this time, atrial fibrillation on telemetry monitoring. Subjective Date/time seen: 05/29/23 10:15 Interval history: No new issues overnight Review of Systems Review of Systems: ROS unobtainable: Yes unobtainable due to mental status Exam Narrative: General: No acute distress, alert and oriented per baseline HEENT: Atraumatic, normocephalic, mucous membranes moist CV: Regular rate and rhythm, S1, S2 Lungs: Clear to auscultation bilaterally, no rales or crackles noted, no wheezes, good air entry Abdomen: Soft, nontender, nondistended Extremities: Normal to inspection Skin: Sacral decubitus ulcer Psych: Euthymic, normal affect Objective Data Vital Signs Vital Signs: Vital Signs - 24 hr 05/28/23 12:00 05/28/23 12:00 05/28/23 14:01 Temperature 96.4 F L Pulse Rate 102 H 93 94 Respiratory Rate 17 Blood Pressure 126/72 Pulse Oximetry 100 Oxygen Delivery 05/28/23 16:00 05/28/23 17:11 05/28/23 19:18 Temperature 96.7 F L 99 F Pulse Rate 90 92 103 H Respiratory Rate 17 14 Blood Pressure 117/74 110/63 Pulse Oximetry 100 99 Oxygen Delivery 05/28/23 22:06 05/28/23 20:00 05/28/23 20:00 Temperature Pulse Rate 103 H 89 Respiratory Rate Blood Pressure Pulse Oximetry Oxygen Delivery Room Air 05/28/23 23:59 05/29/23 00:00 05/29/23 03:58 Temperature 98.5 F 98.3 F Pulse Rate 99 91 105 H Respiratory Rate 14 12 Blood Pressure 113/72 122/73 Pulse Oximetry 98 98 Oxygen Delivery 05/29/23 04:00 05/29/23 06:22 05/29/23 07:49 Temperature 96.8 F L Pulse Rate 112 H 99 62 Respiratory Rate 16 Blood Pressure 106/60 Pulse Oximetry 98 Oxygen Delivery 05/29/23 08:00 05/29/23 08:00 Temperature Pulse Rate 93 Respiratory Rate Blood Pressure Pulse Oximetry Oxygen Delivery Room Air Intake/Output Intake/Output: Intake & Output 05/26/23 05/27/23 05/28/23 05/29/23 23:59 23:59 23:59 23:59 Intake Total 1999 1910 / 0 1380 / 1380 640 / 640 Output Total 950 / 950 1350 / 1350 0 / 0 900 / 900 Balance 1050 / 1050 560 / 560 -670 / -670 -260 / -260 Meds/Results Medications: Active Medications Generic Name Dose Route Start Last Admin Trade Name Freq PRN Reason Stop Dose Admin Acetaminophen 650 mg
[2023-05-29 11:22] LABS: Partial Thromboplastin Time 57.8 SECONDS (22.3-36.8)
[2023-05-29 12:14] LABS: Glucose Point of Care 130 mg/dl (65-105)
[2023-05-29] MEDS: metroNIDAZOLE 250 MG TABLET 500 MG PO ×2 (13:02→20:15)
[2023-05-29 17:00] LABS: Glucose Point of Care 115 mg/dl (65-105)
[2023-05-29] MEDS: PANTOPRAZOLE 40 MG TABLET PO (20:16)
[2023-05-29] MEDS: ENOXAPARIN 120 MG/0.8 ML SYRINGE SUB-Q (20:16)
[2023-05-29 22:53] LABS: Glucose Point of Care 128 mg/dl (65-105)
[2023-05-30] VITALS (14 sets, daily range): BP systolic 112–127; BP diastolic 65–78; PULSE 88–131; RESP 18–24; TEMP 35.9–36.8; O2SAT 93–98
[2023-05-30] MEDS: CEFEPIME 2 GM/NS 50 ML 2 GM/50 ML BAG IVPB ×3 (01:03→16:13)
[2023-05-30 05:46] LABS: Hematocrit 29.1 % (42.0-52.0); Hemoglobin 8.8 g/dL (14.0-18.0); Mean Corpuscular HGB Conc 30.2 g/dl (32-36); Mean Corpuscular Hemoglobin 26.7 pg (26-34); Mean Corpuscular Volume 88.4 fl (80-100); Mean Platelet Volume 8.3 fl (7.4-10.4); Platelet Count Result 410 k/mm3 (150-375); Red Blood Count 3.29 M/mm3 (4.6-6.20); Red Cell Distribution Width 16.8 % (11.5-14.5); White Blood Count 21.5 K/mm3 (4.5-10.0)
[2023-05-30] MEDS: metroNIDAZOLE 250 MG TABLET 500 MG PO ×3 (05:55→22:09)
[2023-05-30] MEDS: SUCRALFATE SUSP 100 MG/ML 10 ML UDC 1000 MG PO ×4 (05:55→21:15)
[2023-05-30] MEDS: METOPROLOL TARTRATE 50 MG TAB PO ×3 (05:55→22:09)
[2023-05-30 05:57] LABS: Anion Gap 4 mmol/L (8-16); Blood Urea Nitrogen 16 mg/dL (9-20); Carbon Dioxide 23 mmol/L (22-30); Chloride 111 mmol/L (98-107); Estimated CRCL calculation 62 ml/min; Estimated Glomerular Filt Rate > 60; Glucose 111 mg/dL (65-110); Potassium 3.6 mmol/L (3.4-5.0); Sodium 138 mmol/L (137-145)
[2023-05-30 08:08] LABS: Glucose Point of Care 111 mg/dl (65-105)
[2023-05-30] MEDS: SIMVASTATIN 20 MG TABLET PO (08:43)
[2023-05-30] MEDS: ENOXAPARIN 120 MG/0.8 ML SYRINGE SUB-Q ×2 (08:43→21:15)
[2023-05-30] MEDS: SOD HYPOCHLORITE 1/4 STRENGTH 473 ML 1 APPLIC TOPICAL (08:44)
--- NOTE | 2023-05-30 10:40 | PM.IMPN ---
Progress Note: A&P Assessment and Plan (1) Sepsis: Code(s): A41.9 - Sepsis, unspecified organism Status: Acute Assessment and Plan: Patient's white cell count is trending up. Chest x-ray this morning suggests atelectasis versus pneumonia. Patient is already on cefepime and Flagyl. Will obtain UA and blood culture as well. (2) Pulmonary embolism: Code(s): I26.99 - Other pulmonary embolism without acute cor pulmonale Status: Acute Assessment and Plan: Hemoglobin stable after 2 units PRBC transfusion. History of prior GI blood loss anemia. on Lovenox subcutaneous b.i.d. Monitor CBC daily (3) Wound infection: Code(s): T14.8XXA - Other injury of unspecified body region, initial encounter; L08.9 - Local infection of the skin and subcutaneous tissue, unspecified Status: Acute Assessment and Plan: Right buttock wound with purulent drainage and odor. Underwent debridement by General surgery. Doing well. Continue cefepime. Wound culture growing E coli and Bacteroides. Flagyl added (4) Anemia: Code(s): D64.9 - Anemia, unspecified Status: Acute Assessment and Plan: Hemoglobin stable after 2 units PRBC. Lovenox subQ b.i.d.. If hemoglobin remains stable may consider starting on oral anticoagulation (5) Chronic kidney disease, stage 4 (severe): Code(s): N18.4 - Chronic kidney disease, stage 4 (severe) Status: Acute Assessment and Plan: Stable. Trend with daily labs. (6) Diabetes mellitus type 2 in obese: Code(s): E11.69 - Type 2 diabetes mellitus with other specified complication; E66.9 - Obesity, unspecified Status: Acute Assessment and Plan: ACHS glucose checks, sliding scale low dose correction (7) Atrial fibrillation: Code(s): I48.91 - Unspecified atrial fibrillation Status: Acute Assessment and Plan: Rate controlled at this time Subjective Date/time seen: 05/30/23 10:40 Interval history: Patient is asymptomatic Review of Systems Review of Systems: ROS unobtainable: Yes unobtainable due to mental status Exam Narrative: General: No acute distress, alert and oriented per baseline HEENT: Atraumatic, normocephalic, mucous membranes moist CV: Regular rate and rhythm, S1, S2 Lungs: Clear to auscultation bilaterally, no rales or crackles noted, no wheezes, good air entry Abdomen: Soft, nontender, nondistended Extremities: Normal to inspection Skin: Sacral decubitus ulcer Psych: Euthymic, normal affect Objective Data Vital Signs Vital Signs: Vital Signs - 24 hr 05/29/23 12:00 05/29/23 12:13 05/29/23 13:03 Temperature 96.9 F L Pulse Rate 111 H 107 H 94 Respiratory Rate 16 Blood Pressure 103/70 Pulse Oximetry 99 Oxygen Delivery 05/29/23 15:23 05/29/23 16:00 05/29/23 16:50 Temperature 97.6 F Pulse Rate 116 H 116 H Respiratory Rate 20 Blood Pressure 105/70 Pulse Oximetry 96 Oxygen Delivery Room Air 05/29/23 20:15 05/29/23 20:00 05/29/23 20:00 Temperature 98.4 F Pulse Rate 115 H 95 Respiratory Rate 22 H Blood Pressure 98/57 L Pulse Oximetry 98 Oxygen Delivery Room Air 05/30/23 00:00 05/29/23 20:00 05/30/23 00:00 Temperature 97.5 F L Pulse Rate 100 118 H 131 H Respiratory Rate 20 Blood Pressure 127/76 Pulse Oximetry 97 Oxygen Delivery 05/30/23 04:00 05/30/23 04:00 05/30/23 05:55 Temperature 97.4 F L Pulse Rate 113 H 118 H 110 H Respiratory Rate 20 Blood Pressure 119/65 Pulse Oximetry 93 Oxygen Delivery 05/30/23 08:00 Temperature 96.7 F L Pulse Rate 92 Respiratory Rate 22 H Blood Pressure 115/74 Pulse Oximetry 98 Oxygen Delivery Intake/Output Intake/Output: Intake & Output 05/27/23 05/28/23 05/29/23 05/30/23 23:59 23:59 23:59 23:59 Intake Total 1910 / 1910 1380 / 1380 1290 / 1290 320 / 320 Output Total 1350 / 1350 2049 1700 / 1700 500 / 500 Balance 560
--- NOTE | 2023-05-30 11:09 | PCNFU ---
Nutrition Follow-Up Complete: Increased nutrient needs related to altered skin integrity as evidenced by noted pressure injury to sacrum PO intake 75% or greater for meals Patient is meeting current goal. No new goal. Pt current nutrition is DBCC. Last recorded weight is 121 kg. Bowel Motility: +Bm reported 05/29 Labs Reviewed:Glu 111, Hct 29.1,Hgb 8.8 Meds Noted:Novolog,Heparin Skin: unstageable pressure ulcer-sacrum Additional Notes: Patient is tolerating a DBCC diet. Intakes reported of 50-100% of meals. Diet supplements received of Glucerna shakes BID and Rory BID for wound healing. Agree with diet orders. Monitor intake, wt, labs, skin. Follow up in 7 days.
[2023-05-30 11:50] LABS: Glucose Point of Care 137 mg/dl (65-105)
[2023-05-30 17:04] LABS: Glucose Point of Care 110 mg/dl (65-105)
--- NOTE | 2023-05-30 17:17 | PM.PNGS ---
Progress Note: A&P Assessment and Plan (1) Sacral decubitus ulcer: Qualifiers: Pressure injury stage: stage 4 Qualified Code(s): L89.154 - Pressure ulcer of sacral region, stage 4 Code(s): L89.159 - Pressure ulcer of sacral region, unspecified stage Status: Acute Assessment and Plan: Continue local wound care with Dakins dressing changes. No signs of bleeding. (2) Pulmonary embolism: Code(s): I26.99 - Other pulmonary embolism without acute cor pulmonale Status: Acute Assessment and Plan: Cautiously resume anticoagulation. Monitor H/H (3) Anemia: Code(s): D64.9 - Anemia, unspecified Status: Acute (4) DVT (deep venous thrombosis): Code(s): I82.409 - Acute embolism and thrombosis of unspecified deep veins of unspecified lower extremity Status: Acute (5) Chronic kidney disease, stage 4 (severe): Code(s): N18.4 - Chronic kidney disease, stage 4 (severe) Status: Acute (6) Diabetes mellitus type 2 in obese: Code(s): E11.69 - Type 2 diabetes mellitus with other specified complication; E66.9 - Obesity, unspecified Status: Acute (7) Atrial fibrillation: Code(s): I48.91 - Unspecified atrial fibrillation Status: Acute Subjective Subjective Date/Time Seen: 05/30/23 17:17 Interval history: Patient tolerating dressing changes bedside. Pain controlled. Exam Skin: Other: No significant changes to sacral wound. Objective Data Vital Signs Vital Signs: Vital Signs - 24 hr 05/29/23 20:15 05/29/23 20:00 05/29/23 20:00 Temperature 36.9 C Pulse Rate 115 H 95 Respiratory Rate 22 H Blood Pressure 98/57 L Pulse Oximetry 98 Oxygen Delivery Room Air 05/30/23 00:00 05/29/23 20:00 05/30/23 00:00 Temperature 36.4 C L Pulse Rate 100 118 H 131 H Respiratory Rate 20 Blood Pressure 127/76 Pulse Oximetry 97 Oxygen Delivery 05/30/23 04:00 05/30/23 04:00 05/30/23 05:55 Temperature 36.3 C L Pulse Rate 113 H 118 H 110 H Respiratory Rate 20 Blood Pressure 119/65 Pulse Oximetry 93 Oxygen Delivery 05/30/23 08:00 05/30/23 08:44 08/08/23 08:03 Temperature 35.9 C L Pulse Rate 92 95 Respiratory Rate 22 H 20 Blood Pressure 115/74 Pulse Oximetry 98 98 Oxygen Delivery Room Air 05/30/23 11:55 05/30/23 12:06 05/30/23 13:35 Temperature 36.4 C Pulse Rate 90 105 H 111 H Respiratory Rate 24 H Blood Pressure 122/76 Pulse Oximetry 98 Oxygen Delivery 05/30/23 16:03 Temperature Pulse Rate 88 Respiratory Rate Blood Pressure Pulse Oximetry Oxygen Delivery Intake/Output Intake/Output: Intake & Output 05/27/23 05/28/23 05/29/23 05/30/23 23:59 23:59 23:59 23:59 Intake Total 1910 1380 1290 470 Output Total 1350 2050 1700 1075 Balance 818 -670 -410 -605 Meds/Results Medications: Active Medications Generic Name Dose Route Start Last Admin Trade Name Freq PRN Reason Stop Dose Admin Acetaminophen 650 mg 05/24/23 22:25 Acetaminophen 325 Mg Tablet PO Q4H PRN Pain Rated 5 Or Less Hydrocodone Bitart/Acetaminophen 1 tab 05/24/23 22:26 05/25/23 19:00 Hydrocodone/Acetaminophen (*Crx) 5-325 Mg Tablet PO 1 tab Q4H PRN Administration Pain Rated 6 or Greater Dextrose 12.5 gm 05/24/23 18:22 Dextrose 50% 25 Gm/50 Ml Syringe IV PUSH PRN PRN Hypoglycemia Protocol Enoxaparin Sodium 120 mg 05/29/23 21:00 05/30/23 08:43 Enoxaparin 120 Mg/0.8 Ml Syringe SUB-Q 120 mg Q12HR MENDEZ Administration Glucagon 1 mg 05/24/23 18:22 Glucagon For Inj 1 Mg Vial IM PRN PRN Hypoglycemia Protocol Glucose 15 gm 05/24/23 18:22 Glucose Oral Gel 15 Gm Of Glucse In 37.5 Gm Tube PO PRN PRN Hypoglycemia Protocol Dextrose 1,000 mls @ 100 mls/hr 05/24/23 18:22 Dextrose 5% 1,000 Ml IVPB PRN PRN Hypoglycemia Protocol Cefepime HCl 2 gm in
[2023-05-30 20:49] LABS: Appearance Urine Cloudy (Clear); Bacteria Urine None Seen /hpf; Bilirubin Urine Negative (Negative); Blood Urine 1+ (Negative); Color Urine Yellow (Yellow); Glucose Urine UA Negative (Negative); Hyaline Casts Urine Present /lpf; Ketones Urine Negative (Negative); Leukocyte Esterase Ur Negative LEU/UL (NEGATIVE); Nitrate Urine Negative (Negative); Protein Urine 1+ mg/dL (Negative); RBC Urine 0-2 /hpf (0-2); Specific Grav Ur 1.012 (1.001-1.035); Squamous Epithelial Cell Urine None seen /hpf (Few); Urobilinogen Urine 0.2 mg/dL (<2.0); WBC Urine 0-5 /hpf (0-3); pH Urine 5.5 (5.0-9.0)
[2023-05-30 20:59] LABS: Glucose Point of Care 136 mg/dl (65-105)
[2023-05-30 21:04] LABS: Add Urine Microscopic? YES
[2023-05-30] MEDS: PANTOPRAZOLE 40 MG TABLET PO (21:15)
[2023-05-31] VITALS (13 sets, daily range): BP systolic 105–138; BP diastolic 57–74; PULSE 81–124; RESP 16–20; TEMP 35.7–36.6; O2SAT 95–100
[2023-05-31] MEDS: CEFEPIME 2 GM/NS 50 ML 2 GM/50 ML BAG IVPB ×3 (01:12→16:13)
[2023-05-31 05:30] LABS: Hematocrit 28.7 % (42.0-52.0); Hemoglobin 8.8 g/dL (14.0-18.0); Mean Corpuscular HGB Conc 30.7 g/dl (32-36); Mean Corpuscular Hemoglobin 27.2 pg (26-34); Mean Corpuscular Volume 88.9 fl (80-100); Mean Platelet Volume 8.4 fl (7.4-10.4); Platelet Count Result 407 k/mm3 (150-375); Red Blood Count 3.23 M/mm3 (4.6-6.20); Red Cell Distribution Width 17.1 % (11.5-14.5); White Blood Count 21.8 K/mm3 (4.5-10.0)
[2023-05-31] MEDS: METOPROLOL TARTRATE 50 MG TAB PO ×3 (05:30→22:00)
[2023-05-31] MEDS: metroNIDAZOLE 250 MG TABLET 500 MG PO ×3 (05:30→21:59)
[2023-05-31 05:37] LABS: Anion Gap 4 mmol/L (8-16); Blood Urea Nitrogen 17 mg/dL (9-20); Carbon Dioxide 24 mmol/L (22-30); Chloride 110 mmol/L (98-107); Estimated CRCL calculation 57 ml/min; Estimated Glomerular Filt Rate > 60; Glucose 108 mg/dL (65-110); Potassium 3.5 mmol/L (3.4-5.0); Sodium 138 mmol/L (137-145)
[2023-05-31 06:10] LABS: Band Neutrophils Percent 8 % (0-6); Lymphocytes Absolute Manual 5.88 K/mm3 (1.1-4.5); Lymphocytes Percent Manual 27 % (18-44); Monocytes Absolute Manual 1.09 K/mm3 (0.1-0.90); Monocytes Percent Manual 5 % (3-9); Myelocytes Percent 4 %; Neutrophils Absolute Manual 13.95 K/mm3 (1.3-6.7); Neutrophils Percent Manual 56 % (46-73); Total Cells Counted 100
[2023-05-31 06:11] LABS: Anisocytosis 1+ (NORMAL); Nucleated Red Blood Cells 1 %; Platelet Estimate Increased (Adequate)
[2023-05-31 06:12] LABS: Burr Cells 1+ (NORMAL); Polychromasia 1+ (NORMAL); Schistocytes None Seen (NORMAL)
[2023-05-31] MEDS: SUCRALFATE SUSP 100 MG/ML 10 ML UDC 1000 MG PO ×4 (06:39→21:59)
[2023-05-31] MEDS: SIMVASTATIN 20 MG TABLET PO (08:12)
[2023-05-31] MEDS: ENOXAPARIN 120 MG/0.8 ML SYRINGE SUB-Q ×2 (08:12→21:59)
[2023-05-31] MEDS: SOD HYPOCHLORITE 1/4 STRENGTH 473 ML 1 APPLIC TOPICAL (08:13)
[2023-05-31 08:23] LABS: Glucose Point of Care 118 mg/dl (65-105)
--- NOTE | 2023-05-31 11:05 | PM.IMPN ---
Progress Note: A&P Assessment and Plan (1) Sepsis: Code(s): A41.9 - Sepsis, unspecified organism Status: Acute Assessment and Plan: Patient's white cell count is trending up. Chest x-ray suggests atelectasis versus pneumonia. Patient is already on cefepime and Flagyl. UA normal. blood culture pending (2) Pulmonary embolism: Code(s): I26.99 - Other pulmonary embolism without acute cor pulmonale Status: Acute Assessment and Plan: Hemoglobin stable after 2 units PRBC transfusion. History of prior GI blood loss anemia. on Lovenox subcutaneous b.i.d. Monitor CBC daily (3) Wound infection: Code(s): T14.8XXA - Other injury of unspecified body region, initial encounter; L08.9 - Local infection of the skin and subcutaneous tissue, unspecified Status: Acute Assessment and Plan: Right buttock wound with purulent drainage and odor. Underwent debridement by General surgery. Doing well. Continue cefepime. Wound culture growing E coli and Bacteroides. Flagyl added (4) Anemia: Code(s): D64.9 - Anemia, unspecified Status: Acute Assessment and Plan: Hemoglobin stable after 2 units PRBC. Lovenox subQ b.i.d.. If hemoglobin remains stable may consider starting on oral anticoagulation (5) Chronic kidney disease, stage 4 (severe): Code(s): N18.4 - Chronic kidney disease, stage 4 (severe) Status: Acute Assessment and Plan: Stable. Trend with daily labs. (6) Diabetes mellitus type 2 in obese: Code(s): E11.69 - Type 2 diabetes mellitus with other specified complication; E66.9 - Obesity, unspecified Status: Acute Assessment and Plan: ACHS glucose checks, sliding scale low dose correction (7) Atrial fibrillation: Code(s): I48.91 - Unspecified atrial fibrillation Status: Acute Assessment and Plan: Rate controlled at this time (8) Acute pain: Code(s): R52 - Pain, unspecified Status: Acute Assessment and Plan: Patient complaining of bilateral hip pain. Most likely arthritis. Will get x-rays of both the hips. Continue Crockett at current dose Subjective Date/time seen: 05/31/23 11:05 Interval history: Patient complaining of bilateral hip pain Review of Systems Review of Systems: All systems reviewed & are unremarkable except as noted in HPI and below Exam Narrative: General: No acute distress, alert and oriented per baseline HEENT: Atraumatic, normocephalic, mucous membranes moist CV: Regular rate and rhythm, S1, S2 Lungs: Clear to auscultation bilaterally, no rales or crackles noted, no wheezes, good air entry Abdomen: Soft, nontender, nondistended Extremities: Normal to inspection Skin: Sacral decubitus ulcer Psych: Euthymic, normal affect Objective Data Vital Signs Vital Signs: Vital Signs - 24 hr 05/30/23 11:55 05/30/23 12:06 05/30/23 13:35 Temperature 97.6 F Pulse Rate 90 105 H 111 H Respiratory Rate 24 H Blood Pressure 122/76 Pulse Oximetry 98 05/30/23 16:03 05/30/23 16:00 05/30/23 19:36 Temperature 97.9 F 98.2 F Pulse Rate 88 99 100 Respiratory Rate 18 20 Blood Pressure 126/78 112/68 Pulse Oximetry 98 98 05/30/23 22:09 05/31/23 00:00 05/31/23 04:00 Temperature 96.9 F L 96.2 F L Pulse Rate 100 97 101 H Respiratory Rate 20 20 Blood Pressure 124/66 118/68 Pulse Oximetry 100 96 05/30/23 20:00 05/31/23 00:00 05/31/23 04:00 Temperature Pulse Rate 104 H 98 112 H Respiratory Rate Blood Pressure Pulse Oximetry 05/31/23 05:30 05/31/23 10:39 Temperature 97.2 F L Pulse Rate 105 H 107 H Respiratory Rate 18 Blood Pressure 110/62 Pulse Oximetry 99 Intake/Output Intake/Output: Intake & Output 05/28/23 05/29/23 05/30/23 05/31/23 23:59 23:59 23:59 23:59 Intake Total 1380 / 1380 1290 / 1290 830 / 830 630 / 630 Output Total 2049 1700 / 1700 1075 / 1075 700 / 700 Balance -670 / -670 -4
[2023-05-31 11:43] LABS: Glucose Point of Care 138 mg/dl (65-105)
--- NOTE | 2023-05-31 14:12 | PCPTNOTE ---
Attempted to see patient for PT, however patient unable to be seen for therapy at this time. Patient just got back to room from testing and patient's heart rate in 120s and having increase bilateral lower extremity pain. Patient also declined PT due to leg pain.
[2023-05-31] MEDS: HYDROcodone/acetaminophen (*CRX) 5-325 MG TABLET 1 TAB PO (14:15)
[2023-05-31 17:03] LABS: Glucose Point of Care 119 mg/dl (65-105)
[2023-05-31 20:53] LABS: Glucose Point of Care 134 mg/dl (65-105)
[2023-05-31] MEDS: PANTOPRAZOLE 40 MG TABLET PO (21:59)
[2023-06-01] VITALS (14 sets, daily range): BP systolic 107–137; BP diastolic 61–81; PULSE 92–121; RESP 16–18; TEMP 36.3–36.7; O2SAT 96–100
[2023-06-01] MEDS: CEFEPIME 2 GM/NS 50 ML 2 GM/50 ML BAG IVPB ×3 (00:24→17:09)
[2023-06-01] MEDS: METOPROLOL TARTRATE 50 MG TAB PO ×3 (05:48→21:48)
[2023-06-01] MEDS: metroNIDAZOLE 250 MG TABLET 500 MG PO (05:49)
[2023-06-01] MEDS: SUCRALFATE SUSP 100 MG/ML 10 ML UDC 1000 MG PO ×4 (05:49→21:44)
[2023-06-01 08:28] LABS: Glucose Point of Care 112 mg/dl (65-105)
[2023-06-01] MEDS: ENOXAPARIN 120 MG/0.8 ML SYRINGE SUB-Q ×2 (08:42→21:44)
[2023-06-01] MEDS: SOD HYPOCHLORITE 1/4 STRENGTH 473 ML 1 APPLIC TOPICAL (08:43)
[2023-06-01] MEDS: SIMVASTATIN 20 MG TABLET PO (08:43)
[2023-06-01 09:20] LABS: Mean Corpuscular HGB Conc 30.3 g/dl (32-36); Mean Corpuscular Hemoglobin 27.3 pg (26-34); Mean Corpuscular Volume 90.2 fl (80-100); Mean Platelet Volume 8.5 fl (7.4-10.4); Platelet Count Result 456 k/mm3 (150-375); Red Blood Count 3.66 M/mm3 (4.6-6.20); Red Cell Distribution Width 17.5 % (11.5-14.5)
[2023-06-01 09:34] LABS: Alanine Aminotransferase 25 U/L (6-50); Albumin Level 2.8 g/dL (3.5-5.1); Alkaline Phosphatase 120 U/L (38-126); Anion Gap 2 mmol/L (8-16); Aspartate Amino Transferase 29 U/L (17-59); Bilirubin,Total 0.4 mg/dL (0.2-1.3); Blood Urea Nitrogen 18 mg/dL (9-20); Calcium 9.3 mg/dL (8.4-10.2); Carbon Dioxide 23 mmol/L (22-30); Chloride 109 mmol/L (98-107); Estimated CRCL calculation 57 ml/min; Estimated Glomerular Filt Rate > 60; Glucose 115 mg/dL (65-110); Potassium 3.4 mmol/L (3.4-5.0); Sodium 134 mmol/L (137-145)
[2023-06-01 12:01] LABS: Glucose Point of Care 140 mg/dl (65-105)
[2023-06-01 13:11] LABS: Band Neutrophils Percent 4 % (0-6); Lymphocytes Absolute Manual 6.24 K/mm3 (1.1-4.5); Monocytes Percent Manual 5 % (3-9); Neutrophils Absolute Manual 18.46 K/mm3 (1.3-6.7); Neutrophils Percent Manual 67 % (46-73); Platelet Estimate Adequate (Adequate); Total Cells Counted 100
[2023-06-01 13:12] LABS: Burr Cells 1+ (NORMAL); Schistocytes None Seen (NORMAL); Smudge Cells FEW
[2023-06-01 16:37] LABS: Glucose Point of Care 139 mg/dl (65-105)
[2023-06-01] MEDS: HYDROcodone/acetaminophen (*CRX) 5-325 MG TABLET 1 TAB PO (16:37)
--- NOTE | 2023-06-01 21:22 | PC.NURSE ---
Dr Howell notified of final wound culture results, pt is covered with current antibiotics, no new orders received.
[2023-06-01] MEDS: PANTOPRAZOLE 40 MG TABLET PO (21:44)
[2023-06-01 22:19] LABS: Glucose Point of Care 117 mg/dl (65-105)
[2023-06-02] VITALS (13 sets, daily range): BP systolic 109–123; BP diastolic 53–82; PULSE 77–124; RESP 16; TEMP 36.5–36.8; O2SAT 96–100
[2023-06-02] MEDS: CEFEPIME 2 GM/NS 50 ML 2 GM/50 ML BAG IVPB ×2 (00:36→08:31)
[2023-06-02 05:28] LABS: Alanine Aminotransferase 22 U/L (6-50); Albumin Level 2.5 g/dL (3.5-5.1); Alkaline Phosphatase 116 U/L (38-126); Anion Gap 2 mmol/L (8-16); Aspartate Amino Transferase 31 U/L (17-59); Bilirubin,Total 0.4 mg/dL (0.2-1.3); Blood Urea Nitrogen 18 mg/dL (9-20); Carbon Dioxide 23 mmol/L (22-30); Chloride 111 mmol/L (98-107); Estimated CRCL calculation 53 ml/min; Estimated Glomerular Filt Rate > 60; Glucose 109 mg/dL (65-110); Potassium 3.3 mmol/L (3.4-5.0); Sodium 136 mmol/L (137-145)
[2023-06-02 06:10] LABS: Hematocrit 28.6 % (42.0-52.0); Hemoglobin 8.8 g/dL (14.0-18.0); Mean Corpuscular HGB Conc 30.8 g/dl (32-36); Mean Corpuscular Hemoglobin 27.6 pg (26-34); Mean Corpuscular Volume 89.7 fl (80-100); Mean Platelet Volume 8.7 fl (7.4-10.4); Platelet Count Result 431 k/mm3 (150-375); Red Blood Count 3.19 M/mm3 (4.6-6.20); Red Cell Distribution Width 17.3 % (11.5-14.5); White Blood Count 21.1 K/mm3 (4.5-10.0)
[2023-06-02] MEDS: SUCRALFATE SUSP 100 MG/ML 10 ML UDC 1000 MG PO ×4 (06:22→22:55)
[2023-06-02] MEDS: METOPROLOL TARTRATE 50 MG TAB PO ×3 (06:22→21:43)
[2023-06-02 08:31] LABS: Glucose Point of Care 103 mg/dl (65-105)
[2023-06-02] MEDS: ENOXAPARIN 120 MG/0.8 ML SYRINGE SUB-Q ×2 (08:31→21:47)
[2023-06-02] MEDS: SIMVASTATIN 20 MG TABLET PO (08:32)
[2023-06-02 08:39] LABS: Atypical Lymphocytes Present; Band Neutrophils Percent 4 % (0-6); Lymphocytes Absolute Manual 8.01 K/mm3 (1.1-4.5); Metamyelocytes Percent 1 %; Monocytes Absolute Manual 1.47 K/mm3 (0.1-0.90); Monocytes Percent Manual 7 % (3-9); Myelocytes Percent 1 %; Neutrophils Absolute Manual 11.18 K/mm3 (1.3-6.7); Neutrophils Percent Manual 49 % (46-73); Platelet Estimate Increased (Adequate); Schistocytes None Seen (NORMAL); Total Cells Counted 100
[2023-06-02 08:40] LABS: Ovalocytes 1+ (NORMAL); Poikilocytosis 1+ (NORMAL)
[2023-06-02 08:43] LABS: Anisocytosis 2+ (NORMAL); Crenated RBC 1+ (NORMAL)
--- NOTE | 2023-06-02 09:10 | PM.IMPN ---
Progress Note: A&P Assessment and Plan (1) Pulmonary embolism: Code(s): I26.99 - Other pulmonary embolism without acute cor pulmonale Status: Acute Assessment and Plan: stable on room air cont a/c (2) Wound infection: Code(s): T14.8XXA - Other injury of unspecified body region, initial encounter; L08.9 - Local infection of the skin and subcutaneous tissue, unspecified Status: Acute Assessment and Plan: Right buttock wound with purulent drainage and odor. Vancomycin and Cefepime started in ER 05/24, will continue for now. MRSA nasal screen ordered, add Flagyl 05/25 End date for abx should be 06/07 to complete 14 day course, d/c vanc 06/01, cefepime + flagyl should cover bacteroides and ecoli per sens noted from wound cultures Leukocytosis continues to fluctuate (3) Anemia: Code(s): D64.9 - Anemia, unspecified Status: Acute Assessment and Plan: Monitor (4) DVT (deep venous thrombosis): Code(s): I82.409 - Acute embolism and thrombosis of unspecified deep veins of unspecified lower extremity Status: Acute Assessment and Plan: On heparin drip, no SCDs. Bilateral lower extremity tenderness in calf with 2+ pitting edema. (5) Chronic kidney disease, stage 4 (severe): Code(s): N18.4 - Chronic kidney disease, stage 4 (severe) Status: Acute Assessment and Plan: Stable, monitor (6) Diabetes mellitus type 2 in obese: Code(s): E11.69 - Type 2 diabetes mellitus with other specified complication; E66.9 - Obesity, unspecified Status: Acute Assessment and Plan: ACHS glucose checks, sliding scale low dose correction Blood glucose reviewed 06/02 (7) Atrial fibrillation: Code(s): I48.91 - Unspecified atrial fibrillation Status: Acute Assessment and Plan: Rate controlled at this time, atrial fibrillation on telemetry monitoring Plan DVT prophylaxis with lovenox GI prophylaxis not indicated Code status full code Subjective Date/time seen: 06/02/23 09:10 Interval history: 83-year-old male with history of AFib, kidney disease, diabetes among other comorbidities is presenting with shortness of breath and being treated for sepsis with a buttocks decubitus ulcer wound. No overnight events noted. No chest pain or shortness of breath. No nausea, vomiting or diarrhea. No fevers or chills. Review of Systems Review of Systems: 12 point review of systems was assessed and was negative except as noted in the HPI Exam Narrative: General: No acute distress, alert and oriented per baseline HEENT: Atraumatic, normocephalic, mucous membranes moist CV: Regular rate and rhythm, S1, S2 Lungs: Clear to auscultation bilaterally, no rales or crackles noted, no wheezes, good air entry Abdomen: Soft, nontender, nondistended Extremities: Normal to inspection Skin: Sacral decubitus ulcer Psych: Euthymic, normal affect Objective Data Vital Signs Vital Signs: Vital Signs - 24 hr 06/01/23 12:00 06/01/23 12:00 06/01/23 14:08 Temperature 97.4 F L Pulse Rate 111 H 109 H 112 H Respiratory Rate 18 Blood Pressure 137/81 Pulse Oximetry 100 06/01/23 16:04 06/01/23 16:00 06/01/23 21:00 Temperature 97.5 F L 98.0 F Pulse Rate 95 103 H 103 H Respiratory Rate 18 16 Blood Pressure 109/65 121/78 Pulse Oximetry 97 99 06/01/23 21:48 06/02/23 01:57 06/01/23 20:00 Temperature 97.7 F Pulse Rate 121 H 100 121 H Respiratory Rate 16 Blood Pressure 120/69 Pulse Oximetry 98 06/02/23 00:00 06/02/23 04:00 06/02/23 06:22 Temperature Pulse Rate 120 H 111 H 116 H Respiratory Rate Blood Pressure Pulse Oximetry 06/02/23 06:34 Temperature 97.8 F Pulse Rate 82 Respiratory Rate 16 Blood Pressure 123/82 Pulse Oximetry 96 Intake/Output Intake/Output: Intake & Output 05/30/23 05/31/23 06/01/23 06/02/23 23:59 23:59 23:59 23:59 In
[2023-06-02] MEDS: SOD HYPOCHLORITE 1/4 STRENGTH 473 ML 1 APPLIC TOPICAL (11:22)
[2023-06-02 12:09] LABS: Glucose Point of Care 117 mg/dl (65-105)
[2023-06-02] MEDS: ERTAPENEM 1 GM/NS 50 ML 1 GM/50 ML BAG IVPB (13:12)
[2023-06-02 16:57] LABS: Glucose Point of Care 113 mg/dl (65-105)
[2023-06-02] MEDS: PANTOPRAZOLE 40 MG TABLET PO (21:43)
[2023-06-02 23:17] LABS: Glucose Point of Care 120 mg/dl (65-105)
[2023-06-03] VITALS (14 sets, daily range): BP systolic 103–126; BP diastolic 56–98; PULSE 88–127; RESP 16–21; TEMP 35.8–36.7; O2SAT 97–100
[2023-06-03] MEDS: SUCRALFATE SUSP 100 MG/ML 10 ML UDC 1000 MG PO ×4 (05:33→22:28)
[2023-06-03 05:38] LABS: Hematocrit 30.1 % (42.0-52.0); Hemoglobin 8.9 g/dL (14.0-18.0); Mean Corpuscular HGB Conc 29.6 g/dl (32-36); Mean Corpuscular Hemoglobin 27.2 pg (26-34); Mean Platelet Volume 8.7 fl (7.4-10.4); Platelet Count Result 436 k/mm3 (150-375); Red Blood Count 3.27 M/mm3 (4.6-6.20); Red Cell Distribution Width 17.8 % (11.5-14.5); White Blood Count 20.1 K/mm3 (4.5-10.0)
[2023-06-03 05:50] LABS: Alanine Aminotransferase 25 U/L (6-50); Albumin Level 2.8 g/dL (3.5-5.1); Alkaline Phosphatase 143 U/L (38-126); Anion Gap 6 mmol/L (8-16); Aspartate Amino Transferase 28 U/L (17-59); Bilirubin,Total 0.3 mg/dL (0.2-1.3); Blood Urea Nitrogen 19 mg/dL (9-20); Calcium 9.2 mg/dL (8.4-10.2); Carbon Dioxide 24 mmol/L (22-30); Chloride 108 mmol/L (98-107); Estimated CRCL calculation 49 ml/min; Estimated Glomerular Filt Rate 59; Glucose 115 mg/dL (65-110); Potassium 3.5 mmol/L (3.4-5.0); Sodium 138 mmol/L (137-145)
[2023-06-03 06:16] LABS: Band Neutrophils Percent 4 % (0-6); Basophils Percent Manual 2 % (0-1); Eosinophils Percent Manual 1 % (0-4); Lymphocytes Absolute Manual 5.82 K/mm3 (1.1-4.5); Metamyelocytes Percent 2 %; Monocytes Percent Manual 1 % (3-9); Myelocytes Percent 1 %; Neutrophils Absolute Manual 12.86 K/mm3 (1.3-6.7); Neutrophils Percent Manual 60 % (46-73); Total Cells Counted 100
[2023-06-03 06:17] LABS: Platelet Estimate Increased (Adequate)
[2023-06-03 06:19] LABS: Anisocytosis 1+ (NORMAL)
[2023-06-03 06:20] LABS: Schistocytes None Seen (NORMAL)
[2023-06-03] MEDS: METOPROLOL TARTRATE 50 MG TAB PO ×3 (06:39→22:26)
[2023-06-03] MEDS: SOD HYPOCHLORITE 1/4 STRENGTH 473 ML 1 APPLIC TOPICAL (07:05)
[2023-06-03 08:21] LABS: IFOB Positive Control Positive; Immunochemical Fecal Occult Bl Positive (N)
[2023-06-03 08:39] LABS: Glucose Point of Care 104 mg/dl (65-105)
--- NOTE | 2023-06-03 09:10 | PM.IMPN ---
Progress Note: A&P Assessment and Plan (1) Wound infection: Code(s): T14.8XXA - Other injury of unspecified body region, initial encounter; L08.9 - Local infection of the skin and subcutaneous tissue, unspecified Status: Acute Assessment and Plan: Right buttock wound with purulent drainage and odor. Vancomycin and Cefepime started in ER 05/24, will continue for now. MRSA nasal screen ordered, add Flagyl 05/25 Blood cultures 05/30 NGTD End date for abx should be 06/07 to complete 8 day course from negative cultures, d/c vanc 06/01, cefepime + flagyl should cover bacteroides and ecoli per sens noted from wound cultures Escalate to ertapenem 06/02, d/c cefepime + flagyl Leukocytosis continues to fluctuate but trending down PICC line and d/c to complete abx with ertapenem until 06/07 (2) Pulmonary embolism: Code(s): I26.99 - Other pulmonary embolism without acute cor pulmonale Status: Acute Assessment and Plan: stable on room air cont a/c (3) Anemia: Code(s): D64.9 - Anemia, unspecified Status: Acute Assessment and Plan: Monitor (4) DVT (deep venous thrombosis): Code(s): I82.409 - Acute embolism and thrombosis of unspecified deep veins of unspecified lower extremity Status: Acute Assessment and Plan: Restart eliquis (5) Chronic kidney disease, stage 4 (severe): Code(s): N18.4 - Chronic kidney disease, stage 4 (severe) Status: Acute Assessment and Plan: Stable, monitor (6) Diabetes mellitus type 2 in obese: Code(s): E11.69 - Type 2 diabetes mellitus with other specified complication; E66.9 - Obesity, unspecified Status: Acute Assessment and Plan: ACHS glucose checks, sliding scale low dose correction Blood glucose reviewed 06/03 (7) Atrial fibrillation: Code(s): I48.91 - Unspecified atrial fibrillation Status: Acute Assessment and Plan: Rate controlled at this time, atrial fibrillation on telemetry monitoring Plan DVT prophylaxis with eliquis GI prophylaxis not indicated Code status DNR Subjective Date/time seen: 06/03/23 09:10 Interval history: 83-year-old male with history of AFib, kidney disease, diabetes among other comorbidities is presenting with shortness of breath and being treated for sepsis with a buttocks decubitus ulcer wound. No overnight events noted. No chest pain or shortness of breath. No nausea, vomiting or diarrhea. No fevers or chills. Feels about the same as yesterday. Review of Systems Review of Systems: 12 point review of systems was assessed and was negative except as noted in the HPI Exam Narrative: General: No acute distress, alert and oriented per baseline HEENT: Atraumatic, normocephalic, mucous membranes moist CV: Regular rate and rhythm, S1, S2 Lungs: Clear to auscultation bilaterally, no rales or crackles noted, no wheezes, good air entry Abdomen: Soft, nontender, nondistended Extremities: Normal to inspection Skin: Sacral decubitus ulcer Psych: Euthymic, normal affect Objective Data Vital Signs Vital Signs: Vital Signs - 24 hr 06/02/23 12:00 06/02/23 13:12 06/02/23 13:51 Temperature 98.2 F Pulse Rate 117 H 92 77 Respiratory Rate 16 Blood Pressure 112/53 L Pulse Oximetry 100 Oxygen Delivery 06/02/23 16:00 06/02/23 21:43 06/02/23 20:00 Temperature Pulse Rate 124 H 116 H 106 H Respiratory Rate Blood Pressure Pulse Oximetry Oxygen Delivery 06/03/23 00:00 06/02/23 20:00 06/02/23 21:30 Temperature 97.7 F Pulse Rate 102 H 105 H Respiratory Rate 16 Blood Pressure 109/66 Pulse Oximetry 97 Oxygen Delivery Room Air 06/03/23 04:00 06/03/23 06:38 06/03/23 06:39 Temperature 98.0 F Pulse Rate 103 H 93 103 H Respiratory Rate 16 Blood Pressure 121/64 Pulse Oximetry 97 Oxygen Delivery Intake/Output Intake/Output: Intake &
[2023-06-03] MEDS: SIMVASTATIN 20 MG TABLET PO (09:38)
[2023-06-03 11:36] LABS: Glucose Point of Care 142 mg/dl (65-105)
[2023-06-03] MEDS: ERTAPENEM 1 GM/NS 50 ML 1 GM/50 ML BAG IVPB (11:41)
[2023-06-03] MEDS: LIDOCAINE HCL 1% PF INJ 5 ML VIAL INFILTRATE (14:15)
[2023-06-03 17:26] LABS: Glucose Point of Care 114 mg/dl (65-105)
[2023-06-03 19:54] LABS: Glucose Point of Care 127 mg/dl (65-105)
[2023-06-03 21:57] LABS: Hematocrit 25.5 % (42.0-52.0); Hemoglobin 7.6 g/dL (14.0-18.0)
[2023-06-03] MEDS: PANTOPRAZOLE 40 MG TABLET PO (22:26)
[2023-06-03] MEDS: CENTRAL LINE FLUSH 10 ML IV PUSH (22:28)
--- NOTE | 2023-06-03 23:50 | P.PNCROSS_ITS ---
Event Note Event Note Event Note: I received a call from the patient's nurse with reports of bleeding from his sa cral decubitus ulcer. Chart reviewed. Patient has been on enoxaparin 120 mg q.12 hours for bilateral pulmonary emboli and was supposed to start Eliquis this evening. His hemoglobin has dropped a little over a g since 05:00 and unfortunately the anticoagulants need to be placed on hold. Trend hemoglobin/hematocrit and transfuse if indicated.
[2023-06-04] VITALS (11 sets, daily range): BP systolic 91–125; BP diastolic 48–71; PULSE 91–120; RESP 16–18; TEMP 35.6–36.4; O2SAT 98–100
[2023-06-04] MEDS: CENTRAL LINE FLUSH 20 ML IV PUSH (02:34)
[2023-06-04 02:59] LABS: Hematocrit 24.4 % (42.0-52.0); Hemoglobin 7.2 g/dL (14.0-18.0)
[2023-06-04] MEDS: SUCRALFATE SUSP 100 MG/ML 10 ML UDC 1000 MG PO ×4 (06:54→21:49)
[2023-06-04] MEDS: CENTRAL LINE FLUSH 10 ML IV PUSH ×3 (06:55→21:49)
[2023-06-04 08:34] LABS: Glucose Point of Care 103 mg/dl (65-105)
--- NOTE | 2023-06-04 08:35 | PM.IMPN ---
Progress Note: A&P Assessment and Plan (1) Wound infection: Code(s): T14.8XXA - Other injury of unspecified body region, initial encounter; L08.9 - Local infection of the skin and subcutaneous tissue, unspecified Status: Acute Assessment and Plan: Right buttock wound with purulent drainage and odor. Vancomycin and Cefepime started in ER 05/24, will continue for now. MRSA nasal screen ordered, add Flagyl 05/25 Blood cultures 05/30 NGTD End date for abx should be 06/07 to complete 8 day course from negative cultures, d/c vanc 06/01, cefepime + flagyl should cover bacteroides and ecoli per sens noted from wound cultures Escalate to ertapenem 06/02, d/c cefepime + flagyl Leukocytosis continues to fluctuate but trending down PICC line and d/c to complete abx with ertapenem until 06/07 06/04: buttocks wound bleeding again, re-consult general surgery for wound management, need better source control and bleeding management (2) Pulmonary embolism: Code(s): I26.99 - Other pulmonary embolism without acute cor pulmonale Status: Acute Assessment and Plan: stable on room air cont a/c (3) Anemia: Code(s): D64.9 - Anemia, unspecified Status: Acute Assessment and Plan: worsening, check FOBT, hold eliquis, monitor (4) DVT (deep venous thrombosis): Code(s): I82.409 - Acute embolism and thrombosis of unspecified deep veins of unspecified lower extremity Status: Acute Assessment and Plan: Eliquis on hold again d/t wound bleeding (5) Chronic kidney disease, stage 4 (severe): Code(s): N18.4 - Chronic kidney disease, stage 4 (severe) Status: Acute Assessment and Plan: Stable, monitor (6) Diabetes mellitus type 2 in obese: Code(s): E11.69 - Type 2 diabetes mellitus with other specified complication; E66.9 - Obesity, unspecified Status: Acute Assessment and Plan: ACHS glucose checks, sliding scale low dose correction Blood glucose reviewed 06/04 (7) Atrial fibrillation: Code(s): I48.91 - Unspecified atrial fibrillation Status: Acute Assessment and Plan: Rate controlled at this time, atrial fibrillation on telemetry monitoring Plan DVT prophylaxis with eliquis--on hold d/t anemia GI prophylaxis not indicated Code status DNR Subjective Date/time seen: 06/04/23 08:35 Interval history: 83-year-old male with history of AFib, kidney disease, diabetes among other comorbidities is presenting with shortness of breath and being treated for sepsis with a buttocks decubitus ulcer wound. No overnight events noted. No chest pain or shortness of breath. No nausea, vomiting or diarrhea. No fevers or chills. Feels about the same as yesterday. Notified by nursing staff that patient is having bleeding from his buttocks wound. General surgery re-consulted. Review of Systems Review of Systems: 12 point review of systems was assessed and was negative except as noted in the HPI Exam Narrative: General: No acute distress, alert and oriented per baseline HEENT: Atraumatic, normocephalic, mucous membranes moist CV: Regular rate and rhythm, S1, S2 Lungs: Clear to auscultation bilaterally, no rales or crackles noted, no wheezes, good air entry Abdomen: Soft, nontender, nondistended Extremities: Normal to inspection Skin: Sacral decubitus ulcer Psych: Euthymic, normal affect Objective Data Vital Signs Vital Signs: Vital Signs - 24 hr 06/03/23 09:35 06/03/23 11:05 06/03/23 12:00 Temperature 97.6 F Pulse Rate 94 100 Respiratory Rate 16 Blood Pressure 118/60 Pulse Oximetry 100 Oxygen Delivery Room Air 06/03/23 13:30 06/03/23 13:47 06/03/23 16:00 Temperature 96.9 F L Pulse Rate 89 94 111 H Respiratory Rate 16 Blood Pressure 114/71 Pulse Oximetry 99 Oxygen Delivery 06/03/23 19:47 06/03/23 22:26 06/03/23 23:07 Temperature 96.4 F L 97 F
[2023-06-04 09:05] LABS: Hemoglobin 7.5 g/dL (14.0-18.0); Immature Reticulocyte Fraction 46.3 % (3.0-15.9); Mean Corpuscular Hemoglobin 27.4 pg (26-34); Mean Corpuscular Volume 91.2 fl (80-100); Mean Platelet Volume 8.4 fl (7.4-10.4); Platelet Count Result 347 k/mm3 (150-375); Red Blood Count 2.74 M/mm3 (4.6-6.20); Red Cell Distribution Width 18.1 % (11.5-14.5); Reticulocyte Hemoglobin Conten 28.6 pg (28.2-35.7); Reticulocyte Percent 3.43 % (0.7-4.3); Reticulocytes Absolute 0.09 M/mm3 (0.02-0.1); White Blood Count 13.1 K/mm3 (4.5-10.0)
[2023-06-04] MEDS: SIMVASTATIN 20 MG TABLET PO (09:13)
[2023-06-04 09:16] LABS: Lactate Dehydrogenase 232 U/L (120-246); Uric Acid 6.7 mg/dL (3.5-8.5)
[2023-06-04 09:18] LABS: Alanine Aminotransferase 21 U/L (6-50); Albumin Level 2.3 g/dL (3.5-5.1); Alkaline Phosphatase 129 U/L (38-126); Anion Gap 1 mmol/L (8-16); Aspartate Amino Transferase 26 U/L (17-59); Bilirubin,Total 0.2 mg/dL (0.2-1.3); Blood Urea Nitrogen 18 mg/dL (9-20); Calcium 8.9 mg/dL (8.4-10.2); Carbon Dioxide 23 mmol/L (22-30); Chloride 111 mmol/L (98-107); Estimated CRCL calculation 46 ml/min; Estimated Glomerular Filt Rate 54; Glucose 105 mg/dL (65-110); Potassium 3.3 mmol/L (3.4-5.0); Sodium 135 mmol/L (137-145)
[2023-06-04 09:31] LABS: Iron 46 ug/dL (49-181)
[2023-06-04 09:37] LABS: Band Neutrophils Percent 3 % (0-6); Eosinophils Absolute Manual 0.13 K/mm3 (0.02-0.5); Eosinophils Percent Manual 1 % (0-4); Metamyelocytes Percent 2 %; Monocytes Absolute Manual 1.04 K/mm3 (0.1-0.90); Monocytes Percent Manual 8 % (3-9); Neutrophils Absolute Manual 8.25 K/mm3 (1.3-6.7); Neutrophils Percent Manual 60 % (46-73); Nucleated Red Blood Cells 1 %; Total Cells Counted 100
[2023-06-04 09:38] LABS: Macrocytosis 1+ (NORMAL); Platelet Estimate Increased (Adequate); Polychromasia 1+ (NORMAL); Schistocytes None Seen (NORMAL)
[2023-06-04 09:40] LABS: Percent Iron Saturation 33 % (20-50)
[2023-06-04 10:23] LABS: Folic Acid 6.1 ng/mL (2.76->20)
[2023-06-04 12:07] LABS: Glucose Point of Care 100 mg/dl (65-105)
[2023-06-04] MEDS: ERTAPENEM 1 GM/NS 50 ML 1 GM/50 ML BAG IVPB (12:13)
[2023-06-04] MEDS: METOPROLOL TARTRATE 50 MG TAB PO ×2 (13:31→21:49)
[2023-06-04] MEDS: SOD HYPOCHLORITE 1/4 STRENGTH 473 ML 1 APPLIC TOPICAL (15:08)
--- NOTE | 2023-06-04 15:47 | PCOTNOTE ---
Pt is not appropriate to be seen for Occupational Therapy treatment at this time due to getting wound dressing completed. Per RN, pt is not appropriate to be seen following wound dressing change until dr evaluates pt on some recent changes. Will continue per POC duration/frequency tomorrow.
[2023-06-04 17:35] LABS: Glucose Point of Care 117 mg/dl (65-105)
[2023-06-04 20:11] LABS: Glucose Point of Care 126 mg/dl (65-105)
[2023-06-04] MEDS: PANTOPRAZOLE 40 MG TABLET PO (21:49)
[2023-06-05] VITALS (12 sets, daily range): BP systolic 109–116; BP diastolic 55–82; PULSE 93–113; RESP 18; TEMP 35.6–36.4; O2SAT 98–100
[2023-06-05 04:15] LABS: Basophils Percent Auto 0.3 % (0.2-1.2); Eosinophils Absolute Auto 0.1 K/mm3 (0-0.3); Eosinophils Percent Auto 0.4 % (0-4.4); Hematocrit 23.5 % (42.0-52.0); Hemoglobin 7.1 g/dL (14.0-18.0); Immature Granulocyte Absolute 1.01 K/mm3 (0.00-0.031); Lymphocytes Absolute Auto 3.76 K/mm3 (0.9-3.2); Lymphocytes Percent Auto 25.9 % (18.3-44.2); Mean Corpuscular HGB Conc 30.2 g/dl (32-36); Mean Corpuscular Hemoglobin 27.8 pg (26-34); Mean Corpuscular Volume 92.2 fl (80-100); Mean Platelet Volume 8.6 fl (7.4-10.4); Monocytes Absolute Auto 1.3 K/mm3 (0.1-0.6); Neutrophils Absolute Auto 8.3 K/mm3 (1.3-6.7); Neutrophils Percent Auto 57.4 % (45.5-73.1); Nucleated Red Blood Cells Absolute Auto 0.1 K/mm3 (0.0-0.012); Nucleated Red Blood Cells Perc 0.8 % (0.0-0.2); Platelet Count Result 360 k/mm3 (150-375); Red Blood Count 2.55 M/mm3 (4.6-6.20); Red Cell Distribution Width 18.4 % (11.5-14.5); White Blood Count 14.5 K/mm3 (4.5-10.0)
[2023-06-05 04:25] LABS: Alanine Aminotransferase 23 U/L (6-50); Albumin Level 2.2 g/dL (3.5-5.1); Alkaline Phosphatase 157 U/L (38-126); Anion Gap -1 mmol/L (8-16); Aspartate Amino Transferase 29 U/L (17-59); Bilirubin,Total 0.2 mg/dL (0.2-1.3); Blood Urea Nitrogen 18 mg/dL (9-20); Calcium 8.7 mg/dL (8.4-10.2); Carbon Dioxide 24 mmol/L (22-30); Chloride 110 mmol/L (98-107); Estimated CRCL calculation 46 ml/min; Estimated Glomerular Filt Rate 54; Glucose 110 mg/dL (65-110); Potassium 3.4 mmol/L (3.4-5.0); Sodium 133 mmol/L (137-145)
[2023-06-05 05:15] LABS: Anisocytosis 1+ (NORMAL); Hypochromasia 1+ (NORMAL); Platelet Estimate Adequate (Adequate); Schistocytes None Seen (NORMAL)
[2023-06-05] MEDS: METOPROLOL TARTRATE 50 MG TAB PO ×3 (05:38→21:09)
[2023-06-05] MEDS: CENTRAL LINE FLUSH 10 ML IV PUSH ×3 (05:38→21:08)
[2023-06-05] MEDS: SUCRALFATE SUSP 100 MG/ML 10 ML UDC 1000 MG PO ×3 (05:38→21:09)
[2023-06-05 07:53] LABS: Glucose Point of Care 109 mg/dl (65-105)
[2023-06-05] MEDS: SOD HYPOCHLORITE 1/4 STRENGTH 473 ML 1 APPLIC TOPICAL (09:17)
[2023-06-05] MEDS: SIMVASTATIN 20 MG TABLET PO (09:17)
--- NOTE | 2023-06-05 10:37 | PM.IMPN ---
Progress Note: A&P Assessment and Plan (1) Wound infection: Code(s): T14.8XXA - Other injury of unspecified body region, initial encounter; L08.9 - Local infection of the skin and subcutaneous tissue, unspecified Status: Acute Assessment and Plan: Right buttock wound with purulent drainage and odor. Vancomycin and Cefepime started in ER 05/24, will continue for now. MRSA nasal screen ordered, add Flagyl 05/25 Blood cultures 05/30 NGTD End date for abx should be 06/07 to complete 8 day course from negative cultures, d/c vanc 06/01, cefepime + flagyl should cover bacteroides and ecoli per sens noted from wound cultures Escalate to ertapenem 06/02, d/c cefepime + flagyl Leukocytosis continues to fluctuate but trending down PICC line and d/c to complete abx with ertapenem until 06/07 06/04: buttocks wound bleeding again, re-consult general surgery for wound management, need better source control and bleeding management 06/05: eliquis on hold, general surgery re-consulted for re-eval of buttocks wound, not improving, stable for d/c otherwise (2) Pulmonary embolism: Code(s): I26.99 - Other pulmonary embolism without acute cor pulmonale Status: Acute Assessment and Plan: stable on room air cont a/c (3) Anemia: Code(s): D64.9 - Anemia, unspecified Status: Acute Assessment and Plan: worsening, check FOBT, hold eliquis, monitor (4) DVT (deep venous thrombosis): Code(s): I82.409 - Acute embolism and thrombosis of unspecified deep veins of unspecified lower extremity Status: Acute Assessment and Plan: Eliquis on hold again d/t wound bleeding (5) Chronic kidney disease, stage 4 (severe): Code(s): N18.4 - Chronic kidney disease, stage 4 (severe) Status: Acute Assessment and Plan: Stable, monitor (6) Diabetes mellitus type 2 in obese: Code(s): E11.69 - Type 2 diabetes mellitus with other specified complication; E66.9 - Obesity, unspecified Status: Acute Assessment and Plan: ACHS glucose checks, sliding scale low dose correction Blood glucose reviewed 06/05 (7) Atrial fibrillation: Code(s): I48.91 - Unspecified atrial fibrillation Status: Acute Assessment and Plan: Rate controlled at this time, atrial fibrillation on telemetry monitoring Plan DVT prophylaxis with eliquis--on hold d/t anemia GI prophylaxis not indicated Code status DNR Subjective Date/time seen: 06/05/23 10:37 Interval history: 83-year-old male with history of AFib, kidney disease, diabetes among other comorbidities is presenting with shortness of breath and being treated for sepsis with a buttocks decubitus ulcer wound. No overnight events noted. No chest pain or shortness of breath. No nausea, vomiting or diarrhea. No fevers or chills. Feels about the same as yesterday. Notified by nursing staff that patient is having bleeding from his buttocks wound. General surgery re-consulted. Review of Systems Review of Systems: 12 point review of systems was assessed and was negative except as noted in the HPI Exam Narrative: General: No acute distress, alert and oriented per baseline HEENT: Atraumatic, normocephalic, mucous membranes moist CV: Regular rate and rhythm, S1, S2 Lungs: Clear to auscultation bilaterally, no rales or crackles noted, no wheezes, good air entry Abdomen: Soft, nontender, nondistended Extremities: Normal to inspection Skin: Sacral decubitus ulcer covered, does not appear to be actively bleeding at this time Psych: Euthymic, normal affect Objective Data Vital Signs Vital Signs: Vital Signs - 24 hr 06/04/23 12:00 06/04/23 13:31 06/04/23 14:00 Temperature 97.5 F L Pulse Rate 106 H 115 H 101 H Respiratory Rate 16 Blood Pressure 108/48 L Pulse Oximetry 98 Oxygen Delivery 06/04/23 16:00 06/04/23 20:00 06/04/23 21:49 Temperature 96.2 F L
[2023-06-05 12:03] LABS: Glucose Point of Care 97 mg/dl (65-105)
[2023-06-05] MEDS: ERTAPENEM 1 GM/NS 50 ML 1 GM/50 ML BAG IVPB (12:48)
--- NOTE | 2023-06-05 13:21 | PCOTNOTE ---
Attempted to see pt for Occupational Therapy. Pt repeatedly states I don't understand...I don't know what to do. Pt observed to be confused expressing he does not know how he can pay for it. Therapist reoriented pt several times however, pt continues to repeatedly stated I don't understand. and becomes tearful. Pt was educated on the purpose of therapy however, was not able to comprehend it. RN states that pt has been very confused, tearful, refusing to eat breakfast/lunch, and out of it today. Family is supposed to be visiting later today. Will attempt per POC duration/frequency at a later time.
--- NOTE | 2023-06-05 15:17 | PCPTNOTE ---
Attempted to see patient for PT, however patient refused. Encouraged patient for participation, patient continued to refuse. Patient has been having increase confusion this date.
[2023-06-05 17:04] LABS: Glucose Point of Care 111 mg/dl (65-105)
[2023-06-05 20:04] LABS: Glucose Point of Care 123 mg/dl (65-105)
[2023-06-05] MEDS: PANTOPRAZOLE 40 MG TABLET PO (21:08)
[2023-06-06] VITALS (13 sets, daily range): BP systolic 105–120; BP diastolic 49–70; PULSE 89–106; RESP 16–17; TEMP 35.8–36.4; O2SAT 98–100
[2023-06-06] MEDS: SUCRALFATE SUSP 100 MG/ML 10 ML UDC 1000 MG PO ×2 (05:10→21:26)
[2023-06-06] MEDS: METOPROLOL TARTRATE 50 MG TAB PO ×3 (05:10→21:25)
[2023-06-06] MEDS: CENTRAL LINE FLUSH 10 ML IV PUSH ×3 (05:11→21:27)
[2023-06-06] MEDS: ALTEPLASE 2 MG VIAL (CATHFLO) IV PUSH ×3 (06:08→11:19)
[2023-06-06] MEDS: ACETAMINOPHEN 325 MG TABLET 650 MG PO (06:36)
[2023-06-06 08:03] LABS: Glucose Point of Care 118 mg/dl (65-105)
[2023-06-06] MEDS: SIMVASTATIN 20 MG TABLET PO (08:39)
--- NOTE | 2023-06-06 09:00 | PM.IMPN ---
Progress Note: A&P Assessment and Plan (1) Wound infection: Code(s): T14.8XXA - Other injury of unspecified body region, initial encounter; L08.9 - Local infection of the skin and subcutaneous tissue, unspecified Status: Acute Assessment and Plan: Right buttock wound with purulent drainage and odor. Vancomycin and Cefepime started in ER 05/24, will continue for now. MRSA nasal screen ordered, add Flagyl 05/25 Blood cultures 05/30 NGTD End date for abx should be 06/07 to complete 8 day course from negative cultures, d/c vanc 06/01, cefepime + flagyl should cover bacteroides and ecoli per sens noted from wound cultures Escalate to ertapenem 06/02, d/c cefepime + flagyl Leukocytosis continues to fluctuate but trending down PICC line and d/c to complete abx with ertapenem until 06/07 06/04: buttocks wound bleeding again, re-consult general surgery for wound management, need better source control and bleeding management 06/05: eliquis on hold, general surgery re-consulted for re-eval of buttocks wound, not improving, stable for d/c otherwise 06/06: leuk fluctuating, hgb pending, awaiting surgery recs for d/c planning (2) Pulmonary embolism: Code(s): I26.99 - Other pulmonary embolism without acute cor pulmonale Status: Acute Assessment and Plan: Stable on room air, hold eliquis (3) Anemia: Code(s): D64.9 - Anemia, unspecified Status: Acute Assessment and Plan: Hold eliquis, monitor (4) DVT (deep venous thrombosis): Code(s): I82.409 - Acute embolism and thrombosis of unspecified deep veins of unspecified lower extremity Status: Acute Assessment and Plan: Eliquis on hold again d/t wound bleeding (5) Chronic kidney disease, stage 4 (severe): Code(s): N18.4 - Chronic kidney disease, stage 4 (severe) Status: Acute Assessment and Plan: Stable, monitor (6) Diabetes mellitus type 2 in obese: Code(s): E11.69 - Type 2 diabetes mellitus with other specified complication; E66.9 - Obesity, unspecified Status: Acute Assessment and Plan: ACHS glucose checks, sliding scale low dose correction Blood glucose reviewed 06/06 (7) Atrial fibrillation: Code(s): I48.91 - Unspecified atrial fibrillation Status: Acute Assessment and Plan: Rate controlled at this time, atrial fibrillation on telemetry monitoring Plan DVT prophylaxis with eliquis--on hold d/t anemia GI prophylaxis not indicated Code status DNR Subjective Date/time seen: 06/06/23 09:00 Interval history: 83-year-old male with history of AFib, kidney disease, diabetes among other comorbidities is presenting with shortness of breath and being treated for sepsis with a buttocks decubitus ulcer wound. No overnight events noted. No chest pain or shortness of breath. No nausea, vomiting or diarrhea. No fevers or chills. Feels better than yesterday, less bleeding and less pain. Review of Systems Review of Systems: 12 point review of systems was assessed and was negative except as noted in the HPI Exam Narrative: General: No acute distress, alert and oriented per baseline HEENT: Atraumatic, normocephalic, mucous membranes moist CV: Regular rate and rhythm, S1, S2 Lungs: Clear to auscultation bilaterally, no rales or crackles noted, no wheezes, good air entry Abdomen: Soft, nontender, nondistended Extremities: Normal to inspection Skin: Sacral decubitus ulcer covered, does not appear to be actively bleeding at this time Psych: Euthymic, normal affect Objective Data Vital Signs Vital Signs: Vital Signs - 24 hr 06/05/23 11:57 06/05/23 14:24 06/05/23 16:55 Temperature 97.6 F 96.6 F L Pulse Rate 99 113 H 102 H Respiratory Rate 18 18 Blood Pressure 113/82 116/55 L Pulse Oximetry 99 100 Oxygen Delivery 06/05/23 12:00 06/05/23 16:00 06/05/23 21:09 Temperature Pulse Rate 103 H 111 H 11
--- NOTE | 2023-06-06 09:58 | PCOTNOTE ---
Attempted to see pt for Occupational Therapy. Pt is currently sleeping and will only nod his head yes when therapist calls his name out, but will not open his eyes. Per RN, pt is appropriate for only bed level therapeutic activities at this time and will possibly be having a procedure later today.
--- NOTE | 2023-06-06 10:47 | PCNFU ---
Nutrition Follow-Up Complete: Increased nutrient needs related to altered skin integrity as evidenced by noted pressure injury to sacrum Goal: PO intake 75% or greater for meals Patient is progressing towards goal. We will continue current goal. Pt current nutrition is NPO. Nutrition recommendation:Advance to [facility] diet after procedure Last recorded weight is 122 kg up from 116 kg on admit. Bowel Motility:+BM reported 06/04 Labs Reviewed:no new labs to report. Meds Noted:NovoLog, Lopressor, Protonix Skin: unstageable pressure ulcer- sacrum Additional Notes: Patient is currently NPO for I & D of sacral wound today. Overall intake has been good. Diet supplements of Rory and Glucerna BID being sent for wound healing. Agree with diet orders. Monitor intake, wt, labs, skin. Follow up in 7 days.
[2023-06-06 12:03] LABS: Glucose Point of Care 101 mg/dl (65-105)
[2023-06-06] MEDS: SOD HYPOCHLORITE 1/4 STRENGTH 473 ML 1 APPLIC TOPICAL (14:12)
[2023-06-06] MEDS: ERTAPENEM 1 GM/NS 50 ML 1 GM/50 ML BAG IVPB (14:13)
[2023-06-06 17:13] LABS: Glucose Point of Care 122 mg/dl (65-105)
[2023-06-06 19:13] LABS: Hematocrit 24.2 % (42.0-52.0); Hemoglobin 7.1 g/dL (14.0-18.0); Mean Corpuscular HGB Conc 29.3 g/dl (32-36); Mean Corpuscular Hemoglobin 27.7 pg (26-34); Mean Corpuscular Volume 94.5 fl (80-100); Mean Platelet Volume 8.3 fl (7.4-10.4); Platelet Count Result 366 k/mm3 (150-375); Red Blood Count 2.56 M/mm3 (4.6-6.20); Red Cell Distribution Width 19.2 % (11.5-14.5); White Blood Count 16.4 K/mm3 (4.5-10.0)
[2023-06-06 19:34] LABS: Alanine Aminotransferase 25 U/L (6-50); Albumin Level 2.5 g/dL (3.5-5.1); Alkaline Phosphatase 211 U/L (38-126); Anion Gap 5 mmol/L (8-16); Aspartate Amino Transferase 35 U/L (17-59); Bilirubin,Total 0.1 mg/dL (0.2-1.3); Blood Urea Nitrogen 18 mg/dL (9-20); Calcium 8.8 mg/dL (8.4-10.2); Carbon Dioxide 23 mmol/L (22-30); Chloride 110 mmol/L (98-107); Estimated CRCL calculation 43 ml/min; Estimated Glomerular Filt Rate 50; Glucose 106 mg/dL (65-110); Potassium 3.6 mmol/L (3.4-5.0); Sodium 138 mmol/L (137-145)
[2023-06-06 20:01] LABS: Eosinophils Absolute Manual 0.32 K/mm3 (0.02-0.5); Eosinophils Percent Manual 2 % (0-4); Lymphocytes Absolute Manual 9.34 K/mm3 (1.1-4.5); Monocytes Absolute Manual 1.64 K/mm3 (0.1-0.90); Monocytes Percent Manual 10 % (3-9); Neutrophils Percent Manual 31 % (46-73); Nucleated Red Blood Cells 1 %; Platelet Estimate Adequate (Adequate); Schistocytes None Seen (NORMAL); Total Cells Counted 100
[2023-06-06 20:02] LABS: Anisocytosis 3+ (NORMAL); Hypochromasia 1+ (NORMAL)
[2023-06-06 21:07] LABS: Glucose Point of Care 97 mg/dl (65-105)
[2023-06-06] MEDS: PANTOPRAZOLE 40 MG TABLET PO (21:26)
[2023-06-07] VITALS (27 sets, daily range): BP systolic 94–136; BP diastolic 44–92; PULSE 83–118; RESP 13–20; TEMP 36.1–36.8; O2SAT 90–100
[2023-06-07] MEDS: SUCRALFATE SUSP 100 MG/ML 10 ML UDC 1000 MG PO ×2 (06:06→21:43)
[2023-06-07] MEDS: METOPROLOL TARTRATE 50 MG TAB PO ×3 (06:06→22:28)
[2023-06-07] MEDS: CENTRAL LINE FLUSH 10 ML IV PUSH ×3 (06:07→21:43)
[2023-06-07 06:25] LABS: Basophils Absolute Auto 0.1 K/mm3 (0.0-0.1); Basophils Percent Auto 0.3 % (0.2-1.2); Eosinophils Absolute Auto 0.1 K/mm3 (0-0.3); Eosinophils Percent Auto 0.9 % (0-4.4); Hematocrit 22.4 % (42.0-52.0); Immature Granulocyte Absolute 0.66 K/mm3 (0.00-0.031); Immature Granulocyte Percent A 4.5 % (0-0.5); Lymphocytes Absolute Auto 6.06 K/mm3 (0.9-3.2); Lymphocytes Percent Auto 41.6 % (18.3-44.2); Mean Corpuscular HGB Conc 29.9 g/dl (32-36); Mean Corpuscular Hemoglobin 27.8 pg (26-34); Mean Corpuscular Volume 92.9 fl (80-100); Mean Platelet Volume 8.5 fl (7.4-10.4); Monocytes Absolute Auto 1.1 K/mm3 (0.1-0.6); Monocytes Percent Auto 7.3 % (2.6-8.5); Neutrophils Absolute Auto 6.6 K/mm3 (1.3-6.7); Neutrophils Percent Auto 45.4 % (45.5-73.1); Nucleated Red Blood Cells Absolute Auto 0.1 K/mm3 (0.0-0.012); Nucleated Red Blood Cells Perc 0.4 % (0.0-0.2); Platelet Count Result 342 k/mm3 (150-375); Red Blood Count 2.41 M/mm3 (4.6-6.20); Red Cell Distribution Width 18.9 % (11.5-14.5); White Blood Count 14.6 K/mm3 (4.5-10.0)
[2023-06-07 06:30] LABS: Glucose Point of Care 88 mg/dl (65-105)
[2023-06-07 06:34] LABS: Hemoglobin 6.7 g/dL (14.0-18.0)
[2023-06-07 06:48] LABS: Alanine Aminotransferase 23 U/L (6-50); Albumin Level 2.2 g/dL (3.5-5.1); Alkaline Phosphatase 186 U/L (38-126); Anion Gap -1 mmol/L (8-16); Aspartate Amino Transferase 31 U/L (17-59); Bilirubin,Total 0.2 mg/dL (0.2-1.3); Blood Urea Nitrogen 18 mg/dL (9-20); Calcium 8.6 mg/dL (8.4-10.2); Carbon Dioxide 25 mmol/L (22-30); Chloride 112 mmol/L (98-107); Estimated CRCL calculation 43 ml/min; Estimated Glomerular Filt Rate 50; Glucose 92 mg/dL (65-110); Potassium 3.5 mmol/L (3.4-5.0); Sodium 136 mmol/L (137-145)
[2023-06-07 06:59] LABS: Platelet Estimate Adequate (Adequate)
[2023-06-07 07:00] LABS: Anisocytosis 1+ (NORMAL); Polychromasia 1+ (NORMAL); Schistocytes None Seen (NORMAL)
[2023-06-07 07:01] LABS: Burr Cells 1+ (NORMAL)
--- NOTE | 2023-06-07 07:18 | PM.DS ---
DS: Admitting Diagnosis Discharge Date 06/07/23 Admitting Diagnosis sob DS: Discharge Diagnosis Discharge Diagnosis (1) Wound infection: Code(s): T14.8XXA - Other injury of unspecified body region, initial encounter; L08.9 - Local infection of the skin and subcutaneous tissue, unspecified Status: Acute Assessment and Plan: Right buttock wound with purulent drainage and odor. Vancomycin and Cefepime started in ER 05/24, will continue for now. MRSA nasal screen ordered, add Flagyl 05/25 Blood cultures 05/30 NGTD End date for abx should be 06/07 to complete 8 day course from negative cultures, d/c vanc 06/01, cefepime + flagyl should cover bacteroides and ecoli per sens noted from wound cultures Escalate to ertapenem 06/02, d/c cefepime + flagyl Leukocytosis continues to fluctuate but trending down PICC line and d/c to complete abx with ertapenem until 06/07 06/04: buttocks wound bleeding again, re-consult general surgery for wound management, need better source control and bleeding management 06/05: eliquis on hold, general surgery re-consulted for re-eval of buttocks wound, not improving, stable for d/c otherwise 06/06: leuk fluctuating, hgb pending, awaiting surgery recs for d/c planning (2) Pulmonary embolism: Code(s): I26.99 - Other pulmonary embolism without acute cor pulmonale Status: Acute Assessment and Plan: Stable on room air, hold eliquis (3) Anemia: Code(s): D64.9 - Anemia, unspecified Status: Acute Assessment and Plan: Hold eliquis, monitor (4) DVT (deep venous thrombosis): Code(s): I82.409 - Acute embolism and thrombosis of unspecified deep veins of unspecified lower extremity Status: Acute Assessment and Plan: Eliquis on hold again d/t wound bleeding (5) Chronic kidney disease, stage 4 (severe): Code(s): N18.4 - Chronic kidney disease, stage 4 (severe) Status: Acute Assessment and Plan: Stable, monitor (6) Diabetes mellitus type 2 in obese: Code(s): E11.69 - Type 2 diabetes mellitus with other specified complication; E66.9 - Obesity, unspecified Status: Acute Assessment and Plan: ACHS glucose checks, sliding scale low dose correction Blood glucose reviewed 06/06 (7) Atrial fibrillation: Code(s): I48.91 - Unspecified atrial fibrillation Status: Acute Assessment and Plan: Rate controlled at this time, atrial fibrillation on telemetry monitoring Plan DVT prophylaxis with eliquis--on hold d/t anemia GI prophylaxis not indicated Code status DNR DS: Summary Time Spent with Patient Time attestation: Total time spent providing and/or coordinating discharge services: Exam Narrative: General: No acute distress, alert and oriented per baseline HEENT: Atraumatic, normocephalic, mucous membranes moist CV: Regular rate and rhythm, S1, S2 Lungs: Clear to auscultation bilaterally, no rales or crackles noted, no wheezes, good air entry Abdomen: Soft, nontender, nondistended Extremities: Normal to inspection Skin: Sacral decubitus ulcer covered, does not appear to be actively bleeding at this time Psych: Euthymic, normal affect DS: Data Data Completed and Pending Labs on day of discharge: Labs from last 24 hours 06/07/23 06/07/23 06/06/23 06:28 06:15 20:39 WBC 14.6 H RBC 2.41 L Hgb 6.7 L* Hct 22.4 L MCV 92.9 MCH 27.8 MCHC 29.9 L RDW 18.9 H Plt Count 342 MPV 8.5 Immature Gran % (Auto) 4.5 H Neut % (Auto) 45.4 L Lymph % (Auto) 41.6 Curry % (Auto) 7.3 Eos % (Auto) 0.9 Baso % (Auto) 0.3 Lymph # (Auto) 6.06 H Curry # (Auto) 1.1 H Eos # (Auto) 0.1 Baso # (Auto) 0.1 Abs Immat Gran (auto) 0.66 H Absolute Neuts (auto) 6.6 Absolute Nucleated RBC 0.1 H Total Counted Neutrophils % (Manual) Lymphocytes % (Manual) Monocytes % (Manual) Eosinophils % (Manua
--- NOTE | 2023-06-07 07:21 | PM.IMPN ---
Progress Note: A&P Assessment and Plan (1) Wound infection: Code(s): T14.8XXA - Other injury of unspecified body region, initial encounter; L08.9 - Local infection of the skin and subcutaneous tissue, unspecified Status: Acute Assessment and Plan: Right buttock wound with purulent drainage and odor. Vancomycin and Cefepime started in ER 05/24, will continue for now. MRSA nasal screen ordered, add Flagyl 05/25 Blood cultures 05/30 NGTD End date for abx should be 06/07 to complete 8 day course from negative cultures, d/c vanc 06/01, cefepime + flagyl should cover bacteroides and ecoli per sens noted from wound cultures Escalate to ertapenem 06/02, d/c cefepime + flagyl Leukocytosis continues to fluctuate but trending down PICC line and d/c to complete abx with ertapenem until 06/07 06/04: buttocks wound bleeding again, re-consult general surgery for wound management, need better source control and bleeding management 06/05: eliquis on hold, general surgery re-consulted for re-eval of buttocks wound, not improving, stable for d/c otherwise 06/06: leuk fluctuating, hgb pending, awaiting surgery recs for d/c planning 06/07: leuk fluctuating, reached end date of abx, still bleeding with eliquis on hold, transfuse 1 unit and monitor, appreciate heneral surgery consult. OR today for debridement and wound vac placement (2) Pulmonary embolism: Code(s): I26.99 - Other pulmonary embolism without acute cor pulmonale Status: Acute Assessment and Plan: Stable on room air, hold eliquis (3) Anemia: Code(s): D64.9 - Anemia, unspecified Status: Acute Assessment and Plan: Hold eliquis, monitor (4) DVT (deep venous thrombosis): Code(s): I82.409 - Acute embolism and thrombosis of unspecified deep veins of unspecified lower extremity Status: Acute Assessment and Plan: Eliquis on hold again d/t wound bleeding (5) Chronic kidney disease, stage 4 (severe): Code(s): N18.4 - Chronic kidney disease, stage 4 (severe) Status: Acute Assessment and Plan: Stable, monitor (6) Diabetes mellitus type 2 in obese: Code(s): E11.69 - Type 2 diabetes mellitus with other specified complication; E66.9 - Obesity, unspecified Status: Acute Assessment and Plan: ACHS glucose checks, sliding scale low dose correction Blood glucose reviewed 06/07 (7) Atrial fibrillation: Code(s): I48.91 - Unspecified atrial fibrillation Status: Acute Assessment and Plan: Rate controlled at this time, atrial fibrillation on telemetry monitoring Plan DVT prophylaxis with eliquis--on hold d/t anemia GI prophylaxis not indicated Code status DNR Subjective Date/time seen: 06/07/23 07:21 Interval history: 83-year-old male with history of AFib, kidney disease, diabetes among other comorbidities is presenting with shortness of breath and being treated for sepsis with a buttocks decubitus ulcer wound. No overnight events noted. No chest pain or shortness of breath. No nausea, vomiting or diarrhea. No fevers or chills. Going to the OR. Review of Systems Review of Systems: 12 point review of systems was assessed and was negative except as noted in the HPI Exam Narrative: General: No acute distress, alert and oriented per baseline HEENT: Atraumatic, normocephalic, mucous membranes moist CV: Regular rate and rhythm, S1, S2 Lungs: Clear to auscultation bilaterally, no rales or crackles noted, no wheezes, good air entry Abdomen: Soft, nontender, nondistended Extremities: Normal to inspection Skin: No rashes noted, no lesions or wounds seen Psych: Euthymic, normal affect Objective Data Vital Signs Vital Signs: Vital Signs - 24 hr 06/06/23 07:55 06/06/23 08:25 06/06/23 11:57 Temperature 96.4 F L 96.4 F L Pulse Rate 94 102 H Respiratory Rate 16 17 Blood Pressure 109/70 108/59 L Pulse Oximetry 100 10
[2023-06-07] MEDS: SIMVASTATIN 20 MG TABLET PO (08:09)
--- NOTE | 2023-06-07 08:21 | PCOTNOTE ---
Frequency of OT treatments decreased to .2-3x/wk due to pt. motivation and compliance.
[2023-06-07] MEDS: SOD HYPOCHLORITE 1/4 STRENGTH 473 ML 1 APPLIC TOPICAL (10:45)
[2023-06-07 12:04] LABS: Glucose Point of Care 89 mg/dl (65-105)
[2023-06-07] MEDS: ERTAPENEM 1 GM/NS 50 ML 1 GM/50 ML BAG IVPB (13:08)
--- NOTE | 2023-06-07 15:02 | WPDANESEPPF ---
Anes - Initial Pre Proc Eval Procedure: Operation Date: 05/26/23 15:00 Proposed Procedures p Excisional Debridement Infected And Necrotic Sacral Decubitus - Michael Gayle MD Operation Date: 06/07/23 15:30 Proposed Procedures p Debridement Sacral Decubitus Wound,Placement Of Wound Vac - Brad Pérez MD Date/Time: 06/07/23 15:02 Surgeon: Monty Espinosa MD Pre Op Diagnosis: pulmonary emboli Patient Data Age: 83 Gender: M Height: 1.83 m Weight: 268 kg Last Vital Signs Temp 36.6 C 06/07/23 14:10 Pulse 97 06/07/23 14:10 Resp 20 06/07/23 14:10 BP 107/52 L 06/07/23 14:10 Pulse Ox 100 06/07/23 14:10 O2 Del Method Room Air 06/06/23 19:54 O2 Flow Rate 6 05/26/23 16:03 Allergies Allergy/AdvReac Type Severity Reaction Status Date / Time No Known Drug Allergies Allergy Unknown Unknown Verified 05/24/23 15:17 Home Medications Medication Instructions Recorded Confirmed Type acetaminophen 325 mg tablet (Mapap 650 mg PO Q4H PRN Pain Rated 5 Or 05/19/23 05/24/23 Rx (acetaminophen)) Less 1 month #30 tabs apixaban 5 mg tablet (Eliquis) 5 mg PO Q12HR 1 month #60 tabs 05/19/23 05/24/23 Rx diltiazem HCl 60 mg tablet 60 mg PO Q8HR 1 month #90 tabs 05/19/23 05/24/23 Rx metoprolol tartrate 50 mg tablet 50 mg PO Q8HR 1 month #90 tabs 05/19/23 05/24/23 Rx pantoprazole 40 mg tablet,delayed 40 mg PO HS 1 month #30 tabs 05/19/23 05/24/23 Rx release (Protonix) sucralfate 100 mg/mL oral 1,000 mg (10 mL) PO ACHS 1 month 05/19/23 05/24/23 Rx suspension #1,200 mL arginine-vitamin C-vitamin E oral 4.5 g PO BID 05/24/23 05/24/23 History 4.5 gram-156 mg/9.2 gram powder pkt collagenase clostridium histo. 250 1 applic topical DAILY 05/24/23 05/24/23 History unit/gram topical ointment (Santyl) simvastatin 20 mg tablet 20 mg PO DAILY 05/24/23 05/24/23 History Laboratory Tests 06/06/23 06/06/23 06/06/23 16:59 18:58 20:39 WBC 16.4 H K/mm3 (4.5-10.0) RBC 2.56 L M/mm3 (4.6-6.20) Hgb 7.1 L g/dL (14.0-18.0) Hct 24.2 L % (42.0-52.0) MCV 94.5 fl (80-100) MCH 27.7 pg (26-34) MCHC 29.3 L g/dl (32-36) RDW 19.2 H % (11.5-14.5) Plt Count 366 k/mm3 (150-375) MPV 8.3 fl (7.4-10.4) Immature Gran % (Auto) Not Reportable Neut % (Auto) Not Reportable Lymph % (Auto) Not Reportable [place] % (Auto) Not Reportable Eos % (Auto) Not Reportable Baso % (Auto) Not Reportable Lymph # (Auto) Not Reportable [place] # (Auto) Not Reportable Eos # (Auto) Not Reportable Baso # (Auto) Not Reportable Abs Immat Gran (auto) Not Reportable Absolute Neuts (auto) Not Reportable Absolute Nucleated RBC Not Reportable Total Counted 100 Neutrophils % (Manual) 31 L % (46-73) Lymphocytes % (Manual) 57.0 H % (18-44) Monocytes % (Manual) 10 H % (3-9) Eosinophils % (Manual) 2 % (0-4) Nucleated RBC % Not Reportable Abs Lymphs (Manual) 9.34 H K/mm3 (1.1-4.5) Abs Monocytes (Manual) 1.64 H K/mm3 (0.1-0.90) Absolute Eos (Manual) 0.32 K/mm3 (0.02-0.5) Nucleated RBCs 1 % Platelet Estimate Adequate (Adequate) Polychromasia Hypochromasia 1+ (NORMAL) Anisocytosis 3+ (NORMAL) Shakila Cells Schistocytes None seen (NORMAL) Sodium 138 mmol/L (137-145) Potassium 3.6 mmol/L (3.4-5.0) Chloride 110 H mmol/L (98-107) Carbon Dioxide 23 mmol/L (22-30) Anion Gap 5 L mmol/L (8-16) BUN 18 mg/dL (9-20) Creatinine 1.60 H mg/dL (0.7-1.3) Estim Creat Clear Calc 43 ml/min Estimated GFR 50 L (59 - ) Glu
--- NOTE | 2023-06-07 15:25 | PM.PNGS ---
Progress Note: A&P Assessment and Plan (1) Sacral decubitus ulcer: Qualifiers: Pressure injury stage: stage 4 Qualified Code(s): L89.154 - Pressure ulcer of sacral region, stage 4 Code(s): L89.159 - Pressure ulcer of sacral region, unspecified stage Status: Acute Assessment and Plan: Pt needs additional debridement of necrotic tissue from sacral decubitus wound. Will go to OR today and debride and try to place wound vac. Subjective Subjective Date/Time Seen: 06/07/23 15:25 Interval history: Pt with chronic sacral decubitus ulcer that has had debridement x 1 about a week ago by Dr. Gayle. He has residual necrotic tissue that needs to be debrided today and try to place a wound vac. WBC still 72310, no fever. Review of Systems Review of Systems: The remainder of the review of systems to include constitutional, HEENT, cardiovascular, respiratory, GI, , integumentary, musculoskeletal, endocrine, immunologic, hematologic, psychiatric, and neurologic are all negative except for which is mentioned above in the HPI. Exam Const: General: comfortable and no acute distress Neck: Neck: supple and no JVD Resp: Effort & Inspection: normal respiratory effort Auscultation: clear to auscultation bilaterally Cardio: Rate: regular rate Rhythm: regular rhythm Skin: Other: Large sacral decubitus wound withe right lateral necrotic skin and SQ tissue. Objective Data Vital Signs Vital Signs: Vital Signs - 24 hr 06/06/23 16:00 06/06/23 16:55 06/06/23 19:54 Temperature 36.4 C Pulse Rate 92 90 Respiratory Rate 16 Blood Pressure 117/49 L Pulse Oximetry 98 Oxygen Delivery Room Air 06/06/23 20:47 06/06/23 21:25 06/06/23 20:11 Temperature 36.4 C Pulse Rate 98 98 106 H Respiratory Rate 16 Blood Pressure 120/68 Pulse Oximetry 99 Oxygen Delivery 06/07/23 00:04 06/07/23 01:04 06/07/23 04:00 Temperature 36.6 C Pulse Rate 90 96 90 Respiratory Rate 16 Blood Pressure 109/59 L Pulse Oximetry 100 Oxygen Delivery 06/07/23 05:59 06/07/23 06:06 06/07/23 11:00 Temperature 36.6 C 36.1 C L Pulse Rate 89 89 98 Respiratory Rate 20 18 Blood Pressure 97/58 L 106/61 Pulse Oximetry 100 99 Oxygen Delivery 06/07/23 11:15 06/07/23 08:00 06/07/23 12:00 Temperature 36.3 C L Pulse Rate 96 99 106 H Respiratory Rate 18 Blood Pressure 112/66 Pulse Oximetry 99 Oxygen Delivery 06/07/23 12:15 06/07/23 13:15 06/07/23 14:10 Temperature 36.8 C 36.4 C L 36.6 C Pulse Rate 94 83 97 Respiratory Rate 18 16 20 Blood Pressure 103/62 112/63 107/52 L Pulse Oximetry 98 100 100 Oxygen Delivery 06/07/23 15:18 Temperature 36.2 C L Pulse Rate 107 H Respiratory Rate 16 Blood Pressure 121/74 Pulse Oximetry 100 Oxygen Delivery Room Air Intake/Output Intake/Output: Intake & Output 06/04/23 06/05/23 06/06/23 06/07/23 23:59 23:59 23:59 23:59 Intake Total 790 440 390 600 Output Total 1250 700 725 350 Balance -460 -260 -335 250 Meds/Results Medications: Active Medications Generic Name Dose Route Start Last Admin Trade Name Freq PRN Reason Stop Dose Admin Acetaminophen 650 mg 05/24/23 22:25 06/06/23 06:36 Acetaminophen 325 Mg Tablet PO 650 mg Q4H PRN Administration Pain Rated 5 Or Less Alteplase, Recombinant 2 mg 06/06/23 05:38 06/06/23 11:19 Alteplase 2 Mg Vial (Cathflo) IV PUSH 2 mg ONCE PRN Administration Line Occlusion Apixaban 5 mg 06/03/23 21:00 06/03/23 22:20 Apixaban 5 Mg Tablet PO Not Given Q12HR MENDEZ Dextrose 12.5 gm 05/24/23 18:22 Dextrose 50% 25 Gm/50 Ml Syringe IV PUSH PRN PRN Hypoglycemia Protocol Fentanyl Citrate 25 mcg 06/07/23 15:03 Fentanyl Citrate Inj (*Crx) 100 Mcg/2 Ml Vial IV PUSH Q2M PRN Pain Glucagon 1 mg 05/24/23 18:22 Glucagon For Inj 1 Mg Vial IM PRN PRN Hypoglycemia Protocol Gluc
--- NOTE | 2023-06-07 15:32 | WPDHPUPDATE1 ---
History and Physical Update Update Date/Time: 06/07/23 15:32 History and Physical has been reviewed, including an updated exam of the patient. There are NO changes in the patient's condition. Risks, benefits, and alternatives have been discussed and questions answered. Patient agrees to proceed with procedure.
[2023-06-07] MEDS: LACTATED RINGERS 1,000 ML 30 ML IV CONT ×2 (16:35→17:32)
--- NOTE | 2023-06-07 16:40 | PM.OP ---
Procedure Note - Brief Procedure Note - Brief Date of procedure: 06/07/23 Stage IV sacral decubitus ulcer Post-op diagnosis: Same Surgeon: Brad Pérez MD Anesthesia: GETA Findings: Large stage IV sacral decubitus ulcer with nonviable necrotic skin, muscle, and sacral periosteum. After debridement wound measured 14 x 12x3cm. Implants: Wound VAC sacral decubitus ulcer Estimated blood loss (mL): 25 Drains: No Packing: Yes (Wound VAC) Pathology: None sent Complications: No immediate complications Condition: Stable Disposition: PACU
[2023-06-07 16:42] LABS: Glucose Point of Care 98 mg/dl (65-105)
--- NOTE | 2023-06-07 16:53 | W.PM.PROC2 ---
Procedure Note - Detailed Date of Procedure 06/07/23 Pre-op Diagnosis Stage IV sacral decubitus ulcer Post-op Diagnosis Same Procedure Performed Sharp scalpel debridement of stage IV sacral decubitus ulcer placement of wound VAC Surgeon Brad Pérez MD Anesthesia General Indications Patient is a 83-year-old debilitated male who has been in the hospital for quite some time after repair of an incarcerated ventral hernia. Prior to that time he had recent surgery for decompression of spinal stenosis and at that time had started to developed a sacral decubitus ulcer. His further admission and prolonged hospital stay here in the hospital has seen progression of the sacral decubitus ulcer. He has had 1 debridement of the ulcer surgically in the operating room about a week ago and he still has necrotic tissue and skin needs further debridement. Findings Necrotic skin, subcutaneous tissue, muscle, and periosteum of the sacrum. After debridement of all the necrotic tissue the wound measured [id number]. Description of Procedure After informed consent was obtained patient brought to the operating room placed under general endotracheal anesthesia on the rney in then turned onto the prone sandy-knife position on operating table. The sacrum and perianal region was then prepped and draped in usual sterile fashion. A time-out was then performed correctly identifying the patient as well as procedure to be performed. He was on scheduled IV antibiotics. I then proceeded to start the procedure by sharply excising away the necrotic skin and subcutaneous tissues around the wound with sharp scalpel dissection. Additional sharp scalpel dissection to the level of muscle as well as periosteum of the sacrum was performed. All this necrotic tissue was discarded. When I was finished debridement of all the nonviable tissue the wound measured 14cm in length by 12cm width by 3cm in depth. I then irrigated out the wound with sterile saline solution. There was about 2cm the perianal skin which was viable. Hemostasis was achieved with utilize electrocautery. I then proceeded to apply wound VAC to the decubitus ulcer. A small strip of DuoDerm was applied to the 2cm margin of perianal skin that I had preserved. Black sponge was then placed within the wound and then covered with the adhesive clear dressing. This dressing was applied to the DuoDerm on the perianal skin. The black sponge was extended laterally of the right hip region and then a hole was cut into the adhesive dressing to apply the suction pad. The suction pad was applied laterally so that he would not have to lie onto the tubing when he was supine. Once we had all the adhesive dressing in place we then turned on the wound VAC to a suction of 125mmHg. We achieved good seal on the wound VAC without any air leaks. The patient tolerated the procedure well no complications. All sponges, needles, and instrument counts were correct at the end procedure. EBL was _25__cc. The patient was awakened and taken to recovery in stable and satisfactory condition. Estimated Blood Loss 25 Drains No Packing Yes (Wound VAC to decubitus wound.) Pathology None sent Complications No immediate complications Condition Stable Disposition PACU [facility] Billing Surgery - Charge Forward: Surgery Billing
--- NOTE | 2023-06-07 17:21 | PC.NURSE ---
On 06/07/23, the Licence pending nurse, Gloria Andrade, provided care and completed [facility] documentation on this patient. I have reviewed the Licence pending nurse's documentation and agree with the findings.
[2023-06-07] MEDS: fentaNYL CITRATE INJ (*CRX) 100 MCG/2 ML VIAL 25 MCG IV PUSH ×2 (17:30→17:40)
--- NOTE | 2023-06-07 17:53 | SUR.PHASEI ---
pt HR is in 1teen to [address]s afib [address] underwood is aware and said he is ok with pt going up due to pt coming down the same way and having a history of that. pt is stable and meets criteria for going to inpt.
--- NOTE | 2023-06-07 19:17 | PC.NURSE ---
On 06/06/23-06/07/23, the RN license pending, Jamil Larsen, provided care and [facility] I have reviewed the RN's documentation and agree with the findings.
[2023-06-07 20:06] LABS: Glucose Point of Care 94 mg/dl (65-105)
[2023-06-07] MEDS: PANTOPRAZOLE 40 MG TABLET PO (21:43)
[2023-06-08] VITALS (14 sets, daily range): BP systolic 102–109; BP diastolic 50–62; PULSE 88–114; RESP 18–19; TEMP 36–36.6; O2SAT 96–100
[2023-06-08 05:06] LABS: Basophils Absolute Auto 0.1 K/mm3 (0.0-0.1); Basophils Percent Auto 0.5 % (0.2-1.2); Eosinophils Absolute Auto 0.1 K/mm3 (0-0.3); Eosinophils Percent Auto 0.8 % (0-4.4); Hematocrit 25.2 % (42.0-52.0); Hemoglobin 7.5 g/dL (14.0-18.0); Immature Granulocyte Absolute 0.45 K/mm3 (0.00-0.031); Lymphocytes Absolute Auto 3.33 K/mm3 (0.9-3.2); Lymphocytes Percent Auto 29.5 % (18.3-44.2); Mean Corpuscular HGB Conc 29.8 g/dl (32-36); Mean Corpuscular Hemoglobin 27.7 pg (26-34); Mean Platelet Volume 8.4 fl (7.4-10.4); Monocytes Percent Auto 8.5 % (2.6-8.5); Neutrophils Absolute Auto 6.4 K/mm3 (1.3-6.7); Neutrophils Percent Auto 56.7 % (45.5-73.1); Nucleated Red Blood Cells Perc 0.4 % (0.0-0.2); Platelet Count Result 332 k/mm3 (150-375); Red Blood Count 2.71 M/mm3 (4.6-6.20); Red Cell Distribution Width 18.7 % (11.5-14.5); White Blood Count 11.3 K/mm3 (4.5-10.0)
[2023-06-08 05:16] LABS: Alanine Aminotransferase 22 U/L (6-50); Albumin Level 2.4 g/dL (3.5-5.1); Alkaline Phosphatase 185 U/L (38-126); Anion Gap 3 mmol/L (8-16); Aspartate Amino Transferase 28 U/L (17-59); Bilirubin,Total 0.2 mg/dL (0.2-1.3); Blood Urea Nitrogen 16 mg/dL (9-20); Calcium 8.7 mg/dL (8.4-10.2); Carbon Dioxide 25 mmol/L (22-30); Chloride 111 mmol/L (98-107); Estimated CRCL calculation 43 ml/min; Estimated Glomerular Filt Rate 50; Glucose 95 mg/dL (65-110); Potassium 3.7 mmol/L (3.4-5.0); Sodium 139 mmol/L (137-145)
[2023-06-08 05:36] LABS: Hypochromasia 1+ (NORMAL); Platelet Estimate Adequate (Adequate)
[2023-06-08 05:37] LABS: Anisocytosis 1+ (NORMAL); Burr Cells 1+ (NORMAL); Polychromasia 1+ (NORMAL); Schistocytes None Seen (NORMAL)
[2023-06-08] MEDS: SUCRALFATE SUSP 100 MG/ML 10 ML UDC 1000 MG PO ×4 (06:10→21:15)
[2023-06-08] MEDS: METOPROLOL TARTRATE 50 MG TAB PO ×3 (06:10→21:15)
[2023-06-08] MEDS: CENTRAL LINE FLUSH 10 ML IV PUSH ×3 (06:11→21:21)
[2023-06-08 08:14] LABS: Glucose Point of Care 92 mg/dl (65-105)
[2023-06-08] MEDS: SIMVASTATIN 20 MG TABLET PO (08:44)
--- NOTE | 2023-06-08 10:51 | PM.IMPN ---
Progress Note: A&P Assessment and Plan (1) Wound infection: Code(s): T14.8XXA - Other injury of unspecified body region, initial encounter; L08.9 - Local infection of the skin and subcutaneous tissue, unspecified Status: Acute Assessment and Plan: Right buttock wound with purulent drainage and odor. He was on vancomycin cefepime and Flagyl. Initial blood cultures grew MRSA. Blood cultures 05/30 NGTD Escalate to ertapenem 06/02, finished antibiotic today still bleeding with eliquis on hold, transfuse 1 unit and monitor, appreciate general surgery consult. Status post debridement and wound vac placement (2) Pulmonary embolism: Code(s): I26.99 - Other pulmonary embolism without acute cor pulmonale Status: Acute Assessment and Plan: Stable on room air, hold eliquis (3) Anemia: Code(s): D64.9 - Anemia, unspecified Status: Acute Assessment and Plan: Hold eliquis, monitor (4) DVT (deep venous thrombosis): Code(s): I82.409 - Acute embolism and thrombosis of unspecified deep veins of unspecified lower extremity Status: Acute Assessment and Plan: Eliquis on hold again d/t wound bleeding (5) Chronic kidney disease, stage 4 (severe): Code(s): N18.4 - Chronic kidney disease, stage 4 (severe) Status: Acute Assessment and Plan: Stable, monitor (6) Diabetes mellitus type 2 in obese: Code(s): E11.69 - Type 2 diabetes mellitus with other specified complication; E66.9 - Obesity, unspecified Status: Acute Assessment and Plan: ACHS glucose checks, sliding scale low dose correction (7) Atrial fibrillation: Code(s): I48.91 - Unspecified atrial fibrillation Status: Acute Assessment and Plan: Rate controlled at this time, atrial fibrillation on telemetry monitoring Plan Discussed goals of care with his , Carole Pinedo, Subjective Date/time seen: 06/08/23 10:51 Interval history: Patient states he is doing okay Review of Systems Review of Systems: 12 point review of systems was assessed and was negative except as noted in the HPI Exam Narrative: General: No acute distress, alert and oriented per baseline HEENT: Atraumatic, normocephalic, mucous membranes moist CV: Regular rate and rhythm, S1, S2 Lungs: Clear to auscultation bilaterally, no rales or crackles noted, no wheezes, good air entry Abdomen: Soft, nontender, nondistended Extremities: Normal to inspection Skin: No rashes noted, no lesions or wounds seen Psych: Euthymic, normal affect Objective Data Vital Signs Vital Signs: Vital Signs - 24 hr 06/07/23 11:00 06/07/23 11:15 06/07/23 12:00 Temperature 96.9 F L 97.4 F L Pulse Rate 98 96 106 H Respiratory Rate 18 18 Blood Pressure 106/61 112/66 Pulse Oximetry 99 99 Oxygen Delivery Oxygen Flow Rate 06/07/23 12:15 06/07/23 13:15 06/07/23 14:10 Temperature 98.3 F 97.5 F L 98 F Pulse Rate 94 83 97 Respiratory Rate 18 16 20 Blood Pressure 103/62 112/63 107/52 L Pulse Oximetry 98 100 100 Oxygen Delivery Oxygen Flow Rate 06/07/23 15:18 06/07/23 16:35 06/07/23 16:50 Temperature 97.1 F L 97 F L Pulse Rate 107 H 97 98 Respiratory Rate 16 16 13 Blood Pressure 121/74 104/73 119/68 Pulse Oximetry 100 100 97 Oxygen Delivery Room Air Simple Face Mask Room Air Oxygen Flow Rate 6 06/07/23 17:05 06/07/23 17:20 06/07/23 17:35 Temperature Pulse Rate 105 H 108 H 110 H Respiratory Rate 17 17 17 Blood Pressure 131/81 117/81 127/92 H Pulse Oximetry 93 94 96 Oxygen Delivery Room Air Room Air Room Air Oxygen Flow Rate 06/07/23 17:50 06/07/23 18:06 06/07/23 18:40 Temperature 98.0 F Pulse Rate 106 H 110 H 118 H Respiratory Rate 14 18 20 Blood Pressure 128/89 124/92 H 101/63 Pulse Oximetry 100 95 98 Oxygen Delivery Room Air Room Air Oxygen Flow Rate 06/07/23 18:55 06/07/23 19
--- NOTE | 2023-06-08 11:24 | WPDANESPN ---
Anes - Prog Note Post-Op Date/Time: 06/08/23 11:24 Cardiovascular status: normal Respiratory status: normal Airway patency: baseline Mental status: baseline Post-Op hydration status: normal Vital Signs: Last Vital Signs Temp 97.6 F 06/08/23 10:32 Pulse 100 06/08/23 10:32 Resp 18 06/08/23 10:32 BP 104/52 L 06/08/23 10:32 Pulse Ox 96 06/08/23 10:32 O2 Del Method Room Air 06/08/23 08:00 O2 Flow Rate 6 06/07/23 16:35 Pain Score (VAS): 0 I/O: Intake & Output 06/07/23 06/08/23 06/08/23 23:59 07:59 15:59 Intake Total 400 250 360 Output Total 300 250 Balance 100 0 360 Laboratory Tests 06/08/23 04:58 06/08/23 04:58 06/07/23 06/07/23 06/07/23 07:59 12:01 16:40 WBC RBC Hgb Hct MCV MCH MCHC RDW Plt Count MPV Immature Gran % (Auto) Neut % (Auto) Lymph % (Auto) [place] % (Auto) Eos % (Auto) Baso % (Auto) Lymph # (Auto) [place] # (Auto) Eos # (Auto) Baso # (Auto) Abs Immat Gran (auto) Absolute Neuts (auto) Absolute Nucleated RBC Nucleated RBC % Platelet Estimate Polychromasia Hypochromasia Anisocytosis Shakila Cells Schistocytes Sodium Potassium Chloride Carbon Dioxide Anion Gap BUN Creatinine Estim Creat Clear Calc Estimated GFR Glucose POC Capillary Glucose 89 98 Calcium Total Bilirubin AST ALT Alkaline Phosphatase Total Protein Albumin Crossmatch See Detail 06/07/23 06/08/23 06/08/23 19:29 04:58 08:05 WBC 11.3 H RBC 2.71 L Hgb 7.5 L Hct 25.2 L MCV 93.0 MCH 27.7 MCHC 29.8 L RDW 18.7 H Plt Count 332 MPV 8.4 Immature Gran % (Auto) 4.0 H Neut % (Auto) 56.7 Lymph % (Auto) 29.5 [place] % (Auto) 8.5 Eos % (Auto) 0.8 Baso % (Auto) 0.5 Lymph # (Auto) 3.33 H [place] # (Auto) 1.0 H Eos # (Auto) 0.1 Baso # (Auto) 0.1 Abs Immat Gran (auto) 0.45 H Absolute Neuts (auto) 6.4 Absolute Nucleated RBC 0.0 Nucleated RBC % 0.4 H Platelet Estimate Adequate Polychromasia 1+ Hypochromasia 1+ Anisocytosis 1+ Shakila Cells 1+ Schistocytes None seen Sodium 139 Potassium 3.7 Chloride 111 H Carbon Dioxide 25 Anion Gap 3 L BUN 16 Creatinine 1.60 H Estim Creat Clear Calc 43 Estimated GFR 50 L Glucose 95 POC Capillary Glucose 94 92 Calcium 8.7 Total Bilirubin 0.2 AST 28 ALT 22 Alkaline Phosphatase 185 H Total Protein 5.0 L Albumin 2.4 L Crossmatch Post-procedural complaints: none Patient Feedback: Patient satisfied with anesthetic care.
[2023-06-08 12:03] LABS: Glucose Point of Care 114 mg/dl (65-105)
--- NOTE | 2023-06-08 13:12 | PM.PNGS ---
Progress Note: A&P Assessment and Plan (1) Sacral decubitus ulcer: Qualifiers: Pressure injury stage: stage 4 Qualified Code(s): L89.154 - Pressure ulcer of sacral region, stage 4 Code(s): L89.159 - Pressure ulcer of sacral region, unspecified stage Status: Acute Assessment and Plan: The wound VAC seems to be working well today. Will leave the wound VAC in place until after the weekend. It will be very difficult to try to place wound VAC and change the dressing on the floor getting the very small amount of perianal skin available for getting a good seal for the wound VAC. continue present management for IV antibiotics. After assessing the wound early next week will decide on whether application of Axial Fill allograft would be beneficial to help with wound healing. Discussed with therapy today that the patient can be moved to a recliner by Jacqui lift to mobilize him out of bed. Subjective Subjective Date/Time Seen: 06/08/23 13:12 Interval history: Patient remained stable. He had debridement of his sacral decubitus wound yesterday with application of wound VAC. White blood cell count is decreasing 14,000 down to 11,000. He has not had a bowel movement yet since application of the wound VAC yesterday. He continues on IV antibiotics. Exam Skin: Other: Wound VAC is in place on the sacral decubitus wound. There is no air leak presently. Dressing is intact without any stool contamination. Output from the wound VAC is minimal bloody serous fluid. Objective Data Vital Signs Vital Signs: Vital Signs - 24 hr 06/07/23 13:15 06/07/23 14:10 06/07/23 15:18 Temperature 36.4 C L 36.6 C 36.2 C L Pulse Rate 83 97 107 H Respiratory Rate 16 20 16 Blood Pressure 112/63 107/52 L 121/74 Pulse Oximetry 100 100 100 Oxygen Delivery Room Air Oxygen Flow Rate 06/07/23 16:35 06/07/23 16:50 06/07/23 17:05 Temperature 36.1 C L Pulse Rate 97 98 105 H Respiratory Rate 16 13 17 Blood Pressure 104/73 119/68 131/81 Pulse Oximetry 100 97 93 Oxygen Delivery Simple Face Mask Room Air Room Air Oxygen Flow Rate 6 06/07/23 17:20 06/07/23 17:35 06/07/23 17:50 Temperature Pulse Rate 108 H 110 H 106 H Respiratory Rate 17 17 14 Blood Pressure 117/81 127/92 H 128/89 Pulse Oximetry 94 96 100 Oxygen Delivery Room Air Room Air Room Air Oxygen Flow Rate 06/07/23 18:06 06/07/23 18:40 06/07/23 18:55 Temperature 36.7 C 36.4 C Pulse Rate 110 H 118 H 105 H Respiratory Rate 18 20 20 Blood Pressure 124/92 H 101/63 136/68 Pulse Oximetry 95 98 97 Oxygen Delivery Room Air Oxygen Flow Rate 06/07/23 19:25 06/07/23 20:25 06/07/23 22:20 Temperature 36.1 C L 36.1 C L Pulse Rate 107 H 88 106 H Respiratory Rate 16 18 Blood Pressure 106/48 L 94/44 L 106/64 Pulse Oximetry 90 99 99 Oxygen Delivery Oxygen Flow Rate 06/07/23 23:27 06/07/23 20:00 06/08/23 00:00 Temperature 36.1 C L Pulse Rate 96 103 H 96 Respiratory Rate 17 Blood Pressure 101/59 L Pulse Oximetry 100 Oxygen Delivery Oxygen Flow Rate 06/08/23 04:00 06/08/23 04:59 06/08/23 06:10 Temperature 36.0 C L Pulse Rate 104 H 97 102 H Respiratory Rate 19 Blood Pressure 102/62 Pulse Oximetry 99 Oxygen Delivery Oxygen Flow Rate 06/08/23 08:00 06/08/23 10:32 Temperature 36.4 C Pulse Rate 100 Respiratory Rate 18 Blood Pressure 104/52 L Pulse Oximetry 96 Oxygen Delivery Room Air Oxygen Flow Rate Intake/Output Intake/Output: Intake & Output 06/05/23 06/06/23 06/07/23 06/08/23 23:59 23:59 23:59 23:59 Intake Total 710 047 6491 730 Output Total 700 725 650 250 Balance -260 -335 350 480 Meds/Results Medications: Active Medications Generic Name Dose Route Start Last Admin Trade Name Freq PRN Reason Stop Dose Admin Acetaminophen 650 mg 05/24/23 22:25 06/06/23 06:36 Acetaminophen 325 Mg Tablet PO 650 mg Q4H PRN Administration Pain Ra
[2023-06-08] MEDS: ACETAMINOPHEN 325 MG TABLET 650 MG PO (14:15)
[2023-06-08 17:20] LABS: Glucose Point of Care 111 mg/dl (65-105)
[2023-06-08 21:09] LABS: Glucose Point of Care 113 mg/dl (65-105)
[2023-06-08] MEDS: PANTOPRAZOLE 40 MG TABLET PO (21:15)
[2023-06-09] VITALS (15 sets, daily range): BP systolic 103–118; BP diastolic 60–69; PULSE 86–109; RESP 17–18; TEMP 36.4–36.9; O2SAT 97–100
[2023-06-09 05:25] LABS: Basophils Absolute Auto 0.1 K/mm3 (0.0-0.1); Basophils Percent Auto 0.4 % (0.2-1.2); Eosinophils Absolute Auto 0.1 K/mm3 (0-0.3); Eosinophils Percent Auto 0.9 % (0-4.4); Hematocrit 24.9 % (42.0-52.0); Hemoglobin 7.5 g/dL (14.0-18.0); Immature Granulocyte Absolute 0.27 K/mm3 (0.00-0.031); Immature Granulocyte Percent A 2.1 % (0-0.5); Lymphocytes Absolute Auto 5.52 K/mm3 (0.9-3.2); Lymphocytes Percent Auto 42.9 % (18.3-44.2); Mean Corpuscular HGB Conc 30.1 g/dl (32-36); Mean Corpuscular Hemoglobin 28.1 pg (26-34); Mean Corpuscular Volume 93.3 fl (80-100); Mean Platelet Volume 8.5 fl (7.4-10.4); Monocytes Percent Auto 7.5 % (2.6-8.5); Neutrophils Percent Auto 46.2 % (45.5-73.1); Nucleated Red Blood Cells Perc 0.2 % (0.0-0.2); Platelet Count Result 336 k/mm3 (150-375); Red Blood Count 2.67 M/mm3 (4.6-6.20); Red Cell Distribution Width 18.8 % (11.5-14.5); White Blood Count 12.9 K/mm3 (4.5-10.0)
[2023-06-09 05:32] LABS: Alanine Aminotransferase 22 U/L (6-50); Albumin Level 2.3 g/dL (3.5-5.1); Alkaline Phosphatase 188 U/L (38-126); Anion Gap 2 mmol/L (8-16); Aspartate Amino Transferase 26 U/L (17-59); Bilirubin,Total 0.2 mg/dL (0.2-1.3); Blood Urea Nitrogen 16 mg/dL (9-20); Calcium 8.7 mg/dL (8.4-10.2); Carbon Dioxide 26 mmol/L (22-30); Chloride 110 mmol/L (98-107); Estimated CRCL calculation 43 ml/min; Estimated Glomerular Filt Rate 50; Glucose 101 mg/dL (65-110); Potassium 3.8 mmol/L (3.4-5.0); Sodium 138 mmol/L (137-145)
[2023-06-09 05:48] LABS: Hypochromasia 1+ (NORMAL); Platelet Estimate Adequate (Adequate)
[2023-06-09 05:49] LABS: Burr Cells 1+ (NORMAL); Ovalocytes 1+ (NORMAL); Schistocytes None Seen (NORMAL)
[2023-06-09] MEDS: SUCRALFATE SUSP 100 MG/ML 10 ML UDC 1000 MG PO ×4 (05:52→20:19)
[2023-06-09] MEDS: METOPROLOL TARTRATE 50 MG TAB PO ×3 (05:52→20:21)
[2023-06-09] MEDS: CENTRAL LINE FLUSH 20 ML IV PUSH (05:53)
[2023-06-09] MEDS: CENTRAL LINE FLUSH 10 ML IV PUSH ×3 (05:53→20:26)
[2023-06-09 08:24] LABS: Glucose Point of Care 105 mg/dl (65-105)
[2023-06-09] MEDS: SIMVASTATIN 20 MG TABLET PO (09:24)
--- NOTE | 2023-06-09 11:17 | PM.IMPN ---
Progress Note: A&P Assessment and Plan (1) Wound infection: Code(s): T14.8XXA - Other injury of unspecified body region, initial encounter; L08.9 - Local infection of the skin and subcutaneous tissue, unspecified Status: Acute Assessment and Plan: Right buttock wound with purulent drainage and odor. He was on vancomycin cefepime and Flagyl. Initial blood cultures grew MRSA. Blood cultures 05/30 NGTD Escalate to ertapenem 06/02, finished antibiotic course 817 Status post debridement and wound vac placement (2) Pulmonary embolism: Code(s): I26.99 - Other pulmonary embolism without acute cor pulmonale Status: Acute Assessment and Plan: Stable on room air, hold eliquis due to episodes of bleeding (3) Anemia: Code(s): D64.9 - Anemia, unspecified Status: Acute Assessment and Plan: Hold eliquis, monitor (4) DVT (deep venous thrombosis): Code(s): I82.409 - Acute embolism and thrombosis of unspecified deep veins of unspecified lower extremity Status: Acute Assessment and Plan: Eliquis on hold again d/t wound bleeding (5) Chronic kidney disease, stage 4 (severe): Code(s): N18.4 - Chronic kidney disease, stage 4 (severe) Status: Acute Assessment and Plan: Stable, monitor (6) Diabetes mellitus type 2 in obese: Code(s): E11.69 - Type 2 diabetes mellitus with other specified complication; E66.9 - Obesity, unspecified Status: Acute Assessment and Plan: ACHS glucose checks, sliding scale low dose correction (7) Atrial fibrillation: Code(s): I48.91 - Unspecified atrial fibrillation Status: Acute Assessment and Plan: Rate controlled at this time, atrial fibrillation on telemetry monitoring Plan Discussed goals of care with his , Carole Pinedo, Family to have meeting with hospice Subjective Date/time seen: 06/09/23 11:17 Interval history: Patient remains status quo. Remains weak Review of Systems Review of Systems: 12 point review of systems was assessed and was negative except as noted in the HPI Exam Narrative: General: No acute distress, alert and oriented per baseline HEENT: Atraumatic, normocephalic, mucous membranes moist CV: Regular rate and rhythm, S1, S2 Lungs: Clear to auscultation bilaterally, no rales or crackles noted, no wheezes, good air entry Abdomen: Soft, nontender, nondistended Extremities: Normal to inspection Skin: Wound VAC in place on lower back Psych: Euthymic, normal affect Objective Data Vital Signs Vital Signs: Vital Signs - 24 hr 06/08/23 13:17 06/08/23 14:15 06/08/23 12:00 Temperature 97.8 F Pulse Rate 97 105 H 100 Respiratory Rate 18 Blood Pressure 106/50 L Pulse Oximetry 98 Oxygen Delivery 06/08/23 16:00 06/08/23 18:00 06/08/23 19:39 Temperature 97.7 F 97.2 F L Pulse Rate 103 H 100 96 Respiratory Rate 18 18 Blood Pressure 105/54 L 109/57 L Pulse Oximetry 99 100 Oxygen Delivery 06/08/23 21:15 06/08/23 20:00 06/09/23 00:00 Temperature Pulse Rate 98 114 H 98 Respiratory Rate Blood Pressure Pulse Oximetry Oxygen Delivery 06/09/23 04:00 06/09/23 02:00 06/09/23 06:00 Temperature 98.4 F 98.1 F Pulse Rate 92 96 109 H Respiratory Rate 18 18 Blood Pressure 114/69 117/64 Pulse Oximetry 97 97 Oxygen Delivery 06/09/23 05:52 06/09/23 09:21 06/09/23 08:00 Temperature Pulse Rate 92 86 Respiratory Rate Blood Pressure Pulse Oximetry Oxygen Delivery Room Air 06/09/23 10:00 Temperature 97.7 F Pulse Rate 98 Respiratory Rate 18 Blood Pressure 118/60 Pulse Oximetry 99 Oxygen Delivery Intake/Output Intake/Output: Intake & Output 06/06/23 06/07/23 06/08/23 06/09/23 23:59 23:59 23:59 23:59 Intake Total 390 / 390 1000 / 1000 1460 / 1460 480 / 480 Output Total 725 / 725 650 / 650 500 / 500 590 / 59
[2023-06-09 12:01] LABS: Glucose Point of Care 119 mg/dl (65-105)
[2023-06-09] MEDS: ACETAMINOPHEN 325 MG TABLET 650 MG PO (13:09)
[2023-06-09 17:05] LABS: Glucose Point of Care 144 mg/dl (65-105)
[2023-06-09] MEDS: PANTOPRAZOLE 40 MG TABLET PO (20:20)
[2023-06-09 21:19] LABS: Glucose Point of Care 112 mg/dl (65-105)
[2023-06-10] VITALS (15 sets, daily range): BP systolic 107–120; BP diastolic 65–80; PULSE 90–117; RESP 17–19; TEMP 35.9–36.8; O2SAT 96–100
[2023-06-10 04:36] LABS: Basophils Absolute Auto 0.1 K/mm3 (0.0-0.1); Basophils Percent Auto 0.4 % (0.2-1.2); Eosinophils Absolute Auto 0.1 K/mm3 (0-0.3); Eosinophils Percent Auto 1.2 % (0-4.4); Hematocrit 25.2 % (42.0-52.0); Hemoglobin 7.4 g/dL (14.0-18.0); Immature Granulocyte Absolute 0.22 K/mm3 (0.00-0.031); Immature Granulocyte Percent A 1.9 % (0-0.5); Lymphocytes Absolute Auto 4.45 K/mm3 (0.9-3.2); Lymphocytes Percent Auto 39.3 % (18.3-44.2); Mean Corpuscular HGB Conc 29.4 g/dl (32-36); Mean Corpuscular Hemoglobin 27.4 pg (26-34); Mean Corpuscular Volume 93.3 fl (80-100); Mean Platelet Volume 8.4 fl (7.4-10.4); Monocytes Absolute Auto 0.9 K/mm3 (0.1-0.6); Neutrophils Absolute Auto 5.5 K/mm3 (1.3-6.7); Neutrophils Percent Auto 49.2 % (45.5-73.1); Platelet Count Result 312 k/mm3 (150-375); Red Cell Distribution Width 18.6 % (11.5-14.5); White Blood Count 11.3 K/mm3 (4.5-10.0)
[2023-06-10 04:45] LABS: Alanine Aminotransferase 21 U/L (6-50); Albumin Level 2.4 g/dL (3.5-5.1); Alkaline Phosphatase 177 U/L (38-126); Anion Gap 3 mmol/L (8-16); Aspartate Amino Transferase 28 U/L (17-59); Bilirubin,Total 0.2 mg/dL (0.2-1.3); Blood Urea Nitrogen 16 mg/dL (9-20); Calcium 8.5 mg/dL (8.4-10.2); Carbon Dioxide 25 mmol/L (22-30); Chloride 110 mmol/L (98-107); Estimated CRCL calculation 46 ml/min; Estimated Glomerular Filt Rate 54; Glucose 100 mg/dL (65-110); Potassium 4.1 mmol/L (3.4-5.0); Sodium 138 mmol/L (137-145)
[2023-06-10 05:10] LABS: Anisocytosis 1+ (NORMAL); Platelet Estimate Adequate (Adequate)
[2023-06-10 05:11] LABS: Schistocytes None Seen (NORMAL)
[2023-06-10] MEDS: CENTRAL LINE FLUSH 10 ML IV PUSH ×3 (06:00→20:09)
[2023-06-10] MEDS: SUCRALFATE SUSP 100 MG/ML 10 ML UDC 1000 MG PO ×4 (06:00→20:07)
[2023-06-10] MEDS: METOPROLOL TARTRATE 50 MG TAB PO ×3 (06:00→20:08)
[2023-06-10] MEDS: SIMVASTATIN 20 MG TABLET PO (08:01)
[2023-06-10 08:29] LABS: Glucose Point of Care 102 mg/dl (65-105)
--- NOTE | 2023-06-10 12:07 | PM.IMPN ---
Progress Note: A&P Assessment and Plan (1) Wound infection: Code(s): T14.8XXA - Other injury of unspecified body region, initial encounter; L08.9 - Local infection of the skin and subcutaneous tissue, unspecified Status: Acute Assessment and Plan: Right buttock wound with purulent drainage and odor. He was on vancomycin cefepime and Flagyl. Initial blood cultures grew MRSA. Blood cultures 05/30 NGTD Escalate to ertapenem 06/02, finished antibiotic course 817 Status post debridement and wound vac placement (2) Pulmonary embolism: Code(s): I26.99 - Other pulmonary embolism without acute cor pulmonale Status: Acute Assessment and Plan: Stable on room air, hold eliquis due to episodes of bleeding (3) Anemia: Code(s): D64.9 - Anemia, unspecified Status: Acute Assessment and Plan: Hold eliquis, monitor Hemoglobin stable (4) DVT (deep venous thrombosis): Code(s): I82.409 - Acute embolism and thrombosis of unspecified deep veins of unspecified lower extremity Status: Acute Assessment and Plan: Eliquis on hold d/t wound bleeding (5) Chronic kidney disease, stage 4 (severe): Code(s): N18.4 - Chronic kidney disease, stage 4 (severe) Status: Acute Assessment and Plan: Stable, monitor (6) Diabetes mellitus type 2 in obese: Code(s): E11.69 - Type 2 diabetes mellitus with other specified complication; E66.9 - Obesity, unspecified Status: Acute Assessment and Plan: ACHS glucose checks, sliding scale low dose correction (7) Atrial fibrillation: Code(s): I48.91 - Unspecified atrial fibrillation Status: Acute Assessment and Plan: Rate controlled at this time, atrial fibrillation on telemetry monitoring Plan Discussed goals of care with his , Carole Pinedo, Family to have meeting with hospice on Monday Subjective Date/time seen: 06/10/23 12:07 Interval history: no change Review of Systems Review of Systems: 12 point review of systems was assessed and was negative except as noted in the HPI Exam Narrative: General: No acute distress, alert and oriented per baseline HEENT: Atraumatic, normocephalic, mucous membranes moist CV: Regular rate and rhythm, S1, S2 Lungs: Clear to auscultation bilaterally, no rales or crackles noted, no wheezes, good air entry Abdomen: Soft, nontender, nondistended Extremities: Normal to inspection Skin: Wound VAC in place on lower back Psych: Euthymic, normal affect Objective Data Vital Signs Vital Signs: Vital Signs - 24 hr 06/09/23 13:10 06/09/23 14:06 06/09/23 16:00 Temperature 97.8 F Pulse Rate 98 97 104 H Respiratory Rate 18 Blood Pressure 117/68 Pulse Oximetry 98 Oxygen Delivery 06/09/23 18:00 06/09/23 19:55 06/09/23 20:21 Temperature 97.7 F 97.6 F Pulse Rate 98 92 93 Respiratory Rate 17 18 Blood Pressure 118/64 103/68 Pulse Oximetry 99 100 Oxygen Delivery 06/09/23 20:00 06/10/23 00:04 06/10/23 02:00 Temperature 98.2 F Pulse Rate 102 H 94 94 Respiratory Rate 18 Blood Pressure 118/65 Pulse Oximetry 97 Oxygen Delivery 06/10/23 04:01 06/10/23 06:00 06/10/23 06:00 Temperature 98.0 F Pulse Rate 98 90 97 Respiratory Rate 18 Blood Pressure 116/72 Pulse Oximetry 99 Oxygen Delivery 06/10/23 08:00 06/10/23 08:00 06/10/23 10:00 Temperature 96.6 F L Pulse Rate 92 98 Respiratory Rate 18 Blood Pressure 120/70 Pulse Oximetry 100 Oxygen Delivery Room Air Intake/Output Intake/Output: Intake & Output 06/07/23 06/08/23 06/09/23 06/10/23 23:59 23:59 23:59 23:59 Intake Total 1000 / 1000 1460 / 1460 1020 / 1020 340 / 340 Output Total 650 / 650 500 / 500 840 / 840 1198 / 1198 Balance 350 / 350 960 / 960 180 / 180 -858 / -858 Meds/Results Medications: Active Medications Generic Name Dose Route Start L
[2023-06-10 12:09] LABS: Glucose Point of Care 125 mg/dl (65-105)
[2023-06-10 16:58] LABS: Glucose Point of Care 113 mg/dl (65-105)
[2023-06-10] MEDS: PANTOPRAZOLE 40 MG TABLET PO (20:08)
[2023-06-10 20:36] LABS: Glucose Point of Care 108 mg/dl (65-105)
[2023-06-11] VITALS (13 sets, daily range): BP systolic 95–119; BP diastolic 58–73; PULSE 74–130; RESP 18–20; TEMP 35.9–36.4; O2SAT 97–98
[2023-06-11] MEDS: METOPROLOL TARTRATE 50 MG TAB PO ×3 (05:54→20:10)
[2023-06-11] MEDS: CENTRAL LINE FLUSH 10 ML IV PUSH ×3 (05:54→20:11)
[2023-06-11] MEDS: SUCRALFATE SUSP 100 MG/ML 10 ML UDC 1000 MG PO ×4 (05:54→20:11)
[2023-06-11 06:33] LABS: Alanine Aminotransferase 21 U/L (6-50); Albumin Level 2.5 g/dL (3.5-5.1); Alkaline Phosphatase 179 U/L (38-126); Anion Gap 2 mmol/L (8-16); Aspartate Amino Transferase 28 U/L (17-59); Bilirubin,Total 0.3 mg/dL (0.2-1.3); Blood Urea Nitrogen 15 mg/dL (9-20); Calcium 8.8 mg/dL (8.4-10.2); Carbon Dioxide 27 mmol/L (22-30); Chloride 109 mmol/L (98-107); Estimated CRCL calculation 49 ml/min; Estimated Glomerular Filt Rate 59; Glucose 104 mg/dL (65-110); Potassium 4.2 mmol/L (3.4-5.0); Sodium 138 mmol/L (137-145)
[2023-06-11 07:44] LABS: Basophils Absolute Auto 0.1 K/mm3 (0.0-0.1); Basophils Percent Auto 0.5 % (0.2-1.2); Eosinophils Absolute Auto 0.1 K/mm3 (0-0.3); Eosinophils Percent Auto 0.7 % (0-4.4); Hematocrit 26.2 % (42.0-52.0); Hemoglobin 7.9 g/dL (14.0-18.0); Immature Granulocyte Absolute 0.14 K/mm3 (0.00-0.031); Immature Granulocyte Percent A 1.5 % (0-0.5); Lymphocytes Absolute Auto 3.03 K/mm3 (0.9-3.2); Lymphocytes Percent Auto 32.3 % (18.3-44.2); Mean Corpuscular HGB Conc 30.2 g/dl (32-36); Mean Corpuscular Hemoglobin 27.9 pg (26-34); Mean Corpuscular Volume 92.6 fl (80-100); Mean Platelet Volume 8.6 fl (7.4-10.4); Monocytes Absolute Auto 0.8 K/mm3 (0.1-0.6); Monocytes Percent Auto 8.3 % (2.6-8.5); Neutrophils Absolute Auto 5.3 K/mm3 (1.3-6.7); Neutrophils Percent Auto 56.7 % (45.5-73.1); Platelet Count Result 319 k/mm3 (150-375); Red Blood Count 2.83 M/mm3 (4.6-6.20); Red Cell Distribution Width 18.4 % (11.5-14.5); White Blood Count 9.4 K/mm3 (4.5-10.0)
[2023-06-11] MEDS: SIMVASTATIN 20 MG TABLET PO (08:03)
[2023-06-11 08:32] LABS: Glucose Point of Care 104 mg/dl (65-105)
--- NOTE | 2023-06-11 10:08 | PM.IMPN ---
Progress Note: A&P Assessment and Plan (1) Wound infection: Code(s): T14.8XXA - Other injury of unspecified body region, initial encounter; L08.9 - Local infection of the skin and subcutaneous tissue, unspecified Status: Acute Assessment and Plan: Right buttock wound with purulent drainage and odor. He was on vancomycin cefepime and Flagyl. Initial blood cultures grew MRSA. Blood cultures 05/30 NGTD Escalate to ertapenem 06/02, finished antibiotic course 817 Status post debridement and wound vac placement (2) Pulmonary embolism: Code(s): I26.99 - Other pulmonary embolism without acute cor pulmonale Status: Acute Assessment and Plan: Stable on room air, hold eliquis due to episodes of bleeding (3) Anemia: Code(s): D64.9 - Anemia, unspecified Status: Acute Assessment and Plan: Hold eliquis, monitor Hemoglobin stable (4) DVT (deep venous thrombosis): Code(s): I82.409 - Acute embolism and thrombosis of unspecified deep veins of unspecified lower extremity Status: Acute Assessment and Plan: Eliquis on hold d/t wound bleeding (5) Chronic kidney disease, stage 4 (severe): Code(s): N18.4 - Chronic kidney disease, stage 4 (severe) Status: Acute Assessment and Plan: Stable, monitor (6) Diabetes mellitus type 2 in obese: Code(s): E11.69 - Type 2 diabetes mellitus with other specified complication; E66.9 - Obesity, unspecified Status: Acute Assessment and Plan: ACHS glucose checks, sliding scale low dose correction (7) Atrial fibrillation: Code(s): I48.91 - Unspecified atrial fibrillation Status: Acute Assessment and Plan: Rate controlled at this time, atrial fibrillation on telemetry monitoring Plan Discussed goals of care with his , Carole Pinedo, Family to have meeting with hospice today Subjective Date/time seen: 06/11/23 10:08 Interval history: Patient states he is doing okay Review of Systems Review of Systems: 12 point review of systems was assessed and was negative except as noted in the HPI Exam Narrative: General: No acute distress, alert and oriented per baseline HEENT: Atraumatic, normocephalic, mucous membranes moist CV: Regular rate and rhythm, S1, S2 Lungs: Clear to auscultation bilaterally, no rales or crackles noted, no wheezes, good air entry Abdomen: Soft, nontender, nondistended Extremities: Normal to inspection Skin: Wound VAC in place on lower back Psych: Euthymic, normal affect Objective Data Vital Signs Vital Signs: Vital Signs - 24 hr 06/10/23 12:00 06/10/23 13:44 06/10/23 14:00 Temperature 96.9 F L Pulse Rate 98 98 95 Respiratory Rate 18 Blood Pressure 114/80 Pulse Oximetry 100 Oxygen Delivery 06/10/23 16:00 06/10/23 18:00 06/10/23 20:08 Temperature 96.8 F L Pulse Rate 103 H 96 93 Respiratory Rate 18 Blood Pressure 116/80 Pulse Oximetry 100 Oxygen Delivery 06/10/23 20:19 06/10/23 20:00 06/10/23 23:40 Temperature 97 F L 97 F L Pulse Rate 107 H 117 H 100 Respiratory Rate 17 19 Blood Pressure 110/75 107/70 Pulse Oximetry 99 96 Oxygen Delivery 06/11/23 00:04 06/11/23 04:00 06/11/23 05:54 Temperature Pulse Rate 104 H 120 H 100 Respiratory Rate Blood Pressure Pulse Oximetry Oxygen Delivery 06/11/23 06:00 06/11/23 08:00 06/11/23 08:00 Temperature 96.7 F L Pulse Rate 116 H 97 Respiratory Rate 19 Blood Pressure 119/73 Pulse Oximetry 98 Oxygen Delivery Room Air Intake/Output Intake/Output: Intake & Output 06/08/23 06/09/23 06/10/23 06/11/23 23:59 23:59 23:59 23:59 Intake Total 1460 / 1460 1020 / 1020 1110 / 1110 300 / 300 Output Total 500 / 500 840 / 840 1798 / 1798 500 / 500 Balance 960 / 960 180 / 180 -688 / -688 -200 / -200 Meds/Results Medications: Active Medications Generic N
[2023-06-11 12:08] LABS: Glucose Point of Care 135 mg/dl (65-105)
[2023-06-11 17:27] LABS: Glucose Point of Care 117 mg/dl (65-105)
[2023-06-11 18:30] LABS: IFOB Positive Control Positive; Immunochemical Fecal Occult Bl Negative (N)
[2023-06-11] MEDS: PANTOPRAZOLE 40 MG TABLET PO (20:10)
[2023-06-11 21:26] LABS: Glucose Point of Care 128 mg/dl (65-105)
[2023-06-12] VITALS (12 sets, daily range): BP systolic 103–137; BP diastolic 61–93; PULSE 12–136; RESP 14–20; TEMP 35.3–36.8; O2SAT 94–100
[2023-06-12] MEDS: METOPROLOL TARTRATE 50 MG TAB PO ×2 (05:32→13:03)
[2023-06-12] MEDS: CENTRAL LINE FLUSH 10 ML IV PUSH ×2 (05:32→13:03)
[2023-06-12] MEDS: SUCRALFATE SUSP 100 MG/ML 10 ML UDC 1000 MG PO ×3 (06:29→17:08)
[2023-06-12] MEDS: SIMVASTATIN 20 MG TABLET PO (08:57)
[2023-06-12 10:23] LABS: Basophils Absolute Auto 0.1 K/mm3 (0.0-0.1); Basophils Percent Auto 0.4 % (0.2-1.2); Eosinophils Absolute Auto 0.1 K/mm3 (0-0.3); Eosinophils Percent Auto 0.8 % (0-4.4); Hematocrit 27.9 % (42.0-52.0); Hemoglobin 8.2 g/dL (14.0-18.0); Immature Granulocyte Absolute 0.13 K/mm3 (0.00-0.031); Immature Granulocyte Percent A 0.9 % (0-0.5); Lymphocytes Absolute Auto 3.47 K/mm3 (0.9-3.2); Lymphocytes Percent Auto 25.3 % (18.3-44.2); Mean Corpuscular HGB Conc 29.4 g/dl (32-36); Mean Corpuscular Hemoglobin 27.1 pg (26-34); Mean Corpuscular Volume 92.1 fl (80-100); Mean Platelet Volume 8.6 fl (7.4-10.4); Monocytes Absolute Auto 1.3 K/mm3 (0.1-0.6); Monocytes Percent Auto 9.4 % (2.6-8.5); Neutrophils Absolute Auto 8.7 K/mm3 (1.3-6.7); Neutrophils Percent Auto 63.2 % (45.5-73.1); Platelet Count Result 322 k/mm3 (150-375); Red Blood Count 3.03 M/mm3 (4.6-6.20); Red Cell Distribution Width 18.2 % (11.5-14.5); White Blood Count 13.7 K/mm3 (4.5-10.0)
[2023-06-12 10:35] LABS: Alanine Aminotransferase 22 U/L (6-50); Albumin Level 2.7 g/dL (3.5-5.1); Alkaline Phosphatase 178 U/L (38-126); Anion Gap 3 mmol/L (8-16); Aspartate Amino Transferase 22 U/L (17-59); Bilirubin,Total 0.4 mg/dL (0.2-1.3); Blood Urea Nitrogen 15 mg/dL (9-20); Calcium 8.9 mg/dL (8.4-10.2); Carbon Dioxide 25 mmol/L (22-30); Chloride 109 mmol/L (98-107); Estimated CRCL calculation 49 ml/min; Estimated Glomerular Filt Rate 59; Glucose 134 mg/dL (65-110); Sodium 137 mmol/L (137-145)
[2023-06-12 10:59] LABS: Anisocytosis 1+ (NORMAL); Platelet Estimate Adequate (Adequate)
[2023-06-12 11:00] LABS: Schistocytes Rare (NORMAL)
--- NOTE | 2023-06-12 11:29 | PM.IMPN ---
Progress Note: A&P Assessment and Plan (1) Wound infection: Code(s): T14.8XXA - Other injury of unspecified body region, initial encounter; L08.9 - Local infection of the skin and subcutaneous tissue, unspecified Status: Acute Assessment and Plan: Right buttock wound with purulent drainage and odor. He was on vancomycin cefepime and Flagyl. Initial blood cultures grew MRSA. Blood cultures 05/30 NGTD Escalate to ertapenem 06/02, finished antibiotic course 817 Status post debridement and wound vac placement (2) Pulmonary embolism: Code(s): I26.99 - Other pulmonary embolism without acute cor pulmonale Status: Acute Assessment and Plan: Stable on room air (3) Anemia: Code(s): D64.9 - Anemia, unspecified Status: Acute Assessment and Plan: Hemoglobin stable (4) DVT (deep venous thrombosis): Code(s): I82.409 - Acute embolism and thrombosis of unspecified deep veins of unspecified lower extremity Status: Acute Assessment and Plan: Eliquis on hold d/t wound bleeding (5) Chronic kidney disease, stage 4 (severe): Code(s): N18.4 - Chronic kidney disease, stage 4 (severe) Status: Acute Assessment and Plan: Stable, monitor (6) Diabetes mellitus type 2 in obese: Code(s): E11.69 - Type 2 diabetes mellitus with other specified complication; E66.9 - Obesity, unspecified Status: Acute (7) Atrial fibrillation: Code(s): I48.91 - Unspecified atrial fibrillation Status: Acute Assessment and Plan: Rate controlled at this time Plan Discussed goals of care with his , Carole Pinedo, Family has agreed to hospice. merchandise presentation manager working on placement. Will put in comfort care orders Subjective Date/time seen: 06/12/23 11:29 Interval history: Stable Review of Systems Review of Systems: 12 point review of systems was assessed and was negative except as noted in the HPI Exam Narrative: General: No acute distress, alert and oriented per baseline HEENT: Atraumatic, normocephalic, mucous membranes moist CV: Regular rate and rhythm, S1, S2 Lungs: Clear to auscultation bilaterally, no rales or crackles noted, no wheezes, good air entry Abdomen: Soft, nontender, nondistended Extremities: Normal to inspection Skin: Wound VAC in place on lower back Psych: Euthymic, normal affect Objective Data Vital Signs Vital Signs: Vital Signs - 24 hr 06/11/23 12:00 06/11/23 14:17 06/11/23 16:00 Temperature Pulse Rate 110 H 102 H 125 H Respiratory Rate Blood Pressure Pulse Oximetry 06/11/23 18:00 06/11/23 20:10 06/11/23 21:14 Temperature 97.5 F L 96.9 F L Pulse Rate 109 H 130 H 74 Respiratory Rate 18 20 Blood Pressure 105/58 L 107/73 Pulse Oximetry 97 98 06/11/23 20:00 06/12/23 00:59 06/12/23 00:00 Temperature 98.3 F Pulse Rate 126 H 110 H 127 H Respiratory Rate 20 Blood Pressure 103/61 Pulse Oximetry 94 06/12/23 04:00 06/12/23 05:51 06/12/23 05:32 Temperature 98.2 F Pulse Rate 12 L 88 125 H Respiratory Rate 20 Blood Pressure 103/70 Pulse Oximetry 96 06/12/23 07:00 Temperature 96.2 F L Pulse Rate 94 Respiratory Rate 14 Blood Pressure 116/76 Pulse Oximetry 98 Intake/Output Intake/Output: Intake & Output 06/09/23 06/10/23 06/11/23 06/12/23 23:59 23:59 23:59 23:59 Intake Total 1020 / 1020 1110 / 1110 1056 / 1056 580 / 580 Output Total 840 / 840 1798 / 1798 500 / 500 800 / 800 Balance 180 / 180 -688 / -688 556 / 556 -220 / -220 Meds/Results Medications: Active Medications Generic Name Dose Route Start Last Admin Trade Name Freq PRN Reason Stop Dose Admin Acetaminophen 650 mg 05/24/23 22:25 06/09/23 13:09 Acetaminophen 325 Mg Tablet PO 650 mg Q4H PRN Administration Pain Rated 5 Or Less Alteplase, Recombinant 2 mg 06/06/23 05:38 06/06/23 11:19 Alteplase 2 Mg
[2023-06-12] MEDS: ACETAMINOPHEN 325 MG TABLET 650 MG PO ×2 (11:46→20:40)
--- NOTE | 2023-06-12 11:54 | PM.PNGS ---
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 Wound VAC dressing will help to keep the area clean. However given the location of the wound with a very small perianal skin margin to try to achieve a good seal it will be very difficult to do this at the bedside. He would need to go to the operating room for wound VAC changes probably at least once week. Given the patient has now been made hospice status by his family it would not seem to be reasonable to continue taking him to the operating room. Will remove the wound VAC today that has been on for 5 days and just pack the wound. Comfort measures are the hospitalist and the family. I would agree with this decision as the patient has multiple comorbid medical issues which will make healing the decubitus wound was in mobility very difficult if not impossible. Hospice is likely the best decision for him. Subjective Subjective Date/Time Seen: 06/12/23 11:54 Interval history: Patient alert today and eating lunch. Seems to be a little bit confused. Wound VAC is still in place but will need to be removed today. Plans for hospice placement noted from hospitalist progress note. I have briefly discussed this with the patient's at the end of last week and she was still deciding on hospice at that time. Current wound VAC has kept suction over the past 5 days. Exam Skin: Other: Sacral decubitus ulcer wound VAC in place. Good seal was noted. Drainage is old bloody serous. Objective Data Vital Signs Vital Signs: Vital Signs - 24 hr 06/11/23 12:00 06/11/23 14:17 06/11/23 16:00 Temperature Pulse Rate 110 H 102 H 125 H Respiratory Rate Blood Pressure Pulse Oximetry 06/11/23 18:00 06/11/23 20:10 06/11/23 21:14 Temperature 36.4 C L 36.1 C L Pulse Rate 109 H 130 H 74 Respiratory Rate 18 20 Blood Pressure 105/58 L 107/73 Pulse Oximetry 97 98 06/11/23 20:00 06/12/23 00:59 06/12/23 00:00 Temperature 36.8 C Pulse Rate 126 H 110 H 127 H Respiratory Rate 20 Blood Pressure 103/61 Pulse Oximetry 94 06/12/23 04:00 06/12/23 05:51 06/12/23 05:32 Temperature 36.8 C Pulse Rate 12 L 88 125 H Respiratory Rate 20 Blood Pressure 103/70 Pulse Oximetry 96 06/12/23 07:00 Temperature 35.7 C L Pulse Rate 94 Respiratory Rate 14 Blood Pressure 116/76 Pulse Oximetry 98 Intake/Output Intake/Output: Intake & Output 06/09/23 06/10/23 06/11/23 06/12/23 23:59 23:59 23:59 23:59 Intake Total 1020 1110 1056 580 Output Total 840 1798 500 800 Balance 877 -404 871 -547 Meds/Results Medications: Active Medications Generic Name Dose Route Start Last Admin Trade Name Freq PRN Reason Stop Dose Admin Acetaminophen 650 mg 05/24/23 22:25 06/12/23 11:46 Acetaminophen 325 Mg Tablet PO 650 mg Q4H PRN Administration Pain Rated 5 Or Less Alteplase, Recombinant 2 mg 06/06/23 05:38 06/06/23 11:19 Alteplase 2 Mg Vial (Cathflo) IV PUSH 2 mg ONCE PRN Administration Line Occlusion Dextrose 12.5 gm 05/24/23 18:22 Dextrose 50% 25 Gm/50 Ml Syringe IV PUSH PRN PRN Hypoglycemia Protocol Glucagon 1 mg 05/24/23 18:22 Glucagon For Inj 1 Mg Vial IM PRN PRN Hypoglycemia Protocol Glucose 15 gm 05/24/23 18:22 Glucose Oral Gel 15 Gm Of Glucse In 37.5 Gm Tube PO PRN PRN Hypoglycemia Protocol Dextrose 1,000 mls @ 100 mls/hr 05/24/23 18:22 Dextrose 5% 1,000 Ml IVPB PRN PRN Hypoglycemia Protocol Ondansetron HCl 4 mg 06/07/23 15:03 Ondansetron Inj 4 Mg/2 Ml Vial IV PUSH ONCE PRN Nausea Pant
--- NOTE | 2023-06-12 13:11 | PM.DS ---
DS: Admitting Diagnosis Discharge Date 06/12/2023 Admitting Diagnosis Sacral decubitus ulcer DVT PE DS: Discharge Diagnosis Discharge Diagnosis (1) Pulmonary embolism, bilateral: Code(s): I26.99 - Other pulmonary embolism without acute cor pulmonale Status: Acute (2) Sacral decubitus ulcer: Qualifiers: Pressure injury stage: stage 4 Qualified Code(s): L89.154 - Pressure ulcer of sacral region, stage 4 Code(s): L89.159 - Pressure ulcer of sacral region, unspecified stage Status: Acute (3) Atrial fibrillation: Code(s): I48.91 - Unspecified atrial fibrillation Status: Acute (4) DM2 (diabetes mellitus, type 2): Qualifiers: Diabetes mellitus fci insulin use: unspecified construction accountant insulin use status Diabetes mellitus complication status: with circulatory complication Code(s): E11.9 - Type 2 diabetes mellitus without complications Status: Acute (5) Hospice care: Code(s): Z51.5 - Encounter for palliative care Status: Acute DS: Summary Hospital Course Hospital Course: This is an 82 year old male patient who was at [facility] for rehabilitation and strengthening s/p long hospitalization for small bowel obstruction with surgical repair.? Patient was also diagnosed with DVT lower extremity.? patient was brought into the hospital after he developed sudden shortness of breath with desaturation to 70% on room air with associated lightheadedness and dizziness.? Patient reports incontinence to stool, passing gas appropriately and no nausea or vomiting.? Patient was placed on nasal cannula at 6 LPM which has subsequently been titrated to 2 LPM.? CTA chest shows bilateral PEs, no mention of right heart strain.? Patient also found to have a right buttock wound. He had leukocytosis. he was started on Eliquis. Patient dropped his hemoglobin insert Eliquis was held. General surgery was consulted for the right sacral decubitus ulcer. Patient underwent debridement. ?Postoperative wound VAC was placed. vancomycin and Cefepime started in ER 05/24, added Flagyl 05/25. Wound culture growing Bacteroides and E coli. Patient's antibiotics were eventually changed to ertapenem and he finished 2 weeks course. His leukocytosis also resolved. He also has a history of diabetes and atrial fibrillation and hypertension. Eliquis was re-initiated but he started bleeding from his G-tube ulcer so Eliquis was held. He has had a slow recovery and has poor quality of life. We discussed with his about goals of care and family decided to make him hospice. Patient is being discharged back to [facility] facility with hospice. Time Spent with Patient Time attestation: Total time spent providing and/or coordinating discharge services: DS: Data Data Completed and Pending Labs on day of discharge: Labs from last 24 hours 06/12/23 06/11/23 06/11/23 09:55 21:12 17:37 WBC 13.7 H RBC 3.03 L Hgb 8.2 L Hct 27.9 L MCV 92.1 MCH 27.1 MCHC 29.4 L RDW 18.2 H Plt Count 322 MPV 8.6 Immature Gran % (Auto) 0.9 H Neut % (Auto) 63.2 Lymph % (Auto) 25.3 [place] % (Auto) 9.4 H Eos % (Auto) 0.8 Baso % (Auto) 0.4 Lymph # (Auto) 3.47 H [place] # (Auto) 1.3 H Eos # (Auto) 0.1 Baso # (Auto) 0.1 Abs Immat Gran (auto) 0.13 H Absolute Neuts (auto) 8.7 H Absolute Nucleated RBC 0.0 Nucleated RBC % 0.0 Platelet Estimate Adequate Anisocytosis 1+ Schistocytes Rare Sodium 137 Potassium 4.0 Chloride 109 H Carbon Dioxide 25 Anion Gap 3 L BUN 15 Creatinine 1.40 H Estim Creat Clear Calc 49 Estimated GFR 59 Glucose 134 H POC Capillary Glucose 128 H Calcium 8.9 Total Bilirubin 0.4 AST 22 ALT 22 Alkaline Phosphatase 178 H Total Protein 6.0 L Albumin 2.7 L Stl Occult Blood (IFOB) Negative 06/11/23 17:21 WBC RBC Hgb Hct MCV MCH
--- NOTE | 2023-06-12 14:28 | PC.NURSE ---
Reviewed assessment notes for Diane Rowan Real Estate Director [facility]. Agree with assessment. Student will report to RN.
[2023-06-12 16:13] LABS: SARS-CoV-2 RNA PCR Negative (Negative)
[2023-06-12] MEDS: NEOMYCIN/POLYMYXIN/BACITRACIN OINTMENT PACKET 1 PACKET (17:08)
[2023-06-13 12:46] LABS: Glucose Point of Care 121 mg/dl (65-105)
[2023-06-13 14:15] LABS: Glucose Point of Care 111 mg/dl (65-105)
== END 2023-06-12 20:45 | disposition hospice, home (50) | DRG 579 ==
LOC: ANHED 15:22 → ANHIMU 17:59 → ANH2MED 05-26 17:08
PROVIDERS: Internal Medicine; Nurse Practitioner; Physician Assistant; Student in an Organized Health Care Education/Training Program; Surgery; Admitting Provider Family Medicine; Emergency Provider Emergency Medicine; PCP Hospitalist; Visit Provider Hospitalist
PROC: 0KBN0ZZ Excision of Right Hip Muscle, Open Approach (ICD-10-PCS; principal; 2023-05-26 15:00)
DX: L89.154 Pressure ulcer of sacral region, stage 4 (principal); I26.99 Other pulmonary embolism without acute cor pulmonale; I82.4Z3 Acute embolism and thrombosis of unspecified deep veins of distal lower extremity, bilateral; N18.4 Chronic kidney disease, stage 4 (severe); D63.1 Anemia in chronic kidney disease; B96.20 Unspecified Escherichia coli [E. coli] as the cause of diseases classified elsewhere; B96.6 Bacteroides fragilis [B. fragilis] as the cause of diseases classified elsewhere; E11.22 Type 2 diabetes mellitus with diabetic chronic kidney disease; E66.9 Obesity, unspecified; E78.5 Hyperlipidemia, unspecified; G89.29 Other chronic pain; I12.9 Hypertensive chronic kidney disease with stage 1 through stage 4 chronic kidney disease, or unspecified chronic kidney disease; I48.91 Unspecified atrial fibrillation; M10.9 Gout, unspecified; R15.9 Full incontinence of feces; Z66 Do not resuscitate; Z20.822 Contact with and (suspected) exposure to COVID-19; Z98.49 Cataract extraction status, unspecified eye; Z95.1 Presence of aortocoronary bypass graft; Z87.891 Personal history of nicotine dependence; Z79.01 Long term (current) use of anticoagulants
CPT/HCPCS: 36415; 36430; 36569; 51702; 71045; 71046; 71275; 73521; 80048; 80053; 80202; 81001; 82274; 82607; 82728; 82746; 82948; 83036; 83540; 83550; 83615; 83880; 84443; 84484; 84550; 85014; 85018; 85025; 85027; 85046; 85610; 85730; 86850; 86900; 86901; 86923; 87040; 87070; 87075; 87076; 87077; 87081; 87086; 87186; 87205; 87635; 93005; 96365; 96375; 97110; 97161; 97165; 97530; 99291; A9270; C1751; J0330; J0690; J0692; J1100; J1170; J1335; J1644; J1650; J1836; J2405; J2704; J2997; J3010; J3370; J7050; J7120; P9016; Q9967

== ENCOUNTER 2023-06-21 12:01 | Emergency (ER) | payer OTHER, MEDICARE, SELFPAY ==
[2023-06-21 11:51] VITALS: BP 60/40; PULSE 120; RESP 20; TEMP 36.1; O2SAT 95
--- NOTE | 2023-06-21 12:19 | ED.GENADULT ---
HPI - General Adult General Chief complaint: Skin/Abscess/Foreign Body Stated complaint: bed sore bleeding Time Seen by Provider: 06/21/23 12:19 Source: EMS Mode of arrival: EMS History of Present Illness HPI narrative: 83 years old white male came from care home by ambulance complaining of bleeding from recently debrided pressure ulcer yesterday. Patient is on hospice. No family member at the bedside,. Later I got notified from the care home that the patient is DNR, comfort measures only, after talking to patient's no blood work-up or imaging are required at this time. Patient will be discharged back to care home. She declined further evaluation and would like patient to go back to care home. Related Data Home Medications Medication Instructions Recorded Confirmed arginine-vitamin C-vitamin E oral 4.5 g PO BID 05/24/23 05/24/23 4.5 gram-156 mg/9.2 gram powder pkt collagenase clostridium histo. 250 1 applic topical DAILY 05/24/23 05/24/23 unit/gram topical ointment (Santyl) simvastatin 20 mg tablet 20 mg PO DAILY 05/24/23 05/24/23 Allergies Allergy/AdvReac Type Severity Reaction Status Date / Time No Known Drug Allergies Allergy Unknown Unknown Verified 06/07/23 15:06 Review of Systems Review of Systems: ROS unobtainable: Yes unobtainable due to medical condition and unobtainable due to mental status PMFSH Past Medical History Medical History Acute blood loss anemia Acute kidney injury superimposed on CKD Atrial fibrillation Cervical stenosis of spine Chronic indwelling Roberto catheter Chronic kidney disease, stage 4 (severe) Coffee ground emesis Diabetes mellitus type 2 in obese DM2 (diabetes mellitus, type 2) Erosive esophagitis GI bleed Gout Hyperlipidemia Hyperlipidemia Hypertension Hypertension Sepsis Sepsis associated hypotension Small bowel obstruction Urinary retention Surgical History Surgical History H/O cataract extraction H/O cervical spine surgery S/P CABG x 7 Family History Family History Unknown No problems noted. Social History Social History Social History: The patient is but is currently at [facility]. The patient has 5 children. He is a former smoker. Code status full code Smoking status: Former smoker Tobacco type: cigarettes Second hand tobacco smoke exposure: No Alcohol intake: never Substance use: never Substance use type: does not use Lack of Transportation: No Lack of Food: Never True Current Housing: I Have Housing Concerned About Future Housing: No Difficulty Paying Gas/Electric Bills: No Difficulty Paying for Meds: No Currently Unemployed: No Education: High School Diploma/GED Difficulty w/ Childcare or Family Care: No Spiritual care concerns: No Exam Narrative: General appearance: Well-developed, well-nourished, lethargic, pale Skin: Pale Head: Normocephalic, nontraumatic Chest and respiratory: Airway patent, no respiratory distress, no accessory muscle use Heart: Regular rate/rhythm Abdomen: Soft, nontender, no organomegaly, quiet bowel sounds Vascular: Normal peripheral pulses, normal capillary refill. Musculoskeletal: Large decubitus ulcer and the lumbar sacral area, 25 cm x 15 cm x 10 cm. No active bleeding. Neurologic: Alert and oriented to his name and age only Course Reevaluation(s) Reevaluation #1: Patient was complaining of pain at the lower back, 4 mg of morphine and
--- NOTE | 2023-06-21 12:26 | PC.NURSE ---
This RN called [facility] and [facility]. This RN is currently waiting for call backs from both facilities regarding a plan of action for patient's care.
--- NOTE | 2023-06-21 12:34 | PC.NURSE ---
SPOKE WITH [facility] [phone] AND ASKED FOR THEM TO CALL DR DAVILA BACK [facility] REGARDING PLAN OF CARE FOR PT
[2023-06-21] MEDS: SODIUM CHLORIDE 0.9% IV 1,000 ML 999 ML IV CONT ×2 (12:42→12:43)
[2023-06-21 13:00] VITALS: BP 70/40; PULSE 115; RESP 20; O2SAT 93
--- NOTE | 2023-06-21 13:13 | PC.NURSE ---
[facility] [employer] P[employer] HERE TO SPEAK WITH PT AND DR DAVILA. [facility] REP CALLED PT'S FAMILY AND THEY DECLINE TO HAVE ANY TREATMENT DONE AT THIS TIME. STATES THEY WILL BE ARRIVING TO ED [facility]. IVF CONTINUE. LAB ORDERS ON HOLD AT THIS TIME.
[2023-06-21] MEDS: ONDANSETRON INJ 4 MG/2 ML VIAL IV PUSH (13:16)
[2023-06-21] MEDS: MORPHINE SULFATE (*CRX) 4 MG/ML INJ IV PUSH ×2 (13:16→13:51)
[2023-06-21 13:45] VITALS: BP 68/46; PULSE 106; RESP 16; O2SAT 92
[2023-06-21 14:30] VITALS: BP 80/49; PULSE 98; RESP 20; O2SAT 93
== END 2023-06-21 16:20 | disposition hospice, home (50) ==
PROVIDERS: Emergency Provider Emergency Medicine
DX: L89.504 Pressure ulcer of unspecified ankle, stage 4 (principal); M96.831 Postprocedural hemorrhage of a musculoskeletal structure following other procedure; I48.91 Unspecified atrial fibrillation; E78.5 Hyperlipidemia, unspecified; I12.9 Hypertensive chronic kidney disease with stage 1 through stage 4 chronic kidney disease, or unspecified chronic kidney disease; E11.22 Type 2 diabetes mellitus with diabetic chronic kidney disease; N18.4 Chronic kidney disease, stage 4 (severe); Z87.891 Personal history of nicotine dependence
CPT/HCPCS: 96361; 96374; 96375; 96376; 99284; J2270; J2405; J7030